=== PATIENT | female | born 1950 | race Caucasian/White ===

== ENCOUNTER → 2019-04-03 | Outpatient (CLI) | payer MEDICARE, OTHER, SELFPAY ==
[2019-03-30 09:36] VITALS: BMI 28.3
[2019-04-03 12:30] LABS: Absolute Lymphocyte Count 1.58 X10^3/uL (0.83-4.51); Absolute Neutrophil Count 3.9 X10^3/uL (2.0-7.7); Basophil# 0.05 X10^3/uL; Basophil% 0.8 % (0-1); Eosinophil# 0.29 X10^3/uL; Eosinophils% 4.6 % (0-5); Hematocrit 38.9 % (37-47); Lymphocyte # 1.58 X10^3/ul (4.0); Mean Corp Hgb Conc 33.4 g/dL (32-36); Mean Corpuscular Hgb 31.4 pg (27.0-32.0); Mean Platelet Vol. 9.6 fl (6.2-12.0); Monocyte# 0.46 X10^3/uL; Monocyte% 7.3 % (0-10); NRBC Flagged by Analyzer 0 % (0-5); Neutrophil # 3.92 X10^3/uL (2.7-7.7); Platelet Count 260 K/mm3 (150-450); RBC Distribution Width CV 12.5 % (11.6-14.6); Red Blood Count 4.14 M/mm3 (4.2-5.4); White Blood Count 6.3 K/mm3 (4.4-11.0)
[2019-04-03 12:51] LABS: ALB/GLOB Ratio 1.1 RATIO (0.9-2.4); AST(SGOT) 23 U/L (15-37); Alanine Aminotransfer ALT/SGPT 37 U/L (13-56); Albumin, Serum 3.7 g/dL (3.2-5.0); Alkaline Phosphatase 89 U/L (45-117); Anion Gap 2 (5-15); BUN 17 mg/dL (7-18); BUN/Creat Ratio 20.4 RATIO (10-20); Calcium,Total 9.2 mg/dL (8.5-10.1); Chloride 107 mmol/L (98-107); Cholesterol 151 mg/dL (200); Creatinine, Serum 0.83 mg/dL (0.55-1.02); EST Glomerular Filtration Rate 72 mL/min (>60); Est Glom Filt Rate - Afr Amer 87 mL/min (>60); Globulin 3.4 g/dL (2.2-4.2); Glucose 95 mg/dL (74-106); High Density Lipoprotein 52 mg/dL; Potassium 4.3 mmol/L (3.5-5.1); Protein, Total 7.1 g/dL (6.4-8.2); Sodium Level 139 mmol/L (136-145); Triglycerides 167 mg/dL; Very Low Density Lipoprotein 33 mg/dL (5-40)
== END | disposition home or self-care (01) ==
LOC: BIMLAB 09:27
PROVIDERS: PCP Internal Medicine; Visit Provider Internal Medicine
DX: E78.5 Hyperlipidemia, unspecified (principal); F32.9 Major depressive disorder, single episode, unspecified
CPT/HCPCS: 36415; 80053; 80061; 85025

== ENCOUNTER → 2019-04-10 | Outpatient (CLI) | payer MEDICARE, OTHER, SELFPAY ==
[2019-03-30 09:36] VITALS: BMI 28.3
--- NOTE | 2019-04-10 14:16 | BI_ITS ---
MAMMOGRAPHY - BILATERAL SCREENING REASON FOR EXAM: Female, 68 years old. Routine annual screening examination. PERTINENT HISTORY: Non-contributory. TECHNIQUE: Digital bilateral breast robson (3D mammographic acquisition) in the CC and MLO projections. 2-D mediolateral oblique (MLO) and craniocaudad (CC) views of both breasts were obtained. CAD: Full Field Digital Mammography with Computer Added Detection was performed. COMPARISON: Comparison is made with prior outside examination dated April 18, 2018. FINDINGS: Breast Composition: There are scattered areas of fibroglandular density. There are no dominant masses or suspicious calcifications. Stable bilateral fat-containing lymph nodes. No other significant abnormalities are identified. There has been no significant change since the prior study. BI/SCREEN MAMM (CAD) W/ROBSON BILAT IMPRESSION: Stable bilateral screening mammogram. Yearly follow-up mammogram recommended. (A) ASSESSMENT CATEGORY: BIRADS Category 2: Benign. A letter regarding these results will be sent to the patient by the facility within 30 days. Approximately 10% of breast cancers are not detected by mammography. A normal mammogram should not delay biopsy of a clinically suspicious abnormality. [id number] Electronically Signed: Ray Turner, at 12:27 EDT , Service support ,
== END | disposition home or self-care (01) ==
LOC: OPBI 14:13
PROVIDERS: Family Provider Internal Medicine; PCP Internal Medicine; Referring Provider Internal Medicine; Visit Provider Internal Medicine
DX: Z12.31 Encounter for screening mammogram for malignant neoplasm of breast (principal)
CPT/HCPCS: 77063; 77067

== ENCOUNTER → 2019-06-12 | Outpatient (CLI) | payer MEDICARE, OTHER, SELFPAY ==
[2019-05-04 10:03] VITALS: BMI 28.3
--- NOTE | 2019-06-12 12:15 | RAD_ITS ---
STUDY: X-RAY - LEFT SHOULDER REASON FOR EXAM: Left shoulder pain for several months after lifting heavy boxes in February/March. TECHNIQUE: 4 view(s) of the shoulder. COMPARISON: None. FINDINGS: Normal glenohumeral articulation. There is joint space loss of the acromioclavicular joint. Normal acromion. There is a small exostosis of the medial cortex of the proximal humeral diaphysis. The soft tissue structures are unremarkable. Normal visualized pulmonary apex. RAD/Shoulder min 2 Views IMPRESSION: Acromioclavicular arthrosis. Small exostosis of the proximal humeral diaphysis. Electronically Signed: Hong Santos MD at 15:26 EDT Tel , Service support ,
== END | disposition home or self-care (01) ==
LOC: RAD 12:14
PROVIDERS: Family Provider Internal Medicine; PCP Internal Medicine; Referring Provider Internal Medicine; Visit Provider Internal Medicine
DX: M25.512 Pain in left shoulder (principal)
CPT/HCPCS: 73030

== ENCOUNTER → 2019-08-27 10:56 | Outpatient (CLI) | payer MEDICARE, OTHER, SELFPAY ==
[2019-08-22 13:40] VITALS: BMI 28.3
--- NOTE | 2019-08-27 10:58 | US_ITS ---
STUDY: ULTRASOUND BREAST - RIGHT REASON FOR EXAM: Female, 69 years old. Palpable lump in the right breast. TECHNIQUE: Axial and longitudinal images of the RIGHT breast were performed with a high resolution ultrasound transducer. # OF IMAGES: 20 COMPARISON: Comparison is made with the prior mammogram dated April 10, 2019. FINDINGS: RIGHT Breast: The palpable abnormality corresponds to 2 adjacent benign appearing lymph nodes in the axillary region of the breast. The larger measures 1.4 cm x 1 cm x 0.8 cm. US/Breast Limited Unilateral IMPRESSION: Findings suggestive of 2 small lymph nodes corresponding to the palpable abnormality ASSESSMENT CATEGORY: BIRADS Category 2: Benign. A letter regarding these results will be sent to the patient by the facility within 30 days. Electronically Signed: Ray Turner, at 11:15 EST , Service support ,
== END ==
PROVIDERS: Family Provider Internal Medicine; PCP Internal Medicine; Visit Provider Internal Medicine
DX: N63.11 Unspecified lump in the right breast, upper outer quadrant (principal)
CPT/HCPCS: 76642

== ENCOUNTER 2020-11-17 13:03 | Outpatient (RCR) | payer MEDICARE, OTHER, SELFPAY ==
[2020-05-12 11:12] VITALS: BMI 28.3
== END 2020-11-17 23:59 ==
LOC: IMMUN 13:03
PROVIDERS: PCP Family Medicine; Visit Provider Family Medicine
DX: Z23 Encounter for immunization (principal)
CPT/HCPCS: 0011A; 0012A

== ENCOUNTER → 2021-03-30 09:39 | Outpatient (CLI) | payer MEDICARE, OTHER, SELFPAY ==
[2020-05-12 11:12] VITALS: BMI 28.3
[2021-03-30 13:34] LABS: AST(SGOT) 49 U/L (15-37); Alanine Aminotransfer ALT/SGPT 72 U/L (13-56); Albumin, Serum 3.6 g/dL (3.2-5.0); Alkaline Phosphatase 90 U/L (45-117); Anion Gap 8 (5-15); BUN 15 mg/dL (7-18); BUN/Creat Ratio 18.3 RATIO (10-20); Calcium,Total 9.3 mg/dL (8.5-10.1); Chloride 108 mmol/L (98-107); Cholesterol 155 mg/dL (200); Creatinine, Serum 0.82 mg/dL (0.55-1.02); EST Glomerular Filtration Rate 73 mL/min (>60); Est Glom Filt Rate - Afr Amer 88 mL/min (>60); Globulin 3.6 g/dL (2.2-4.2); Glucose 118 mg/dL (74-106); High Density Lipoprotein 50 mg/dL; Protein, Total 7.2 g/dL (6.4-8.2); Sodium Level 141 mmol/L (136-145); Triglycerides 199 mg/dL; Very Low Density Lipoprotein 40 mg/dL (5-40)
== END ==
PROVIDERS: PCP Family Medicine; Referring Provider Family Medicine; Visit Provider Family Medicine
DX: E66.9 Obesity, unspecified (principal)
CPT/HCPCS: 36415; 80053; 80061

== ENCOUNTER → 2021-06-08 11:00 | Outpatient (CLI) | payer MEDICARE, OTHER, SELFPAY ==
[2020-05-12 11:12] VITALS: BMI 28.3
--- NOTE | 2021-06-08 11:01 | BI_ITS ---
MAMMOGRAPHY - BILATERAL SCREENING REASON FOR EXAM: Female, 70 years old. Routine annual screening examination. PERTINENT HISTORY: Non-contributory. TECHNIQUE: Digital bilateral breast robson (3D mammographic acquisition) in the CC and MLO projections. 2-D mediolateral oblique (MLO) and craniocaudad (CC) views of both breasts were obtained. CAD: Full Field Digital Mammography with Computer Added Detection was performed. COMPARISON: Comparison is made with prior study dated 04/10/2019. FINDINGS: Breast Composition: There are scattered areas of fibroglandular density. There are no dominant masses or suspicious calcifications. Stable benign-appearing bilateral axillary lymph nodes. No other significant abnormalities are identified. There has been no significant change since the prior study. BI/SCRN MAMM (CAD)W/ROBSON BILAT IMPRESSION: Stable bilateral screening mammogram. Yearly follow-up mammogram recommended. (A) ASSESSMENT CATEGORY: BIRADS Category 2: Benign. A letter regarding these results will be sent to the patient by the facility within 30 days. Approximately 10% of breast cancers are not detected by mammography. A normal mammogram should not delay biopsy of a clinically suspicious abnormality. [id number] Electronically Signed: Ray Turner MD at 12:40 EDT , Service support ,
== END ==
PROVIDERS: PCP Family Medicine; Referring Provider Family Medicine; Visit Provider Family Medicine
DX: Z13.1 Encounter for screening for diabetes mellitus (principal)
CPT/HCPCS: 77063; 77067

== ENCOUNTER → 2021-07-03 13:46 | Outpatient (CLI) | payer MEDICARE, OTHER, SELFPAY ==
[2021-07-03 17:53] LABS: ALB/GLOB Ratio 0.9 RATIO (0.9-2.4); AST(SGOT) 50 U/L (15-37); Alanine Aminotransfer ALT/SGPT 74 U/L (13-56); Albumin, Serum 3.7 g/dL (3.2-5.0); Alkaline Phosphatase 89 U/L (45-117); Anion Gap 7 (5-15); BUN 15 mg/dL (7-18); BUN/Creat Ratio 18.6 RATIO (10-20); Calcium,Total 9.7 mg/dL (8.5-10.1); Chloride 105 mmol/L (98-107); Creatinine, Serum 0.81 mg/dL (0.55-1.02); EST Glomerular Filtration Rate 74 mL/min (>60); Est Glom Filt Rate - Afr Amer 89 mL/min (>60); Free T3 2.2 pg/mL (2.18-3.98); Globulin 3.9 g/dL (2.2-4.2); Glucose 95 mg/dL (74-106); Potassium 4.1 mmol/L (3.5-5.1); Protein, Total 7.6 g/dL (6.4-8.2); Sodium Level 140 mmol/L (136-145); Thyroid Stim Hormone (TSH) 3.87 uIU/mL (0.358-3.74)
== END ==
PROVIDERS: PCP Family Medicine; Referring Provider Family Medicine; Visit Provider Family Medicine
DX: L65.9 Nonscarring hair loss, unspecified (principal)
CPT/HCPCS: 36415; 80053; 84443; 84481

== ENCOUNTER 2021-07-18 09:45 | Emergency (ER) | payer MEDICARE, OTHER, SELFPAY ==
[2021-07-18 09:46] VITALS: BP 121/85; PULSE 86; RESP 20; TEMP 36.6; O2SAT 99; BMI 31.7
--- NOTE | 2021-07-18 10:12 | ED.VIS.LOWEX ---
HPI History of Present Illness Chief Complaint: Lower Extremity Injury Informant: patient Occured/Mechanism Mechanism/Context: Yes injury Onset/Context/Timing Onset: Days Context: Sudden Onset Timing: Continuous Quality of Pain: Sharp Current Severity: Mild Maximum Severity: Moderate Associated Symptoms Associated Symptoms: Negative for Parasthesia, Weakness and Loss of Funtion Narrative Narrative: 70-year-old female history of prior rectal cancer with a colostomy. Tripped over a box about a week ago injuring the posterior aspect of her left knee. Was seen in urgent care last night and x-rays obtained which were reportedly negative. But is having continued pain. Difficulty bearing weight. Prior similar symptoms: No Recent Illness/Hospitalization: No PFSH PFSH Medical History History of malignant neoplasm of rectum, rectosigmoid junction, and anus Home Medications multivitamin 1 cap PO DAILY 03/06/19 [History Last Taken Unknown] oscal PO 03/06/19 [History Last Taken Unknown] oxybutynin chloride 15 mg tablet,extended release 24 hr 15 mg PO DAILY 08/22/19 [History Last Taken Unknown] ibuprofen 600 mg tablet 600 mg PO TID PRN #30 tab 04/30/20 [Rx Last Taken Unknown] prednisone 20 mg tablet 20 mg PO DAILY #5 tab 05/12/20 [Rx Last Taken Unknown] sertraline 50 mg tablet 50 mg PO DAILY #30 tab 03/31/21 [Rx Last Taken Unknown] hydrocodone-acetaminophen 1 tab PO Q6H PRN 5 Days #14 tab 07/18/21 [Rx Last Taken Unknown] Allergy/AdvReac Type Severity Reaction Status Date / Time Penicillins Allergy Unknown rash Verified 07/18/21 09:48 duratuss cough medication Allergy Unknown rash Uncoded 07/18/21 09:48 Family History Father Myocardial infarction Brother Myocardial infarction Surgical History History of creation of ostomy History of hysterectomy History of removal of cyst Social History Smoking Status: Never smoker alcohol intake: never substance use type: does not use what type of physical activity do you participate in: none ROS ROS ED ROS Narrative Denies recent illness. Review of Systems ROS Unobtainable: Denies due to encephalopathy Constitutional Constitutional ED: Denies fever(s) Eyes Eyes: Denies change in vision ENT ENT ED: Denies ear pain Cardiovascular Cardiovascular: Denies chest pain Respiratory/Chest Respiratory/Chest: Denies dyspnea Gastrointestinal Gastrointestinal: Denies abdominal pain Genitourinary Genitourinary ED: Denies dysuria Musculoskeletal Musculoskeletal: Denies myalgias Integumentary Denies rash Neurologic Neurologic: Denies headache(s) Psychiatric Psychiatric: Denies depression Endocrine Endocrinology: Denies polyuria Hematologic/Lymphatic Hematologic/Lymphatic: Denies easy bruising Allergic/Immunologic Allergic/Immunologic ED: Denies urticaria EXAM Physical Exam Narrative Exam Narrative: Female no acute distress. Lying in bed. Vital signs stable afebrile. HEENT, neck, heart, lung and abdominal exam are unremarkable. Back nontender. Both upper extremities right lower extremity unremarkable nontender. Left lower extremity left hip ankle and foot are nontender neurovascularly intact. Normal DP pulse. She is able to dorsi and plantar flex her left ankle and foot. Able to wiggle her toes. Normal touch sensation. The left knee there is no effusion. No gross bony deformity. She has pain with range of motion. All the pain and tenderness is in the popliteal fossa over the soft tissue. ACL PCL MCL LCL appear to be intact. She can lift her leg off the bed and has normal extension 180 degrees. Otherwise exam unremarkable. Const Vital Signs: 07/18/21 09:46 Temperature 97.9 F Temperature Source Temporal Pulse Rate 86 Respiratory Rate 20 H Blood Pressure 121/85 H Blood Pressure Mean 97 Pulse Ox 99 Oxygen Delivery Method Room Air Positive well nourished and well developed; Negative for cachectic, contractures or unkempt General Appearance ED: well developed and NAD; Negative for unkempt, cachectic or contractures Nutritional Appearance: Negative for cachectic HEENT Reports moist mucous membranes normocephalic and atraumatic Eyes PERRL Neck full ROM and supple Thyroid: Negative for tender Chest Wall inspection of chest normal and palpation of chest normal Resp normal respiratory effort, no retractions and clear to auscultation bilaterally Auscultation: Negative for rales, rhonchi or wheezes Cardio regular rate, regular rhythm, S1 normal heart sound, S2 normal heart sound and no murmurs GI non-tender, non-distended and no masses Auscultation: normoactive bowel sounds Palpation: soft; Negative for tender or guarding Back/Spine no CVA tenderness Cervical Spine: Negative for cervical spine tenderness Thoracic Spine / Upper Back: Negative for thoracic spinal tenderness Lumbar Spine / Lower Back: Negative for lumbar spinal tenderness Extremity normal to inspection and full ROM Extremity Narrative: Except left knee posteriorly she is tender palpation. She has full extension. No effusion. Ligaments are intact. She has tenderness on the popliteal fossa and pain with flexion. Neuro oriented x3 and moves all extremities Sensorium / Orientation: alert, oriented to person, oriented to place and oriented to time; Negative for orientation impaired or stuporous Motor Exam: strength 5/5 throughout Psych mental status grossly normal Appearance: Negative for unkempt Skin no wounds Lesions: no lesions Rashes: no rashes Trauma: Negative for abrasion or laceration MDM MDM MDM Narrative Medical decision making narrative: Patient status post fall a week ago with pain in her posterior knee. I will review the x-rays she brought with her. She was given Vicodin for pain. I have reviewed the patient's knee x-ray from the urgent care the other day. It was unremarkable. She had some mild decreased joint space. There was no fracture or dislocation. I went over the films with her and her explained to them that you do not see cartilage and ligaments or tendons on an x-ray. Clinically I think this is a sprain of her posterior knee and popliteal muscle soft tissue injury. She understands if is not improving she will need to follow-up with orthopedics she may need an MRI of her knee to rule out a meniscal tear. Ice. Rest. Use a walker at home. Limited [place] for pain 14 no refill. Follow-up with orthopedics if not improving in 1 to 2 weeks. Discharge Plan Triage Chief Complaint: Lower Extremity Injury ED Provider: Dudley Allen Dx/Rx/DC Orders Clinical Impression: Left knee sprain Instructions: ED Knee Sprain Prescriptions: New hydrocodone-acetaminophen 5-325 mg tablet 1 tab PO Q6H PRN (Reason: pain) 5 Days Qty: 14 RF: 0 No Action oscal PO RF: 0 multivitamin capsule capsule 1 cap PO DAILY RF: 0 oxybutynin chloride 15 mg tablet extended release 24hr 15 mg PO DAILY RF: 0 ibuprofen 600 mg tablet 600 mg PO TID PRN (Reason: pain) Qty: 30 RF: 0 prednisone 20 mg tablet 20 mg PO DAILY Qty: 5 RF: 0 sertraline [Zoloft] 50 mg tablet 50 mg PO DAILY Qty: 30 RF: 0 Primary Care Provider: Adarsh Solano Referrals: Adarsh Solano MD [Primary Care Provider] - Activity Restrictions/Additional Instructions: Ice to back your knee to decrease pain and swelling. Motrin 400 mg twice a day for pain and swelling. [place] for pain. Use a walker at home. Follow-up with your doctor or a local orthopedic physician for further evaluation if this is not improving. Clinically this appears to be a sprained knee if it is not improving needs further evaluation and possibly an MRI to evaluate for possible meniscal tear. Disposition Disposition: Home, Self Care
[2021-07-18] MEDS: HYDROcodone Bitartrate/Apap 5/325 Tablet PO (10:23)
--- NOTE | 2021-07-18 11:34 | ED.RN ---
Pt able to bear weight on right leg to assist with transfer to W/C and to enter car. She required minimal assist getting into car. They have stated they would call family friend to assist into house.
== END 2021-07-18 11:35 | disposition home or self-care (01) ==
PROVIDERS: Emergency Provider Emergency Medicine; PCP Family Medicine
DX: S83.8X2A Sprain of other specified parts of left knee, initial encounter (principal); Z93.3 Colostomy status; Z85.048 Personal history of other malignant neoplasm of rectum, rectosigmoid junction, and anus; W01.0XXA Fall on same level from slipping, tripping and stumbling without subsequent striking against object, initial encounter; Y93.01 Activity, walking, marching and hiking; Y92.008 Other place in unspecified non-institutional (private) residence as the place of occurrence of the external cause; Y99.8 Other external cause status
CPT/HCPCS: 99282

== ENCOUNTER 2021-12-24 23:06 | Emergency (ER) | payer MEDICARE, OTHER, SELFPAY ==
[2021-12-24 23:07] VITALS: BP 218/85; PULSE 130; RESP 18; TEMP 38.2; O2SAT 95; BMI 31.7
--- NOTE | 2021-12-24 23:17 | EKG12_ITS ---
Test Reason : ABD PAIN Blood Pressure : / mmHG Vent. Rate : 090 BPM Atrial Rate : 090 BPM P-R Int : 158 ms QRS Dur : 086 ms QT Int : 378 ms P-R-T Axes : 067 003 068 degrees QTc Int : 462 ms Sinus rhythm with Premature supraventricular complexes Nonspecific ST and T wave abnormality Abnormal ECG Confirmed by ROBINSON LLOYD, KORY ([id number]), editor newspaper KRISTIE BRISCOE ([id number]) on 12/30/2021 11:03:56 AM Referred By: Confirmed By:KORY BOWERS MD
--- NOTE | 2021-12-24 23:21 | EX.ED.DYSGE1 ---
HPI History of Present Illness Chief Complaint: General Illness Informant: patient Narrative Narrative: Patient started with sense of chills at about 9 or 930 this evening. She now has had about 3 or 4 episodes of vomiting over the last hour and a half. No blood or black seen. No diarrhea. She does not have abdominal pain. She has chronic rhinorrhea but no new congestion or drainage. No cough. She also has some chronic urinary frequency. She does not know if this is changed. She is overall a relatively healthy person. She was diagnosed with rectal cancer about 10 years ago. She had chemotherapy radiation and surgery and it is thought to be completely cured. She had an ostomy placed about 3 or so years ago due to chronic diarrhea. No change in ostomy output. Nothing really makes her symptoms better or worse but she did not have any meds at home to help with nausea. [facility] Medical History (Updated 12/25/21 @ 02:[address] Geovany Carrera MD) Depression History of malignant neoplasm of rectum, rectosigmoid junction, and anus Hyperlipidemia Sleep apnea Urinary incontinence Home Medications multivitamin 1 cap PO DAILY 03/06/19 [History Last Taken Unknown] oscal PO 03/06/19 [History Last Taken Unknown] oxybutynin chloride 15 mg tablet,extended release 24 hr 15 mg PO DAILY 08/22/19 [History Last Taken Unknown] ibuprofen 600 mg tablet 600 mg PO TID PRN #30 tab 04/30/20 [Rx Last Taken Unknown] prednisone 20 mg tablet 20 mg PO DAILY #5 tab 05/12/20 [Rx Last Taken Unknown] sertraline 50 mg tablet 50 mg PO DAILY #30 tab 03/31/21 [Rx Last Taken Unknown] hydrocodone-acetaminophen 1 tab PO Q6H PRN 5 Days #14 tab 07/18/21 [Rx Last Taken Unknown] ondansetron 4 mg PO Q8H PRN #10 tab 12/25/21 [Rx Last Taken Unknown] promethazine 25 mg PO TID PRN #10 tab 12/25/21 [Rx Last Taken Unknown] Allergy/AdvReac Type Severity Reaction Status Date / Time Penicillins Allergy Unknown rash Verified 12/24/21 23:09 duratuss cough medication Allergy Unknown rash Uncoded 07/18/21 09:48 Family History Father Myocardial infarction Brother Myocardial infarction Surgical History History of creation of ostomy History of hysterectomy History of removal of cyst Social History Smoking Status: Never smoker alcohol intake: never substance use type: does not use what type of physical activity do you participate in: none ROS ROS ED Constitutional Constitutional ED: Reports chills and fever(s) Eyes Eyes: Denies blurry vision ENT ENT ED: Reports rhinorrhea and other Details: Rhinorrhea is chronic and unchanged ; Denies sore throat Cardiovascular Cardiovascular: Denies chest pain or palpitations Respiratory/Chest Respiratory/Chest: Denies cough, dyspnea, dyspnea on exertion or sputum Gastrointestinal Gastrointestinal: Reports nausea and vomiting; Denies abdominal pain, constipation, diarrhea or melena Genitourinary Genitourinary ED: Reports urinary frequency; Denies dysuria Musculoskeletal Musculoskeletal: Denies myalgias Integumentary Denies rash Neurologic Neurologic: Denies headache(s) Psychiatric Psychiatric: Denies anxiety or depression Endocrine Endocrinology: Denies polydipsia or polyuria Allergic/Immunologic Allergic/Immunologic ED: Denies urticaria EXAM Physical Exam Const Vital Signs: 12/24/21 23:07 12/24/21 23:13 12/25/21 02:07 Temperature 100.8 F H Temperature Source Temporal Pulse Rate 130 H 91 Respiratory Rate 18 18 Respiratory Effort Normal Respiratory Pattern Normal Blood Pressure 218/85 H 160/36 H Blood Pressure Mean 129 77 Pulse Ox 95 92 Oxygen Delivery Method Room Air Room Air Positive well nourished and well developed General Appearance ED: well developed; Negative for cyanotic or NAD HEENT Reports moist mucous membranes Negative for trauma Eyes General Eye ED: Negative for pale conjunctiva or scleral icterus Neck no JVD Chest Wall inspection of chest normal and palpation of chest normal Resp normal respiratory effort and clear to auscultation bilaterally Effort and Inspection: Negative for pain with movement Auscultation: Negative for rales, rhonchi or wheezes Cardio regular rate, regular rhythm and no murmurs Rate: other Other Details: Heart rate was tachycardic when she came in. However, it is now at about 90 while in bed. GI normal to inspection, nondistended, normoactive bowel sounds, non-tender and non-distended GI Narrative: Abdomen is soft nondistended and nontender. Ostomy left lower quadrant has normal drainage and healthy appearance. Palpation: soft Back/Spine no CVA tenderness Extremity normal to inspection Neuro oriented x3 Sensorium / Orientation: alert Psych mental status grossly normal Skin no rashes or lesions noted and no wounds MDM MDM MDM Narrative Medical decision making narrative: Patient's labs do show an elevated white count of 15.2. Electrolytes show minimal drop of her potassium at 3.4. LFTs show minimal bumps of AST ALT. Alk phos and total bili are normal. Lipase is normal. Her urinalysis also did not show marked signs of infection. It was clear pale yellow. There is 25 leukocyte esterase but no white cells. Rare bacteria. Patient's recheck. She is feeling better. Nausea is controlled. However she is starting to get some nonlocalized abdominal discomfort. She feels this is likely from recurrent vomiting. She is still denying any cough or trouble breathing. No rashes. She does state that she is starting to feel a little bit of myalgias. I will add chest x-ray and Covid test along with CT of the abdomen with her changing symptoms along with vomiting white count and fever. She was also already scheduled to have a CT of the abdomen as an outpatient due to some mild elevations of her liver function test. Her liver function tests are little less elevated today than they have been. CT showed findings more consistent with an enteritis. She has not had any travel or antibiotics. Her abdomen is benign. I do not think this requires antibiotics to treat. This is most likely viral. She does not know if she has developed diarrhea because she always has watery stools and diarrhea because of her ostomy and prior surgery. She does not think this is changed. Her nausea is gone. She has been drinking some water. She is comfortable going home. I will write for Phenergan and Zofran. If she develops pain, worsening fevers, any new or concerning symptoms she should return. Her chest x-ray had shown possible left infiltrate or atelectasis. But she has no pulmonary symptoms or hypoxia. CT scan did not show these changes. Lab Data Attestation: I reviewed the patient's lab results. Labs: Laboratory Results - last 24 hr 04/07/22 04/07/22 04/07/22 23:40 23:40 23:58 WBC 15.2 H RBC 4.29 Hgb 13.8 Hct 39.4 MCV 91.8 MCH 32.2 H MCHC 35.0 RDW Std Deviation 41.7 RDW Coeff of Axel 12.4 Plt Count 241 MPV 9.3 Immature Gran % (Auto) 0.400 Neut % (Auto) 82.6 H Lymph % (Auto) 9.4 L [place] % (Auto) 6.4 Eos % (Auto) 0.9 Baso % (Auto) 0.3 Absolute Neuts (auto) 12.5 H Absolute Lymphs (auto) 1.43 Nucleated RBC % 0 Sodium 140 Potassium 3.4 L Chloride 109 H Carbon Dioxide 23.0 Anion Gap 8 BUN 12 Creatinine 0.89 Estim Creat Clear Calc 48.61 Est GFR (MDRD) Af Amer 80 Est GFR (MDRD) Non-Af 66 BUN/Creatinine Ratio 13.5 Glucose 160 H Calcium 8.9 Total Bilirubin 0.40 AST 39 H ALT 70 H Alkaline Phosphatase 90 Total Protein 7.0 Albumin 3.5 Globulin 3.5 Albumin/Globulin Ratio 1.0 Lipase 84 Urine Color Yellow Urine Clarity Clear Urine pH 5.0 Ur Specific [place] 1.020 Urine Protein 15 H Urine Glucose (UA) Normal Urine Ketones Negative Urine Occult Blood Negative Urine Nitrite Negative Urine Bilirubin Negative Urine Urobilinogen Normal Ur Leukocyte Esterase 25 H Urine RBC 0 SEEN Urine WBC 0-5 SEEN Ur Squamous Epith Cells 0 SEEN Urine Bacteria RARE Urine Mucus 0 SEEN Radiography Diagnostic Testing: Clinical Impression(s) from Imaging Studies Chest X-Ray 12/25/21 00:50 IMPRESSION: Hazy left basal opacity, may represent atelectasis or infection. Electronically Signed: Yariel Negro MD at 1:13 EDT , Abdomen/Pelvis CT 12/25/21 00:51 IMPRESSION: 1. Findings suggestive of acute infectious or inflammatory enteritis and possible colitis. 2. Hepatomegaly. 3. 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 Electronically Signed: Birgit Gaytan MD at 2:11 EDT , EKG Initial EKG: Comments: EKG done for nonspecific abdominal pain nausea vomiting in the elderly. EKG read by me shows normal sinus rhythm with occasional PAC. No acute ST elevation or depression. Mild baseline irregularity. SD interval, QRS duration and QTc normal. Discharge Plan Triage Chief Complaint: General Illness ED Provider: Geovany Carrera Dx/Rx/DC Orders Clinical Impression: Enteritis, Nausea & vomiting Instructions: ED Vomiting and Diarrhea ... Prescriptions: New ondansetron 4 mg tablet,disintegrating 4 mg PO Q8H PRN (Reason: nausea and vomiting) Qty: 10 RF: 0 promethazine 25 mg tablet 25 mg PO TID PRN (Reason: nausea and vomiting) Qty: 10 RF: 0 No Action oscal PO RF: 0 multivitamin capsule capsule 1 cap PO DAILY RF: 0 oxybutynin chloride 15 mg tablet extended release 24hr 15 mg PO DAILY RF: 0 ibuprofen 600 mg tablet 600 mg PO TID PRN (Reason: pain) Qty: 30 RF: 0 prednisone 20 mg tablet 20 mg PO DAILY Qty: 5 RF: 0 hydrocodone-acetaminophen 5-325 mg tablet 1 tab PO Q6H PRN (Reason: pain) 5 Days Qty: 14 RF: 0 sertraline [Zoloft] 50 mg tablet 50 mg PO DAILY Qty: 30 RF: 0 Primary Care Provider: Adarsh Solano Referrals: Adarsh Solano MD [Primary Care Provider] - 1-2 Days if not improving Disposition Disposition: Home, Self Care
[2021-12-24] MEDS: Ondansetron 4 MG/2 ML Vial IV (23:24)
[2021-12-24] MEDS: 0.9% Normal Saline 1,000 ML 1000 ML IV (23:24)
[2021-12-24 23:48] LABS: Absolute Lymphocyte Count 1.43 X10^3/uL (0.83-4.51); Absolute Neutrophil Count 12.5 X10^3/uL (2.0-7.7); Basophil# 0.04 X10^3/uL; Basophil% 0.3 % (0-1); Eosinophil# 0.13 X10^3/uL; Eosinophils% 0.9 % (0-5); Hematocrit 39.4 % (37-47); Hemoglobin 13.8 g/dL (12.0-15.0); Lymphocyte # 1.43 X10^3/ul (0.83-4.51); Lymphocyte % 9.4 % (19-41); Mean Corpuscular Hgb 32.2 pg (27.0-32.0); Mean Corpuscular Volume 91.8 fL (81-99); Mean Platelet Vol. 9.3 fl (6.2-12.0); Monocyte# 0.97 X10^3/uL; Monocyte% 6.4 % (0-10); NRBC Flagged by Analyzer 0 % (0-5); Neutrophil # 12.52 X10^3/uL (2.7-7.7); Neutrophil % 82.6 % (47-70); Platelet Count 241 K/mm3 (150-450); RBC Distribution Width CV 12.4 % (11.6-14.6); RBC Distribution Width SD 41.7 fl (35.1-43.9); Red Blood Count 4.29 M/mm3 (4.2-5.4); White Blood Count 15.2 K/mm3 (4.4-11.0)
[2021-12-25] LABS: Mucous, Urine 0 SEEN /hpf (<or=2+); Red Blood Cells-Urine 0 SEEN /hpf (0-5); Squamous Epithelial Cells - UA 0 SEEN /hpf (5-10)
[2021-12-25 00:02] LABS: Color, Urine Yellow (Yellow); Glucose, Dipstick Normal (Normal); Ketone-Dipstick Negative (Negative); Leukocyte Esterase-Dipstick 25 /ul (Negative); Nitrite-Dipstick Negative (Negative); Occult Blood-Urine Negative /ul (Negative); Protein-Dipstick 15 mg/dl (Negative); Urine Bilirubin Dipstick Negative (Negative); Urine Clarity Clear (Clear); Urine Urobilinogen Normal (Normal)
[2021-12-25 00:38] LABS: Bacteria RARE /hpf (None Seen); White Blood Cells 0-5 SEEN /hpf (0-5)
[2021-12-25 00:41] LABS: AST(SGOT) 39 U/L (15-37); Alanine Aminotransfer ALT/SGPT 70 U/L (13-56); Albumin, Serum 3.5 g/dL (3.2-5.0); Alkaline Phosphatase 90 U/L (45-117); Anion Gap 8 (5-15); BUN 12 mg/dL (7-18); BUN/Creat Ratio 13.5 RATIO (10-20); Calcium,Total 8.9 mg/dL (8.5-10.1); Chloride 109 mmol/L (98-107); Creatinine, Serum 0.89 mg/dL (0.55-1.02); EST Glomerular Filtration Rate 66 mL/min (>60); Est Glom Filt Rate - Afr Amer 80 mL/min (>60); Estimated Creatinine Clearance 48.61 ml/min; Globulin 3.5 g/dL (2.2-4.2); Glucose 160 mg/dL (74-106); Lipase 84 U/L (73-393); Potassium 3.4 mmol/L (3.5-5.1); Sodium Level 140 mmol/L (136-145)
--- NOTE | 2021-12-25 00:50 | RAD_ITS ---
INDICATION: cough EXAMINATION/TECHNIQUE: X-RAY - XR Chest 1 View COMPARISON: None. FINDINGS: LINES/DEVICES: None. LUNGS: Hazy retrocardiac and left lower lobe opacity partially obscuring the left hemidiaphragm. MEDIASTINUM AND CARDIOVASCULAR STRUCTURES: Atherosclerotic calcifications. BONES AND SOFT TISSUES: Unremarkable. RAD/Chest 1 View (Portable) IMPRESSION: Hazy left basal opacity, may represent atelectasis or infection. Electronically Signed: Yariel Negro MD at 1:13 EDT ,
--- NOTE | 2021-12-25 00:51 | CT_ITS ---
STUDY: CT ABDOMEN AND PELVIS WITH CONTRAST REASON FOR EXAM: Female, 71 years old patient with abdominal pain and vomiting RADIATION DOSAGE (If Supplied By Facility): CTDIvol = ( 12.74 ) mGy, DLP = ( 981.66 ) mGycm TECHNIQUE: Transaxial images were obtained from the dome of the diaphragm to the symphysis pubis without oral contrast. 100 mL of IV Isovue-300 was administered. Sagittal and coronal images were reconstructed. Individualized dose optimization techniques were used for this CT. COMPARISON: Prior comparison studies are not available for review at this time. FINDINGS: There is interstitial thickening present along bases. There is right basilar subsegmental atelectasis. There is a lingular pulmonary nodule measuring 7.5 mm in greatest dimension. The visualized portions of the heart are within normal limits. There is hepatomegaly with diffuse hepatic enlargement. Normal gallbladder and extrahepatic biliary system. Normal spleen. Normal pancreas. Normal bilateral adrenal glands. There is prominence of the calyces of both kidneys. This may be secondary to previous obstruction or papillary necrosis. There is no definite hydronephrosis, hydroureter or radiopaque ureteral calculus. Normal visualized stomach. There is no obvious dilated bowel, ascites or pneumoperitoneum. There is some thickening of the matos of the proximal small bowel which could be secondary to acute infectious or inflammatory enteritis. There is some liquid stool visible in the ascending colon suggesting diarrhea in addition to acute infectious or inflammatory colitis. Stool is present throughout the colon with scattered diverticula. There is non-visualization of the appendix. Normal abdominal aorta. There is venous distention of the inferior vena cava (IVC). Normal retroperitoneum. Urinary bladder wall is mildly thickened measuring approximately 4.6 mm. There is absence of the uterus consistent with a prior hysterectomy. There is a left lower quadrant parastomal ventral hernia without obvious evidence for bowel obstruction. Normal osseous structures. CT/Abdomen/Pelvis W IV Cont ONLY IMPRESSION: 1. Findings suggestive of acute infectious or inflammatory enteritis and possible colitis. 2. Hepatomegaly. 3. 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 Electronically Signed: Birgit Gaytan MD at 2:11 EDT ,
[2021-12-25 02:07] VITALS: BP 160/36; PULSE 91; RESP 18; O2SAT 92
[2021-12-25] MEDS: Acetaminophen 500 MG Tablet 1000 MG PO (02:09)
== END 2021-12-25 02:49 | disposition home or self-care (01) ==
PROVIDERS: Emergency Provider Emergency Medicine; PCP Family Medicine; Visit Provider Emergency Medicine
DX: K52.9 Noninfective gastroenteritis and colitis, unspecified (principal); Z93.3 Colostomy status; E78.5 Hyperlipidemia, unspecified; R35.0 Frequency of micturition; Z20.822 Contact with and (suspected) exposure to COVID-19; G47.30 Sleep apnea, unspecified; R32 Unspecified urinary incontinence; Z85.048 Personal history of other malignant neoplasm of rectum, rectosigmoid junction, and anus; F32.A Depression, unspecified; Z79.899 Other long term (current) drug therapy
CPT/HCPCS: 71045; 74177; 80053; 81001; 83690; 85025; 87086; 87811; 93005; 96361; 96374; 99283; J7030; Q9967; J2405

== ENCOUNTER 2022-01-01 10:17 | Outpatient (CLI) | payer MEDICARE, OTHER, SELFPAY ==
--- NOTE | 2022-01-01 10:21 | US_ITS ---
STUDY: ABDOMINAL ULTRASOUND - RIGHT UPPER QUADRANT REASON FOR VISIT: Female, 71 years old elevated transaminase, hx rectal CA TECHNIQUE: Ultrasound evaluation of the right upper quadrant was performed with real-time and static cabello-scale imaging. TECHNICAL QUALITY: Adequate. COMPARISON: Comparison is made with prior CT scan of the abdomen and pelvis dated 12/25/2021. FINDINGS: Liver: The liver is enlarged and measures 18.3 cm. There is increased echogenicity consistent with fatty infiltration. The bile ducts are within normal limits. There is hepatic color flow. The direction of portal flow is hepatopetal. There is no demonstrated mass lesion. Gallbladder: Normal distended gallbladder. The gallbladder wall measures 2.2 mm. There is a negative sonographic Rodríguez''s sign. There is no pericholecystic fluid. There are multiple echogenic structures within the gallbladder, consistent with multiple gallstones. Common Bile Duct (C.B.D.): The common bile duct measures 2.8 mm. Pancreas: Normal size of the head, body and tail of the pancreas. There is normal echogenicity of the pancreas. There is no demonstrated pancreatic mass or cyst. Right Kidney: Normal size of the right kidney. The right kidney measures 10.8 cm x 4.8 cm x 4.8 cm. There is thinning of the renal cortex. The right cortex measures 0.9 cm. Small parapelvic cysts. There is no right hydronephrosis. US/Abdomen Limited IMPRESSION: Hepatomegaly and fatty infiltration of the liver. Multiple small gallstones. Small right parapelvic renal cyst Electronically Signed: Ray Turner MD at 13:59 EDT ,
== END 2022-01-01 23:59 | disposition home or self-care (01) ==
LOC: US 10:19
PROVIDERS: PCP Family Medicine; Referring Provider Family Medicine; Visit Provider Family Medicine
DX: R74.01 Elevation of levels of liver transaminase levels (principal); Z85.048 Personal history of other malignant neoplasm of rectum, rectosigmoid junction, and anus
CPT/HCPCS: 76705

== ENCOUNTER → 2022-06-25 | Outpatient (CLI) | payer MEDICARE, OTHER, SELFPAY ==
--- NOTE | 2022-06-25 13:46 | BI_ITS ---
MAMMOGRAPHY - BILATERAL SCREENING REASON FOR EXAM: Female, 71 years old. Routine annual screening examination. PERTINENT HISTORY: Non-contributory. Remote right breast biopsy. TECHNIQUE: Digital bilateral breast robson (3D mammographic acquisition) in the CC and MLO projections. 2-D mediolateral oblique (MLO) and craniocaudad (CC) views of both breasts were obtained. CAD: Full Field Digital Mammography with Computer Added Detection was performed. COMPARISON: Comparison is made with prior study dated 06/08/2021 and 04/10/2019. FINDINGS: Breast Composition: The breasts are heterogeneously dense, which may obscure small masses. There are no dominant masses or suspicious calcifications. Stable benign-appearing bilateral axillary No other significant abnormalities are identified. There has been no significant change since the prior study. BI/SCRN MAMM (CAD)W/ROBSON BILAT IMPRESSION: Stable bilateral screening mammogram. Yearly follow-up mammogram recommended. (A) ASSESSMENT CATEGORY: BIRADS Category 2: Benign. A letter regarding these results will be sent to the patient by the facility within 30 days. Approximately 10% of breast cancers are not detected by mammography. A normal mammogram should not delay biopsy of a clinically suspicious abnormality. [id number] Electronically Signed: Ray Turner MD at 14:37 EDT ,
== END | disposition home or self-care (01) ==
LOC: OPBI 13:46
PROVIDERS: PCP Family Medicine; Visit Provider Family Medicine
DX: Z12.31 Encounter for screening mammogram for malignant neoplasm of breast (principal)
CPT/HCPCS: 77063; 77067

== ENCOUNTER → 2022-07-07 | Outpatient (CLI) | payer MEDICARE, OTHER, SELFPAY ==
--- NOTE | 2022-07-07 15:45 | CT_ITS ---
STUDY: CT CHEST WITH CONTRAST REASON FOR EXAM: Female, 71 years old. Follow-up lung nodule. History of anal cancer with chemotherapy and radiation. RADIATION DOSAGE (If Supplied By Facility): CTDIvol = ( 15.17 ) mGy, DLP = ( 594.16 ) mGycm TECHNIQUE: Transaxial imaging was performed following intravenous administration of IV 100mL Isovue-370. Multiplanar coronal and sagittal images were reformatted. Individualized dose optimization techniques were used for this CT. COMPARISON: Chest, 12/25/2021. CT abdomen and pelvis, 04/26/2022. FINDINGS: CHEST The lungs are well expanded. There is a vague pleural-based density in the right lateral costophrenic angle 1.0 x 0.5 x 0.9 cm. The lingular nodule described on the prior exam has the appearance of linear thickening along the inferior oblique fissure on the current exam. Question scarring. No other mass or infiltrate is seen. No pleural effusions. Normal heart and pericardium. Normal mediastinum. Normal hilar regions. Normal unenhanced pulmonary arteries. Normal aorta arch and descending thoracic aorta. Stable degenerative changes of the thoracic spine. The liver is enlarged and fatty infiltrated. The upper abdomen is otherwise grossly unremarkable. CT/Chest WITH Contrast IMPRESSION: 1. Linear density along the lower lateral oblique fissure. This was described as a nodule on the prior CT abdomen and pelvis. This is the appearance of scarring. Follow-up could be performed to rule out possibility of a small underlying nodule. 2. Soft tissue density along the left diaphragmatic surface. This should be followed up to ensure stability. 3. Otherwise normal CT of the chest. Electronically Signed: Radhames Manzanares DO at 18:15 EDT ,
[2022-07-07 16:11] LABS: CREATININE FINGERSTICK < 0.9 mg/dL (0.55-1.02); EGFR FINGERSTICK > 60.0000 mL/min (>60)
== END | disposition home or self-care (01) ==
PROVIDERS: PCP Family Medicine; Referring Provider Family Medicine; Visit Provider Family Medicine
DX: R91.1 Solitary pulmonary nodule (principal)
CPT/HCPCS: 71260; Q9967

== ENCOUNTER → 2022-09-09 | Outpatient (CLI) | payer MEDICARE, OTHER, SELFPAY ==
[2022-09-09 15:08] LABS: Absolute Lymphocyte Count 2.62 X10^3/uL (0.83-4.51); Absolute Neutrophil Count 5.8 X10^3/uL (2.0-7.7); Basophil# 0.05 X10^3/uL; Basophil% 0.5 % (0-1); Eosinophil# 0.22 X10^3/uL; Eosinophils% 2.3 % (0-5); Hematocrit 41.5 % (37-47); Hemoglobin 14.4 g/dL (12.0-15.0); Lymphocyte # 2.62 X10^3/ul (0.83-4.51); Lymphocyte % 27.8 % (19-41); Mean Corp Hgb Conc 34.7 g/dL (32-36); Mean Corpuscular Hgb 32.3 pg (27.0-32.0); Mean Platelet Vol. 9.5 fl (6.2-12.0); Monocyte# 0.74 X10^3/uL; Monocyte% 7.8 % (0-10); NRBC Flagged by Analyzer 0 % (0-5); Neutrophil # 5.75 X10^3/uL (2.7-7.7); Neutrophil % 61.1 % (47-70); Platelet Count 271 K/mm3 (150-450); RBC Distribution Width CV 12.5 % (11.6-14.6); RBC Distribution Width SD 42.9 fl (35.1-43.9); Red Blood Count 4.46 M/mm3 (4.2-5.4); White Blood Count 9.4 K/mm3 (4.4-11.0)
[2022-09-09 15:46] LABS: Vitamin B12 626 pg/mL (211-911)
[2022-09-09 15:51] LABS: AST(SGOT) 57 U/L (15-37); Alanine Aminotransfer ALT/SGPT 89 U/L (13-56); Albumin, Serum 3.7 g/dL (3.2-5.0); Alkaline Phosphatase 92 U/L (45-117); Anion Gap 6 (5-15); BUN 14 mg/dL (7-18); BUN/Creat Ratio 19.6 RATIO (10-20); Calcium,Total 9.6 mg/dL (8.5-10.1); Chloride 106 mmol/L (98-107); Creatinine, Serum 0.71 mg/dL (0.55-1.02); EST Glomerular Filtration Rate 85 mL/min (>60); Est Glom Filt Rate - Afr Amer 103 mL/min (>60); Ferritin 357 ng/mL (8-252); Globulin 3.6 g/dL (2.2-4.2); Glucose 95 mg/dL (74-106); Potassium 4.1 mmol/L (3.5-5.1); Protein, Total 7.3 g/dL (6.4-8.2); Sodium Level 139 mmol/L (136-145); Thyroid Stim Hormone (TSH) 4.32 uIU/mL (0.358-3.74)
== END | disposition home or self-care (01) ==
LOC: MFPLAB 14:09
PROVIDERS: PCP Family Medicine; Referring Provider Family Medicine; Visit Provider Family Medicine
DX: R53.83 Other fatigue (principal)
CPT/HCPCS: 36415; 80053; 82306; 82607; 82728; 84443; 85025

== ENCOUNTER → 2022-09-21 | Outpatient (CLI) | payer MEDICARE, OTHER, SELFPAY ==
[2022-09-21 18:45] LABS: Free T3 2.4 pg/mL (2.18-3.98); T4 Free Direct 0.84 ng/dL (0.76-1.46); Thyroid Stim Hormone (TSH) 2.86 uIU/mL (0.358-3.74)
[2022-09-24 19:10] LABS: Anti-Thyroglobulin AB < 1.0 IU/mL (0.0-0.9); Thyroglobulin, Serum Qt. 12.8 ng/mL (1.5-38.5)
== END | disposition home or self-care (01) ==
LOC: MFPLAB 14:11
PROVIDERS: PCP Family Medicine; Referring Provider Family Medicine; Visit Provider Family Medicine
DX: R79.89 Other specified abnormal findings of blood chemistry (principal); R53.83 Other fatigue
CPT/HCPCS: 36415; 84432; 84439; 84443; 84481; 86800

== ENCOUNTER → 2023-01-20 | Outpatient (CLI) | payer MEDICARE, OTHER, SELFPAY ==
--- NOTE | 2023-01-20 15:30 | RAD_ITS ---
STUDY: X-RAY CHEST REASON FOR EXAM: Female, 72 years old. Cough not resolving TECHNIQUE: Single AP portable view of the chest. COMPARISON: Comparison is made to study dated December 25, 2021. FINDINGS: Hyperinflation. Calcified granuloma in the left lower lobe. Stable mild increased markings at the left lung base suggestive of a mild left basilar scarring. There is no demonstrated pleural abnormality. Normal size heart. Normal mediastinum and sailaja. Normal visualized pulmonary arteries. Normal visualized aortic arch and descending thoracic aorta. There are diffuse degenerative changes of the visualized thoracic spine. Normal visualized ribs, clavicles, and shoulders. There is no demonstrated abnormality of the visualized soft tissue structures of the upper abdomen. RAD/Chest 1 View IMPRESSION: Hyperinflation. Stable changes at the left lung base suggestive of scarring. Electronically Signed: Ray Turner MD at 15:49 EDT ,
== END | disposition home or self-care (01) ==
LOC: RAD 15:04
PROVIDERS: PCP Family Medicine; Referring Provider Family Medicine; Visit Provider Family Medicine
DX: R05.9 Cough, unspecified (principal)
CPT/HCPCS: 71045

== ENCOUNTER → 2023-06-24 | Outpatient (CLI) | payer MEDICARE, OTHER, SELFPAY ==
[2023-06-24 10:19] LABS: Absolute Lymphocyte Count 2.45 X10^3/uL (0.83-4.51); Basophil# 0.06 X10^3/uL; Basophil% 0.7 % (0-1); Eosinophil# 0.36 X10^3/uL; Eosinophils% 4.2 % (0-5); Hematocrit 39.9 % (37-47); Hemoglobin 13.3 g/dL (12.0-15.0); Lymphocyte # 2.45 X10^3/ul (0.83-4.51); Lymphocyte % 28.6 % (19-41); Mean Corp Hgb Conc 33.3 g/dL (32-36); Mean Corpuscular Hgb 31.7 pg (27.0-32.0); Mean Platelet Vol. 9.9 fl (6.2-12.0); Monocyte% 8.2 % (0-10); NRBC Flagged by Analyzer 0 % (0-5); Neutrophil # 4.95 X10^3/uL (2.7-7.7); Neutrophil % 57.8 % (47-70); Platelet Count 255 K/mm3 (150-450); RBC Distribution Width CV 12.3 % (11.6-14.6); RBC Distribution Width SD 42.5 fl (35.1-43.9); White Blood Count 8.6 K/mm3 (4.4-11.0)
[2023-06-24 10:52] LABS: AST(SGOT) 43 U/L (15-37); Alanine Aminotransfer ALT/SGPT 71 U/L (13-56); Albumin, Serum 3.4 g/dL (3.2-5.0); Alkaline Phosphatase 76 U/L (45-117); Anion Gap 5 (5-15); BUN 16 mg/dL (7-18); BUN/Creat Ratio 20.2 RATIO (10-20); Calcium,Total 9.2 mg/dL (8.5-10.1); Chloride 109 mmol/L (98-107); Cholesterol 150 mg/dL (200); Creatinine, Serum 0.79 mg/dL (0.55-1.02); EST Glomerular Filtration Rate 75 mL/min (>60); Est Glom Filt Rate - Afr Amer 91 mL/min (>60); Globulin 3.5 g/dL (2.2-4.2); Glucose 105 mg/dL (74-106); High Density Lipoprotein 49 mg/dL; Potassium 3.7 mmol/L (3.5-5.1); Protein, Total 6.9 g/dL (6.4-8.2); Sodium Level 139 mmol/L (136-145); Thyroid Stim Hormone (TSH) 5.36 uIU/mL (0.358-3.74); Triglycerides 172 mg/dL; Very Low Density Lipoprotein 34 mg/dL (5-40)
== END | disposition home or self-care (01) ==
LOC: MFPLAB 08:43
PROVIDERS: PCP Family Medicine; Visit Provider Family Medicine
DX: Z00.00 Encounter for general adult medical examination without abnormal findings (principal); E78.5 Hyperlipidemia, unspecified; Z13.1 Encounter for screening for diabetes mellitus; R79.89 Other specified abnormal findings of blood chemistry
CPT/HCPCS: 36415; 80053; 80061; 84443; 85025

== ENCOUNTER → 2024-06-08 | Outpatient (CLI) | payer MEDICARE, OTHER, SELFPAY ==
[2024-06-08 10:32] LABS: Hematocrit 39.2 % (37-47); Hemoglobin 12.8 g/dL (12.0-15.0); Mean Corp Hgb Conc 32.7 g/dL (32-36); Mean Corpuscular Hgb 30.8 pg (27.0-32.0); Mean Corpuscular Volume 94.5 fL (81-99); Mean Platelet Vol. 9.7 fl (6.2-12.0); Platelet Count 246 K/mm3 (150-450); RBC Distribution Width CV 12.6 % (11.6-14.6); RBC Distribution Width SD 43.8 fl (35.1-43.9); Red Blood Count 4.15 M/mm3 (4.2-5.4); White Blood Count 8.2 K/mm3 (4.4-11.0)
[2024-06-08 11:09] LABS: AST(SGOT) 40 U/L (15-37); Alanine Aminotransfer ALT/SGPT 57 U/L (13-56); Albumin, Serum 3.5 g/dL (3.2-5.0); Alkaline Phosphatase 91 U/L (45-117); Anion Gap 8 (5-15); BUN 12 mg/dL (7-18); BUN/Creat Ratio 16.1 RATIO (10-20); Calcium,Total 9.3 mg/dL (8.5-10.1); Chloride 111 mmol/L (98-107); Cholesterol 150 mg/dL (200); Creatinine, Serum 0.75 mg/dL (0.55-1.02); EST Glomerular Filtration Rate 80 mL/min (>60); Est Glom Filt Rate - Afr Amer 97 mL/min (>60); Globulin 3.5 g/dL (2.2-4.2); Glucose 104 mg/dL (74-106); High Density Lipoprotein 53 mg/dL; Potassium 4.2 mmol/L (3.5-5.1); Sodium Level 142 mmol/L (136-145); Triglycerides 202 mg/dL; Very Low Density Lipoprotein 40 mg/dL (5-40)
[2024-06-08 11:27] LABS: Vitamin D,25 Hydroxy 44.4 ng/mL
== END | disposition home or self-care (01) ==
LOC: MFPLAB 08:40
PROVIDERS: PCP Family Medicine; Visit Provider Family Medicine
DX: R79.89 Other specified abnormal findings of blood chemistry (principal); R74.01 Elevation of levels of liver transaminase levels; R53.83 Other fatigue
CPT/HCPCS: 36415; 80053; 80061; 82306; 84443; 85027

== ENCOUNTER → 2024-07-19 | Outpatient (CLI) | payer MEDICARE, OTHER, SELFPAY ==
--- NOTE | 2024-07-19 12:48 | RAD_ITS ---
STUDY: X-RAY - PELVIS AND RIGHT HIP REASON FOR EXAM: Female, 73 years old. PAIN TECHNIQUE: 3 views of the pelvis and right hip. COMPARISON: None. FINDINGS: There is a non-specific bowel gas pattern. There are multiple small calcified phleboliths. Normal bilateral iliac wings, sacroiliac joints and visualized sacrum. Normal bilateral superior and inferior pubic rami. Normal pubic symphysis. Normal bilateral ischial tuberosities. Intact visualized femoral heads bilaterally. There is mild osteoarthritic spur formation of the acetabular rims bilaterally. Intact hip joints. There is no demonstrated acute fracture. RAD/HIP, UNI W/ Pelvis 2-3 Views IMPRESSION: Mild degenerative arthrosis of the hip joints bilaterally. No demonstrated acute fracture. Electronically Signed: Blake Colvin MD at 14:29 EDT ,
== END | disposition home or self-care (01) ==
PROVIDERS: PCP Family Medicine; Referring Provider Family Medicine; Visit Provider Family Medicine
DX: M25.551 Pain in right hip (principal)
CPT/HCPCS: 73502

== ENCOUNTER 2024-08-31 15:24 | Emergency (ER) | payer MEDICARE, OTHER, SELFPAY ==
[2024-08-31 15:24] VITALS: BP 205/63; PULSE 96; RESP 18; TEMP 36.2; O2SAT 99; BMI 32.8
--- NOTE | 2024-08-31 15:38 | EKG12_ITS ---
Test Reason : CP Blood Pressure : */* mmHG Vent. Rate : 95 BPM Atrial Rate : 95 BPM P-R Int : 176 ms QRS Dur : 86 ms QT Int : 372 ms P-R-T Axes : 64 1 80 degrees QTcB Int : 467 ms Normal sinus rhythm Nonspecific ST abnormality Abnormal ECG Confirmed by RUI LLOYD, LAUREANO ([id number]), photo editor ASHLEY AREVALO ([id number]) on 09/05/2024 1:35:57 P M Referred By: EITAN/TRESA Confirmed By: LAUREANO FABIAN MD
--- NOTE | 2024-08-31 15:41 | EDS_ITS ---
HPI <NIDIA Urbano - Last Filed: 08/31/24 18:33> History of Present Illness Chief Complaint: Chest Pain Narrative Narrative: Patient is a 74-year-old female with history of anxiety, depression, hypothyroidism who presents to the emergency department with 2 days of midsternal epigastric pain. Patient states this occurred last evening around 5:30 PM when she was just sitting there, it was waxing and waning and then was gone. Right before she went to bed she had another episode, and then it went away. Today, she felt well, however roughly at 1 hour prior to arrival, the patient had another bout of this pain. Patient once arriving here was asymptom atic. Patient denies any shortness of breath, diaphoresis. Patient does not follow-up with cardiology, has never had a stress test. PFSH <NIDIA Urbano - Last Filed: 08/31/24 18:33> [facility] Medical History (Updated 08/31/24 @ 18:33 by NIDIA Urbano) Depression Sleep apnea Hyperlipidemia Urinary incontinence History of malignant neoplasm of rectum, rectosigmoid junction, and anus Home Medications ?Medication ?Instructions ?Recorded ?Last Taken ?Type multivitamin 1 cap PO DAILY 03/06/19 Unknown History oscal PO 03/06/19 Unknown History oxybutynin chloride 15 mg 15 mg PO DAILY 08/22/19 Unknown History tablet,extended release 24 hr ibuprofen 600 mg tablet 600 mg PO TID PRN pain #30 tabs 04/30/20 Unknown Rx prednisone 20 mg tablet 20 mg PO DAILY #5 tabs 05/12/20 Unknown Rx sertraline 50 mg tablet (Zoloft) 50 mg PO DAILY #30 tabs 03/31/21 Unknown Rx hydrocodone-acetaminophen 5-325mg 1 tab PO Q6H PRN pain 5 days #14 07/18/21 Unknown Rx 5mg-325mg tabs ondansetron 4 mg disintegrating 4 mg PO Q8H PRN nausea and 12/25/21 Unknown Rx tablet vomiting #10 tabs promethazine 25 mg tablet 25 mg PO TID PRN nausea and 12/25/21 Unknown Rx vomiting #10 tabs Allergy/AdvReac Type Severity Reaction Status Date / Time Penicillins Allergy Unknown rash Verified 08/31/24 15:24 Bromhexine and derivatives Allergy Rash Verified 08/31/24 15:24 Family History Father Myocardial infarction Brother Myocardial infarction Surgical History History of creation of ostomy History of removal of cyst History of hysterectomy Social History Smoking Status: Never smoker alcohol intake: never substance use type: does not use what type of physical activity do you participate in: none ROS <NIDIA Urbano - Last Filed: 08/31/24 18:33> ROS ED ROS Narrative Constitutional: Negative for fever, chills, weight loss, weakness Eyes: Negative for vision loss, vision change, double vision ENT: Negative for any sore throat, ear pain, congestion Cardiovascular: Negative for any tightness, palpitations. Positive for chest pain Respiratory: Negative for any cough, sputum production, hemoptysis, dyspnea, dyspnea on exertion, orthopnea Gastrointestinal: Negative for any abdominal pain, nausea, vomiting, diarrhea, constipation, blood in stool, blood in vomit : Negative for any urinary frequency, dysuria, retention, blood in urine Muscle skeletal: Negative for any neck pain, back pain Neurological: Negative for any headache, syncope, dizziness Skin: Negative for any rashes, itching, abrasions, lacerations Psychiatric: Negative for any depression, anxiety, stress, suicidal ideation, homicidal ideation Hematologic: Negative for any excessive bruising, easy bleeding EXAM <NIDIA Urbano - Last Filed: 08/31/24 18:33> Physical Exam Narrative Exam Narrative: Vital signs reviewed. Patient is hypertensive. The remainder the vital signs are normal. HEET: Head normocephalic atraumatic, TMs clear bilaterally. Posterior pharynx is clear, moist mucous membranes. Nares clear bilaterally. Neck: Supple with no lymphadenopathy or tenderness. No signs of meningismus. Cardiac: Regular rate and rhythm no murmurs gallops or rubs, equal peripheral pulses bilaterally. Respiratory: Lungs clear to auscultation bilaterally. No chest tenderness. Abdomen: Soft, nontender, nondistended. No abdominal bruit or pulsatile masses. No hepatosplenomegaly Extremities: No peripheral edema, no signs of gross trauma or deformity. Active full range of motion of all extremities. Neuro: Cranial nerves II through XII intact, no focal neurological deficits. Skin: Clean dry and intact with no rash, purpura, petechiae, vesicles or pustules. Backs/flank: No CVA tenderness, no midline spinal tenderness, no deformity. Psych: Normal mood and affect. No SI, HI or acute psychosis. Const Vital Signs: 08/31/24 15:24 08/31/24 15:49 08/31/24 15:49 Temperature 97.2 F L Temperature Source Temporal Pulse Rate 96 Respiratory Rate 18 Respiratory Effort Normal Blood Pressure 205/63 H Blood Pressure Mean 110 Pulse Ox 99 99 Oxygen Delivery Method Room Air Room Air 08/31/24 16:24 08/31/24 16:59 08/31/24 18:00 Temperature Temperature Source Pulse Rate 78 78 80 Respiratory Rate 17 15 16 Respiratory Effort Blood Pressure 146/58 H 142/55 H 154/54 H Blood Pressure Mean 87 84 87 Pulse Ox 93 93 93 Oxygen Delivery Method Room Air Room Air Room Air 08/31/24 18:43 Temperature 98.1 F Temperature Source Pulse Rate 89 Respiratory Rate 18 Respiratory Effort Blood Pressure 154/59 H Blood Pressure Mean 90 Pulse Ox 97 Oxygen Delivery Method Positive well nourished and well developed General Appearance ED: well developed <Dr. Rosendo Cotton MD - Last Filed: 08/31/24 22:12> Physical Exam Const Vital Signs: 08/31/24 15:24 08/31/24 15:49 08/31/24 15:49 Temperature 97.2 F L Temperature Source Temporal Pulse Rate 96 Respiratory Rate 18 Respiratory Effort Normal Blood Pressure 205/63 H Blood Pressure Mean 110 Pulse Ox 99 99 Oxygen Delivery Method Room Air Room Air 08/31/24 16:24 08/31/24 16:59 08/31/24 18:00 Temperature Temperature Source Pulse Rate 78 78 80 Respiratory Rate 17 15 16 Respiratory Effort Blood Pressure 146/58 H 142/55 H 154/54 H Blood Pressure Mean 87 84 87 Pulse Ox 93 93 93 Oxygen Delivery Method Room Air Room Air Room Air 08/31/24 18:43 Temperature 98.1 F Temperature Source Pulse Rate 89 Respiratory Rate 18 Respiratory Effort Blood Pressure 154/59 H Blood Pressure Mean 90 Pulse Ox 97 Oxygen Delivery Method MDM <NIDIA Urbano - Last Filed: 08/31/24 18:33> MDM Lab Data Labs: Laboratory Results - last 24 hr 08/31/24 08/31/24 15:46 17:43 WBC 9.5 RBC 4.09 L Hgb 12.8 Hct 37.7 MCV 92.2 MCH 31.3 MCHC 34.0 RDW Std Deviation 42.5 RDW Coeff of Axel 12.6 Plt Count 239 MPV 9.3 Immature Gran % (Auto) 0.600 Neut % (Auto) 58.7 Lymph % (Auto) 25.3 Fisher % (Auto) 7.5 Eos % (Auto) 7.1 H Baso % (Auto) 0.8 Absolute Neuts (auto) 5.6 Absolute Lymphs (auto) 2.41 Nucleated RBC % 0 Sodium 140 Potassium 3.6 Chloride 108 H Carbon Dioxide 24.0 Anion Gap 8 BUN 13 Creatinine 0.89 Estim Creat Clear Calc 57.30 Est GFR (MDRD) Af Amer 79 Est GFR (MDRD) Non-Af 65 BUN/Creatinine Ratio 14.5 Glucose 146 H Calcium 9.4 Total Bilirubin 0.30 AST 47 H ALT 59 H Alkaline Phosphatase 98 Troponin I High Sens 7 8 Total Protein 7.0 Albumin 3.4 Globulin 3.6 Albumin/Globulin Ratio 0.9 Radiography Diagnostic Testing: Clinical Impression(s) from Imaging Studies Chest X-Ray 08/31/24 15:50 IMPRESSION: No radiographic evidence of acute cardiopulmonary disease. Electronically Signed: Philip Jimenez MD at 16:04 EST Reading Location ID and State: [address] [place] [address] Tel , Service support , EKG EKG shows a normal sinus rhythm: Attestation: I personally reviewed and interpreted this EKG as follows: Interpretation: Sinus Rhythm Comments: EKG shows a normal sinus rhythm, rate of 95 bpm, MD interval 176 ms, QRS duration 86 ms, no acute ST elevation, no acute infarct noted. Treatment and Re-Evaluation :: Differential diagnosis includes however is not limited to: ACS, [place], GERD, PE, community-acquired pneumonia, anxiety Patient is hypertensive however remainder of the vital signs are stable. At this time, patient is asymptomatic, patient presents to the emergency department with complaints of chest pain. Patient will receive a full cardiac workup including 2 troponins, basic laboratory values. Chest x-ray. Patient is asymptomatic, no medication such as nitro be given. Patient will be given aspirin. All radiologic examinations were read, reviewed by the emergency department attending. From these reads, a plan of care will be put in place. Patient on reevaluation had improvement of her blood pressure of 146/58. Patient's chest x-ray was negative for any acute process. Laboratory values sh owed a normal CBC, patient's chemistries were unremarkable, AST was slightly elevated at 47, 59 ALT, however this seems to be baseline for the patient. Patient's initial troponin was negative. A repeat will be drawn. On reevaluation, the patient was still asymptomatic. On reevaluation, the patient remains pain-free. Patient's second troponin was negative. Patient's blood pressure was 154/54, patient's heart rate is within normal limits. I spoke with the patient, at this time, do not believe the patient is having any acute cardiopulmonary process. At this time, patient be discharged home. Patient will follow-up closely with her PCP as well as cardiology. She was made aware that she does need to follow-up and have a stress test, echocardiogram. She is agreeable. She was given strict return precaution, all questions answered, stable for discharge. <Dr. Rosendo Cotton MD - Last Filed: 08/31/24 22:12> [facility] Narrative Medical decision making narrative: I have personally performed a face to face assessment of the patient and have reviewed the SHONDA Note. I performed a substantive portion of the visit including all aspects of the following. My cam findings include: History is episode of chest discomfort yesterday that lasted maybe an hour, only minutes today prior to arrival. Has not checked blood pressure prior to coming to the ED. Does not take medicine for that. Asymptomatic at the current time. She does not recall a stress test in the past. Exam is lungs clear, heart regular, abdomen soft nontender nondistended no palpable mass, intact 2+/4 dorsalis pedis and radial pulses. No distress. Medical Decison Making cardiac workup and monitor patient is extremely high blood pressure. Other additions or changes: [None] Lab Data Labs: Laboratory Results - last 24 hr 08/31/24 08/31/24 15:46 17:43 WBC 9.5 RBC 4.09 L Hgb 12.8 Hct 37.7 MCV 92.2 MCH 31.3 MCHC 34.0 RDW Std Deviation 42.5 RDW Coeff of Axel 12.6 Plt Count 239 MPV 9.3 Immature Gran % (Auto) 0.600 Neut % (Auto) 58.7 Lymph % (Auto) 25.3 Fisher % (Auto) 7.5 Eos % (Auto) 7.1 H Baso % (Auto) 0.8 Absolute Neuts (auto) 5.6 Absolute Lymphs (auto) 2.41 Nucleated RBC % 0 Sodium 140 Potassium 3.6 Chloride 108 H Carbon Dioxide 24.0 Anion Gap 8 BUN 13 Creatinine 0.89 Estim Creat Clear Calc 57.30 Est GFR (MDRD) Af Amer 79 Est GFR (MDRD) Non-Af 65 BUN/Creatinine Ratio 14.5 Glucose 146 H Calcium 9.4 Total Bilirubin 0.30 AST 47 H ALT 59 H Alkaline Phosphatase 98 Troponin I High Sens 7 8 Total Protein 7.0 Albumin 3.4 Globulin 3.6 Albumin/Globulin Ratio 0.9 Radiography Diagnostic Testing: Clinical Impression(s) from Imaging Studies Chest X-Ray 08/31/24 15:50 IMPRESSION: No radiographic evidence of acute cardiopulmonary disease. Electronically Signed: Philip Jimenez MD at 16:04 EST Reading Location ID and State: [facility] / [place] Tel , Service support , 1 view chest x-ray on my interpretation normal. Narrow mediastinum. Rhythm Strip Rhythm Strip: Sinus Rhythm Rate: 85 Ectopy: None Discharge Plan Triage Chief Complaint: Chest Pain ED Midlevel Provider: Adarsh Herrera ED Provider: Rosendo Cotton Dx/Rx/DC Orders Clinical Impression: Chest pain, Episode of hypertension Instructions: ED Chest Pain, Uncertain Cause, ED Hypertension, To Be Confirmed Prescriptions: No Action oscal PO multivitamin capsule 1 cap PO DAILY oxybutynin chloride 15 mg tablet extended release 24hr 15 mg PO DAILY ibuprofen 600 mg tablet 600 mg PO TID PRN (Reason: pain) Qty: 30 0RF Rx Instructions: take with food prednisone 20 mg tablet 20 mg PO DAILY Qty: 5 0RF hydrocodone-acetaminophen 5-325 mg tablet 1 tab PO Q6H PRN (Reason: pain) 5 Days Qty: 14 0RF ondansetron 4 mg tablet,disintegrating 4 mg PO Q8H PRN (Reason: nausea and vomiting) Qty: 10 0RF promethazine 25 mg tablet 25 mg PO TID PRN (Reason: nausea and vomiting) Qty: 10 0RF sertraline [Zoloft] 50 mg tablet 50 mg PO DAILY Qty: 30 0RF Primary Care Provider: Afia Chacko Referrals: Afia Chacko MD [Primary Care Provider] - Kayla Michaels MD [Med Staff - Active Staff] - Activity Restrictions/Additional Instructions: Please follow-up outpatient. You need to have a stress test, echocardiogram. Print Language: Welsh Disposition Disposition: Home, Self Care Discharge Date/Time: 08/31/24 18:44
[2024-08-31] MEDS: Aspirin 81 MG TAB.CHEW 324 MG PO (15:46)
[2024-08-31 15:49] VITALS: O2SAT 99
--- NOTE | 2024-08-31 15:50 | RAD_ITS ---
INDICATION: chest pain EXAMINATION/TECHNIQUE: X-RAY - portable upright AP chest x-ray COMPARISON: 01/20/2023 FINDINGS: LINES/DEVICES: None. LUNGS: Stable mild scarring left lung base. No consolidation, vascular congestion or pleural effusion. MEDIASTINUM AND CARDIOVASCULAR STRUCTURES: Cardiac silhouette stable within normal limits. BONES AND SOFT TISSUES: No acute changes. RAD/Chest 1 View (Portable) IMPRESSION: No radiographic evidence of acute cardiopulmonary disease. Electronically Signed: Philip Jimenez MD at 16:04 EST ,
[2024-08-31 16:03] LABS: Absolute Lymphocyte Count 2.41 X10^3/uL (0.83-4.51); Absolute Neutrophil Count 5.6 X10^3/uL (2.0-7.7); Basophil# 0.08 X10^3/uL; Basophil% 0.8 % (0-1); Eosinophil# 0.68 X10^3/uL; Eosinophils% 7.1 % (0-5); Hematocrit 37.7 % (37-47); Hemoglobin 12.8 g/dL (12.0-15.0); Lymphocyte # 2.41 X10^3/ul (0.83-4.51); Lymphocyte % 25.3 % (19-41); Mean Corpuscular Hgb 31.3 pg (27.0-32.0); Mean Corpuscular Volume 92.2 fL (81-99); Mean Platelet Vol. 9.3 fl (6.2-12.0); Monocyte# 0.72 X10^3/uL; Monocyte% 7.5 % (0-10); NRBC Flagged by Analyzer 0 % (0-5); Neutrophil # 5.59 X10^3/uL (2.7-7.7); Neutrophil % 58.7 % (47-70); Platelet Count 239 K/mm3 (150-450); RBC Distribution Width CV 12.6 % (11.6-14.6); RBC Distribution Width SD 42.5 fl (35.1-43.9); Red Blood Count 4.09 M/mm3 (4.2-5.4); White Blood Count 9.5 K/mm3 (4.4-11.0)
[2024-08-31 16:24] VITALS: BP 146/58; PULSE 78; RESP 17; O2SAT 93
[2024-08-31 16:24] LABS: ALB/GLOB Ratio 0.9 RATIO (0.9-2.4); AST(SGOT) 47 U/L (15-37); Alanine Aminotransfer ALT/SGPT 59 U/L (13-56); Albumin, Serum 3.4 g/dL (3.2-5.0); Alkaline Phosphatase 98 U/L (45-117); Anion Gap 8 (5-15); BUN 13 mg/dL (7-18); BUN/Creat Ratio 14.5 RATIO (10-20); Calcium,Total 9.4 mg/dL (8.5-10.1); Chloride 108 mmol/L (98-107); Creatinine, Serum 0.89 mg/dL (0.55-1.02); EST Glomerular Filtration Rate 65 mL/min (>60); Est Glom Filt Rate - Afr Amer 79 mL/min (>60); Globulin 3.6 g/dL (2.2-4.2); Glucose 146 mg/dL (74-106); Potassium 3.6 mmol/L (3.5-5.1); Sodium Level 140 mmol/L (136-145); Troponin-I HS (w/2H Reflex) 7 pg/mL (3.0-54.0)
[2024-08-31 16:59] VITALS: BP 142/55; PULSE 78; RESP 15; O2SAT 93
[2024-08-31 17:50] LABS: Reflex Troponin-HS? (from REC) Y
[2024-08-31 18:00] VITALS: BP 154/54; PULSE 80; RESP 16; O2SAT 93
[2024-08-31 18:15] LABS: Troponin-I HS 8 pg/mL (3.0-54.0)
[2024-08-31 18:43] VITALS: BP 154/59; PULSE 89; RESP 18; TEMP 36.7; O2SAT 97
== END 2024-08-31 18:44 | disposition home or self-care (01) ==
PROVIDERS: Nurse Practitioner; Emergency Provider Emergency Medicine; PCP Family Medicine; Visit Provider Emergency Medicine
DX: R07.89 Other chest pain (principal); I10 Essential (primary) hypertension; F41.9 Anxiety disorder, unspecified; F32.A Depression, unspecified; E03.9 Hypothyroidism, unspecified; Z88.0 Allergy status to penicillin; Z85.048 Personal history of other malignant neoplasm of rectum, rectosigmoid junction, and anus; Z79.899 Other long term (current) drug therapy
CPT/HCPCS: 71045; 80053; 84484; 85025; 93005; 99284; A4216

== ENCOUNTER → 2024-09-10 | Outpatient (CLI) | payer MEDICARE, OTHER, SELFPAY | END | disposition home or self-care (01) | PROVIDERS: PCP Family Medicine; Referring Provider Family Medicine; Visit Provider Family Medicine | DX: E03.8 Other specified hypothyroidism (principal); R79.89 Other specified abnormal findings of blood chemistry | CPT/HCPCS: 36415; 84443 ==

== ENCOUNTER 2024-11-20 07:17 | Emergency (ER) | payer MEDICARE, OTHER, SELFPAY ==
[2024-11-20 07:18] VITALS: BP 174/75; PULSE 70; RESP 16; TEMP 36.7; O2SAT 99; BMI 32.5
--- NOTE | 2024-11-20 07:40 | CT_ITS ---
PROCEDURE: ABDOMEN/PELVIS WITH CONTRAST REASON FOR EXAM: Left upper quadrant pain. History of rectal carcinoma and left lower quadrant colostomy. TECHNIQUE: Abdomen and pelvis CT with intravenous contrast. Oral contrast was also used. IV CONTRAST: 100 cc of Isovue-300. COMPARISON: Comparison is made with prior study dated December 25, 2021. FINDINGS: Lung bases: Minimal increased markings at the right lung base suggestive of atelectasis guarding. Liver: Diffuse fatty infiltration. Hepatomegaly. Gallbladder: There is dilatation of the gallbladder lumen. Findings suggestive of multiple small layering gallstones within the gallbladder lumen and sludge. Spleen: Unremarkable. Pancreas: Unremarkable. Adrenals: Unremarkable. Kidneys: Stable small bilateral parapelvic renal cysts. Bladder: Diffuse bladder wall thickening. Reproductive Organs: Prior hysterectomy. Adnexal regions are unremarkable. Bowel: Scattered sigmoid diverticula.. A colostomy is seen in the anterior left lower quadrant. Appendix: Normal. Lymph nodes: No suspicious lymph node enlargement. Vasculature: Major vascular structures are unremarkable. Peritoneum / Retroperitoneum: No ascites. No free air. Bones: Degenerative changes of the spine. CT/Abdomen/Pelvis WITH Contrast IMPRESSION: Distended gallbladder with findings suggestive of sludge and gallstones. A colostomy is seen in the anterior left lower quadrant. Scattered sigmoid diverticula. Atelectasis and/or scarring at the right lung base. One or more dose reduction techniques were used (e.g., Automated exposure contr ol, adjustment of the mA and/or kV according to patient size, use of iterative reconstruction technique). Reading Location: [facility]
[2024-11-20] MEDS: Morphine 4 MG/ML Syringe IV (07:57)
[2024-11-20] MEDS: Ondansetron 4 MG/2 ML Vial IV (07:57)
[2024-11-20] MEDS: 0.9% Normal Saline (1000mL) 1,000 ML 999 ML IV (07:57)
--- NOTE | 2024-11-20 07:58 | EX.ED.DYSGE1 ---
HPI History of Present Illness Chief Complaint: Abd Pain Informant: patient and spouse/S.O. Narrative Narrative: 74-year-old female presenting to the emergency room with abdominal pain. Patient states that 12 years ago she was diagnosed with colorectal cancer underwent chemoradiation and eventual partial colectomy with colostomy. She states that last night around midnight she began to have pain just above the colostomy site. She notes continued normal stool output. She denies any significant gas. No vomiting. No fevers. She describes the pain as constant. She denies a history of pancreatitis or bowel obstructions. She notes chronic urinary issues that she sees Dr. Mcintyre for but no acute changes. She does not feel bloated. [facility] Medical History Sinusitis, acute Anxiety Subclinical hypothyroidism Fatty liver Episode of hypertension Chest pain Depression Sleep apnea Hyperlipidemia Urinary incontinence History of malignant neoplasm of rectum, rectosigmoid junction, and anus Home Medications ?Medication ?Instructions ?Recorded ?Last Taken ?Type multivitamin 1 cap PO DAILY 03/06/19 Unknown History calcium carbonate 600 mg PO QDAY 09/24/24 Unknown History sertraline 100 mg tablet 100 mg PO QDAY 09/24/24 Unknown History ascorbic acid (vitamin C) 500 mg 500 mg PO QDAY 11/02/24 Unknown History tablet levothyroxine 25 mcg tablet 25 mcg PO QDAY 11/02/24 Unknown History lisinopril 20 mg tablet 20 mg PO QDAY #90 tabs 11/02/24 Unknown Rx metoprolol succinate 25 mg 25 mg PO QDAY #90 tabs 11/02/24 Unknown Rx tablet,extended release 24 hr (Toprol XL) mirabegron 50 mg tablet,extended 50 mg PO QHS 11/02/24 Unknown History release 24 hr dicyclomine 20 mg tablet 20 mg PO TID PRN abdominal pain 11/20/24 Unknown Rx #30 tabs hydrocodone-acetaminophen 5-325mg 1 tab PO Q4H PRN PRN Pain 2 days 11/20/24 Unknown Rx 5mg-325mg #10 TABLETS pantoprazole 40 mg tablet,delayed 40 mg PO DAILY #7 tabs 11/20/24 Unknown Rx release (Protonix) Allergy/AdvReac Type Severity Reaction Status Date / Time Penicillins Allergy Unknown rash Verified 11/20/24 07:19 Bromhexine and derivatives Allergy Rash Verified 11/20/24 07:19 Family History Father Heart disease Cancer Brother Heart disease Diabetes Surgical History History of tonsillectomy History of creation of ostomy History of removal of cyst History of hysterectomy Social History household members: spouse and children 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 Smoking Status: Never smoker alcohol intake: never substance use type: does not use caffeine: Yes Type: carbonated beverages Number of servings: 3 what type of physical activity do you participate in: none ROS ROS ED Constitutional Constitutional ED: Denies chills, fever(s) or weight loss Eyes Eyes: Denies change in vision or diplopia ENT ENT ED: Denies ear pain, rhinorrhea or sore throat Cardiovascular Cardiovascular: Denies chest pain, orthopnea, palpitations or racing heartbeat Respiratory/Chest Respiratory/Chest: Denies cough, dyspnea or orthopnea Gastrointestinal Gastrointestinal: Reports abdominal pain, diarrhea and other Details: Chronic diarrhea no change from baseline ; Denies nausea or vomiting Genitourinary Genitourinary ED: Denies dysuria, hematuria or urinary frequency Musculoskeletal Musculoskeletal: Denies arthralgias or myalgias Integumentary Denies abscess or rash Neurologic Neurologic: Denies headache(s) or weakness Psychiatric Psychiatric: Denies anxiety, depression, suicidal ideation or suicidal thoughts Endocrine Endocrinology: Denies polydipsia, polyphagia or polyuria Allergic/Immunologic Allergic/Immunologic ED: Denies mouth swelling, tongue swelling or urticaria EXAM Physical Exam Const Vital Signs: 11/20/24 07:18 11/20/24 09:17 11/20/24 11:06 Temperature 98.1 F 98.3 F Temperature Source Oral Pulse Rate 70 73 72 Respiratory Rate 16 16 16 Blood Pressure 174/75 H 138/60 H 150/60 H Blood Pressure Mean 108 86 90 Pulse Ox 99 96 98 Oxygen Delivery Method Room Air Room Air Positive well nourished and well developed General Appearance ED: well developed HEENT Reports normocephalic, head/scalp atraumatic and moist mucous membranes Eyes PERRL and EOMs intact bilaterally Neck no lymphadenopathy, supple and no JVD Resp normal respiratory effort and clear to auscultation bilaterally Cardio regular rate, regular rhythm and no murmurs GI GI Narrative: Mild tenderness to palpation in the left upper quadrant without guarding or rebound. There is no abdominal distention. Inspection: Negative for abdominal distention Auscultation: normoactive bowel sounds Palpation: soft Back/Spine no CVA tenderness and normal ROM Extremity normal to inspection General Extremety ED: Negative for edema General Extremity: Negative for edema Neuro oriented x3 and CN's II-XII intact bilaterally Sensorium / Orientation: alert Motor Exam: strength 5/5 throughout Psych mental status grossly normal Mood & Affect: Negative for depressed or tearful Skin no rashes or lesions noted and no wounds MDM MDM MDM Narrative Medical decision making narrative: Differential diagnosis includes but not limited to colitis bowel obstruction volvulus hernia mesenteric ischemia gastritis pancreatitis biliary colic Patient's white count nonspecifically elevated 11.5 hemoglobin of 14 platelet count of 259. Lipase is 32. LFTs show an ALT of 60 AST of 61 glucose [address] of the abdomen pelvis with oral and IV contrast was obtained. This demonstrates some gallbladder sludge and gallstones but no obvious pericholecystic fluid. She is nontender over the gallbladder. No obvious obstruction or hernia was noted. This point I believe the patient can be discharged home. We recommend perhaps a trial of Protonix. I can write for pain medication. Return if worsening concerns or persistent symptoms of 24-hour duration. History & Record Review Discussion w/independent historian: Patient and Significant other Lab Data Attestation: I reviewed the patient's lab results. Labs: Laboratory Results - last 24 hr 11/20/24 08:02 WBC 11.5 H RBC 4.37 Hgb 14.0 Hct 41.0 MCV 93.8 MCH 32.0 MCHC 34.1 RDW Std Deviation 42.9 RDW Coeff of Axel 12.5 Plt Count 259 MPV 9.5 Immature Gran % (Auto) 0.300 Neut % (Auto) 68.6 Lymph % (Auto) 20.3 [facility] % (Auto) 6.5 Eos % (Auto) 3.9 Baso % (Auto) 0.4 Absolute Neuts (auto) 7.9 H Absolute Lymphs (auto) 2.34 Nucleated RBC % 0 Sodium 140 Potassium 4.5 Chloride 106 Carbon Dioxide 20.1 L Anion Gap 14 BUN 20 H Creatinine 0.78 Estim Creat Clear Calc 63.47 Est GFR (MDRD) Non-Af 78 BUN/Creatinine Ratio 25.9 H Glucose 137 H Calcium 9.8 Total Bilirubin 0.43 Direct Bilirubin 0.16 AST 61 H ALT 60 H Alkaline Phosphatase 87 Total Protein 7.6 Albumin 4.3 Globulin 3.2 Lipase 32 Radiography Diagnostic Testing: Clinical Impression(s) from Imaging Studies Abdomen/Pelvis CT 11/20/24 07:40 IMPRESSION: Distended gallbladder with findings suggestive of sludge and gallstones. A colostomy is seen in the anterior left lower quadrant. Scattered sigmoid diverticula. Atelectasis and/or scarring at the right lung base. One or more dose reduction techniques were used (e.g., Automated exposure control, adjustment of the mA and/or kV according to patient size, use of iterative reconstruction technique). Reading Location: [facility] Discharge Plan Triage Chief Complaint: Abd Pain ED Provider: Misha Villeda Dx/Rx/DC Orders Clinical Impression: Abdominal pain Instructions: Abdominal Pain Prescriptions: New pantoprazole [Protonix] 40 mg tablet,delayed release (DR/EC) 40 mg PO DAILY Qty: 7 0RF hydrocodone-acetaminophen 5-325 mg tablet 1 tab PO Q4H PRN PRN (Reason: Pain) 2 Days Qty: 10 0RF dicyclomine 20 mg tablet 20 mg PO TID PRN (Reason: abdominal pain) Qty: 30 0RF No Action multivitamin capsule 1 cap PO DAILY sertraline 100 mg tablet 100 mg PO QDAY calcium carbonate 600 mg calcium (1,500 mg) tablet 600 mg PO QDAY levothyroxine 25 mcg tablet 25 mcg PO QDAY ascorbic acid (vitamin C) 500 mg tablet 500 mg PO QDAY mirabegron 50 mg tablet extended release 24 hr 50 mg PO QHS metoprolol succinate [Toprol XL] 25 mg tablet extended release 24 hr 25 mg PO QDAY Qty: 90 3RF lisinopril 20 mg tablet 20 mg PO QDAY Qty: 90 3RF Primary Care Provider: Afia Chacko Referrals: Afia Chacko MD [Primary Care Provider] - 1-2 Days if not improving Activity Restrictions/Additional Instructions: Please monitor your symptoms. Return to emergency room if persistent new or changing symptoms especially in the next 24 hours. Print Language: Kazakh Disposition Disposition: Home, Self Care Discharge Date/Time: 11/20/24 11:07
[2024-11-20 08:10] LABS: Absolute Lymphocyte Count 2.34 X10^3/uL (0.83-4.51); Absolute Neutrophil Count 7.9 X10^3/uL (2.0-7.7); Basophil# 0.05 X10^3/uL; Basophil% 0.4 % (0-1); Eosinophil# 0.45 X10^3/uL; Eosinophils% 3.9 % (0-5); Lymphocyte # 2.34 X10^3/ul (0.83-4.51); Lymphocyte % 20.3 % (19-41); Mean Corp Hgb Conc 34.1 g/dL (32-36); Mean Corpuscular Volume 93.8 fL (81-99); Mean Platelet Vol. 9.5 fl (6.2-12.0); Monocyte# 0.75 X10^3/uL; Monocyte% 6.5 % (0-10); NRBC Flagged by Analyzer 0 % (0-5); Neutrophil % 68.6 % (47-70); Platelet Count 259 K/mm3 (150-450); RBC Distribution Width CV 12.5 % (11.6-14.6); RBC Distribution Width SD 42.9 fl (35.1-43.9); Red Blood Count 4.37 M/mm3 (4.2-5.4); White Blood Count 11.5 K/mm3 (4.4-11.0)
[2024-11-20 08:52] LABS: AST(SGOT) 61 U/L (<=31); Alanine Aminotransfer ALT/SGPT 60 U/L (<=34); Albumin, Serum 4.3 g/dL (3.4-4.8); Alkaline Phosphatase 87 U/L (35-104); Anion Gap 14 (5-15); BUN 20 mg/dL (4-19); BUN/Creat Ratio 25.9 RATIO (10-20); Bilirubin, Direct 0.16 mg/dL (0.00-0.30); Calcium,Total 9.8 mg/dL (7.6-11.0); Carbon Dioxide 20.1 mmol/L (21.0-32.0); Chloride 106 mmol/L (98-108); Creatinine, Serum 0.78 mg/dL (0.70-1.20); EST Glomerular Filtration Rate 78 (>60); Estimated Creatinine Clearance 63.47 ml/min (50-250); Globulin 3.2 g/dL (2.2-4.2); Glucose 137 mg/dL (70-99); Lipase 32 U/L (13-75); Potassium 4.5 mmol/L (3.3-5.1); Protein, Total 7.6 g/dL (5.9-8.4); Sodium Level 140 mmol/L (133-145); Total Bilirubin 0.43 mg/dL (0.00-1.30)
[2024-11-20 09:17] VITALS: BP 138/60; PULSE 73; RESP 16; O2SAT 96
[2024-11-20 11:06] VITALS: BP 150/60; PULSE 72; RESP 16; TEMP 36.8; O2SAT 98
== END 2024-11-20 11:07 | disposition home or self-care (01) ==
PROVIDERS: Emergency Provider Emergency Medicine; PCP Family Medicine; Visit Provider Emergency Medicine
DX: R10.9 Unspecified abdominal pain (principal); Z93.3 Colostomy status; I10 Essential (primary) hypertension; E78.5 Hyperlipidemia, unspecified; Z92.21 Personal history of antineoplastic chemotherapy; Z92.3 Personal history of irradiation; Z85.038 Personal history of other malignant neoplasm of large intestine; Z90.49 Acquired absence of other specified parts of digestive tract; F41.9 Anxiety disorder, unspecified; E03.8 Other specified hypothyroidism; F32.A Depression, unspecified; Z88.0 Allergy status to penicillin; Z79.899 Other long term (current) drug therapy; Z79.890 Hormone replacement therapy
CPT/HCPCS: 74177; 80048; 80076; 83690; 85025; 96361; 96374; 96375; 99283; Q9967; A4216; J2405

== ENCOUNTER 2024-11-20 16:18 | Inpatient (IN) | payer MEDICARE, OTHER, SELFPAY ==
[2024-11-20] VITALS (15 sets, daily range): BP systolic 134–172; BP diastolic 61–130; PULSE 60–105; RESP 12–27; TEMP 36.6; O2SAT 88–98; BMI 32.8
[2024-11-20 17:22] LABS: Absolute Lymphocyte Count 1.23 X10^3/uL (0.83-4.51); Absolute Neutrophil Count 12.4 X10^3/uL (2.0-7.7); Basophil# 0.05 X10^3/uL; Basophil% 0.4 % (0-1); Eosinophil# 0.01 X10^3/uL; Eosinophils% 0.1 % (0-5); Hematocrit 39.8 % (37-47); Hemoglobin 13.8 g/dL (12.0-15.0); Lymphocyte # 1.23 X10^3/ul (0.83-4.51); Lymphocyte % 8.7 % (19-41); Mean Corp Hgb Conc 34.7 g/dL (32-36); Mean Corpuscular Volume 92.3 fL (81-99); Mean Platelet Vol. 9.3 fl (6.2-12.0); Monocyte# 0.48 X10^3/uL; Monocyte% 3.4 % (0-10); NRBC Flagged by Analyzer 0 % (0-5); Neutrophil # 12.36 X10^3/uL (2.7-7.7); Neutrophil % 86.8 % (47-70); Platelet Count 274 K/mm3 (150-450); RBC Distribution Width CV 12.5 % (11.6-14.6); RBC Distribution Width SD 42.6 fl (35.1-43.9); Red Blood Count 4.31 M/mm3 (4.2-5.4); White Blood Count 14.2 K/mm3 (4.4-11.0)
--- NOTE | 2024-11-20 17:42 | EX.ED.DYSGE1 ---
HPI <Dr. Alberto Marinelli MD - Last Filed: 11/24/24 14:56> History of Present Illness Chief Complaint: Abd Pain Detail of Chief Complaint: Left-sided abdominal pain and vomiting after discharge from the emergency r Informant: patient and spouse/S.O. Onset/Context/Timing Onset: Yesterday Context: Sudden Onset Timing: Continuous Quality: Pain that is moderate Location: Left side near the colostomy site Current Severity: Mild Maximum Severity: Moderate Worsened by: Nothing specific Relieved by: Nothing and see HPI narrative Associated Symptoms Associated Symptoms: No fever or chills. No black or maroon-colored stool. No increased stool Narrative Narrative: Patient is a 74-year-old woman. She has history of colorectal cancer diagnosed 12 years ago with colostomy. She was seen earlier today by Dr. Tony Nolen. His note was reviewed. She was prescribed Corsica, dicyclomine and PPI. She apparently took the Corsica just prior to arrival. She states it is not working. asked how long it would take for the [place] to start to take effect. He was told 1 hour at most 2 hours. Patient informed his that she does not give the medicine enough time. She appears frustrated. She denies left upper quadrant pain. She denies history of pancreatic Jaskaran. She denies intolerance to greasy or fried foods. It was noted that she has sludge and gallstones noted on the CT that was performed earlier today. She denies vomiting. She denies dysuria, frequency, urgency or hematuria. Denies fever, chills or night sweats. She denies weight gain or weight loss. Prior similar symptoms: Yes Recent Illness/Hospitalization: Yes [facility] <Dr. Alberto Marinelli MD - Last Filed: 11/24/24 14:56> [facility] Medical History (Updated 11/23/24 @ 12:52 by Eloisa Knutson) Cirrhosis Sinusitis, acute Anxiety Subclinical hypothyroidism Fatty liver Episode of hypertension Chest pain Depression Sleep apnea Hyperlipidemia Urinary incontinence History of malignant neoplasm of rectum, rectosigmoid junction, and anus Home Medications ?Medication ?Instructions ?Recorded ?Last Taken ?Type multivitamin 1 cap PO DAILY 03/06/19 Unknown History calcium carbonate 600 mg PO QDAY 09/24/24 Unknown History sertraline 100 mg tablet 100 mg PO QDAY 09/24/24 Unknown History ascorbic acid (vitamin C) 500 mg 500 mg PO QDAY 11/02/24 Unknown History tablet levothyroxine 25 mcg tablet 25 mcg PO QDAY 11/02/24 Unknown History lisinopril 20 mg tablet 20 mg PO QDAY #90 tabs 11/02/24 Unknown Rx metoprolol succinate 25 mg 25 mg PO QDAY #90 tabs 11/02/24 Unknown Rx tablet,extended release 24 hr (Toprol XL) mirabegron 50 mg tablet,extended 50 mg PO QHS 11/02/24 Unknown History release 24 hr dicyclomine 20 mg tablet 20 mg PO TID PRN abdominal pain 11/20/24 Unknown Rx #30 tabs hydrocodone-acetaminophen 5-325mg 1 tab PO Q4H PRN PRN Pain 2 days 11/20/24 Unknown Rx 5mg-325mg #10 TABLETS pantoprazole 40 mg tablet,delayed 40 mg PO DAILY #7 tabs 11/20/24 Unknown Rx release (Protonix) ciprofloxacin HCl 500 mg tablet 500 mg PO BID 2 days #4 tabs 11/23/24 Unknown Rx metronidazole 500 mg tablet 500 mg PO TID 2 days #6 tabs 11/23/24 Unknown Rx oxycodone 5 mg tablet 5 mg PO Q4H PRN PRN Pain Score 11/23/24 Unknown Rx 4-10 2 days #10 tabs Allergy/AdvReac Type Severity Reaction Status Date / Time Penicillins Allergy Unknown rash Verified 11/20/24 16:18 Bromhexine and derivatives Allergy Rash Verified 11/20/24 16:18 Family History Father Heart disease Cancer Brother Heart disease Diabetes Surgical History History of tonsillectomy History of creation of ostomy History of removal of cyst History of hysterectomy Social History household members: spouse and children 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 Smoking Status: Never smoker alcohol intake: never substance use type: does not use caffeine: Yes Type: carbonated beverages Number of servings: 3 what type of physical activity do you participate in: none ROS <Dr. Alberto Marinelli MD - Last Filed: 11/24/24 14:56> ROS ED Constitutional Constitutional ED: Denies chills, fever(s), subjective, sweats or weight loss Eyes Eyes: Denies blurry vision or change in vision ENT ENT ED: Denies rhinorrhea or sore throat Cardiovascular Cardiovascular: Denies chest pain Respiratory/Chest Respiratory/Chest: Denies cough, dyspnea or dyspnea on exertion Gastrointestinal Gastrointestinal: Reports abdominal pain; Denies constipation, diarrhea or melena Genitourinary Genitourinary ED: Denies dysuria, hematuria or urinary frequency Musculoskeletal Musculoskeletal: Denies back pain Hematologic/Lymphatic Hematologic/Lymphatic: Reports systems reviewed and no addt'l complaints, except as documented EXAM <Dr. Alberto Marinelli MD - Last Filed: 11/24/24 14:56> Physical Exam Const Vital Signs: 11/20/24 16:19 11/20/24 18:18 11/20/24 20:00 Temperature 98 F Temperature Source Oral Pulse Rate 88 60 83 Respiratory Rate 20 H 12 17 Blood Pressure 172/100 H 134/70 H Blood Pressure Mean 124 91 Pulse Ox 95 98 95 Oxygen Delivery Method Room Air Room Air Room Air Oxygen Flow Rate (L/min) 11/20/24 20:42 11/20/24 20:45 11/20/24 20:48 Temperature Temperature Source Pulse Rate 87 83 82 Respiratory Rate 22 H 24 H 19 H Blood Pressure 163/64 H Blood Pressure Mean 97 Pulse Ox 94 94 93 Oxygen Delivery Method Room Air Oxygen Flow Rate (L/min) 11/20/24 21:00 11/20/24 21:00 11/20/24 22:00 Temperature Temperature Source Pulse Rate 89 98 Respiratory Rate 25 H 21 H Blood Pressure 161/70 H 161/70 H Blood Pressure Mean 86 86 Pulse Ox 92 94 Oxygen Delivery Method Room Air Oxygen Flow Rate (L/min) 11/20/24 22:00 11/20/24 22:17 11/20/24 22:30 Temperature Temperature Source Pulse Rate 97 98 Respiratory Rate 27 H 17 Blood Pressure 141/130 H Blood Pressure Mean 136 Pulse Ox 92 94 Oxygen Delivery Method Oxygen Flow Rate (L/min) 11/20/24 22:45 11/20/24 23:00 11/20/24 23:31 Temperature Temperature Source Pulse Rate 96 100 100 Respiratory Rate 19 H 23 H 20 H Blood Pressure 156/61 H Blood Pressure Mean 88 Pulse Ox 90 90 91 Oxygen Delivery Method Oxygen Flow Rate (L/min) 11/20/24 23:45 11/20/24 23:55 11/21/24 00:00 Temperature Temperature Source Pulse Rate 101 H 105 H 100 Respiratory Rate 22 H 26 H 20 H Blood Pressure 156/61 H 158/65 H Blood Pressure Mean 92 91 Pulse Ox 88 96 95 Oxygen Delivery Method Nasal Cannula Oxygen Flow Rate (L/min) 2 11/21/24 00:15 11/21/24 00:30 11/21/24 00:50 Temperature Temperature Source Pulse Rate 99 101 H 104 H Respiratory Rate 20 H 19 H 20 H Blood Pressure Blood Pressure Mean Pulse Ox 94 95 92 Oxygen Delivery Method Oxygen Flow Rate (L/min) 11/21/24 00:58 11/21/24 01:00 11/21/24 01:15 Temperature Temperature Source Pulse Rate 99 98 99 Respiratory Rate 19 H 17 19 H Blood Pressure 158/65 H 150/64 H Blood Pressure Mean 96 84 Pulse Ox 99 95 96 Oxygen Delivery Method Nasal Cannula Oxygen Flow Rate (L/min) 2 11/21/24 01:30 11/21/24 01:45 11/21/24 02:00 Temperature Temperature Source Pulse Rate 101 H 101 H 98 Respiratory Rate 18 18 16 Blood Pressure 153/55 H Blood Pressure Mean 87 Pulse Ox 96 96 95 Oxygen Delivery Method Nasal Cannula Oxygen Flow Rate (L/min) 2 11/21/24 02:00 11/21/24 02:15 11/21/24 02:30 Temperature Temperature Source Pulse Rate 99 98 100 Respiratory Rate 16 17 17 Blood Pressure 153/55 H Blood Pressure Mean 81 Pulse Ox 95 96 96 Oxygen Delivery Method Oxygen Flow Rate (L/min) 11/21/24 02:45 11/21/24 03:00 11/21/24 03:15 Temperature Temperature Source Pulse Rate 99 101 H 100 Respiratory Rate 18 15 18 Blood Pressure 162/63 H Blood Pressure Mean 89 Pulse Ox 96 95 97 Oxygen Delivery Method Oxygen Flow Rate (L/min) 11/21/24 03:30 11/21/24 03:45 11/21/24 04:00 Temperature Temperature Source Pulse Rate 99 Respiratory Rate 18 Blood Pressure 167/57 H Blood Pressure Mean 93 Pulse Ox 95 97 97 Oxygen Delivery Method Nasal Cannula Oxygen Flow Rate (L/min) 2 11/21/24 04:00 11/21/24 04:15 11/21/24 04:30 Temperature Temperature Source Pulse Rate Respiratory Rate Blood Pressure 167/57 H Blood Pressure Mean 87 Pulse Ox 96 96 97 Oxygen Delivery Method Oxygen Flow Rate (L/min) 11/21/24 04:45 11/21/24 05:03 11/21/24 05:15 Temperature Temperature Source Pulse Rate 97 Respiratory Rate 20 H 18 Blood Pressure Blood Pressure Mean Pulse Ox 96 88 Oxygen Delivery Method Oxygen Flow Rate (L/min) 11/21/24 05:30 11/21/24 05:45 11/21/24 05:53 Temperature Temperature Source Pulse Rate 97 103 H 104 H Respiratory Rate 15 17 28 H Blood Pressure Blood Pressure Mean Pulse Ox 94 94 94 Oxygen Delivery Method Nasal Cannula Oxygen Flow Rate (L/min) 2 11/21/24 05:53 11/21/24 06:00 11/21/24 06:15 Temperature Temperature Source Pulse Rate 103 H 104 H 106 H Respiratory Rate 32 H 20 H 29 H Blood Pressure 157/68 H 153/61 H Blood Pressure Mean 88 86 Pulse Ox 92 95 93 Oxygen Delivery Method Oxygen Flow Rate (L/min) 11/21/24 06:30 11/21/24 06:45 11/21/24 07:00 Temperature Temperature Source Pulse Rate 107 H 104 H Respiratory Rate 24 H 17 Blood Pressure 176/75 H Blood Pressure Mean 101 Pulse Ox 95 95 Oxygen Delivery Method Oxygen Flow Rate (L/min) 11/21/24 07:25 11/21/24 07:39 11/21/24 07:45 Temperature Temperature Source Pulse Rate 96 Respiratory Rate 20 H Blood Pressure Blood Pressure Mean Pulse Ox 95 92 96 Oxygen Delivery Method Oxygen Flow Rate (L/min) 11/21/24 08:00 11/21/24 08:15 11/21/24 08:30 Temperature Temperature Source Pulse Rate 92 91 96 Respiratory Rate 17 17 18 Blood Pressure 150/59 H Blood Pressure Mean 82 Pulse Ox 96 96 95 Oxygen Delivery Method Oxygen Flow Rate (L/min) 11/21/24 08:45 11/21/24 09:00 11/21/24 09:15 Temperature Temperature Source Pulse Rate 95 95 Respiratory Rate 20 H 17 18 Blood Pressure 71/48 L Blood Pressure Mean 56 Pulse Ox 96 95 96 Oxygen Delivery Method Oxygen Flow Rate (L/min) 11/21/24 09:23 11/21/24 09:30 11/21/24 11:00 Temperature Temperature Source Pulse Rate 90 Respiratory Rate 25 H 23 H 20 H Blood Pressure 90/67 90/70 Blood Pressure Mean 76 76 Pulse Ox 96 96 95 Oxygen Delivery Method Oxygen Flow Rate (L/min) Positive well nourished and well developed General Appearance ED: well developed and NAD; Negative for cyanotic or diaphoretic HEENT Reports moist mucous membranes HEENT Narrative: Head is atraumatic normocephalic. Ears normal. Eyes PERRL and EOMs intact bilaterally General Eye ED: Yes scleral icterus Neck no lymphadenopathy and no JVD Resp normal respiratory effort and clear to auscultation bilaterally Cardio regular rate, regular rhythm, S1 normal heart sound, S2 normal heart sound and no murmurs GI GI Narrative: Abdomen is soft with tenderness near the colostomy bag. Stool is brown. It is soft. There is no guarding or peritoneal findings. Bowel sounds are diminished. There is no Passman megaly. There is no tenderness in the right upper quadrant. There is no tenderness in the left upper quadrant. There is no evidence of a peristomal hernia. Palpation: soft Extremity normal to inspection Neuro oriented x3 and CN's II-XII intact bilaterally Sensorium / Orientation: alert Psych Psych Narrative: Mood and affect are flat and depressed respectively. Mood & Affect: depressed Skin no wounds <Dr. Geo Hutchison, DO - Last Filed: 11/21/24 11:43> Physical Exam Const Vital Signs: 11/20/24 16:19 11/20/24 18:18 11/20/24 20:00 Temperature 98 F Temperature Source Oral Pulse Rate 88 60 83 Respiratory Rate 20 H 12 17 Blood Pressure 172/100 H 134/70 H Blood Pressure Mean 124 91 Pulse Ox 95 98 95 Oxygen Delivery Method Room Air Room Air Room Air Oxygen Flow Rate (L/min) 11/20/24 20:42 11/20/24 20:45 11/20/24 20:48 Temperature Temperature Source Pulse Rate 87 83 82 Respiratory Rate 22 H 24 H 19 H Blood Pressure 163/64 H Blood Pressure Mean 97 Pulse Ox 94 94 93 Oxygen Delivery Method Room Air Oxygen Flow Rate (L/min) 11/20/24 21:00 11/20/24 21:00 11/20/24 22:00 Temperature Temperature Source Pulse Rate 89 98 Respiratory Rate 25 H 21 H Blood Pressure 161/70 H 161/70 H Blood Pressure Mean 86 86 Pulse Ox 92 94 Oxygen Delivery Method Room Air Oxygen Flow Rate (L/min) 11/20/24 22:00 11/20/24 22:17 11/20/24 22:30 Temperature Temperature Source Pulse Rate 97 98 Respiratory Rate 27 H 17 Blood Pressure 141/130 H Blood Pressure Mean 136 Pulse Ox 92 94 Oxygen Delivery Method Oxygen Flow Rate (L/min) 11/20/24 22:45 11/20/24 23:00 11/20/24 23:31 Temperature Temperature Source Pulse Rate 96 100 100 Respiratory Rate 19 H 23 H 20 H Blood Pressure 156/61 H Blood Pressure Mean 88 Pulse Ox 90 90 91 Oxygen Delivery Method Oxygen Flow Rate (L/min) 11/20/24 23:45 11/20/24 23:55 11/21/24 00:00 Temperature Temperature Source Pulse Rate 101 H 105 H 100 Respiratory Rate 22 H 26 H 20 H Blood Pressure 156/61 H 158/65 H Blood Pressure Mean 92 91 Pulse Ox 88 96 95 Oxygen Delivery Method Nasal Cannula Oxygen Flow Rate (L/min) 2 11/21/24 00:15 11/21/24 00:30 11/21/24 00:50 Temperature Temperature Source Pulse Rate 99 101 H 104 H Respiratory Rate 20 H 19 H 20 H Blood Pressure Blood Pressure Mean Pulse Ox 94 95 92 Oxygen Delivery Method Oxygen Flow Rate (L/min) 11/21/24 00:58 11/21/24 01:00 11/21/24 01:15 Temperature Temperature Source Pulse Rate 99 98 99 Respiratory Rate 19 H 17 19 H Blood Pressure 158/65 H 150/64 H Blood Pressure Mean 96 84 Pulse Ox 99 95 96 Oxygen Delivery Method Nasal Cannula Oxygen Flow Rate (L/min) 2 11/21/24 01:30 11/21/24 01:45 11/21/24 02:00 Temperature Temperature Source Pulse Rate 101 H 101 H 98 Respiratory Rate 18 18 16 Blood Pressure 153/55 H Blood Pressure Mean 87 Pulse Ox 96 96 95 Oxygen Delivery Method Nasal Cannula Oxygen Flow Rate (L/min) 2 11/21/24 02:00 11/21/24 02:15 11/21/24 02:30 Temperature Temperature Source Pulse Rate 99 98 100 Respiratory Rate 16 17 17 Blood Pressure 153/55 H Blood Pressure Mean 81 Pulse Ox 95 96 96 Oxygen Delivery Method Oxygen Flow Rate (L/min) 11/21/24 02:45 11/21/24 03:00 11/21/24 03:15 Temperature Temperature Source Pulse Rate 99 101 H 100 Respiratory Rate 18 15 18 Blood Pressure 162/63 H Blood Pressure Mean 89 Pulse Ox 96 95 97 Oxygen Delivery Method Oxygen Flow Rate (L/min) 11/21/24 03:30 11/21/24 03:45 11/21/24 04:00 Temperature Temperature Source Pulse Rate 99 Respiratory Rate 18 Blood Pressure 167/57 H Blood Pressure Mean 93 Pulse Ox 95 97 97 Oxygen Delivery Method Nasal Cannula Oxygen Flow Rate (L/min) 2 11/21/24 04:00 11/21/24 04:15 11/21/24 04:30 Temperature Temperature Source Pulse Rate Respiratory Rate Blood Pressure 167/57 H Blood Pressure Mean 87 Pulse Ox 96 96 97 Oxygen Delivery Method Oxygen Flow Rate (L/min) 11/21/24 04:45 11/21/24 05:03 11/21/24 05:15 Temperature Temperature Source Pulse Rate 97 Respiratory Rate 20 H 18 Blood Pressure Blood Pressure Mean Pulse Ox 96 88 Oxygen Delivery Method Oxygen Flow Rate (L/min) 11/21/24 05:30 11/21/24 05:45 11/21/24 05:53 Temperature Temperature Source Pulse Rate 97 103 H 104 H Respiratory Rate 15 17 28 H Blood Pressure Blood Pressure Mean Pulse Ox 94 94 94 Oxygen Delivery Method Nasal Cannula Oxygen Flow Rate (L/min) 2 11/21/24 05:53 11/21/24 06:00 11/21/24 06:15 Temperature Temperature Source Pulse Rate 103 H 104 H 106 H Respiratory Rate 32 H 20 H 29 H Blood Pressure 157/68 H 153/61 H Blood Pressure Mean 88 86 Pulse Ox 92 95 93 Oxygen Delivery Method Oxygen Flow Rate (L/min) 11/21/24 06:30 11/21/24 06:45 11/21/24 07:00 Temperature Temperature Source Pulse Rate 107 H 104 H Respiratory Rate 24 H 17 Blood Pressure 176/75 H Blood Pressure Mean 101 Pulse Ox 95 95 Oxygen Delivery Method Oxygen Flow Rate (L/min) 11/21/24 07:25 11/21/24 07:39 11/21/24 07:45 Temperature Temperature Source Pulse Rate 96 Respiratory Rate 20 H Blood Pressure Blood Pressure Mean Pulse Ox 95 92 96 Oxygen Delivery Method Oxygen Flow Rate (L/min) 11/21/24 08:00 11/21/24 08:15 11/21/24 08:30 Temperature Temperature Source Pulse Rate 92 91 96 Respiratory Rate 17 17 18 Blood Pressure 150/59 H Blood Pressure Mean 82 Pulse Ox 96 96 95 Oxygen Delivery Method Oxygen Flow Rate (L/min) 11/21/24 08:45 11/21/24 09:00 11/21/24 09:15 Temperature Temperature Source Pulse Rate 95 95 Respiratory Rate 20 H 17 18 Blood Pressure 71/48 L Blood Pressure Mean 56 Pulse Ox 96 95 96 Oxygen Delivery Method Oxygen Flow Rate (L/min) 11/21/24 09:23 11/21/24 09:30 11/21/24 11:00 Temperature Temperature Source Pulse Rate 90 Respiratory Rate 25 H 23 H 20 H Blood Pressure 90/67 90/70 Blood Pressure Mean 76 76 Pulse Ox 96 96 95 Oxygen Delivery Method Oxygen Flow Rate (L/min) MDM <Dr. Alberto Marinelli MD - Last Filed: 11/24/24 14:56> [facility] MDM Narrative Medical decision making narrative: Patient's dictation by Dr. Nolen was reviewed. Her exam is benign. Will reassess her electrolytes and white count. Lab Data Attestation: I reviewed the patient's lab results. Lab results narrative: White count is slightly higher than it was earlier today. She does have a slight shift. Patient has mild hyper kalemia. This may be due to hemolysis. EKG was obtained to evaluate for changes consistent with hyperkalemia. There is none. VBG was obtained. Patient does have bacteria. She has asymptomatic bacteria and per literature there is no indication for treatment. Labs: Laboratory Results - last 24 hr 11/20/24 11/20/24 11/20/24 17:10 19:56 20:42 WBC 14.2 H RBC 4.31 Hgb 13.8 Hct 39.8 MCV 92.3 MCH 32.0 MCHC 34.7 RDW Std Deviation 42.6 RDW Coeff of Axel 12.5 Plt Count 274 MPV 9.3 Immature Gran % (Auto) 0.600 Neut % (Auto) 86.8 H Lymph % (Auto) 8.7 L [place] % (Auto) 3.4 Eos % (Auto) 0.1 Baso % (Auto) 0.4 Absolute Neuts (auto) 12.4 H Absolute Lymphs (auto) 1.23 Nucleated RBC % 0 Sodium 134 Potassium 5.5 H Chloride 102 Carbon Dioxide 16.8 L Anion Gap 15 BUN 14 Creatinine 0.76 Estim Creat Clear Calc 63.71 Est GFR (MDRD) Non-Af 81 BUN/Creatinine Ratio 18.8 Glucose 140 H Lactic Acid 1.5 Calcium 9.4 Total Bilirubin Direct Bilirubin AST ALT Alkaline Phosphatase Total Protein Albumin Globulin Lipase Urine Color Yellow Urine Clarity Sl. Cloudy Urine pH 6.0 Ur Specific [place] 1.020 Urine Protein 30 H Urine Glucose (UA) Normal Urine Ketones Negative Urine Occult Blood Negative Urine Nitrite Negative Urine Bilirubin Negative Urine Urobilinogen Normal Ur Leukocyte Esterase 25 H Urine RBC 0-5 SEEN Urine WBC 5-10 SEEN Ur Squamous Epith Cells 0 SEEN Urine Bacteria 1+ Urine Mucus RARE 11/21/24 06:51 WBC 14.7 H RBC 4.03 L Hgb 12.9 Hct 37.7 MCV 93.5 MCH 32.0 MCHC 34.2 RDW Std Deviation 43.8 RDW Coeff of Axel 12.8 Plt Count 257 MPV 9.3 Immature Gran % (Auto) 0.500 Neut % (Auto) 79.5 H Lymph % (Auto) 11.2 L [place] % (Auto) 8.2 Eos % (Auto) 0.4 Baso % (Auto) 0.2 Absolute Neuts (auto) 11.7 H Absolute Lymphs (auto) 1.65 Nucleated RBC % 0 Sodium 141 Potassium 4.4 Chloride 108 Carbon Dioxide 21.1 Anion Gap 12 BUN 10 Creatinine 0.68 L Estim Creat Clear Calc 63.71 Est GFR (MDRD) Non-Af 90 BUN/Creatinine Ratio 15.3 Glucose 151 H Lactic Acid 1.1 Calcium 9.0 Total Bilirubin 0.59 Direct Bilirubin 0.30 AST 43 H ALT 64 H Alkaline Phosphatase 78 Total Protein 7.1 Albumin 4.0 Globulin 3.1 Lipase 29 Urine Color Urine Clarity Urine pH Ur Specific [place] Urine Protein Urine Glucose (UA) Urine Ketones Urine Occult Blood Urine Nitrite Urine Bilirubin Urine Urobilinogen Ur Leukocyte Esterase Urine RBC Urine WBC Ur Squamous Epith Cells Urine Bacteria Urine Mucus Since patient presents with worsening pain has an elevated white count has a metabolic acidosis will obtain a CT with out contrast since she had a CT with contrast earlier especially since she had a CT with contrast earlier today. CT that was performed this evening reveals a parastomal hernia. This is the area of her discomfort. Looking back at this morning's CAT scan it was noted at that time in my opinion. There was no comment however in the impression section of the radiology report. ABG Data Attestation: I personally reviewed and interpreted this ABG as follows: Interpretation: Patient pH is normal. pO2 was 69. Bicarb is 20 which is low. Total CO2 is low at 21 patient has a -5 base excess consistent with an acidosis that is probably metabolic with respiratory compensation. ABG results: ABG 11/20/24 20:05 Specimen Type CRISTY Sample Site Not entered VBG pH 7.40 VBG pO2 69 H VBG HCO3 20 L VBG Total CO2 21 L VBG O2 Sat (Calc) 94 H VBG Base Excess -5 L POC Mix VBG pCO2 Pt Tmp 32.1 L O2 Delivery Device Room Air Radiography Diagnostic Testing: Clinical Impression(s) from Imaging Studies Abdomen/Pelvis CT 11/20/24 21:10 IMPRESSION: Distended gallbladder with ill-defined layering density, may represent sludge versus tiny stones. Right upper quadrant ultrasound may be helpful for further characterization. Left lower quadrant colostomy with a parastomal hernia containing a focal loop of transverse colon. No inflammatory changes of the bowel loops are demonstrated. One or more dose reduction techniques were used (e.g., Automated exposure control, adjustment of the mA and/or kV according to patient size, use of iterative reconstruction technique). Reading Location: [facility] Abdomen Ultrasound 11/21/24 06:25 IMPRESSION: Findings are suggestive of cholelithiasis with acute cholecystitis. Consider HIDA scan for further evaluation. Mild right hydronephrosis. ? Hepatic steatosis. Reading Location: [facility] Cholangiogram 11/21/24 12:18 IMPRESSION: Unremarkable intraoperative cholangiogram. Reading Location: [facility] Management Discussion w/another healthcare provider: Laboratory Chief (Documented under the treatment and reevaluation portion of the EMR) Treatment and Re-Evaluation :: Dr. Murry who is on-call for general surgery was contacted. He states patient should see a colorectal surgeon. He will contact someone in the group to see if they are comfortable with this. Patient states she has seen Dr. Oumar Bocanegra in the past. Call was placed to my [facility] where he practices to discuss case and see if this is something he would be willing to except otherwise will need to transfer to a larger [facility] facility. Spoke with Dr. Garcia who is on-call for Dr. King. He states no one at [facility] does parastomal hernia intervention. Recommended transfer to other facility. [place] at 2250 was asked to contact transfer line at [facility]. The transfer nurse recommended contacting [facility] since her colorectal surgeon and general surgeon are both at [facility]. My goal was to transfer to a closer facility because of the new Medicare rules with bypassing hospitals that are closer. Spoke with the transfer nurse at [facility]. She was made aware. History, CT results, and answered her questions regarding specific lab results. The patient's care was transferred to Dr. Bean. She question why the patient was not going to [facility]. She was informed that they have 70 patients under ER with 20 boarded patients and felt it would be in the patient's best interest to go to [facility] since her colorectal surgeon and general surgeon are both at [facility]. <Dr. Geo Hutchison DO - Last Filed: 11/21/24 11:43> [facility] MDM Narrative Medical decision making narrative: Patient's dictation by Dr. Nolen was reviewed. Her exam is benign. Will reassess her electrolytes and white count. Addendum Geo Hutchison DO Patient's case was signed out to me by overnight provider. Patient's ultrasound did reveal evidence of acute cholecystitis therefore she was given Cipro Flagyl. She has an allergy to penicillin according to the chart. I did discuss with colorectal team up at [facility] as well and they were supposed to call back. I reached out and spoke with general surgery Dr. Murry Who states that they will review everything and come down and evaluate the patient. Surgery team came down evaluated the patient at bedside and after reviewing everything they state that they will plan to take the patient to the operating room with admission afterwards. Patient will remain n.p.o. as surgery is scheduled for 3 PM. Lab Data Labs: Laboratory Results - last 24 hr 11/20/24 11/20/24 11/20/24 17:10 19:56 20:42 WBC 14.2 H RBC 4.31 Hgb 13.8 Hct 39.8 MCV 92.3 MCH 32.0 MCHC 34.7 RDW Std Deviation 42.6 RDW Coeff of Axel 12.5 Plt Count 274 MPV 9.3 Immature Gran % (Auto) 0.600 Neut % (Auto) 86.8 H Lymph % (Auto) 8.7 L [place] % (Auto) 3.4 Eos % (Auto) 0.1 Baso % (Auto) 0.4 Absolute Neuts (auto) 12.4 H Absolute Lymphs (auto) 1.23 Nucleated RBC % 0 Sodium 134 Potassium 5.5 H Chloride 102 Carbon Dioxide 16.8 L Anion Gap 15 BUN 14 Creatinine 0.76 Estim Creat Clear Calc 63.71 Est GFR (MDRD) Non-Af 81 BUN/Creatinine Ratio 18.8 Glucose 140 H Lactic Acid 1.5 Calcium 9.4 Total Bilirubin Direct Bilirubin AST ALT Alkaline Phosphatase Total Protein Albumin Globulin Lipase Urine Color Yellow Urine Clarity Sl. Cloudy Urine pH 6.0 Ur Specific [place] 1.020 Urine Protein 30 H Urine Glucose (UA) Normal Urine Ketones Negative Urine Occult Blood Negative Urine Nitrite Negative Urine Bilirubin Negative Urine Urobilinogen Normal Ur Leukocyte Esterase 25 H Urine RBC 0-5 SEEN Urine WBC 5-10 SEEN Ur Squamous Epith Cells 0 SEEN Urine Bacteria 1+ Urine Mucus RARE 11/21/24 06:51 WBC 14.7 H RBC 4.03 L Hgb 12.9 Hct 37.7 MCV 93.5 MCH 32.0 MCHC 34.2 RDW Std Deviation 43.8 RDW Coeff of Axel 12.8 Plt Count 257 MPV 9.3 Immature Gran % (Auto) 0.500 Neut % (Auto) 79.5 H Lymph % (Auto) 11.2 L [place] % (Auto) 8.2 Eos % (Auto) 0.4 Baso % (Auto) 0.2 Absolute Neuts (auto) 11.7 H Absolute Lymphs (auto) 1.65 Nucleated RBC % 0 Sodium 141 Potassium 4.4 Chloride 108 Carbon Dioxide 21.1 Anion Gap 12 BUN 10 Creatinine 0.68 L Estim Creat Clear Calc 63.71 Est GFR (MDRD) Non-Af 90 BUN/Creatinine Ratio 15.3 Glucose 151 H Lactic Acid 1.1 Calcium 9.0 Total Bilirubin 0.59 Direct Bilirubin 0.30 AST 43 H ALT 64 H Alkaline Phosphatase 78 Total Protein 7.1 Albumin 4.0 Globulin 3.1 Lipase 29 Urine Color Urine Clarity Urine pH Ur Specific [place] Urine Protein Urine Glucose (UA) Urine Ketones Urine Occult Blood Urine Nitrite Urine Bilirubin Urine Urobilinogen Ur Leukocyte Esterase Urine RBC Urine WBC Ur Squamous Epith Cells Urine Bacteria Urine Mucus ABG Data ABG results: ABG 11/20/24 20:05 Specimen Type CRISTY Sample Site Not entered VBG pH 7.40 VBG pO2 69 H VBG HCO3 20 L VBG Total CO2 21 L VBG O2 Sat (Calc) 94 H VBG Base Excess -5 L POC Mix VBG pCO2 Pt Tmp 32.1 L O2 Delivery Device Room Air Radiography Diagnostic Testing: Clinical Impression(s) from Imaging Studies Abdomen/Pelvis CT 11/20/24 21:10 IMPRESSION: Distended gallbladder with ill-defined layering density, may represent sludge versus tiny stones. Right upper quadrant ultrasound may be helpful for further characterization. Left lower quadrant colostomy with a parastomal hernia containing a focal loop of transverse colon. No inflammatory changes of the bowel loops are demonstrated. One or more dose reduction techniques were used (e.g., Automated exposure control, adjustment of the mA and/or kV according to patient size, use of iterative reconstruction technique). Reading Location: [facility] Abdomen Ultrasound 11/21/24 06:25 IMPRESSION: Findings are suggestive of cholelithiasis with acute cholecystitis. Consider HIDA scan for further evaluation. Mild right hydronephrosis. ? Hepatic steatosis. Reading Location: [facility] Cholangiogram 11/21/24 12:18 IMPRESSION: Unremarkable intraoperative cholangiogram. Reading Location: [facility] Discharge Plan Dx/Rx/DC Orders Clinical Impression: Parastomal hernia, Episode of hypertension, Fatty liver, Abdominal pain, Hyperlipidemia, Sleep apnea, Leukocytosis, High anion gap metabolic acidosis, Diverticulosis of colon Disposition Disposition: Acute Care [facility] Discharge Date/Time: 11/21/24 13:16
--- NOTE | 2024-11-20 18:44 | ED.RN ---
lab called for outstanding labs. on hold for 6 minutes. no answer
--- NOTE | 2024-11-20 18:54 | ED.RN ---
LAB CALLED FOR OUTSTANDING CHEMISTRY. RESPONSE IT IS IN PROCESS, MAYBE 10 MORE MINUTES
[2024-11-20 19:09] LABS: Anion Gap 15 (5-15); BUN 14 mg/dL (4-19); BUN/Creat Ratio 18.8 RATIO (10-20); Calcium,Total 9.4 mg/dL (7.6-11.0); Carbon Dioxide 16.8 mmol/L (21.0-32.0); Chloride 102 mmol/L (98-108); Creatinine, Serum 0.76 mg/dL (0.70-1.20); EST Glomerular Filtration Rate 81 (>60); Estimated Creatinine Clearance 63.71 ml/min (50-250); Glucose 140 mg/dL (70-99); Potassium 5.5 mmol/L (3.3-5.1); Sodium Level 134 mmol/L (133-145)
[2024-11-20] MEDS: 0.9% Normal Saline (1000mL) 1,000 ML 1000 ML IV (20:00)
[2024-11-20 20:10] LABS: Blood Gas Specimen Type VEN; O2 Delivery Device Room Air; SITE Not entered; VBG BASE EXCESS -5 mmol/L (-1.0-3.5); VBG Bicarbonate 20 mmol/L (22-26); VBG PO2 69 mmHg (25-40); VBG SO2 94 % (50-70); VBG TCO2 21 mmol/L (23-33); VBG pCO2 32.1 mmHg (41-51)
[2024-11-20 21:00] LABS: Squamous Epithelial Cells - UA 0 SEEN /hpf (5-10)
[2024-11-20 21:04] LABS: Color, Urine Yellow (Yellow); Glucose, Dipstick Normal (Normal); Ketone-Dipstick Negative (Negative); Leukocyte Esterase-Dipstick 25 /ul (Negative); Nitrite-Dipstick Negative (Negative); Occult Blood-Urine Negative /ul (Negative); Protein-Dipstick 30 mg/dl (Negative); Urine Bilirubin Dipstick Negative (Negative); Urine Clarity Sl. Cloudy (Clear); Urine Urobilinogen Normal (Normal)
[2024-11-20 21:08] LABS: Lactic Acid 1.5 mmol/L (0.0-2.0)
--- NOTE | 2024-11-20 21:10 | CT_ITS ---
PROCEDURE: ABDOMEN/PELVIS WITHOUT CONT REASON FOR EXAM: Left lower quadrant pain. Leukocytosis. TECHNIQUE: Abdomen and pelvis CT with intravenous contrast. No oral contrast. IV CONTRAST: None COMPARISON: CT of the abdomen and pelvis obtained earlier today. FINDINGS: Lung bases: Clear Liver: Unremarkable. Gallbladder: Distended gallbladder with ill-defined layering density, may represent sludge versus tiny stones. Spleen: Unremarkable. Pancreas: Unremarkable. Adrenals: Unremarkable. Kidneys: Small bilateral parapelvic cysts. No evidence of hydronephrosis or nephrolithiasis. Bladder: Unremarkable. Reproductive Organs: Prior hysterectomy. Adnexal regions are unremarkable. Bowel: Residual oral contrast material is demonstrated within the large bowel. Status post left lower quadrant colostomy. There is evidence of a small parastomal hernia containing a focal loop of transverse colon. The stomach is decompressed limiting evaluation. No inflammatory changes of the bowel loops are demonstrated. Appendix: Normal. Lymph nodes: No suspicious lymph node enlargement. Vasculature: Major vascular structures are unremarkable. Peritoneum / Retroperitoneum: No ascites. No free air. Bones: Degenerative changes of the lumbar spine. CT/Abdomen/Pelvis without Cont IMPRESSION: Distended gallbladder with ill-defined layering density, may represent sludge v ersus tiny stones. Right upper quadrant ultrasound may be helpful for further characterization. Left lower quadrant colostomy with a parastomal hernia containing a focal loop of transverse colon. No inflammatory changes of the bowel loops are demonstrated. One or more dose reduction techniques were used (e.g., Automated exposure contr ol, adjustment of the mA and/or kV according to patient size, use of iterative reconstruction technique). Reading Location: [facility]
[2024-11-20 21:42] LABS: Bacteria 1+ /hpf (None Seen); Mucous, Urine RARE /hpf (<or=2+); Red Blood Cells-Urine 0-5 SEEN /hpf (0-5); White Blood Cells 5-10 SEEN /hpf (0-5)
[2024-11-20] MEDS: Morphine 4 MG/ML Syringe IV (23:53)
[2024-11-21] VITALS (61 sets, daily range): BP systolic 71–181; BP diastolic 48–75; PULSE 84–107; RESP 15–32; TEMP 36.3–37.3; O2SAT 88–99; BMI 32.8
--- NOTE | 2024-11-21 01:46 | ED.RN ---
[facility] transfer line calls stating their colo-rectal surgeon Dr Linares has declined patient stating that patient is appropriate for out patient follow up. Dr Bean aware and states we will wait until 0700 to try and get ahold of her [facility] surgeon Dr Singletary.
[2024-11-21] MEDS: Ondansetron 4 MG/2 ML Vial IV ×3 (05:22→12:40)
[2024-11-21] MEDS: Morphine 4 MG/ML Syringe IV ×2 (05:22→12:40)
--- NOTE | 2024-11-21 06:25 | US_ITS ---
PROCEDURE: GALLBLADDER REASON FOR EXAM: Cholelithiasis COMPARISON: CT abdomen/pelvis performed on 11/20/2024. FINDINGS: Liver: Grossly normal size and mildly heterogeneous. Gallbladder: Moderately distended and contains sludge/stone. Sonographic Rodríguez sign is negative. There is trace pericholecystic fluid Common bile duct: Normal measuring 7 mm. Pancreas: Visualized portions are sonographically unremarkable. Visualized portions of the right kidney demonstrates mild hydronephrosis. ascites. US/Abdomen Limited IMPRESSION: Findings are suggestive of cholelithiasis with acute cholecystitis. Consider H MICHAEL scan for further evaluation. Mild right hydronephrosis. ? Hepatic steatosis. Reading Location: [id number]
[2024-11-21 07:04] LABS: Absolute Lymphocyte Count 1.65 X10^3/uL (0.83-4.51); Absolute Neutrophil Count 11.7 X10^3/uL (2.0-7.7); Basophil# 0.03 X10^3/uL; Basophil% 0.2 % (0-1); Eosinophil# 0.06 X10^3/uL; Eosinophils% 0.4 % (0-5); Hematocrit 37.7 % (37-47); Hemoglobin 12.9 g/dL (12.0-15.0); Lymphocyte # 1.65 X10^3/ul (0.83-4.51); Lymphocyte % 11.2 % (19-41); Mean Corp Hgb Conc 34.2 g/dL (32-36); Mean Corpuscular Volume 93.5 fL (81-99); Mean Platelet Vol. 9.3 fl (6.2-12.0); Monocyte% 8.2 % (0-10); NRBC Flagged by Analyzer 0 % (0-5); Neutrophil % 79.5 % (47-70); Platelet Count 257 K/mm3 (150-450); RBC Distribution Width CV 12.8 % (11.6-14.6); RBC Distribution Width SD 43.8 fl (35.1-43.9); Red Blood Count 4.03 M/mm3 (4.2-5.4); White Blood Count 14.7 K/mm3 (4.4-11.0)
--- NOTE | 2024-11-21 07:37 | ED.RN ---
CALLED [facility]GE[facility] AT [phone], THEY GAVE ME DR RIVERA DIRECT OFFICE NUMBER TO CALL AT [phone]. WHEN THEY GET IN.
[2024-11-21 07:48] LABS: Lipase 29 U/L (13-75)
[2024-11-21 07:49] LABS: Lactic Acid 1.1 mmol/L (0.0-2.0)
[2024-11-21 08:09] LABS: AST(SGOT) 43 U/L (<=31); Alanine Aminotransfer ALT/SGPT 64 U/L (<=34); Alkaline Phosphatase 78 U/L (35-104); Anion Gap 12 (5-15); BUN 10 mg/dL (4-19); BUN/Creat Ratio 15.3 RATIO (10-20); Carbon Dioxide 21.1 mmol/L (21.0-32.0); Chloride 108 mmol/L (98-108); Creatinine, Serum 0.68 mg/dL (0.70-1.20); EST Glomerular Filtration Rate 90 (>60); Estimated Creatinine Clearance 63.71 ml/min (50-250); Globulin 3.1 g/dL (2.2-4.2); Glucose 151 mg/dL (70-99); Potassium 4.4 mmol/L (3.3-5.1); Protein, Total 7.1 g/dL (5.9-8.4); Sodium Level 141 mmol/L (133-145); Total Bilirubin 0.59 mg/dL (0.00-1.30)
[2024-11-21] MEDS: metroNIDAZOLE 500 MG/100 ML BAG 100 MG IV ×2 (09:46→22:38)
--- NOTE | 2024-11-21 11:25 | HP.PCM_ITS ---
[facility] - General General Date of Admission: 11/21/24 Date of Service: 11/21/24 Chief Complaint: Abdominal pain HPI Narrative KAYLENE SHAFER, is a 74 F who presents with a 2 day history of abdominal pain. Patient states the pain was located in the left upper quadrant. She stated the pain woke her up at midnight Tuesday into Tuesday night. She notes the pain intensified and her brought her to the ED. A CT scan of the abd/pel was obtained with contrast demonstrating distended gallbladder with findings suggested of sludge and gallstones, colostomy in the left anterior lower quadrant, diverticula. Patient was discharged to home on trial of Protonix. Patient was discharged to home where she had several pieces of toast with butter. Patient states she then started to have nausea and vomiting. She presented back to the ED with nausea and vomiting along with pain in the right upper quadrant. CT scan of ab/pel was repeated w.o contrast demonstrating distended gallbladder, left lower quadrant colostomy with parastomal hernia containing focal loop of transverse bowel. No inflammatory changes of the bowel loops were noted. Abdominal u/s was obtained demonstrating moderately distended gallbladder with trace pericholecystic fluid, common bile duct measuring 7 mm. Mild right hydronephrosis. Patient notes her appetite has been the same since her symptoms started. She notes normal stool output through her colostomy. She denies the knowledge of having a parastomal hernia previously. Patient states she was diagnosed with rectal cancer in 2011. She was evaluated and had all treatment in [place]. Patient did not have surgical intervention for the rectal cancer. She had radiation. Patient had post-radiation changes with associated burning, diarrhea and rectal pain. Patient was referred to Dr. Shashank Singletary at [facility] for a colostomy creation, which occurred in 2020. Patient notes she also is evaluated by Dr. Mcintyre for urinary urgency and frequency. She notes taking a medication for urinary incontinence. She denies any history of recurrent urinary tract infections. Patient notes in August 2024, she was in the ED for chest pain. Patient states she was evaluated by cardiology who recommended the patient have a stress test and ECHO, which is scheduled for end november. Patient states she no longer has the chest pain and no exertional chest pain. She believes the chest pain may have been from anxiety. Patient notes a history of sleep apnea and does where a CPAP machine. She notes her abdominal surgical history includes a laparoscopic left lower quadrant colostomy creation, abdominal cyst removal and partial hysterectomy. Patient's labs from today demonstrate WBC 14.7, Hgb 12.9, Hct 37.7, Plt 257. Liver panel notable for T. Bili 0.59, AST 43, ALT 64, Alk Phos 78 PFSH Medical History Sinusitis, acute Anxiety Subclinical hypothyroidism Fatty liver Episode of hypertension Chest pain Depression Sleep apnea Hyperlipidemia Urinary incontinence History of malignant neoplasm of rectum, rectosigmoid junction, and anus Home Medications ?Medication ?Instructions ?Recorded ?Last Taken ?Type multivitamin 1 cap PO DAILY 03/06/19 Unkn own History calcium carbonate 600 mg PO QDAY 09/24/24 Unkn own History sertraline 100 mg tablet 100 mg PO QDAY 09/24/24 Unkn own History ascorbic acid (vitamin C) 500 mg 500 mg PO QDAY Unknown History tablet levothyroxine 25 mcg tablet 25 mcg PO QDAY 11/02/24 Un known History lisinopril 20 mg tablet 20 mg PO QDAY #90 tabs 11/02 Unknown Rx metoprolol succinate 25 mg 25 mg PO QDAY #90 tabs 10/20 01/11 Unknown Rx tablet,extended release 24 hr (Toprol XL) mirabegron 50 mg tablet,extended 50 mg PO QHS 11/02/24 Unknown History release 24 hr dicyclomine 20 mg tablet 20 mg PO TID PRN abdominal p ain 11/20/24 Unknown Rx #30 tabs hydrocodone-acetaminophen 5-325mg 1 tab PO Q4H PRN PRN Pain 2 days 11/20/24 Unknown Rx 5mg-325mg #10 TABLETS pantoprazole 40 mg tablet,delayed 40 mg PO DAILY #7 ta bs 11/20/24 Unknown Rx release (Protonix) Allergy/AdvReac Type Severity Reaction Status Date / Time Penicillins Allergy Unknown rash Verified 11/20/24 16:18 Bromhexine and derivatives Allergy Rash Verified 11/20/24 16:18 Family History Father Heart disease Cancer Brother Heart disease Diabetes Surgical History History of tonsillectomy History of creation of ostomy History of removal of cyst History of hysterectomy Social History household members: spouse and children 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 Smoking Status: Never smoker alcohol intake: never substance use type: does not use caffeine: Yes Type: carbonated beverages Number of servings: 3 what type of physical activity do you participate in: none ROS Constitutional Constitutional: Reports systems reviewed and no addt'l complaints, except as documented, fatigue and weight gain Eyes Eyes: Reports systems reviewed and no addt'l complaints, except as documented ENT HEENT: Reports systems reviewed and no addt'l complaints, except as documented Cardiovascular Cardiovascular: Reports systems reviewed and no addt'l complaints, except as documented Respiratory/Chest Respiratory/Chest: Reports systems reviewed and no addt'l complaints, except as documented Gastrointestinal Gastrointestinal: Reports systems reviewed and no addt'l complaints, except as documented Genitourinary Genitourinary: Reports systems reviewed and no addt'l complaints, except as documented Musculoskeletal Musculoskeletal: Reports systems reviewed and no addt'l complaints, except as documented Integumentary Integumentary: Reports systems reviewed and no addt'l complaints, except as documented Neurologic Neurologic: Reports systems reviewed and no addt'l complaints, except as documented Psychiatric Psychiatric: Reports systems reviewed and no addt'l complaints, except as documented Endocrine Endocrinology: Reports systems reviewed and no addt'l complaints, except as documented Hematologic/Lymphatic Hematologic/Lymphatic: Reports systems reviewed and no addt'l complaints, except as documented Allergic/Immunologic Allergic/Immunologic: Reports systems reviewed and no addt'l complaints, except as documented Vital Signs Vital Signs Vital Signs: 11/20/24 16:19 11/20/24 18:18 11/20/24 20:00 Temperature 98 F Temperature Source Oral Pulse Rate 88 60 83 Respiratory Rate 20 H 12 17 Blood Pressure 172/100 H 134/70 H Blood Pressure Mean 124 91 Pulse Ox 95 98 95 Oxygen Delivery Method Room Air Room Air Room Air Oxygen Flow Rate (L/min) 11/20/24 20:42 11/20/24 20:45 11/20/24 20:48 Temperature Temperature Source Pulse Rate 87 83 82 Respiratory Rate 22 H 24 H 19 H Blood Pressure 163/64 H Blood Pressure Mean 97 Pulse Ox 94 94 93 Oxygen Delivery Method Room Air Oxygen Flow Rate (L/min) 11/20/24 21:00 11/20/24 21:00 11/20/24 22:00 Temperature Temperature Source Pulse Rate 89 98 Respiratory Rate 25 H 21 H Blood Pressure 161/70 H 161/70 H Blood Pressure Mean 86 86 Pulse Ox 92 94 Oxygen Delivery Method Room Air Oxygen Flow Rate (L/min) 11/20/24 22:00 11/20/24 22:17 11/20/24 22:30 Temperature Temperature Source Pulse Rate 97 98 Respiratory Rate 27 H 17 Blood Pressure 141/130 H Blood Pressure Mean 136 Pulse Ox 92 94 Oxygen Delivery Method Oxygen Flow Rate (L/min) 11/20/24 22:45 11/20/24 23:00 11/20/24 23:31 Temperature Temperature Source Pulse Rate 96 100 100 Respiratory Rate 19 H 23 H 20 H Blood Pressure 156/61 H Blood Pressure Mean 88 Pulse Ox 90 90 91 Oxygen Delivery Method Oxygen Flow Rate (L/min) 11/20/24 23:45 11/20/24 23:55 11/21/24 00:00 Temperature Temperature Source Pulse Rate 101 H 105 H 100 Respiratory Rate 22 H 26 H 20 H Blood Pressure 156/61 H 158/65 H Blood Pressure Mean 92 91 Pulse Ox 88 96 95 Oxygen Delivery Method Nasal Cannula Oxygen Flow Rate (L/min) 2 11/21/24 00:15 11/21/24 00:30 11/21/24 00:50 Temperature Temperature Source Pulse Rate 99 101 H 104 H Respiratory Rate 20 H 19 H 20 H Blood Pressure Blood Pressure Mean Pulse Ox 94 95 92 Oxygen Delivery Method Oxygen Flow Rate (L/min) 11/21/24 00:58 11/21/24 01:00 11/21/24 01:15 Temperature Temperature Source Pulse Rate 99 98 99 Respiratory Rate 19 H 17 19 H Blood Pressure 158/65 H 150/64 H Blood Pressure Mean 96 84 Pulse Ox 99 95 96 Oxygen Delivery Method Nasal Cannula Oxygen Flow Rate (L/min) 2 11/21/24 01:30 11/21/24 01:45 11/21/24 02:00 Temperature Temperature Source Pulse Rate 101 H 101 H 98 Respiratory Rate 18 18 16 Blood Pressure 153/55 H Blood Pressure Mean 87 Pulse Ox 96 96 95 Oxygen Delivery Method Nasal Cannula Oxygen Flow Rate (L/min) 2 11/21/24 02:00 11/21/24 02:15 11/21/24 02:30 Temperature Temperature Source Pulse Rate 99 98 100 Respiratory Rate 16 17 17 Blood Pressure 153/55 H Blood Pressure Mean 81 Pulse Ox 95 96 96 Oxygen Delivery Method Oxygen Flow Rate (L/min) 11/21/24 02:45 11/21/24 03:00 11/21/24 03:15 Temperature Temperature Source Pulse Rate 99 101 H 100 Respiratory Rate 18 15 18 Blood Pressure 162/63 H Blood Pressure Mean 89 Pulse Ox 96 95 97 Oxygen Delivery Method Oxygen Flow Rate (L/min) 11/21/24 03:30 11/21/24 03:45 11/21/24 04:00 Temperature Temperature Source Pulse Rate 99 Respiratory Rate 18 Blood Pressure 167/57 H Blood Pressure Mean 93 Pulse Ox 95 97 97 Oxygen Delivery Method Nasal Cannula Oxygen Flow Rate (L/min) 2 11/21/24 04:00 11/21/24 04:15 11/21/24 04:30 Temperature Temperature Source Pulse Rate Respiratory Rate Blood Pressure 167/57 H Blood Pressure Mean 87 Pulse Ox 96 96 97 Oxygen Delivery Method Oxygen Flow Rate (L/min) 11/21/24 04:45 11/21/24 05:03 11/21/24 05:15 Temperature Temperature Source Pulse Rate 97 Respiratory Rate 20 H 18 Blood Pressure Blood Pressure Mean Pulse Ox 96 88 Oxygen Delivery Method Oxygen Flow Rate (L/min) 11/21/24 05:30 11/21/24 05:45 11/21/24 05:53 Temperature Temperature Source Pulse Rate 97 103 H 104 H Respiratory Rate 15 17 28 H Blood Pressure Blood Pressure Mean Pulse Ox 94 94 94 Oxygen Delivery Method Nasal Cannula Oxygen Flow Rate (L/min) 2 11/21/24 05:53 11/21/24 06:00 11/21/24 06:15 Temperature Temperature Source Pulse Rate 103 H 104 H 106 H Respiratory Rate 32 H 20 H 29 H Blood Pressure 157/68 H 153/61 H Blood Pressure Mean 88 86 Pulse Ox 92 95 93 Oxygen Delivery Method Oxygen Flow Rate (L/min) 11/21/24 06:30 11/21/24 06:45 11/21/24 07:00 Temperature Temperature Source Pulse Rate 107 H 104 H Respiratory Rate 24 H 17 Blood Pressure 176/75 H Blood Pressure Mean 101 Pulse Ox 95 95 Oxygen Delivery Method Oxygen Flow Rate (L/min) 11/21/24 07:25 11/21/24 07:39 11/21/24 07:45 Temperature Temperature Source Pulse Rate 96 Respiratory Rate 20 H Blood Pressure Blood Pressure Mean Pulse Ox 95 92 96 Oxygen Delivery Method Oxygen Flow Rate (L/min) 11/21/24 08:00 11/21/24 08:15 11/21/24 08:30 Temperature Temperature Source Pulse Rate 92 91 96 Respiratory Rate 17 17 18 Blood Pressure 150/59 H Blood Pressure Mean 82 Pulse Ox 96 96 95 Oxygen Delivery Method Oxygen Flow Rate (L/min) 11/21/24 08:45 11/21/24 09:00 11/21/24 09:15 Temperature Temperature Source Pulse Rate 95 95 Respiratory Rate 20 H 17 18 Blood Pressure 71/48 L Blood Pressure Mean 56 Pulse Ox 96 95 96 Oxygen Delivery Method Oxygen Flow Rate (L/min) 11/21/24 09:23 11/21/24 09:30 Temperature Temperature Source Pulse Rate Respiratory Rate 25 H 23 H Blood Pressure 90/67 Blood Pressure Mean 76 Pulse Ox 96 96 Oxygen Delivery Method Oxygen Flow Rate (L/min) Weight Weight: 190 lb 14.725 oz Body Mass Index (BMI) 32.8 Physical Exam Const alert, oriented x3 and no apparent distress HEENT normocephalic and head/scalp atraumatic Eyes PERRL Neck full ROM Chest inspection of chest normal Resp normal respiratory effort and normal air movement Cardio regular rate and regular rhythm GI GI Narrative: Abdomen- soft, tenderness in the epigastric and right upper quadrant regions. Positive Rodríguez's sign. Left lower quadrant ostomy noted with stool within the stoma bag. no CVA tenderness Back/Spine no CVA tenderness Extremity normal to inspection Skin no rashes or lesions noted Neuro no focal motor deficits and no sensory deficits noted Psych mental status grossly normal and thought process normal Results Lab / Micro Data 11/21/24 06:51 11/21/24 06:51 Labs: Laboratory Results - last 24 hr 11/20/24 17:10: WBC 14.2 H, RBC 4.31, Hgb 13.8, Hct 39.8, MCV 92.3, MCH 32.0, MCHC 34.7, RDW Std Deviation 42.6, RDW Coeff of Axel 12.5, Plt Count 274, MPV 9.3, Immature Gran % (Auto) 0.600, Neut % (Auto) 86.8 H, Lymph % (Auto) 8.7 L, [place] % (Auto) 3.4, Eos % (Auto) 0.1, Baso % (Auto) 0.4, Absolute Neuts (auto) 12.4 H, Absolute Lymphs (auto) 1.23, Nucleated RBC % 0, Sodium 134, Potassium 5.5 H, Chloride 102, Carbon Dioxide 16.8 L, Anion Gap 15, BUN 14, Creatinine 0.76, Estim Creat Clear Calc 63.71, Est GFR (MDRD) Non-Af 81, BUN/Creatinine Ratio 18.8, Glucose 140 H, Calcium 9.4 11/20/24 19:56: Lactic Acid 1.5 11/20/24 20:42: Urine Color Yellow, Urine Clarity Sl. Cloudy, Urine pH 6.0, Ur Specific [place] 1.020, Urine Protein 30 H, Urine Glucose (UA) Normal, Urine Ketones Negative, Urine Occult Blood Negative, Urine Nitrite Negative, Urine Bilirubin Negative, Urine Urobilinogen Normal, Ur Leukocyte Esterase 25 H, Urine RBC 0-5 SEEN, Urine WBC 5-10 SEEN, Ur Squamous Epith Cells 0 SEEN, Urine Bacteria 1+, Urine Mucus RARE 11/21/24 06:51: WBC 14.7 H, RBC 4.03 L, Hgb 12.9, Hct 37.7, MCV 93.5, MCH 32.0, MCHC 34.2, RDW Std Deviation 43.8, RDW Coeff of Axel 12.8, Plt Count 257, MPV 9.3, Immature Gran % (Auto) 0.500, Neut % (Auto) 79.5 H, Lymph % (Auto) 11.2 L, [place] % (Auto) 8.2, Eos % (Auto) 0.4, Baso % (Auto) 0.2, Absolute Neuts (auto) 11.7 H, Absolute Lymphs (auto) 1.65, Nucleated RBC % 0, Sodium 141, Potassium 4.4, Chloride 108, Carbon Dioxide 21.1, Anion Gap 12, BUN 10, Creatinine 0.68 L, Estim Creat Clear Calc 63.71, Est GFR (MDRD) Non-Af 90, BUN/Creatinine Ratio 15.3, Glucose 151 H, Lactic Acid 1.1, Calcium 9.0, Total Bilirubin 0.59, Direct Bilirubin 0.30, AST 43 H, ALT 64 H, Alkaline Phosphatase 78, Total Protein 7.1, Albumin 4.0, Globulin 3.1, Lipase 29 ABG Data ABG results: ABG 11/20/24 20:05 Specimen Type CRISTY Sample Site Not entered VBG pH 7.40 VBG pO2 69 H VBG HCO3 20 L VBG Total CO2 21 L VBG O2 Sat (Calc) 94 H VBG Base Excess -5 L POC Mix VBG pCO2 Pt Tmp 32.1 L O2 Delivery Device Room Air Imaging Radiology Impression Abdomen/Pelvis CT 11/20/24 21:10 IMPRESSION: Distended gallbladder with ill-defined layering density, may represent sludge versus tiny stones. Right upper quadrant ultrasound may be helpful for further characterization. Left lower quadrant colostomy with a parastomal hernia containing a focal loop of transverse colon. No inflammatory changes of the bowel loops are demonstrated. One or more dose reduction techniques were used (e.g., Automated exposure control, adjustment of the mA and/or kV according to patient size, use of iterative reconstruction technique). Reading [facility] 11/21/24 06:25 IMPRESSION: Findings are suggestive of cholelithiasis with acute cholecystitis. Consider HIDA scan for further evaluation. Mild right hydronephrosis. ? Hepatic steatosis. Reading Location: [id number] Assessment & Plan Assessment/Plan (1) Acute calculous cholecystitis: (2) Parastomal hernia: QUALIFIERS: Obstruction and gangrene presence: without obstruction or gangrene Qualified Code(s): K43.5 - Parastomal hernia without obstruction or gangrene PLAN: Plan I am seeing this patient in conjunction with Dr. Murry. He has independently evaluated this patient. Patient has a 2 day history of worsening upper abdominal pain which is now located in the right upper quadrant. RUQ u/s demonstrated acute cholecystitis with calculus. Dr. Murry will plan to preform a laparoscopic cholecystectomy with intraoperative cholangiogram. Procedure details, risks and benefits have been explained. Plan to admit patient for observation. Patient and her have had the opportunity to ask and have questions answered. Patient verbally understands agrees with the proposed plan. Patient also has a parastomal hernia as well, which will need to be addressed as an outpatient with her colorectal surgeon, Dr. Singletary. Thank you for allowing us toparticipate in this patient's care. Charges/Coding Visit Charges OBSV E&M: 48628 Observ/hosp same date L2
--- NOTE | 2024-11-21 12:18 | RAD_ITS ---
PROCEDURE: CHOLANGIOGRAM/ O R,INITIAL REASON FOR EXAM: Laparoscopic cholecystectomy. TECHNIQUE: The surgeon injected contrast. Fluoroscopic services were provided. COMPARISON: None FINDINGS: The visualized intra and extrahepatic biliary ducts are unremarkable. No intraluminal filling defect is seen. Free flow of contrast into the duodenum. RAD/Cholangiogram/ O R,Initial IMPRESSION: Unremarkable intraoperative cholangiogram. Reading Location: [facility]
[2024-11-21] MEDS: Ciprofloxacin 400 MG/200 ML BAG 200 MG IV ×2 (12:47→21:07)
--- NOTE | 2024-11-21 13:32 | PCM.PRE.AN2 ---
ASA Classification* ASA Classification ASA Classification: 2 Assessment & Plan Anesthesia* Anesthesia Assessment Anesthesia Assessment: Discussed sedation and/or anesthesia options, risks, benefits, and alternatives with patient/parents/legal guardian/POA. Questions invited. The patient/parents/legal guardian/POA seems to understand and agrees to proceed with anesthesia plan. Reviewed the physical assessment, medical history, allergy history and patient home medications list prior to surgery/procedure/anesthetic and documented any changes. Performed airway and anesthesia risk assessments. Anesthesia Type Anesthesia Type: General Anesthesia Focused Assessment* Temperature: 98.2 F Pulse Rate: 89 Blood Pressure: 164/61 Respiratory Rate: 17 Pulse Ox: 96 Oxygen Flow Rate (L/min): 2 Airway Assessment Mouth opens: >3 cm Mallampati Score: II Focused Labs Anesthesia Preop lab: CBC WBC 14.7 K/mm3 (4.4-11.0) H 11/21/24 06:51 11/21/24 RBC 4.03 M/mm3 (4.2-5.4) L 11/21/24 06:51 11/21/24 Hgb 12.9 g/dL (12.0-15.0) 11/21/24 06:51 11/21/24 Hct 37.7 % (37-47) 11/21/24 06:51 11/21/24 Plt Count 257 K/mm3 (150-450) 11/21/24 06:51 11/21/24 CHEMISTRY Potassium 4.4 mmol/L (3.3-5.1) 11/21/24 06:51 11/21/24 Sodium 141 mmol/L (133-145) 11/21/24 06:51 11/21/24 BUN 10 mg/dL (4-19) 11/21/24 06:51 11/21/24 Creatinine 0.68 mg/dL (0.70-1.20) L 11/21/24 06:51 11/21/24 Glucose 151 mg/dL (70-99) H 11/21/24 06:51 11/21/24 TSH 3.030 uIU/mL (0.358-3.740) 09/10/24 13:53 09/10/24 COAG Pre-Assessment Diagnosis/Proposed Procedure Planned Operative Procedure(s): Laproscopic Patricia Anesthesia History Anesthesia History - commercial internship: Anesthesia History - commercial internship Hx Hospitalization Any Problems With Anesthesia No 11/21/24 12:51 Cholinesterase deficiency No 11/21/24 12:51 You/Your Family Experience No 11/21/24 12:51 fever (hyperthermia) with Relationship Recent Exposure to Contagious No 11/21/24 12:51 Disease Does patient have nerve No 11/21/24 12:51 stimulator Patient instructed to have No 11/21/24 12:51 device shut off --Does patient have Pacemaker No 11/21/24 12:51 or ICD? When Was Last Pacemaker Check QUESTION #4 FULL TEXT: You/Your Family Experience fever (hyperthermia) with Anesthesia Last Oral Intake Last Oral intake: Last Oral Intake NPO since 14:00 11/21/24 12:51 Meds taken in AM with sips of water? Meds patient instructed to take am of surgery PONV PONV - commercial internship: PONV - commercial internship Female HX of Motion Sickness HX of N/V After Surgery Non-Smoker Duration of Surgery greater than 60 minutes Number of Risk Factors PONV Score Height & Weight Height & Weight: Anesthesia: Height & Weight Height 5 ft 4 in 11/21/24 12:51 Weight: 86.6 kg 11/21/24 12:51 Body Mass Index (BMI) 32.8 11/21/24 12:51 Respiratory Assessment Respiratory Assessment - commercial internship: Respiratory Tract Infection Hx - commercial internship Hx Respiratory Tract Infection No 11/21/24 12:51 STOP Sleep Apnea STOP Sleep Apnea - commercial internship: STOP Sleep Apnea - commercial internship Hx Hypertension No 08/14/24 12:25 Hx Sleep Apnea Yes 11/21/24 12:51 CPAP Yes 11/21/24 12:51 BIPAP No 11/21/24 12:51 Do you snore loudly (louder than talking or can be heard Do you often feel tired/ fatigued/ sleepy during daytime? Has anyone observed you stop breathing during sleep? STOP Results Positive 11/21/24 12:51 QUESTION #5 FULL TEXT : Do you snore loudly (louder than talking or can be heard through closed doors)? Tobacco Use History Tobacco Use History - commercial internship: Tobacco Use History - commercial internship Tobacco Use Smoking Status Never smoker 11/20/24 17:10 Hx Tobacco Use Years Smoking Packs Smoked per Day Smoking Cessation Date was within the last 15 years Hx Smoking Cessation Date Hx Smoking Cessation Counseling Hematologic Medial History Hematologic Hx - commercial internship: Hematologic Medical Hx - screen stretcher Hx of Blood Transfusion Hx of Transfusion in last 3 Months Date of Last Transfusion (if within last 3 months) Ever experience any problems with transfusion(s)? Specify any problems Hx of Preganancy in last 3 Months Nurse Filling Out Transfusion & Questions: Date: Time: Patient unable to answer at this time (ie. confused, unrespo /Reproduction History /Reproductive History - commercial internship: /Reproductive Hx- commercial internship Hx Now No 11/21/24 12:51 Gestational Age (in weeks): EDC: Hx Hx Para Hx Section SAB No 11/21/24 12:51 [facility] Medical History Sinusitis, acute Anxiety Subclinical hypothyroidism Fatty liver Episode of hypertension Chest pain Depression Sleep apnea Hyperlipidemia Urinary incontinence History of malignant neoplasm of rectum, rectosigmoid junction, and anus Home Medications ?Medication ?Instructions ?Recorded ?Last Taken ?Type multivitamin 1 cap PO DAILY 03/06/19 Unknown History calcium carbonate 600 mg PO QDAY 09/24/24 Unknown History sertraline 100 mg tablet 100 mg PO QDAY 09/24/24 Unknown History ascorbic acid (vitamin C) 500 mg 500 mg PO QDAY 11/02/24 Unknown History tablet levothyroxine 25 mcg tablet 25 mcg PO QDAY 11/02/24 Unknown History lisinopril 20 mg tablet 20 mg PO QDAY #90 tabs 11/02/24 Unknown Rx metoprolol succinate 25 mg 25 mg PO QDAY #90 tabs 11/02/24 Unknown Rx tablet,extended release 24 hr (Toprol XL) mirabegron 50 mg tablet,extended 50 mg PO QHS 11/02/24 Unknown History release 24 hr dicyclomine 20 mg tablet 20 mg PO TID PRN abdominal pain 11/20/24 Unknown Rx #30 tabs hydrocodone-acetaminophen 5-325mg 1 tab PO Q4H PRN PRN Pain 2 days 11/20/24 Unknown Rx 5mg-325mg #10 TABLETS pantoprazole 40 mg tablet,delayed 40 mg PO DAILY #7 tabs 11/20/24 Unknown Rx release (Protonix) Allergy/AdvReac Type Severity Reaction Status Date / Time Penicillins Allergy Unknown rash Verified 11/20/24 16:18 Bromhexine and derivatives Allergy Rash Verified 11/20/24 16:18 Family History Father Heart disease Cancer Brother Heart disease Diabetes Surgical History History of tonsillectomy History of creation of ostomy History of removal of cyst History of hysterectomy Social History household members: spouse and children 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 Smoking Status: Never smoker alcohol intake: never substance use type: does not use caffeine: Yes Type: carbonated beverages Number of servings: 3 what type of physical activity do you participate in: none Addt'l Information Additional Findings: 11/02/2024 EKG shows sinus rhythm low voltage precordial leads poor R wave progression consider old anterior infarct. Cardiology visit 11/02/2024 due to chest pain at that time recommended stress test but did not feel that it was due to cardiac issues Review of Systems (Anesthesia) ROS Narrative System reviewed and no additional complaints, except as documented.
[2024-11-21] MEDS: 0.9% Normal Saline (1000mL) 1,000 ML 15 ML IV (13:40)
--- NOTE | 2024-11-21 14:50 | GALL_PTH ---
PATIENT: IRASEMA SHAFER LOC: MS3 U#:[id number] AGE/SX: 74/F ROOM: FL323 RE11/22/[address]: Dr. Nolan Murry MD : 1950 BED: 1 DIS: 11/23/2024 SPEC #: [id number] RECD: 11/22/24 10:38 STATUS: HUBERT BILL #: [id number] MADDIE: 11/21/24 14:[address]: Nolan Murry DEPT: SURGICAL PATHOLOGY RECD BY: Flaco Pereyra ENTERED: 11/22/24 10:38 SP TYPE: ESCOBAR AJSON DR: Afia Chacko MD Tissues: Gallbladder, NOS Procedures: Surgery Specimen Level III HEADER OPERATION: Laparoscopic cholecystectomy with IOC PRE-OP DIAGNOSIS: Acute calculous cholecystitis TISSUE SUBMITTED: Gallbladder MICROSCOPIC DIAGNOSIS Gallbladder, cholecystectomy: * Acute cholecystitis. * Cholelithiasis. MICROSCOPIC DESCRIPTION Slides are reviewed. GROSS DESCRIPTION Received in formalin labeled Irasema Shafer and designated gallbladder is a green-cabello ragged previously disrupted gallbladder that measures 7.5 cm long by 3.5 cm in diameter. The mucosa is uniform, red-brown, hemorrhagic, and markedly granular. Sectioning shows a 0.2 cm wall thickness. The lumen contains multiple yellow to dark green irregular shaped calculi and calculi fragments that aggregate to 3.5 x 3.0 x 2.5 cm. Chief Petroleum Engineer sections of the gallbladder are submitted.PRIYANK. 11/22/2024 CPT:89864
[2024-11-21] MEDS: Bupiv/Epi 0.25% 30 ML Vial (16:40)
--- NOTE | 2024-11-21 16:44 | OP.PCM_ITS ---
Procedures Digestive 40xxx-49xxx: 16942 Laparo cholecystectomy/graph Operative Report (Standard) Operative Information Date of Procedure: 11/21/24 Pre-Operative Diagnosis: Cholecystitis Post-Operative Diagnosis: Severe cholecystitis with hydrops Surgery/Procedure Performed: Laparoscopic cholecystectomy with intraoperative cholangiography manager intranet: Yes Race Relations Professor: Dudley Rayo Tasks completed by virtual assistant: Opening & closing, Retracting and Other (laparoscopic camera operation) Type of Anesthesia: General/Supplemental RN Documented Start/Stop Times: Operation Date: 11/21/24 14:50 Case Time Into Pre-Op 11/21/24 13:49 Out of Pre-Op 11/21/24 14:03 Anesthesia Start 11/21/24 14:06 Into Room 11/21/24 14:06 Procedure Start 11/21/24 14:32 Procedure End 11/21/24 16:52 Anesthesia End 11/21/24 17:13 Out of Room 11/21/24 17:13 Into Recovery 11/21/24 17:21 Out of Recovery 11/21/24 20:01 Procedure Start Time: 14:32 Procedure Stop Time: 16:45 Select all DRAINS/GRAFTS/IMPLANTS that apply: Drains Drain details: 15 Somali round Vladimir drain Estimated Blood Loss: 20 Specimen collected: Yes Description of specimen(s) removed: Gallbladder Description of surgery: After proper identification in the preoperative holding area the patient was brought to the operating room where she was positioned supine on the operating room table. Preoperatively SCDs were placed and antibiotics were administered. General anesthesia was then induced. An orogastric tube was placed by anesthesia. Patient's abdomen was prepped and draped in usual sterile fashion after placing drapes across her abdomen to exclude her colostomy. A formal timeout was conducted to confirm both patient and the procedure. Procedure was begun with a supraumbilical incision which was extended deeply down to the level of the fascia. The fascia was elevated and incised, as well as the peritoneum. A finger sweep was performed to ensure there were no underlying adhesions and a 12 mm balloon trocar was inserted. Pneumoperitoneum was established at 12 mmHg. Three additional trocars (all 5 mm) were placed in the epigastrium (this was later upsized for a 12 mm port under laparoscopic visualization) and in the right upper quadrant. Inspection of the peritoneum revealed no inadvertent inj ury to the viscera below. The gallbladder was not immediately visualized as there was adherent omentum but once this was swept down we could visualize a very large, taut gallbladder with a hemorrhagic appearance. Given the severe distention the gallbladder was unable to be grasped so a aspirating needle was connected to the suction rfp writer device and used to decompress the gallbladder. The gallbladder fundus was then grasped and elevated cephalad. Then, using careful dissection the peritoneum was opened and the structures of the hepatocystic triangle were delineated. This proved exceptionally difficult given the redundancy of the gallbladder infundibulum and the tortuosity of a shortened cystic duct related to some adhesive bands contorting the duct. Ultimately it proved evident that we would need to sacrifice the cystic artery to try to gain as much length as possible on the cystic duct. This was accomplished after application of 3 titanium clips. Even still the length of the cystic duct was not significant so I first attempted cholangiogram with application of a Sahni clamp across the gallbladder infundibulum. Two attempts were made but met with the same result. This result seemed to show that the gallbladder was occluded but there is no filling of the cystic duct because of resistance (potentially due to the tortuosity of the duct). Therefore I abandoned this approach and elected to clip the cystic duct distally and performed a ductotomy. Using an Alvarez [place] clamp, a cholangiocatheter was fed into the proximal segment of the cystic duct and clamped into place. Under fluoroscopy a cholangiogram was then obtained showing a standard length cystic duct flowing into a common bile duct with antegrade flow of contrast into the duodenum. There was also retrograde flow through the common hepatic duct into the right and left hepatic ducts. Satisfied with this result, the cholangiocatheter was withdrawn and the proximal cystic duct was sealed with 2 additional Hemolock clips and the cystic duct was completely transected. The gallbladder was then removed from the gallbladder fossa with the use of electrocautery. Selective electrocautery was used to obtain hemostasis in the gallbladder fossa. The gallbladder was placed in an Endo Catch bag and removed from the peritoneum. Morison's pouch was irrigated and the effluent was suctioned free of the peritoneum. Any visible stones that had been lost during the procedure were also promptly removed. Hemostasis was again confirmed. The 12 mm port sites were closed in a eoswen-oa-pvuiv fashion using #1 PDS and a Abdirahman-Seda suture passer under laparoscopic visualization. Finally a 15 Somali round Vladimir drain was fed into the patient's rightmost upper quadrant port site and was positioned under the liver. The distal end of the drain was secured at the skin with a 2-0 nylon suture. Pneumoperitoneum was evacuated. A total of 30 mL of anesthetic was injected at the port sites for postoperative pain control. The skin of each port site was then closed in subcuticular fashion using 4-0 Monocryl. Steri-Strips and bandages were applied as dressings. Patient tolerated the procedure well without any apparent complications. On emergence from their anesthetic the patient was taken to PACU for ongoing recovery. Surgical Findings: ? Numerous adhesions around patient's left lower quadrant colostomy ? Nodular liver given the gross appearance of cirrhosis ? Hemorrhagic cholecystitis with hydrops ? Short cystic duct contorted due to presence of adhesive bands ? Cholangiogram showing normal biliary anatomy with normal antegrade filling of the common bile duct and retrograde filling of the common hepatic duct system Complications Complications: No Admit VTE Documentation VTE Mechan Device Prophylaxis: SCD's
--- NOTE | 2024-11-21 17:26 | PCM.POST.ANE ---
Anesthesia: Postop Eval I Current Vital Signs Temperature: 98 F Pulse Rate: 104 Blood Pressure: 174/57 Respiratory Rate: 16 Pulse Ox: 97 Oxygen Delivery Method: Simple Mask Oxygen Flow Rate (L/min): 6 Assessment Airway patent: Yes Spontaneous unlabored respirations: Yes Mental status: Awake and Calm nausea: No Vomiting: No Anesthesia Complication: No Fluid Hydration Crystalloid volume administer (ml): 1,400 Total IV fluid infused: 1,400 Progress Note Post-operative progress note: nasal trumpet and oral airway in place, breathing spontaneously Anesthesia document: Postop Eval 1 completed: Yes
--- NOTE | 2024-11-21 17:39 | DCINST_ITS ---
Discharge Instructions Diet Discharge Diet: No restrictions DC O2, CPAP, BIPAP needs Home O2 Discharge instructions: No Dressing / Incision Discharge Activity: May Not Drive (No driving while using narcotic pain medication) and May Shower (Postoperative day 1) May shower in (days): 1 Ice area for (Minutes): 20 Lifting Restrictions: No lifting greater than 15 pounds for 2 weeks after surgery Dressing / Incision Call your doctor if your incision/area has: Continuous Slow Oozing, Increased Pain/ Swelling, Increased Redness, Foul Smelling Discharge and Swelling at the incision site Call your doctor if you observe: Fever of 101 or Higher Remove Dressing in: 2 days (Please leave Steri-Strips intact until they fall off spontaneously or are taken off at your follow-up visit) Cleanse incision/area with: Soap & Water Additional Dressing/Incision Instructions:: Please discontinue drain site dressing in 48 hours Follow Up Care Please Follow Up With: Nolan Murry MD When: 7-10days postop Test Results: Test results from this visit will be discussed in further detail at your follow- up appointment, if applicable. Discharge Plan Admission Admit Date/Time: 11/22/24 12:56 Primary Reason for Your Visit: Cholecystitis Attending Provider: Nolan Murry Primary Care Provider: Afia Chacko Discharge Orders/Prescriptions Prescriptions: New metronidazole 500 mg Tablet 500 mg PO TID 2 Days Qty: 6 0RF ciprofloxacin HCl 500 mg Tablet 500 mg PO BID 2 Days Qty: 4 0RF oxycodone 5 mg Tablet 5 mg PO Q4H PRN PRN (Reason: Pain Score 4-10) 2 Days Qty: 10 0RF Continued multivitamin capsule 1 cap PO DAILY sertraline 100 mg tablet 100 mg PO QDAY calcium carbonate 600 mg calcium (1,500 mg) tablet 600 mg PO QDAY levothyroxine 25 mcg tablet 25 mcg PO QDAY ascorbic acid (vitamin C) 500 mg tablet 500 mg PO QDAY mirabegron 50 mg tablet extended release 24 hr 50 mg PO QHS metoprolol succinate [Toprol XL] 25 mg tablet extended release 24 hr 25 mg PO QDAY Qty: 90 3RF lisinopril 20 mg tablet 20 mg PO QDAY Qty: 90 3RF pantoprazole [Protonix] 40 mg tablet,delayed release (DR/EC) 40 mg PO DAILY Qty: 7 0RF hydrocodone-acetaminophen 5-325 mg tablet 1 tab PO Q4H PRN PRN (Reason: Pain) 2 Days Qty: 10 0RF dicyclomine 20 mg tablet 20 mg PO TID PRN (Reason: abdominal pain) Qty: 30 0RF Referrals / Follow Up: Afia Chacko MD [Primary Care Provider] - Disposition Disposition (needs filled in before D/C Order can be placed): Home, Self Care
--- NOTE | 2024-11-21 17:42 | SUR.PHASEI ---
PATIENT STILL HAS A ORAL AIRWAY AND A NASAL AIRWAY. SHE OPENS HER EYES TO HER NAME AND ANSWERED A QUESTION ABOUT ARE YOU HAVING TROUBLE WAKING UP? SHE SAID YES. O2 98% ON SIMPLE MASK AT 10 LITERS AND HER CO2 LEVEL IS 45. RESPIRATIONS ARE 20.
--- NOTE | 2024-11-21 17:54 | POSTOPAN2_ITS ---
Anesthesia Postop Eval I Sum Postop Eval Completion status Anesthesia document: Postop Eval 1 completed: Yes Anesthesia Postop Eval I Summary Anesthesia Postop Eval I Summary: Anesthesia Postop Eval I: Assessment Summary Airway patent Yes 11/21/24 17:27 REVIEWER [email or web address] Spontaneous unlabored Yes 11/21/24 17:27 REVIEWER [email or web address] respirations Mental status Awake,Calm 11/21/24 17:27 REVIEWER [email or web address] nausea No 11/21/24 17:27 REVIEWER [email or web address] Vomiting No 11/21/24 17:27 REVIEWER [email or web address] Anesthesia Postop Eval I: Fluid Summary Crystalloid volume administer 1,400 11/21/24 17:27 REVIEWER [email or web address] (ml) Colloids volume administered ( ml) Blood Product volume administered (ml) Total IV fluid infused 1,400 11/21/24 17:27 REVIEWER [email or web address] Anesthesia Postop Eval I: Summary Notes Anesthesia Complication No 11/21/24 17:27 REVIEWER [email or web address] Anesthesia Complication Comment: Post-operative progress note nasal trumpet and 11/21/24 17:27 REVIEWER [email or web address] oral airway in place, breathing spontaneously Anesthesia: Postop Eval II Evaluation Mental status: Awake Pain Level: 2 nausea: No Vomiting: No
--- NOTE | 2024-11-21 17:54 | PCM.POSTANE2 ---
Anesthesia Postop Eval I Sum Postop Eval Completion status Anesthesia document: Postop Eval 1 completed: Yes Anesthesia Postop Eval I Summary Anesthesia Postop Eval I Summary: Anesthesia Postop Eval I: Assessment Summary Airway patent Yes 11/21/24 17:27 [email or web address] Spontaneous unlabored Yes 11/21/24 17:27 CAD [email or web address] respirations Mental status Awake,Calm 11/21/24 17:27 [email or web address] nausea No 11/21/24 17:27 [email or web address] Vomiting No 11/21/24 17:27 [email or web address] Anesthesia Postop Eval I: Fluid Summary Crystalloid volume administer 1,400 11/21/24 17:27 CAD [email or web address] (ml) Colloids volume administered ( ml) Blood Product volume administered (ml) Total IV fluid infused 1,400 11/21/24 17:27 CAD [email or web address] Anesthesia Postop Eval I: Summary Notes Anesthesia Complication No 11/21/24 17:27 [email or web address] Anesthesia Complication Comment: Post-operative progress note nasal trumpet and 11/21/24 17:27 CAD [email or web address] oral airway in place, breathing spontaneously Anesthesia: Postop Eval II Evaluation Mental status: Awake Pain Level: 2 nausea: No Vomiting: No
[2024-11-21] MEDS: 0.9% Normal Saline (1000mL) 1,000 ML 100 ML IV (20:32)
[2024-11-22 04:22] VITALS: BP 139/68; PULSE 97; RESP 18; TEMP 37; O2SAT 98
[2024-11-22] MEDS: oxyCODONE 5 MG Tablet PO ×2 (05:37→14:48)
[2024-11-22] MEDS: metroNIDAZOLE 500 MG/100 ML BAG 100 MG IV (05:37)
[2024-11-22] MEDS: Acetaminophen 325 MG Tablet 650 MG PO ×3 (05:37→22:40)
[2024-11-22 07:06] LABS: Absolute Lymphocyte Count 1.42 X10^3/uL (0.83-4.51); Absolute Neutrophil Count 13.6 X10^3/uL (2.0-7.7); Basophil# 0.02 X10^3/uL; Basophil% 0.1 % (0-1); Eosinophil# 0.02 X10^3/uL; Eosinophils% 0.1 % (0-5); Hematocrit 35.8 % (37-47); Hemoglobin 12.1 g/dL (12.0-15.0); Lymphocyte # 1.42 X10^3/ul (0.83-4.51); Lymphocyte % 8.6 % (19-41); Mean Corp Hgb Conc 33.8 g/dL (32-36); Mean Corpuscular Volume 94.7 fL (81-99); Mean Platelet Vol. 9.1 fl (6.2-12.0); Monocyte# 1.41 X10^3/uL; Monocyte% 8.5 % (0-10); NRBC Flagged by Analyzer 0 % (0-5); Neutrophil % 82.2 % (47-70); Platelet Count 225 K/mm3 (150-450); RBC Distribution Width CV 12.9 % (11.6-14.6); RBC Distribution Width SD 44.8 fl (35.1-43.9); Red Blood Count 3.78 M/mm3 (4.2-5.4); White Blood Count 16.6 K/mm3 (4.4-11.0)
--- NOTE | 2024-11-22 08:19 | PN.SURG_ITS ---
Subjective Subjective Patient evaluated resting comfortably in bed. She notes right upper quadrant discomfort. She denies any nausea, vomiting, fever. She denies any flatus or BM. FERMIN drain intact with cloudy serous fluid. Objective Data Objective Data Vital Signs: Vital Signs Temp Pulse Resp BP Pulse Ox O2 Del Method O2 Flow Rate 98.6 F 97 18 139/68 H 98 Nasal Cannula 3 11/22/24 04:22 11/22/24 04:22 11/22/24 04:22 11/22/24 04:22 11/22/24 04:22 11/22/24 04:22 11/22/24 04:22 Oxygen Flow Rate (L/min) 3 Oxygen Delivery Method Nasal Cannula Weight: 190 lb 14.725 oz Body Mass Index (BMI) 32.8 Intake & Output: Intake and Output for Last 24 Hours 11/20/24 11/21/24 11/22/24 23:59 23:59 23:59 Intake Total 1000 / 1000 914.67 / 914.67 700 / 700 Output Total 100 / 100 160 / 160 Balance 1000 / 1000 814.67 / 814.67 540 / 540 Lab / Micro Data 11/22/24 06:47 11/22/24 06:47 Labs: Laboratory Results - last 24 hr 11/22/24 06:47: WBC 16.6 H, RBC 3.78 L, Hgb 12.1, Hct 35.8 L, MCV 94.7, MCH 32.0, MCHC 33.8, RDW Std Deviation 44.8 H, RDW Coeff of Axel 12.9, Plt Count 225, MPV 9.1, Immature Gran % (Auto) 0.500, Neut % (Auto) 82.2 H, Lymph % (Auto) 8.6 L, [place] % (Auto) 8.5, Eos % (Auto) 0.1, Baso % (Auto) 0.1, Absolute Neuts (auto) 13.6 H, Absolute Lymphs (auto) 1.42, Nucleated RBC % 0 Radiography Diagnostic Testing: Radiology Impression Cholangiogram 11/21/24 12:18 IMPRESSION: Unremarkable intraoperative cholangiogram. Reading Location: [facility] Physical Exam GI GI Narrative: Abdomen- incisions c/d/i. No erythema or infection noted. FERMIN drain intact with cloudy serosanguineous fluid noted. Assessment & Plan Assessment/Plan (1) Acute calculous cholecystitis: PLAN: I am following this patient in conjunction with Dr. Murry. He has independently evaluated this patient. Labs reviewed. WBC increased Plan to transition to oral antibiotics today Leave FERMIN drain and continue to strip the drain every 8 H Increase to regular diet Encourage ambulation and I.S. Attempt to wean patient off oxygen to RA Probable discharge tomorrow Will reorder home meds We will continue to monitor this patient Charges/Coding Visit Charges Inpatient E&M: 21149 [facility] Hosp L1 (no charge; post-op)
[2024-11-22 08:23] LABS: ALB/GLOB Ratio 1.3 RATIO (0.9-2.4); AST(SGOT) 48 U/L (<=31); Alanine Aminotransfer ALT/SGPT 65 U/L (<=34); Albumin, Serum 3.4 g/dL (3.4-4.8); Alkaline Phosphatase 64 U/L (35-104); Anion Gap 10 (5-15); BUN 10 mg/dL (4-19); BUN/Creat Ratio 14.5 RATIO (10-20); Calcium,Total 8.4 mg/dL (7.6-11.0); Carbon Dioxide 22.5 mmol/L (21.0-32.0); Chloride 108 mmol/L (98-108); Creatinine, Serum 0.72 mg/dL (0.70-1.20); EST Glomerular Filtration Rate 87 (>60); Estimated Creatinine Clearance 63.71 ml/min (50-250); Globulin 2.7 g/dL (2.2-4.2); Glucose 139 mg/dL (70-99); Potassium 4.1 mmol/L (3.3-5.1); Protein, Total 6.1 g/dL (5.9-8.4); Sodium Level 141 mmol/L (133-145); Total Bilirubin 0.53 mg/dL (0.00-1.30)
[2024-11-22 09:05] VITALS: O2SAT 93
[2024-11-22] MEDS: Ciprofloxacin 400 MG/200 ML BAG 200 MG IV (10:28)
[2024-11-22] MEDS: 0.9% Normal Saline (1000mL) 1,000 ML 25 ML IV (10:28)
[2024-11-22 10:31] VITALS: BP 152/51; PULSE 96; RESP 16; TEMP 37.1; O2SAT 95
[2024-11-22] MEDS: Pantoprazole Sodium 40 MG Tablet PO (12:13)
[2024-11-22] MEDS: Ketorolac 15 MG/ML Vial IV ×3 (12:13→22:49)
[2024-11-22] MEDS: 0.9% Saline Lock 10 ML Syringe IV ×3 (12:13→22:40)
--- NOTE | 2024-11-22 14:29 | CASEMGMT ---
Met with patient to complete DUMONT form. DUMONT form explained to patient who voiced understanding and signed form. Original form placed in pt?s chart and copy provided to patient. Brooklyn Beavers, Discharge Planning Asst
[2024-11-22 14:46] VITALS: BP 142/58; PULSE 101; RESP 16; TEMP 36.7; O2SAT 96
[2024-11-22] MEDS: metroNIDAZOLE 500 MG Tablet PO ×2 (14:48→22:39)
--- NOTE | 2024-11-22 16:58 | CASEMGMT ---
RN CM LIAISON OFFICER CM?to room to meet with patient for initial transition planning/care coordination assessment. RN CM?introduced self and role at [facility]. Pt voices understanding and consents to assessment?at this time. Pt resting in bed in no distress at this time, @ bedside. Pt is A/O at this time and answers all questions appropriately. Care providers, pharmacy, and demographics verified/updated at this time. Strata:?1 PCP: Dr Chacko Specialists: none Preferred Pharmacy: [facility] Insurance: [facility], [facility] Prescription Benefit: yes LNOK: , Linda. One adult child/son, lives in [place]. Living Arrangements: Lives w/ in one-story home w/basement and 4 steps to enter w/railing on one side. Pt goes to basement to do laundry. States does okay with the stairs. Indep w/ADL's, manages her own medications. Pt and get groceries together. Pt does most home mgnt tasks. Transportation:?Pt states drives self and states no transportation concerns at this time. also drives. DME: States has the following DME: CPAP from [employer]. No home O2. Pt states no need for further DME at this time. HHC/SNF: No hx of either. Denies need for HHC or OP therapy. Pt wishes to return home and states has no concerns with going home at time of discharge. CM?to follow for any discharge planning/needs. Pt voices no further concerns/needs at this time. Advised pt to ask for CM?if any further questions/concerns/needs arise. Voices understanding. PLAN: Home Darrell GONSALES RN, CM
[2024-11-22] MEDS: Ciprofloxacin 500 MG Tablet PO (22:39)
[2024-11-22] MEDS: Vibegron 75 MG TABLET PO (22:40)
[2024-11-22 22:42] VITALS: BP 148/55; PULSE 87; RESP 18; TEMP 37.4; O2SAT 96
[2024-11-23] MEDS: metroNIDAZOLE 500 MG Tablet PO ×2 (06:13→14:12)
[2024-11-23] MEDS: Levothyroxine 25 MCG TABLET PO (06:13)
[2024-11-23] MEDS: Ketorolac 15 MG/ML Vial IV ×2 (06:13→11:53)
[2024-11-23] MEDS: Acetaminophen 325 MG Tablet 650 MG PO (06:14)
[2024-11-23] MEDS: 0.9% Saline Lock 10 ML Syringe IV ×2 (06:14→11:53)
[2024-11-23 06:25] VITALS: BP 132/48; PULSE 73; RESP 16; TEMP 36.7; O2SAT 95
[2024-11-23 06:53] LABS: Absolute Lymphocyte Count 2.47 X10^3/uL (0.83-4.51); Absolute Neutrophil Count 9.1 X10^3/uL (2.0-7.7); Basophil# 0.07 X10^3/uL; Basophil% 0.5 % (0-1); Eosinophil# 0.29 X10^3/uL; Eosinophils% 2.2 % (0-5); Hematocrit 36.1 % (37-47); Hemoglobin 11.7 g/dL (12.0-15.0); Lymphocyte # 2.47 X10^3/ul (0.83-4.51); Mean Corp Hgb Conc 32.4 g/dL (32-36); Mean Corpuscular Hgb 31.7 pg (27.0-32.0); Mean Corpuscular Volume 97.8 fL (81-99); Mean Platelet Vol. 9.4 fl (6.2-12.0); Monocyte# 0.96 X10^3/uL; Monocyte% 7.4 % (0-10); NRBC Flagged by Analyzer 0 % (0-5); Neutrophil # 9.12 X10^3/uL (2.7-7.7); Neutrophil % 70.4 % (47-70); Platelet Count 230 K/mm3 (150-450); RBC Distribution Width CV 13.3 % (11.6-14.6); RBC Distribution Width SD 47.7 fl (35.1-43.9); Red Blood Count 3.69 M/mm3 (4.2-5.4)
[2024-11-23 07:32] LABS: ALB/GLOB Ratio 1.2 RATIO (0.9-2.4); AST(SGOT) 35 U/L (<=31); Alanine Aminotransfer ALT/SGPT 54 U/L (<=34); Albumin, Serum 3.5 g/dL (3.4-4.8); Alkaline Phosphatase 63 U/L (35-104); Anion Gap 12 (5-15); BUN 18 mg/dL (4-19); BUN/Creat Ratio 19.1 RATIO (10-20); Calcium,Total 8.7 mg/dL (7.6-11.0); Carbon Dioxide 24.3 mmol/L (21.0-32.0); Chloride 107 mmol/L (98-108); Creatinine, Serum 0.95 mg/dL (0.70-1.20); EST Glomerular Filtration Rate 62 (>60); Estimated Creatinine Clearance 53.65 ml/min (50-250); Globulin 2.8 g/dL (2.2-4.2); Glucose 134 mg/dL (70-99); Potassium 3.3 mmol/L (3.3-5.1); Protein, Total 6.4 g/dL (5.9-8.4); Sodium Level 143 mmol/L (133-145); Total Bilirubin 0.55 mg/dL (0.00-1.30)
[2024-11-23 08:05] VITALS: O2SAT 93
[2024-11-23 08:28] VITALS: BP 129/51; PULSE 79; RESP 18; TEMP 36.6; O2SAT 88
[2024-11-23] MEDS: Pantoprazole Sodium 40 MG Tablet PO (08:44)
[2024-11-23 08:45] VITALS: PULSE 79
[2024-11-23] MEDS: Metoprolol(XL)Succ 25 MG Tablet PO (08:45)
[2024-11-23] MEDS: Ciprofloxacin 500 MG Tablet PO (08:45)
[2024-11-23] MEDS: Lisinopril 20 MG Tablet PO (08:45)
--- NOTE | 2024-11-23 08:53 | NURSING ---
Pt spo2 88% on RA at rest in bed. This RN applied o2 at 1L Nc and spo2 came up to 91%. Pt encouraged to use I.S and pep valve. I have been using it but I can't get it up that far. Education given. This RN made pt get oob to chair. While walking to chair this RN took off o2 and tested patients spo2 and it was 85-88% on RA. Pt denies SOB. This RN reapplied 02 at 1L NC and made pt use both I.S and pep 10 reps while sitting in the chair. This RN also reinforced how to splint abd with a blanket or pillow.
[2024-11-23] MEDS: Sertraline 100 MG Tablet PO (11:04)
--- NOTE | 2024-11-23 11:08 | DS.PCM_ITS ---
Providers Date of Admission: 11/22/24 Primary Care Physician: Afia Chacko MD Reason For Visit: ACUTE CHOLECYSTITIS Diagnosis Discharge Diagnosis (1) Acute calculous cholecystitis: Status: Acute Code(s): K80.00 - Calculus of gallbladder with acute cholecystitis without obstruction Plan I am seeing this patient in conjunction with Dr. Murry. He has independently evaluated this patient. Patient has a 2 day history of worsening upper abdominal pain which is now located in the right upper quadrant. RUQ u/s demonstrated acute cholecystitis with calculus. Dr. Murry will plan to preform a laparoscopic cholecystectomy with intraoperative cholangiogram. Procedure details, risks and benefits have been explained. Plan to admit patient for observation. Patient and her have had the opportunity to ask and have questions answered. Patient verbally understands agrees with the proposed plan. Patient also has a parastomal hernia as well, which will need to be addressed as an outpatient with her colorectal surgeon, Dr. Singletary. Thank you for allowing us toparticipate in this patient's care. Medications at Discharge Home Medications multivitamin 1 cap PO DAILY 03/06/19 calcium carbonate 600 mg PO QDAY 09/24/24 sertraline 100 mg tablet 100 mg PO QDAY 09/24/24 ascorbic acid (vitamin C) 500 mg tablet 500 mg PO QDAY 11/02/24 levothyroxine 25 mcg tablet 25 mcg PO QDAY 11/02/24 lisinopril 20 mg tablet 20 mg PO QDAY #90 tabs 11/02/24 metoprolol succinate 25 mg tablet,extended release 24 hr (Toprol XL) 25 mg PO QDAY #90 tabs 11/02/24 mirabegron 50 mg tablet,extended release 24 hr 50 mg PO QHS 11/02/24 dicyclomine 20 mg tablet 20 mg PO TID PRN abdominal pain #30 tabs 11/20/24 hydrocodone-acetaminophen 5-325mg 5mg-325mg 1 tab PO Q4H PRN PRN Pain 2 days #10 TABLETS 11/20/24 pantoprazole 40 mg tablet,delayed release (Protonix) 40 mg PO DAILY #7 tabs 11/20/24 ciprofloxacin HCl 500 mg tablet 500 mg PO BID 2 days #4 tabs 11/23/24 metronidazole 500 mg tablet 500 mg PO TID 2 days #6 tabs 11/23/24 oxycodone 5 mg tablet 5 mg PO Q4H PRN PRN Pain Score 4-10 2 days #10 tabs 11/23/24 Hospital Course Operations cholecystecomy (With intraoperative cholangiogram 11/21/2024) Summary of Care Provided Hospital Course: Patient is a 74-year-old female who was evaluated through [facility] emergency department first on 11/20/2024 due to presentation for acute onset abdominal pain. She was given a presumptive diagnosis of gastritis and prescribed Protonix. However, upon returning home she had progression of her abdominal pain and any dietary intake was accompanied with nausea and vomiting. Thus she returned the same day for further evaluation. This repeat workup included CT imaging of the abdomen pelvis with enteric contrast. On that study a small parastomal hernia without signs of colon ischemia or inflammatory changes was identified and emergency medicine initially contacted me to determine the feasibility of performing a parastomal hernia repair here at [place]. I shared that this is more the purview of colorectal surgery and recommended transfer if the emergency medicine felt parastomal hernia was the cause of patient's presentation. A transfer, specifically, was sought with [facility]. Upon review of the patient's presentation they determined no emergent transfer was indicated but as this transfer was sought patient developed more specific right upper quadrant discomfort and a right upper quadrant ultrasound was performed. This study was concerning for a diagnosis of acute cholecystitis and surgery was once again contacted (this time for official consultation). Upon examining patient I was convinced for a diagnosis of cholecystitis and recommended emergent laparoscopic cholecystectomy with intraoperative cholangiogram. Intraoperatively, patient was diagnosed with severe cholecystitis and, while the procedure was challenging, it proceeded without significant complication. There was some inadvertent infected bile spillage show patient was monitored postoperatively on the inpatient [place] and continued on IV antibiotics. She has advance uneventfully with her diet and a postoperative drain was monitored. Postoperatively, patient had some blunted respiratory drive?likely owing to being slightly over narcotized. Gradually, she metabolized this medication affect and by postoperative day 1 was lucid and back to her baseline mentally. Still, she reported some uncontrolled pain and her respiratory effort was lacking. Additionally, her leukocytosis had worsened. Therefore, decision was made to keep her an additional day to optimize her respiratory status and for additional antibiotic therapy. By the morning of postoperative day 2 patient was feeling clinically improved. She continued to have periodic desaturations but she worked with a incentive spirometer and was objectively assessed with a walk test with no significant desaturations. From abdominal perspective her clinical picture also had improved and her operative drain was discontinued. Outpatient follow-up with general surgery was discussed. Further, I discussed outpatient follow-up as well with gastroenterology for new diagnosis of cirrhosis (based on intraoperative findings) and for her parastomal hernia with [facility] colorectal surgery. Physical Exam Const alert, oriented x3 and no apparent distress Resp normal respiratory effort GI GI Narrative: Nondistended, operative sites appropriate with Steri-Strips intact. Right upper quadrant drain site with serosanguineous (but primarily sanguinous) output. Patient is appropriate tenderness just around her port sites. Left lower quadrant colostomy with pasty light brown fecal output Weight / BMI Weight Weight: 190 lb 14.725 oz Body Mass Index (BMI) 32.8 ABG / Lab / Microbiology Data 11/23/24 06:38 11/23/24 06:38 Laboratory: Laboratory Results - last 24 hr 11/23/24 06:38: WBC 13.0 H, RBC 3.69 L, Hgb 11.7 L, Hct 36.1 L, MCV 97.8, MCH 31.7, MCHC 32.4, RDW Std Deviation 47.7 H, RDW Coeff of Axel 13.3, Plt Count 230, MPV 9.4, Immature Gran % (Auto) 0.500, Neut % (Auto) 70.4 H, Lymph % (Auto) 19.0, [place] % (Auto) 7.4, Eos % (Auto) 2.2, Baso % (Auto) 0.5, Absolute Neuts (auto) 9.1 H, Absolute Lymphs (auto) 2.47, Nucleated RBC % 0, Sodium 143, Potassium 3.3, Chloride 107, Carbon Dioxide 24.3, Anion Gap 12, BUN 18, Creatinine 0.95, Estim Creat Clear Calc 53.65, Est GFR (MDRD) Non-Af 62, BUN/Creatinine Ratio 19.1, Glucose 134 H, Calcium 8.7, Total Bilirubin 0.55, AST 35 H, ALT 54 H, Alkaline Phosphatase 63, Total Protein 6.4, Albumin 3.5, Globulin 2.8, Albumin/Globulin Ratio 1.2 D/C Instructions Discharge Diet: No restrictions May shower in (days): 1 Ice area for (Minutes): 20 Call your doctor if your incision/area has: Continuous Slow Oozing, Increased Pain/ Swelling, Increased Redness, Foul Smelling Discharge and Swelling at the incision site Call your doctor if you observe: Fever of 101 or Higher Cleanse incision/area with: Soap & Water DC O2, CPAP, BIPAP Needs Home O2 Discharge instructions: No Please Follow Up With: Nolan Murry MD When: 7-10days postop Meaningful Use Info Meaningful Use Meaningful Use Diagnoses (Choose all that apply): None applicable Ischemic Stroke Statin Dosing Therapy Reference: STATIN DOSE THERAPY REFERENCE: * Patients > 75 years receive moderate or high dose statin therapy. * Patients 75 years or YOUNGER should receive HIGH intensity statin dose unless contraindicated. You will be required to document reason for non-treatment if statin daily dose does not meet guidelines. HIGH DOSE STATIN THERAPY DAILY Atorvastatin > than or = to 40 mg Rosuvastatin > than or = to 20 mg Amlodipine + Atorvastatin > than or = to 2.5/40 mg Ezetimibe + Simvastatin 10/80 mg Simvastatin 80mg Discharge Plan Admission Admit Date/Time: 11/22/24 12:56 Primary Reason for Your Visit: Cholecystitis Attending Provider: Nolan Murry Primary Care Provider: Afia Chacko Discharge Orders/Prescriptions Prescriptions: New metronidazole 500 mg Tablet 500 mg PO TID 2 Days Qty: 6 0RF ciprofloxacin HCl 500 mg Tablet 500 mg PO BID 2 Days Qty: 4 0RF oxycodone 5 mg Tablet 5 mg PO Q4H PRN PRN (Reason: Pain Score 4-10) 2 Days Qty: 10 0RF Continued multivitamin capsule 1 cap PO DAILY sertraline 100 mg tablet 100 mg PO QDAY calcium carbonate 600 mg calcium (1,500 mg) tablet 600 mg PO QDAY levothyroxine 25 mcg tablet 25 mcg PO QDAY ascorbic acid (vitamin C) 500 mg tablet 500 mg PO QDAY mirabegron 50 mg tablet extended release 24 hr 50 mg PO QHS metoprolol succinate [Toprol XL] 25 mg tablet extended release 24 hr 25 mg PO QDAY Qty: 90 3RF lisinopril 20 mg tablet 20 mg PO QDAY Qty: 90 3RF pantoprazole [Protonix] 40 mg tablet,delayed release (DR/EC) 40 mg PO DAILY Qty: 7 0RF hydrocodone-acetaminophen 5-325 mg tablet 1 tab PO Q4H PRN PRN (Reason: Pain) 2 Days Qty: 10 0RF dicyclomine 20 mg tablet 20 mg PO TID PRN (Reason: abdominal pain) Qty: 30 0RF Referrals / Follow Up: Afia Chacko MD [Primary Care Provider] - Disposition Disposition (needs filled in before D/C Order can be placed): Home, Self Care Charges/Coding Visit Charges Inpatient E&M: 09979 Disch Hosp
--- NOTE | 2024-11-23 12:00 | NURSING ---
Dr. Murry in to see pt and took FERMIN drain out at this time. Covered with a 4x4 drsg and pt was told by Dr. Murry to keep drsg on for 48hrs. Dr. Murry also aware that pt spo2 was 88% this morning and had o2 back on. This RN will walk pt in clark on RA to see how she does and if she needs supplemental o2.
[2024-11-23 12:24] VITALS: O2SAT 89; O2SAT 93
--- NOTE | 2024-11-23 13:17 | CASEMGMT ---
OBDULIA CASTANEDA NOTE: Discharge order is in. OBDULIA CASTANEDA to room. She denies having any discharge needs/concerns. Home O2 amb testing has been completed, pt does not qualify for home O2. Her will be taking her home. Darrell GONSALES RN, CM
[2024-11-23 14:06] VITALS: BP 125/46; PULSE 80; RESP 17; TEMP 36.7; O2SAT 91
== END 2024-11-23 14:41 | disposition home or self-care (01) | DRG 418 ==
LOC: ED 11-21 11:25 → SDC 11-21 11:47 → ACINP 11-21 11:48 → MS3 11-21 18:57 → SDC 11-22 07:56 → MS3 11-22 07:56
PROVIDERS: Emergency Medicine; Physician Assistant; Admitting Provider Surgery; Emergency Provider Emergency Medicine; PCP Family Medicine; Visit Provider Surgery
PROC: (CPT 47610; principal; 2024-11-21 14:30)
DX: K80.01 Calculus of gallbladder with acute cholecystitis with obstruction (principal); K91.81 Other intraoperative complications of digestive system; K83.8 Other specified diseases of biliary tract; K74.60 Unspecified cirrhosis of liver; E03.8 Other specified hypothyroidism; F32.A Depression, unspecified; I10 Essential (primary) hypertension; Z93.3 Colostomy status; F41.9 Anxiety disorder, unspecified; E78.5 Hyperlipidemia, unspecified; K76.0 Fatty (change of) liver, not elsewhere classified; K43.5 Parastomal hernia without obstruction or gangrene; G47.30 Sleep apnea, unspecified; K57.30 Diverticulosis of large intestine without perforation or abscess without bleeding; K82.8 Other specified diseases of gallbladder; R32 Unspecified urinary incontinence; R06.89 Other abnormalities of breathing; T40.605A Adverse effect of unspecified narcotics, initial encounter; Z85.038 Personal history of other malignant neoplasm of large intestine; Z88.0 Allergy status to penicillin; Z79.890 Hormone replacement therapy; Z79.899 Other long term (current) drug therapy; Z92.3 Personal history of irradiation
CPT/HCPCS: 36415; 74176; 74300; 76000; 76705; 80048; 80053; 80076; 81001; 82803; 83605; 83690; 85025; 88304; 93005; 94668; 99284; A4216; J0744; J2405

== ENCOUNTER → 2024-12-10 | Outpatient (CLI) | payer MEDICARE, OTHER, SELFPAY ==
--- NOTE | 2024-12-10 07:10 | ECHOCS_ITS ---
Reason For Study Reason For Study: CHEST PAIN Procedure This was a 2D Doppler, Color Flow transthoracic echocardiogram. The study was technically difficult. Due to recent gallbladder surgery. Contrast injection was performed. Exam performed in department. Left Ventricle Normal LV size. Left ventricular systolic function is normal. The left ventricular ejection fraction is 60 %. No regional wall motion abnormalities noted. Right Ventricle Normal RV size. The right ventricle is normal in size, function, and thickness. Atria The left atrium is mildly enlarged. Normal right atrium. Mitral Valve Normal mitral valve. Tricuspid Valve Normal tricuspid valve. Aortic Valve Trisinus/trileaflet aortic valve. Great Vessels Normal aortic root. The pulmonary artery is normal size. Normal inferior vena cava. Pericardium/Pleural No pericardial effusion. Medication 22 gauge I.V. with prn adaptor inserted into right arm. Diluted definity 3.0ml given slow IV push to enhance endocardial definition. MMode/2D Measurements & Calculations LVIDd: 4.8 cm IVSd: 1.0 cm Ao root diam: 2.4 cm LVIDs: 2.6 cm LVPWd: 1.0 cm RVDd: 2.4 cm FS: 46.1 % LAV(MOD-bp): 73.3 ml LVAd ap4: 30.6 cm2 SV(MOD-sp4): 52.7 ml LAV(MOD-bp) Indexed: 38.4 ml/m2 LVLd ap4: 8.6 cm SI(MOD-sp4): 27.6 ml/m2 LAV(MOD-sp2): 59.4 ml EDV(MOD-sp4): 92.0 ml LAV(MOD-sp4): 81.8 ml EDV(sp4-el): 92.0 ml LVAs ap4: 18.8 cm2 LVLs ap4: 7.6 cm ESV(MOD-sp4): 39.3 ml ESV(sp4-el): 39.7 ml EF(MOD-sp4): 57.3 % EF(sp4-el): 56.9 % SV(sp4-el): 52.3 ml LA A4 area: 23.7 cm2 LA dimension(2D): 3.8 cm TAPSE: 2.2 cm Time Measurements MV dec time: 0.25 sec Doppler Measurements & Calculations MV E max miguel: 89.5 cm/sec Lat Peak E' Miguel: 10.9 cm/sec Med Peak E' Miguel: 9.1 cm/sec MV A max miguel: 63.6 cm/sec E/E' lat: 8.2 E/E' med: 9.8 MV E/A: 1.4 MV V2 max: 120.4 cm/sec MV P1/2t max miguel: 126.2 cm/sec Ao V2 max: 151.7 cm/sec MV max P.8 mmHg MV P1/2t: 71.2 msec Ao max P.2 mmHg MV V2 mean: 68.5 cm/sec MV dec slope: 519.3 cm/sec2 Ao V2 mean: 105.3 cm/sec MV mean P.1 mmHg Ao mean P.9 mmHg MV V2 VTI: 32.1 cm MVA(P1/2t): 3.1 cm2 Ao V2 VTI: 31.9 cm AV (velocity ratio): 0.64 LV V1 max: 89.0 cm/sec PA V2 max: 120.5 cm/sec TR max miguel: 295.7 cm/sec LV V1 max P.2 mmHg PA V2 mean: 81.3 cm/sec TR max P.0 mmHg LV V1 mean P.9 mmHg LV V1 mean: 67.0 cm/sec LV V1 VTI: 20.4 cm ECHO/Echo Complete W/ Contrast Interpretation Summary Normal LV size. Left ventricular systolic function is normal. The left ventricular ejection fraction is 60 %. Contrast injection was performed. Ordering Physician: Booker Brennan Referring Physician: Afia Chacko Performed By: Tania Lucero, [place], RVT
--- NOTE | 2024-12-10 17:14 | STRESSREP ---
Stress Test Report Pharmacologic myocardial perfusion stress test. 74-year-old lady with a history of chest pain Resting EKG demonstrates sinus rhythm with a rate of 70 bpm. Resting blood pressure is 142/70 mmHg. 0.4 mg of regadenoson was infused per usual protocol followed by rapid intravenous saline flush injection. Continuous EKG monitoring was performed. The maximum heart rate was 109 bpm which was 75% of max impacted heart rate the maximum workload was 1 metabolic equivalent. At rest there were no ST or T wave changes noted to suggest ischemia and at peak infusion nonspecific ST changes were noted which did not meet the criteria for ischemia. No clinical angina is noted. The final blood pressure was 160/68 mmHg. Myocardial perfusion protocol. 13.5 mCi of technetium 99m sestamibi was injected at rest. 0.4 mg of regadenoson was infused per usual protocol. At peak infusion 41.2 mCi of technetium 99m sestamibi was injected stress images were obtained stress and rest images were reconstructed and compared in the short axis vertical long and horizontal long axis. Gated images were also obtained. Perfusion SPECT analysis: Review of the stress images demonstrate normal uptake of tracer noted in all areas of the myocardium. The resting images similar demonstrated normal uptake of tracer noted in all areas of the myocardium. No areas of reversibility are noted to suggest ischemia and no previous infarct is noted. Gated SPECT analysis: The gated ejection fraction is 81%. Conclusion: Normal pharmacologic myocardial perfusion stress test. Preserved ejection fraction.
== END | disposition home or self-care (01) ==
PROVIDERS: PCP Family Medicine; Referring Provider Internal Medicine Cardiovascular Disease; Visit Provider Internal Medicine Cardiovascular Disease
DX: R07.9 Chest pain, unspecified (principal)
CPT/HCPCS: 78452; 93017; 93306; A9500; Q9957; A4216; C8929; J2785

== ENCOUNTER → 2025-02-19 | Outpatient (CLI) | payer MEDICARE, OTHER, SELFPAY ==
--- NOTE | 2025-02-19 15:04 | RAD_ITS ---
PROCEDURE: LUMBAR SPINE 2 OR 3 VIEWS; SACRUM-COCCYX MIN 2 VIEWS 02/19/2025 REASON FOR EXAM: LOW BACK PAIN TECHNIQUE: 2 view(s) of the lumbar spine; 3 views of the sacrum and coccyx COMPARISON: CT abdomen and pelvis 11/20/2024 and 12/25/2021 FINDINGS: There are 5 [id number] lumbar-type vertebral bodies. There is slight leftward curvature of the lumbar spine. Rfel-jp-smqoqeaq multilevel disc space narrowing, endplate osteophyte formation, and facet arthrosis. No displaced fracture of the sacrum or coccyx, with morphology unchanged since CT in 2021. Degenerative changes of the sacroiliac joints. Surgical clips in the right upper quadrant of the abdomen, phleboliths in the pelvis. RAD/Sacrum-Coccyx min 2 Views IMPRESSION: 1. Wqvd-hk-ypzayeib multilevel degenerative changes of the lumbar spine. 2. No displaced fracture of the of the sacrum or coccyx. Reading Location: [facility]
--- NOTE | 2025-02-19 15:04 | RAD_ITS ---
PROCEDURE: LUMBAR SPINE 2 OR 3 VIEWS; SACRUM-COCCYX MIN 2 VIEWS 02/19/2025 REASON FOR EXAM: LOW BACK PAIN TECHNIQUE: 2 view(s) of the lumbar spine; 3 views of the sacrum and coccyx COMPARISON: CT abdomen and pelvis 11/20/2024 and 12/25/2021 FINDINGS: There are 5 cfs-qim-ctjrcto lumbar-type vertebral bodies. There is slight leftward curvature of the lumbar spine. Iaei-cf-gmbuvnka multilevel disc space narrowing, endplate osteophyte formation, and facet arthrosis. No displaced fracture of the sacrum or coccyx, with morphology unchanged since CT in 2021. Degenerative changes of the sacroiliac joints. Surgical clips in the right upper quadrant of the abdomen, phleboliths in the pelvis. RAD/Lumbar Spine 2 or 3 Views IMPRESSION: 1. Uhed-hr-filzwwcn multilevel degenerative changes of the lumbar spine. 2. No displaced fracture of the of the sacrum or coccyx. Reading Location: [facility]
== END | disposition home or self-care (01) ==
LOC: MTRAD 15:04
PROVIDERS: PCP Family Medicine; Referring Provider Nurse Practitioner Family; Visit Provider Nurse Practitioner Family
DX: M54.50 Low back pain, unspecified (principal)
CPT/HCPCS: 72100; 72220

== ENCOUNTER → 2025-04-12 | Outpatient (CLI) | payer MEDICARE, OTHER, SELFPAY ==
[2025-04-12 13:46] LABS: Hematocrit 38.6 % (37-47); Hemoglobin 13.2 g/dL (12.0-15.0); Immature Granulocytes Count 0.040 X10^3/uL (0.0-0.0); Mean Corp Hgb Conc 34.2 g/dL (32-36); Mean Corpuscular Volume 94.6 fL (81-99); Mean Platelet Vol. 9.2 fl (6.2-12.0); NRBC Flagged by Analyzer 0 % (0-5); Platelet Count 261 K/mm3 (150-450); RBC Distribution Width CV 12.8 % (11.6-14.6); RBC Distribution Width SD 44.0 fl (35.1-43.9); Red Blood Count 4.08 M/mm3 (4.2-5.4); White Blood Count 8.0 K/mm3 (4.4-11.0)
[2025-04-12 14:13] LABS: Anion Gap 13 (5-15); BUN 19 mg/dL (4-19); BUN/Creat Ratio 24.2 RATIO (10-20); Calcium,Total 9.8 mg/dL (7.6-11.0); Carbon Dioxide 20.0 mmol/L (21.0-32.0); Chloride 106 mmol/L (98-108); Glucose 125 mg/dL (70-99); Potassium 4.1 mmol/L (3.3-5.1)
== END | disposition home or self-care (01) ==
LOC: LAB 13:30
PROVIDERS: PCP Family Medicine; Referring Provider Student in an Organized Health Care Education/Training Program; Visit Provider Student in an Organized Health Care Education/Training Program
DX: I10 Essential (primary) hypertension (principal)
CPT/HCPCS: 36415; 80048; 85025

== ENCOUNTER → 2025-09-11 | Outpatient (CLI) | payer MEDICARE, OTHER, SELFPAY ==
--- OUTSIDE RECORDS SUMMARY | 2025-09-11 09:27 | XMS RPT_ITS | CCD ---
Author Organization [facility] Care Team Providers Care Professor Of French Name Role Phone BRANDON DURAND Attending UnavailMARI Barajas J Primary Care Unavailable CYNDY ROSE Attending Unavailable ROSE, CYNDY MARAH Primary Care Unavailable ROSETRESAO MARAH Primary Care Unavailable DOMINGO RODRIGUEZ Attending Unavailable ROSE, CYNDY MARAH Primary Care Unavailable SHANTE MCKEON Attending Unavailable Nolan Chadwick Attending Unavailable Nolan Chadwick Attending Unavailable Gadiel Rich MD Primary Care Provider Gadiel Rich MD Primary Care Provider Afia Chacko MD Primary Care Provider Dr. Rosendo Cotton MD Attending Provider Dr. Rosendo Cotton MD Emergency Provider Afia Chacko MD Attending Provider Afia Chacko MD Referring Provider Dr. Booker Brennan MD Attending Provider [phone] Misha Villeda DO Emergency Provider Dr. Alberto Mrainelli MD Emergency Provider Dr. Nolan Murry MD Other Provider Kaci Allen PA-C Attending Provider Dr. Nolan Murry MD Admit Provider Dr. Nolan Murry MD Attending Provider Afia Chacko MD Primary Care Provider Dr. Rosendo Cotton MD Attending Provider Dr. Rosendo Cotton MD Emergency Provider Afia Chacko MD Attending Provider Afia Chacko MD Referring Provider Anu LLOYD, Dr. Celeste Attending Provider Dr. Misha Villeda DO Attending Provider Dr. Misha Villeda DO Emergency Provider Yves LLOYD, Dr. Dominguez Emergency Provider Lovely LLOYD, Dr. Francisco Attending Provider Lovely LLOYD, Dr. Francisco Other Provider Lovely LLOYD, Dr. Francisco Admit Provider Kaci Allen PA-C Attending Provider Tremaine STEINER, Misha Attending Provider Unavailabl e Anu LLOYD, Dr. Celeste Referring Provider Partha Segura Attending Provider FRANCIS DIALLO Attending Unavailable SHASHANK EDMONDSON Referring Unavailable GADIEL RICH Primary Care Unavailable Ginna LLOYD, Afia Primary Care Provider Afia Chacko MD Referring Provider Kaci Allen PA-C Attending Provider Stevie ANTHROPOLOGIST-C, Eloisa Attending Provider Stevie ANTHROPOLOGIST-C, Eloisa Referring Provider Toma Gonzalez Attending Provider Afia Chacko MD Primary Care Provider Afia Chacko MD Referring Provider Kaci Allen PA-C Attending Provider Dr. Booker Brennan MD Attending Provider Afia Chacko MD Primary Care Provider Afia Chacko MD Referring Provider Dr. Booker Brennan MD Attending Provider Partha Segura Attending Provider [phone] Sara AMBRIZ Partha Referring Provider [phone] Ginna, Chalon Primary Care Unavailable Rosendo Cotton Attending Unavailable Misha Villeda Attending Unavailable Ginna, Chalon Primary Care Unavailable Ginna, Chalon Attending Unavailable Ginna, Chalon Primary Care Unavailable Ginna, Chalon Referring Unavailable Borshelia, Nolan Admitting Unavailable Borshelia, Nolan Attending Unavailable Lovely, Nolan Consulting Unavailable Ginna, Chalon Primary Care Unavailable Ginna, Chalon Primary Care Unavailable Toma Sewell Attending Unavailable Ginna, Chalon Referring Unavailable Ginna, Chalon Primary Care Unavailable Anu, Booker Attending Unavailable Anu, Booker Referring Unavailable Ginna, Chalon Attending Unavailable Ginna, Chalon Primary Care Unavailable Ginna, Chalon Referring Unavailable Bortz, Nolan Attending Unavailable Lovely, Nolan Admitting Unavailable Ginna, Chalon Primary Care Unavailable Ginna, Chalon Primary Care Unavailable Anu, Booker Attending Unavailable Ginna, Chalon Primary Care Unavailable Demiter, Partha Attending Unavailable Ginna, Chalon Referring Unavailable Ginna, Chalon Primary Care Unavailable Demiter, Partha Referring Unavailable Demiter, Partha Attending Unavailable Ginna, Chalon Primary Care Unavailable Eloisa Hubbard Referring Unavailable Eloisa Hubbard Attending Unavailable Ginna, Chalon Attending Unavailable Ginna, Chalon Primary Care Unavailable Ginna, Chalon Referring Unavailable Ginna, Chalon Primary Care Unavailable Anu, [place] Attending Unavailable Ginna, Chalon Primary Care Unavailable Ginna, Chalon Referring Unavailable Anu, [place] Attending Unavailable Ginna, Chalon Primary Care Unavailable Ginna, Chalon Referring Unavailable Kaci Zamora Attending Unavailable Ginna, Chalon Primary Care Unavailable Ginna, Chalon Referring Unavailable Demiter, Partha Attending Unavailable Ginna, Chalon Primary Care Unavailable Anu, Booker Attending Unavailable Ginna, Chalon Primary Care Unavailable Misha Penaloza Attending Unavailable Lovely, Nolan Attending Unavailable Borshelia, Nolan Consulting Unavailable Ginna, Chalon Primary Care Unavailable Nolan Murry Admitting Unavailable Lovely, Nolan Consulting Unavailable Ginna, Chalon Primary Care Unavailable Kaci Zamora Attending Unavailable Allergies Allergy Classification Reported Allergen(s) Allergy Type Date of Onset Reaction(s) Facility (1 source) guaiFENesin Drug Allergy 12-17-19 19 [facility] Repository (6 sources) Penicillins; Translations: [PENICILLINS] Drug allergy (disorder) 12-17-19 19 rash [facility] Repository (1 source) Pseudoephedrine Drug Allergy 12-17-19 19 [facility] Rep[facility] (1 source) guaiFENesin / Pseudoephedrine; Translations: [DURATUSS] Drug Allergy 02-22-20 19 [facility] ([place] Repository (5 sources) duratuss cough medication Allergy to substance 07-18-20 21 [facility] (4 sources) Penicillins Drug Allergy 12-17-19 Other: See Comments, Unknown [facility] (11 sources) Penicillins Allergy to substance 12-25-19 22 [facility] (9 sources) Bromhexine and derivatives; Translations: [Bromhexine and derivatives] Allergy to substance 11-21-19 25 [facility] Comment on above: Karli tuss cough medi cations (1 source) Penicillins Drug Allergy 12-17-19 Other: See Comments, Unknown [facility] Work Phone: Medications Current Medications Medication Drug Class(es) Dates Sig (Normalized) Sig (Original) acetaminophen 325 mg oral tablet (7 sources) Start: 02-27-2020 take 2 tablets by mouth every four hours as needed acetaminophen (TYLENOL) 325 mg tablet Take 2 tablets by mouth every 4 hours as needed for Pain. 02/27/2020 Active Comment on above: Take 2 tablets by [facility] every 4 hours as needed for Pain. cholecalciferol, vitamin D3, (VITAMIN D3 ORAL) (7 sources) cholecalciferol, vitamin D3, (VITAMIN D3 ORAL) Take by mouth once daily. Active cholecalciferol, vitamin D3, (VITAMIN D3 ORAL) Take by mouth once daily. 0 Active Comment on above: Take by mouth once d aily. levothyroxine sodium 0.025 mg oral tablet (17 sources) l-Thyroxine Start: take 1 tablet by mouth once daily Levothyroxine 25 mcg tablet Active 25 ug PO daily November 02, 2024 1:00am Start: 09-24-2024 End: 11-02-2024 take 1 capsule by mouth once daily Levothyroxine 25 mcg capsule Discontinued 25 ug PO daily September 24, 2024 1:00am November 02, 2024 2:10pm lisinopril 40 mg oral tablet (12 sources) Angiotensin Converting Enzyme Inhibitor Start: 03-29-2025 take 1 tablet by mouth once daily Lisinopril 40 mg tablet Active 40 mg PO daily 30 7 March 29, 2025 12:11pm Start: 11-02-2024 End: 03-29-2025 take 1 tablet by mouth once daily Lisinopril 20 mg tablet Discontinued 20 mg PO daily 90 November 02, 2024 1:00am March 29, 2025 12:11pm 24 hr metoprolol succinate 25 mg extended release oral tablet (9 sources) beta-Adrenergic Desean Start: 11-02-2024 take 1 tablet by mouth once daily Metoprolol Succinate (Toprol Xl) 25 mg tablet extended release 24 hr Active 25 mg PO daily 90 3 November 02, 2024 1:00am multivitamin capsule (5 sources) Start: 03-06-2019 take 1 capsule by mouth once daily multivitamin capsule Active 1 CAP PO DAILY March 06, 2019 8:28am Start: 03-06-2019 take 1 capsule by mo uth once daily multivitamin capsule Active 1 CAP PO DAILY March 05, 2019 11:00pm Start: 03-06-2019 take 1 capsule by mo ut once daily multivitamin capsule Active 1 CAP PO DAILY March 06, 2019 12:00am Multivitamin capsule (8 sources) Start: 03-06-2019 Multivitamin c apsule Active 1 NMA PO DAILY March 06, 2019 12:00am Start: 03-06-2019 Multivitamin c apsule Active 1 NMA PO DAILY March 05, 2019 11:00pm MULTIVITAMIN ORAL (7 sources) MULTIVITAMIN ORA L Take by mouth once daily. Active MULTIVITAMIN ORA L Take by mouth once daily. 0 Active Comment on above: Take by mouth once d aily. nystatin 1 billion unit powd (5 sources) Start: 07-16-2024 nystatin 1 billion unit powd Use as directed. 1 Each 2 07/16/2024 Active sertraline 100 mg oral tablet (20 sources) Serotonin Reuptake Inhibitor Start: 09-24-2024 take 1 tablet by mouth once daily Sertraline 100 mg tablet Active 100 mg PO daily September 24, 2024 1:00am Start: 03-06-2019 End: 09-24-2024 take 1 tablet by mouth once daily Sertraline (Zoloft) 50 mg tablet Discontinued 50 mg PO DAILY 30 0 March 31, 2021 4:10pm September 24, 2024 5:02pm Comment on above: Take 50 mg by mouth once daily. Completed/Discontinued Medications Medication Drug Class(es) Dates Sig (Normalized) Sig (Original) acetaminophen 325 mg / HYDROcodone bitartrate 5 mg oral tablet (20 sources) Opioid Agonist Start: 11-20-2024 End: 11-29-2024 Hydrocodone-Acetami nophen 5-325 mg tablet Discontinued 1 {tbl} PO EVERY 4 HOURS NEEDED as needed for Pain 10 2 0 November 20, 2024 November 29, 2024 1:41pm Abdominal pain Unspecified abdominal pain Start: 07-18-2021 End: 11-02-2024 Hydrocodone-Acetaminophen 5- 325 mg tablet Discontinued 1 {tbl} PO EVERY 6 HOURS as needed for pain 14 5 0 July 18, 2021 November 02, 2024 2:13pm Sprain of left knee Sprain of unspecified site of left knee, initial encounter Start: 07-18-2021 take 1 tablet by loretta th every six hours Hydrocodone-Acetaminophen Active 1 TABLE T PO EVERY 6 HOURS 14 5 July 18, 2021 ascorbic acid 500 mg oral tablet (8 sources) Vitamin C Start: 11-02-2024 End: 12-12-2024 take 1 tablet by mouth once daily Ascorbic Acid (Vitamin C) 500 mg tablet Discontinued 500 mg PO daily November 02, 2024 1:00am December 12, 2024 2:05pm calcium carbonate 1500 mg oral tablet (20 sources) Start: 09-24-2024 End: 03-01-2025 take 1 tablet by mouth once daily Calcium Carbonate 600 mg calcium (1,500 mg) tablet Discontinued 600 mg PO daily September 24, 2024 1:00am March 01, 2025 2:37pm Start: 03-06-2019 oscal Active P O March 06, 2019 8:28am Start: 03-06-2019 End: 11-02-2024 oscal Discontinued PO 0 March 06, 2019 12:00am November 02, 2024 2:11pm Start: 03-06-2019 End: 11-02-2024 oscal Discontinued PO February 172018 12:00am November 02, 2024 2:11pm Start: 03-06-2019 End: 11-02-2024 oscal Discontinued PO February 172018 11:00pm November 02, 2024 1:11pm Start: 03-06-2019 oscal Active P O March 05, 2019 11:00pm Start: 03-06-2019 oscal Active P O March 06, 2019 12:00am ciprofloxacin 500 mg oral tablet (8 sources) Quinolone Antimicrobial Start: 11-23-2024 End: 11-29-2024 take 1 tablet by mouth twice daily Ciprofloxacin Hcl 500 mg Tablet Discontinued 500 mg PO TWICE A DAY 4 2 0 November 23, 2024 1:00am November 29, 2024 1:41pm Acute calculous cholecystitis Calculus of gallbladder with acute cholecystitis without obstruction dicyclomine hydrochloride 20 mg oral tablet (8 sources) Anticholinergic Start: 11-20-2024 End: 03-01-2025 take 1 tablet by mouth three times daily as needed for pain Dicyclomine 20 mg tablet Discontinued 20 mg PO THREE TIMES A DAY as needed for abdominal pain 30 0 November 20, 2024 1:00am March 01, 2025 2:37pm ibuprofen 600 mg oral tablet (20 sources) Nonsteroidal Anti-inflammatory Drug Start: 04-30-2020 End: 11-02-2024 take 1 tablet by mouth three times daily at mealtime for pain Ibuprofen 600 mg tablet Discontinued 600 mg PO THREE TIMES A DAY as needed for pain 30 0 April 30, 2020 12:00am November 02, 2024 2:12pm take with food Start: 02-27-2020 take 400-800 mg by m outh every eight hours as needed ibuprofen (MOTRIN) 200 mg tablet Take 2-4 tablets by mouth every 8 hours as needed for Pain. 02/27/2020 Active Comment on above: Take 2-4 tablets by mouth every 8 hours as needed for Pain. loperamide hydrochloride 2 mg oral capsule (13 sources) Opioid Agonist Start: 019 End: 020 Loperamide (Imodium A-D) 2 mg capsule Discontinued 2 mg PO every 1 to 4 hours as needed August 22, 2019 1:00am April 04, 2020 1:02pm meloxicam 15 mg oral tablet (13 sources) Nonsteroidal Anti-inflammatory Drug Start: End: take 1 tablet by mouth once daily Meloxicam 15 mg tablet Discontinued 15 mg PO DAILY 60 1 May 04, 2019 12:00am August 22, 2019 2:02pm metroNIDAZOLE 500 mg oral tablet (8 sources) Nitroimidazole Antimicrobial Start: End: take 1 tablet by mouth three times daily Metronidazole 500 mg Tablet Discontinued 500 mg PO THREE TIMES A DAY 6 2 0 November 23, 2024 1:00am December 12, 2024 2:06pm Acute calculous cholecystitis Calculus of gallbladder with acute cholecystitis without obstruction 24 hr mirabegron 50 mg extended release oral tablet (8 sources) beta3-Adrenergic Agonist Start: End: take 1 tablet by mouth every twenty-four hours at bedtime Mirabegron 50 mg tablet extended release 24 hr Discontinued 50 mg PO AT BEDTIME November 02, 2024 1:00am December 12, 2024 2:06pm ondansetron 4 mg disintegrating oral tablet (13 sources) Serotonin-3 Receptor Antagonist Start: End: take 1 tablet by mouth every eight hours as needed for nausea and vomiting Ondansetron 4 mg tablet,disintegratin g Discontinued 4 mg PO Q8H as needed for nausea and vomiting 10 0 December 25, 2021 12:00am November 02, 2024 2:12pm 24 hr oxybutynin chloride 15 mg extended release oral tablet (20 sources) Cholinergic Muscarinic Antagonist Start: End: take 1 tablet by mouth once daily Oxybutynin Chloride 15 mg tablet extended release 24hr Discontinued 15 mg PO DAILY August 22, 2019 1:00am November 02, 2024 2:12pm oxybutynin chlor armando (DITROPAN ORAL) Take by mouth once daily. Active oxybutynin chlor armando (DITROPAN ORAL) Take by mouth once daily. 0 Active Comment on above: Take by mouth once d aily. oxyCODONE hydrochloride 5 mg oral tablet (8 sources) Opioid Agonist Start: 11-24-19 End: 11-30-19 take 1 tablet by mouth every four hours as needed for pain Oxycodone 5 mg Tablet Discontinued 5 mg PO EVERY 4 HOURS NEEDED as needed for Pain Score 4-10 10 2 November 23, 2024 November 29, 2024 1:41pm Acute calculous cholecystitis Calculus of gallbladder with acute cholecystitis without obstruction pantoprazole 40 mg delayed release oral tablet (8 sources) Proton Pump Inhibitor Start: 11-21-19 End: 12-13-19 take 1 tablet by mouth once daily Pantoprazole (Protonix) 40 mg tablet,delayed release (DR/EC) Discontinued 40 mg PO DAILY 7 November 20, 2024 1:00am December 12, 2024 2:06pm predniSONE 20 mg oral tablet (13 sources) Start: 05-12-20 End: 11-02-19 take 1 tablet by mouth once daily Prednisone 20 mg tablet Discontinued 20 mg PO DAILY 5 May 12, 2020 12:00am November 02, 2024 2:12pm promethazine hydrochloride 25 mg oral tablet (13 sources) Phenothiazine Start: 12-26-19 End: 11-02-19 take 1 tablet by mouth three times daily as needed for nausea and vomiting Promethazine 25 mg tablet Discontinued 25 mg PO THREE TIMES A DAY as needed for nausea and vomiting 10 December 25, 2021 12:00am November 02, 2024 2:12pm valACYclovir 1000 mg oral tablet (13 sources) Herpesvirus Nucleoside Analog DNA Polymerase Inhibitor, Herpes Simplex Virus Nucleoside Analog DNA Polymerase Inhibitor, Herpes Zoster Virus Nucleoside Analog DNA Polymerase Inhibitor Start: 05-02-20 End: 05-12-20 Valacyclovir 1 gram tablet Discontinued 1000 mg PO Q8H May 02, 2020 12:00am May 12, 2020 11:11am Start: 05-02-2020 End: 05-12-2020 take 1000 mg by mouth every eight hours Valacyclovir Discontinued 1000 MG PO Q8H May 01, 2020 11:00pm May 12, 2020 10:11am Problems Active Problems Problem Classification Problem Date Documented Da te Episodic/Chronic Anal and rectal conditions (2 sources) Radiation proctitis; Translations: [Other specified diseases of anus and rectum] Onset: 03-20-2018 Episodic Anxiety disorders (10 sources) Anxiety disorder, unspecified; Translations: [Anxiety] Onset: 02-28-2018 10-12-2024 Chronic Cancer of rectum and anus (9 sources) Malignant neoplasm of rectum; Translations: [Malignant tumor of anus] Onset: 02-28-2018 02-27-2020 Chronic Cancer of rectum and anus (9 sources) Personal history of other malignant neoplasm of rectum, rectosigmoid junction, and anus; Translations: [History of malignant neoplasm of digestive organ] Onset: 12-17-2018 10-12-2024 Episodic Comment on above: 2012 Diseases of white blood cells (13 sources) Leukocytosis; Translations: [Elevated white blood cell count, unspecified] 11-20-2024 Chronic Disorders of lipid metabolism (19 sources) Hyperlipidemia; Translations: [Hyperlipidemia, unspecified] Onset: 11-02-2024 12-24-2021 Chronic Diverticulosis and diverticulitis (13 sources) Diverticulosis of colon; Translations: [Diverticulosis of large intestine without perforation or abscess without bleeding] 11-20-2024 Chronic Essential hypertension (20 sources) Elevated blood pressure; Translations: [Essential (primary) hypertension] Onset: 04-16-2025 10-12-2024 Chronic Fluid and electrolyte disorders (13 sources) Metabolic acidosis, increased anion gap (IAG); Translations: [High anion gap metabolic acidosis] 11-20-2024 Episodic Gastrointestinal hemorrhage (1 source) Hemorrhage of anus and rectum; Translations: [Hemorrhage of anus and rectum] Onset: 12-30-2018 Episodic Genitourinary symptoms and ill-defined conditions (20 sources) Urinary incontinence; Translations: [Unspecified urinary incontinence] Onset: 02-26-2020 02-27-2020 Chronic Immunizations and screening for infectious disease (1 source) Suspected disease caused by 2019-nCoV; Translations: [Suspected COVID-19 virus infection] Episodic Mood disorders (20 sources) Depressive disorder; Translations: [Depression] Onset: 02-26-2020 02-27-2020 Chronic Nausea and vomiting (13 sources) Nausea and vomiting; Translations: [Nausea with vomiting, unspecified] 01-02-2022 Episodic Noninfectious gastroenteritis (13 sources) Enteritis of small intestine; Translations: [Noninfective gastroenteritis and colitis, unspecified] 01-02-2022 Episodic Other gastrointestinal disorders (7 sources) Colostomy present; Translations: [Colostomy status] Onset: 02-25-2020 02-27-2020 Chronic Other gastrointestinal disorders (4 sources) Diarrhea, unspecified; Translations: [Diarrhea, unspecified] Onset: 02-28-2018 Episodic Other liver diseases (13 sources) Steatosis of liver; Translations: [Fatty (change of) liver, not elsewhere classified] 09-24-2024 Chronic Other liver diseases (8 sources) Cirrhosis of liver; Translations: [Unspecified cirrhosis of liver] 11-23-2024 Chronic Other lower respiratory disease (14 sources) Dyspnea; Translations: [Dyspnea, unspecified] 12-12-2024 Episodic Other non-traumatic joint disorders (5 sources) Shoulder pain; Translations: [Pain in left shoulder] 06-15-2019 Episodic Other non-traumatic joint disorders (8 sources) Pain in left shoulder; Translations: [Left shoulder pain] 06-15-2019 Episodic Other nutritional; endocrine; and metabolic disorders (2 sources) Obese class I; Translations: [Obesity, Class I, BMI 30-34.9] Onset: 02-04-2025 02-04-2025 Chronic Residual codes; unclassified (18 sources) Sleep apnea; Translations: [Sleep apnea, unspecified] 12-24-2021 Chronic Residual codes; unclassified (7 sources) Obstructive sleep apnea syndrome; Translations: [Obstructive sleep apnea (adult) (pediatric)] Onset: 02-26-2020 02-27-2020 Chronic Residual codes; unclassified (1 source) Other specified postprocedural states; Translations: [OTHER SPECIFIED POSTPROCEDURAL STATES] Onset: 03-20-2018 Spondylosis; intervertebral disc disorders; other back problems (6 sources) Degeneration of lumbar intervertebral disc; Translations: [Degenerative disc disease (DDD) of lumbar region with discogenic back pain and leg pa] 03-01-2025 Chronic Spondylosis; intervertebral disc disorders; other back problems (6 sources) Spinal stenosis of lumbar region; Translations: [Spinal stenosis, lumbar region with neurogenic claudication] 03-01-2025 Episodic Sprains and strains (13 sources) Sprain of knee; Translations: [Sprain of unspecified site of left knee, initial encounter] 07-26-2021 Episodic Thyroid disorders (9 sources) Subclinical hypothyroidism; Translations: [Other specified hypothyroidism] Onset: 10-11-2024 09-24-2024 Chronic Unclassified (1 source) Obesity, Class I, BMI 30-34.9; Translations: [Obesity, Class I, BMI 30-34.9] Onset: 02-04-2025 Unclassified (1 source) Low back pain, unspecified; Translations: [Low back pain, unspecified] Onset: 03-01-2025 Past or Other Problems Problem Classification Problem Date Documented Da te Episodic/Chronic Abdominal hernia (19 sources) Parastomal hernia; Translations: [Parastomal hernia without obstruction or gangrene] Onset: 12-13-2024 12-13-2024 Episodic Abdominal pain (15 sources) Abdominal pain; Translations: [Unspecified abdominal pain] Onset: 11-20-2024 11-20-2024 Episodic Allergic reactions (3 sources) Allergy status to other drugs, medicaments and biological substances status; Translations: [Allergy status to penicillin] Onset: 02-28-2018 Episodic Biliary tract disease (14 sources) Acute cholecystitis due to biliary calculus; Translations: [Calculus of gallbladder with acute cholecystitis without obstruction] Onset: 12-13-2024 11-21-2024 Episodic Nonspecific chest pain (20 sources) Chest pain; Translations: [Chest pain, unspecified] Onset: 10-04-2024 10-12-2024 Episodic Other aftercare (3 sources) Other long term care phlebotomist (current) drug therapy; Translations: [OTHER PURIFICATION OPERATOR (CURRENT) DRUG THERAPY] Onset: 02-28-2018 Episodic Other gastrointestinal disorders (7 sources) Incontinence of feces; Translations: [Full incontinence of feces] Onset: 02-25-2020 02-27-2020 Episodic Other nervous system disorders (7 sources) Postoperative pain ; Translations: [Other acute postprocedural pain] Onset: 02-25-2020 02-27-2020 Episodic Other non-traumatic joint disorders (1 source) Pain in right hip; Translations: [Pain in right hip] Onset: 08-07-2024 Episodic Other nutritional; endocrine; and metabolic disorders (7 sources) Overweight; Translations: [Overweight] Onset: 02-25-2020 02-27-2020 Episodic Other screening for suspected conditions (not mental disorders or infectious disease) (1 source) Other specified abnormal findings of blood chemistry; Translations: [Other specified abnormal findings of blood chemistry] Onset: 10-17-2024 Episodic Residual codes; unclassified (1 source) Acquired absence of both cervix and uterus; Translations: [ACQUIRED ABSENCE OF BOTH CERVIX AND UTERUS] Onset: 03-20-2018 Episodic Results Test Name Value Interpretation Reference Range Facility Absolute lymphocyte countOrd ered By: Partha Ruiz on 04-12-2025 Lymphocytes Auto (Unsp spec) [#/Vol] 2.01 10*3/uL 0.83-4.51 [facility] Absolute neutrophil countOrd ered By: Partha Ruiz on 04-12-2025 Neutrophils (Bld) [#/Vol] 4.9 10*3/uL 2.0-7.7 [facility] Anion gap in Serum or Plasma Ordered By: Parthasun Ruiz on 04-12-2025 Anion gap [Moles/Vol] 13 mmol/L 5-15 [facility] Automated lymphocyte count a s percentage of total leukocytesOrdered By: Partha Ruiz on 04-12-2025 Lymphocytes/100 WBC Auto (Unsp spec) 25.0 % 19-41 [facility] BUN/creatinine ratioOrdered By: Partha Ruiz on 04-12-2025 Urea nitrogen/Creatinine [Mass ratio] 24.2 mg/mg High 10- [facility] Basic Metabolic Profile (BMP )on 04-12-2025 BUN/CRE 24.2 RATIO High 10- [facility] Comment on above: Performed By: #### L 500.2500, L100.0100 ####[facility] [id number] [place], [address] Calcium [Mass/Vol] 9.8 mg/dL Normal 7.6-11.0 [facility] Comment on above: Performed By: #### L 500.2500, L100.0100 ####[facility] [id number] [place], [address] Chloride [Moles/Vol] 106 mmol/L Normal 98-[address] [facility] Comment on above: Performed By: #### L 500.2500, L100.0100 ####[facility] [address] [place], [address] CO2 [Moles/Vol] 20.0 mmol/L Low 21.0-32.0 [facility] Comment on above: Performed By: #### L 500.2500, L100.0100 ####[facility] [address] [place], [address] Creatinine [Mass/Vol] 0.79 mg/dL Normal 0.70-1.20 [facility] Comment on above: Performed By: #### L 500.2500, L100.0100 ####[facility] [address] [place], [address] GAP 13 Normal 5-15 [facility] Comment on above: Performed By: #### L 500.2500, L100.0100 ####[facility] [address] [place], [address] GFR/1.73 sq M.predicted among non-blacks MDRD (S/P/Bld) [Vol rate/Area] 78 mL/min/{1.73_m2} Normal >60 [facility] Comment on above: Result Comment: mL/m in/1.73m2 CKD-EPI Creatinine Equation (2020) Performed By: #### L 500.2500, L100.0100 ####[facility] [address] [place], [address] Glucose [Mass/Vol] 125 mg/dL High 70-99 [facility] Comment on above: Performed By: #### L 500.2500, L100.0100 ####[facility] [address] [place], [address] Potassium [Moles/Vol] 4.1 mmol/L Normal 3.3-5.1 [facility] Comment on above: Performed By: #### L 500.2500, L100.0100 ####[facility] [address] [place], [address] Sodium [Moles/Vol] 139 mmol/L Normal 133-145 [facility] Comment on above: Performed By: #### L 500.2500, L100.0100 ####[facility] [address] [place], [address] Urea nitrogen [Mass/Vol] 19 mg/dL Normal 4-19 [facility] Comment on above: Performed By: #### L 500.2500, L100.0100 ####[facility] [address] [place], [address] Basophil percentageOrdered B y: Partha Demiter on 04-12-2024 Basophils/100 WBC (Bld) 0.7 % 0-1 [facility] CBC W/Diff, Automatedon 03-20 Absolute Lymph 2.01 X10 3/uL Normal 0.83-4.51 [facility] Comment on above: Performed By: #### L 500.2500, L100.0100 ####[facility] [address] [place], [address] Absolute Neut 4.9 X10 3/uL Normal 2.0-7.7 [facility] Comment on above: Performed By: #### L 500.2500, L100.0100 ####[facility] [address] [place], [address] Basophils/100 WBC (Bld) 0.7 % Normal 0-1 [facility] Comment on above: Performed By: #### L 500.2500, L100.0100 ####[facility] [address] [place], [address] Eosinophils/100 WBC (Bld) 4.1 % Normal 0-5 [facility] Comment on above: Performed By: #### L 500.2500, L100.0100 ####[facility] [address] [place], [address] Erythrocyte distribution width (RBC) [Ratio] 12.8 % Normal 11.6-14.6 [facility] Comment on above: Performed By: #### L 500.2500, L100.0100 ####[facility] [address] [place], [address] Hematocrit (Bld) [Volume fraction] 38.6 % Normal 37-47 [facility] Comment on above: Performed By: #### L 500.2500, L100.0100 ####[facility] [address] [place], [address] Hemoglobin (Bld) [Mass/Vol] 13.2 g/dL Normal 12.0-15.0 [facility] Comment on above: Performed By: #### L 500.2500, L100.0100 ####[facility] [address] [place], [address] IG% 0.500 Normal 0.0-0.9 [facility] Comment on above: Result Comment: IG% - Immature Granulocytes (promyelocytes, myelocytes and metamyelocytes) > 1% indicates that a LEFT SHIFT is Present. Performed By: #### L 500.2500, L100.0100 ####[facility] [address] [place], [address] Lymphocytes/100 WBC (Bld) 25.0 % Normal 19-41 [facility] Comment on above: Performed By: #### L 500.2500, L100.0100 ####[facility] [address] [place], [address] MCH (RBC) [Entitic mass] 32.4 pg High 27.0-32.0 [facility] Comment on above: Performed By: #### L 500.2500, L100.0100 ####[facility] [address] [place], [address] MCHC (RBC) [Mass/Vol] 34.2 g/dL Normal 32-36 [facility] Comment on above: Performed By: #### L 500.2500, L100.0100 ####[facility] [address] [place], [address] MCV (RBC) [Entitic vol] 94.6 fL Normal 81-99 [facility] Comment on above: Performed By: #### L 500.2500, L100.0100 ####[facility] [address] [place], [address] Monocytes/100 WBC (Bld) 8.3 % Normal 0-10 [facility] Comment on above: Performed By: #### L 500.2500, L100.0100 ####[facility] [address] [place], [address] Neutrophils/100 WBC (Bld) 61.4 % Normal 47-70 [facility] Comment on above: Performed By: #### L 500.2500, L100.0100 ####[facility] [address] [place], [address] Nucleated RBC (Bld) [#/Vol] 0 10*3/uL Normal 0-5 [facility] Comment on above: Performed By: #### L 500.2500, L100.0100 ####[facility] [address] [place], [address] Platelet mean volume (Bld) [Entitic vol] 9.2 fL Normal 6.2-12.0 [facility] Comment on above: Performed By: #### L 500.2500, L100.0100 ####[facility] [address] [place], [address] Platelets (Bld) [#/Vol] 261 10*3/uL Normal 150-450 [facility] Comment on above: Performed By: #### L 500.2500, L100.0100 ####[facility] [address] [place], [address] RBC (Bld) [#/Vol] 4.08 10*6/uL Low 4.2-5.4 [facility] Comment on above: Performed By: #### L 500.2500, L100.0100 ####[facility] [address] [place], [address] RDW SD 44.0 fl High 35.1-43.9 [facility] Comment on above: Performed By: #### L 500.2500, L100.0100 ####[facility] [address] [place], [address] WBC (Bld) [#/Vol] 8.0 10*3/uL Normal 4.4-11.0 [facility] Comment on above: Performed By: #### L 500.2500, L100.0100 ####[facility] [address] [place], [address] Carbon dioxide, total [Moles /volume] in Central venous bloodOrdered By: Partha Ruiz on 04-12-2025 CO2 [Moles/Vol] 20.0 mmol/L Low 21.0-32.0 [facility] Chloride assayOrdered By: Yamileth Ruiz on 04-12-2025 Chloride [Moles/Vol] 106 mmol/L 98-[address] [facility] Eosinophil percentageOrdered By: Partha Ruiz on 04-12-2025 Eosinophils/100 WBC (Bld) 4.1 % 0-5 [facility] Erythrocyte distribution wid th ratioOrdered By: Partha Ruiz on 04-12-2025 Erythrocyte distribution width (RBC) [Ratio] 12.8 % 11.6-14.6 [facility] Erythrocyte distribution wid th standard deviationOrdered By: Partha Ruiz on 04-12-2025 Erythrocyte distribution width (RBC) [Ratio] 44.0 fl High 35.1-43.9 [facility] Glomerular filtration rate ( GFR) estimation/1.73 sq m using serum, plasma, or whole bOrdered By: Partha Ruiz on 04-12-2025 GFR/1.73 sq M.predicted among non-blacks MDRD (S/P/Bld) [Vol rate/Area] 78 mL/min/{1.73_m2} >60 [facility] Comment on above: mL/min/1.73m2 CKD-EP I Creatinine Equation (2020) Hematocrit Auto (Bld) [Volum e fraction]Ordered By: Partha Ruiz on 04-12-2025 Hematocrit (Bld) [Volume fraction] 38.6 % 37-47 [facility] Hemoglobin measurementOrdere d By: Partha Ruiz on 04-12-2025 Hemoglobin (Bld) [Mass/Vol] 13.2 g/dL 12.0-15.0 [facility] Immature granulocytes/100 WB C Auto (Bld)Ordered By: Partha Ruiz on 04-12-2025 Immature granulocytes/100 WBC (Bld) 0.500 % 0.0-0.9 [facility] Comment on above: IG% - Immature Granu locytes (promyelocytes, myelocytes and metamyelocytes) > 1% indicates that a LEFT SHIFT is Present. MCV (mean corpuscular volume ) determinationOrdered By: Partha Ruiz on 04-12-2025 MCV (RBC) [Entitic vol] 94.6 fL 81-99 [facility] Mean corpuscular hemoglobin (MCH) determinationOrdered By: Partha Ruiz on 04-12-2025 MCH (RBC) [Entitic mass] 32.4 pg High 27.0-32.0 [facility] Mean corpuscular hemoglobin concentration (MCHC) determinationOrdered By: Partha Ruiz on 04-12-2025 MCHC (RBC) [Mass/Vol] 34.2 g/dL 32-36 [facility] Mean platelet volume determi nationOrdered By: Partha Ruiz on 04-12-2025 Platelet mean volume (Bld) [Entitic vol] 9.2 fL 6.2-12.0 [facility] Monocyte percentageOrdered B y: Partha Ruiz on 04-12-2025 Monocytes/100 WBC (Bld) 8.3 % 0-10 [facility] Neutrophil percentageOrdered By: Partha Ruiz on 04-12-2025 Neutrophils/100 WBC (Bld) 61.4 % 47-70 [facility] Nucleated red blood cell per centageOrdered By: Partha Ruiz on 04-12-2025 Nucleated RBC/100 WBC (Bld) [Ratio] 0 % 0-5 [facility] Office Visit Reporton 2024 Office Visit Report [facility] [address] [place] [address] OFFICE VISIT Date of Service: 04/12/25 MR#: [id number] Acct: [id number] Patient: KAYLENE SHAFER Rep #: [id number] : 1950 Provider: Dr. Booker Brennan MD Age/Sex: 74/F Location: [facility] Status: Signed Intake Vital Signs 03/29/25 11:45 Height 5 ft 4 in Weight: 186 lb BMI 31.9 BP 147/80 H Blood Pressure Location Lt brachial Position Sitting Respiration 18 Pulse 73 Pulse Source Monitor Pulse Oximetry (%) 94 Oxygen Delivery Method room air Intake Visit Reasons: BP CHECK Allergies Penicillins Allergy (Unknown, Verified 03/29/25 11:46) rash Bromhexine and derivatives Allergy (Verified 03/29/25 11:46) Rash Have you fallen in the past year?: No Nursing Note Patient in office for BP check and to have home monitor assessed. Was seen by Partha Ruiz on 03/29/25 and noted to have hypertension. Lisinopril was increased to 40mg daily. Patient has not noticed any side effects since increasing medication. Home readings are as follows: 04/02/25 123/62, 83 04/05/25 146/93, 82 04/08/25 145/62, 71 04/10/25 150/62, 79 04/11/25 134/64, 73 In office vitals: 130/64, 76 Home BP machine: 130/62, 78 Patient will go to lab to have BMP and CBC drawn. She is aware that office will call with further recommendations once lab results have been received. Clinical Quality Measures Falls Risk Screening/Assistive Devices Have you fallen in the past year?: No 04/13/25 1131 Date Booker Anu MD Cosigner Signature: Date (if applicable) CC: Normal [facility] Platelet countOrdered By: Yamileth Ruiz on 04-12-2025 Platelets (Bld) [#/Vol] 261 10*3/uL 150-450 [facility] Potassium measurement (mass/ volume)Ordered By: Partha Ruiz on 04-12-2025 Potassium (Unsp spec) [Mass/Vol] 4.1 mmol/L 3.3-5.1 [facility] RBC Auto (Bld) [#/Vol]Ordere d By: Partha Ruiz on 04-12-2025 RBC (Bld) [#/Vol] 4.08 10*6/uL Low 4.2-5.4 [facility] Serum creatinine measurement (mass/volume)Ordered By: Partha Ruiz on 04-12-2025 Creatinine [Mass/Vol] 0.79 mg/dL 0.70-1.20 [facility] Serum glucose measurement (m ass/volume)Ordered By: Partha Ruiz on 04-12-2025 Glucose [Mass/Vol] 125 mg/dL High 70-99 [facility] Serum or plasma calcium jason urement (mass/volume)Ordered By: Partha Ruiz on 04-12-2025 Calcium [Mass/Vol] 9.8 mg/dL 7.6-11.0 [facility] Serum or plasma urea nitroge n measurement (mass/volume)Ordered By: Partha Ruiz on 04-12-2025 Urea nitrogen [Mass/Vol] 19 mg/dL 4-19 [facility] Sodium levelOrdered By: Norma Ruiz on 04-12-2025 Sodium [Moles/Vol] 139 mmol/L 133-145 [facility] White blood cell (WBC) count Ordered By: Partha Ruiz on 04-12-2025 WBC (Bld) [#/Vol] 8.0 10*3/uL 4.4-11.0 [facility] Cardiology Visit Reporton 07 -11-2025 Cardiology Visit Report [facility] [address] [place], [place] [address] OFFICE VISIT Date of Service: 03/29/25 MR#: [id number] Acct: [id number] Name: KAYLENE SHAFER Rep #: [id number] : 1950 Provider: KATINA Caro Age/Sex: 74/F [place] [facility] Status: Signed HPI HPI History of Present Illness Details: Kaylene Shafer is a 74-year-old female who presents today for follow-up for monitoring her cardiovascular health. Patient was seen in the emergency department in August 2024 for chest pain and hypertension. During this ED evaluation, patient's BP was noted to be 205/63. At the time of evaluation, cardiac enzymes were normal, electrolytes were normal and she was discharged with outpatient follow-up. She has sleep apnea and is compliant with her CPAP. She was seen in October and her antihypertensive agents were adjusted. Upon presentation today, patient reports fatigue described as not having any energy. She has been experiencing for over a year now. She continues to experience shortness of breath with activity. She notices SOB with 1 flight of stairs or when walking on a flat surface at a faster rate. Further ROS below. Her recent home blood pressure reading are as documented blow 154/90 156/70 149/79 147/82 161/73 Intake Vital Signs 12/12/24 08:44 03/01/25 14:33 03/29/25 11:45 03/29/25 12:38 Height 5 ft 4 in 5 ft 4 in 5 ft 4 in Weight: 186 lb BMI 31.9 BP 147/80 H 140/78 H Blood Pressure Location Lt brachial Lt brachial Position Sitting Sitting Respiration 18 Pulse 73 Pulse Source Monitor Pulse Oximetry (%) 94 Oxygen Delivery Method room air Intake Visit Reasons: 4 M FU [employer] Required: No Accompanied by: Is patient in pain?: No Allergies Penicillins Allergy (Unknown, Verified 03/29/25 11:46) rash Bromhexine and derivatives Allergy (Verified 03/29/25 11:46) Rash Medications ???Medication ???Instructions ???Recorded ???Confirmed ???Type multivitamin 1 cap PO DAILY 03/06/19 03/29/25 H istory sertraline 100 mg tablet 100 mg PO QDAY 09/24/24 03/29/25 H istory levothyroxine 25 mcg tablet 25 mcg PO QDAY 11/02/24 03/29/25 H istory metoprolol succinate 25 mg 25 mg PO QDAY #90 tabs 11/02/24 Rx tablet,extended release 24 hr (Toprol XL) lisinopril 40 mg tablet 40 mg PO QDAY #30 tabs 03/29/25 Rx Have you fallen in the past year?: No PFS Medical History (Updated 03/29/25 @ 12:41 by KATINA Caro) Cirrhosis Sinusitis, acute Anxiety Subclinical hypothyroidism Fatty liver Chest pain Depression Sleep apnea Hyperlipidemia Urinary incontinence History of malignant neoplasm of rectum, rectosigmoid junction, and anus Surgical History S/P cholecystectomy History of tonsillectomy History of creation of ostomy History of removal of cyst History of hysterectomy Family History Father Heart disease Cancer Brother Heart disease Diabetes Social History household members: spouse and children 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 Smoking Status: Never smoker alcohol intake: never substance use type: does not use caffeine: Yes Type: carbonated beverages Number of servings: 3 what type of physical activity do you participate in: none ROS Const Const: Positive for fatigue; Negative for weakness Eyes Eyes: Negative for blurry vision or change in vision ENT ENT: Negative for dizziness or balance problems Cardio Chest Pain: No Palpitations: No Edema: None Muscle aches with walking: None Resp Respiratory: Positive for SOB with activity; Negative for SOB at rest or SOB orthopnea SOB lying down GI GI: Negative nausea, vomiting or heartburn : Negative for hematuria Musc Musc: Negative for muscle weakness or balance problems Neuro Neuro: Negative for dizziness, lightheadedness, near syncope, syncope, weakness or blurry vision Endo Endo: Positive for fatigue Cardiology Exam Const Appearance: cooperative, comfortable, no acute distress and well developed; Negative diaphoretic or ill appearing Nutritional Appearance: obese Orientation: alert and oriented x3 Ambulating without assistive device Head Head: normal to inspection, normocephalic and atraumatic Ears: hearing grossly normal bilaterally Nose: external nose normal and Negative epistaxis Face and Sinus: face symmetric Eyes General: appearance normal, both eyes and all related structures Eyelids: eyelids normal Conjunctivae: conjunctivae normal; Negative scleral icterus EOM: EOM intact bilaterally Neck Neck: no JVD Carotids: normal carotid upstrok (more content not included)... Normal [facility] L/S Spine Bending Flex/[place] 03-01-2025 L/S Spine Bending Flex/Ext [facility] [address] [place] [address] L/S Spine Bending Flex/Ext MR#: [id number] Acct: [id number] Name: KAYLENE SHAFER Rep #: [id number] : 1950 F 74 From: Verena camarena MD PCP: Dr. Afia Chacko MD Status: DEP AMB Study: L/S Spine Bending Flex/Ext Date of Exam: 03/01 Exam# [id number] Ordering Dr: Toma Sewell PROCEDURE: L/S SPINE BENDING FLEX/EXT 03/01/2025 REASON FOR EXAM: CHRONIC PAIN TECHNIQUE: L/S SPINE BENDING FLEX/EXT COMPARISON: 02/19/2025. FINDINGS: Grade 1 retrolisthesis of L5 on S1 measuring 3.2 mm. No associated instability on flexion/extension images. There are diffuse spondylotic changes. Findings are demonstrated to by diffuse disc space narrowing, osteophyte formation and degenerative endplate sclerosis. There is diffuse facet joint arthropathy with secondary bilateral neural foramina narrowing. No fracture or dislocation is seen. No aggressive lytic or blastic bony lesion is noted. RAD/L/S Spine Bending Flex/Ext IMPRESSION: Spondylosis. No evidence of associated instability. Reading [facility] CC: KATINA Goldsmith; Dr. Afia Chacko MD Database Specialist: Signed Normal [facility] Orthopedic Visit Reporton Orthopedic Visit Report [facility] [address] [place] [address] OFFICE VISIT Date of Service: 03/01/25 MR#: [id number] Acct: [id number] Name: KAYLENE SHAFER Rep #: [id number] : 1950 Provider: KATINA Goldsmith Age/Sex: 74/F [place] [facility] Status: Signed Intake Vital Signs 12/12/24 08:44 02/20/25 09:01 03/01/25 14:33 Height 5 ft 4 in 5 ft 4 in 5 ft 4 in Weight: 185 lb 187 lb BMI 31.7 32.1 BP 132/77 H Blood Pressure Location Lt brachial Position Sitting Respiration 20 H Pulse 74 Pulse Source Monitor Pulse Oximetry (%) 96 Intake Visit Reasons: LUMBAR SPINE Chief Complaint: Lumbar spine pain Accompanied by: Is patient in pain?: Yes Pain scale (1-10): 1 Allergies Penicillins Allergy (Unknown, Verified 03/01/25 14:37) rash Bromhexine and derivatives Allergy (Verified 03/01/25 14:37) Rash Medications ???Medication ???Instructions ???Recorded ???Confirmed ???Type multivitamin 1 cap PO DAILY 03/06/19 03/01/25 H istory sertraline 100 mg tablet 100 mg PO QDAY 09/24/24 03/01/25 H istory levothyroxine 25 mcg tablet 25 mcg PO QDAY 11/02/24 03/01/25 H istory lisinopril 20 mg tablet 20 mg PO QDAY #90 tabs 11/02/24 Rx metoprolol succinate 25 mg 25 mg PO QDAY #90 tabs 11/02/24 Rx tablet,extended release 24 hr (Toprol XL) Have you fallen in the past year?: No PFSH Medical History Cirrhosis Sinusitis, acute Anxiety Subclinical hypothyroidism Fatty liver Episode of hypertension Chest pain Depression Sleep apnea Hyperlipidemia Urinary incontinence History of malignant neoplasm of rectum, rectosigmoid junction, and anus Surgical History S/P cholecystectomy History of tonsillectomy History of creation of ostomy History of removal of cyst History of hysterectomy Family History Father Heart disease Cancer Brother Heart disease Diabetes Social History household members: spouse and children 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 Smoking Status: Never smoker alcohol intake: never substance use type: does not use caffeine: Yes Type: carbonated beverages Number of servings: 3 what type of physical activity do you participate in: none HPI LUMBAR SPINE Details: This documentation accurately reflects the service provided and the decisions made by me, KATINA Goldsmith 03/01/25 0113. Part of today???s visit was documented by Kari Alcaraz MA, acting as scribe. KAYLENE SHAFER is a 74 year old F here today for lumbar spine pain. Patient is having pain in the lower back. The pain is a mild pain. The pain can be sharp in the lower back. Patient denies any pain going down the legs. Says that her pain comes in flares. She denies any numbness or tingling in the feet or toes. She does get a lateral and posterior right side hip pain. This has been going on for a couple years, and has been gradually been getting worse. Patient states that she doesn't really remember how the lower back pain started. Patient denies any surgeries on her back. Walking makes the pain worse. Patient denies any injections or physical therapy on her back. Patient did chemotherapy and radiation about 12-13 years ago. Patient denies any smoking, or drug use. Patient states that her balance has been a little off. She states that she has been wobbly. Patient denies using a walker or a cane. She once had to call the ambulance 3 years ago due to the back pain. Walking increases pain in her right hip she can walk about half a block before her pain increases and she needs to stop and rest. After a quick rest she is then able to walk about another half a block before needing to rest again. She says that this walking distance has decreased over the last several years. No diabetes, sees cardiology for an elevated blood pressure, no blood thinners. Ortho Exam General General: Yes no acute distress Neurologic: Yes alert and Yes oriented x3 Spine SPINE TESTING CERVICAL THORACIC LUMBAR Musculoskeletal Strength 0=absent - 5=normal Details: Neurological exam of the lower extremities shows 5x5 power. Normal sensations across all dermatomes. No hyperreflexia. There is a mild midline and left-sided paraspinal tenderness. Coding Level of Care Code Off vis,new,level 3 Diagnoses Lumbar stenosis with neurogenic claudication M48.062 Degenerative disc disease (DDD) of lumbar region with discogenic back pain and leg pain M51.362 Assessment and Plan Assessment and Plan (1) Lumbar stenosis with neurogenic claudicat (more content not included)... Normal [facility] Lumbar Spine 2 or 3 Viewson 02-19-2025 Lumbar Spine 2 or 3 Views [facility] Imaging Services [address], [place] [address] Lumbar Spine 2 or 3 Views MR#: [id number] Acct: [id number] Name: KAYLENE SHAFER Rep #: [id number] : 1950 F 74 From: Jermaine Mclaughlin MD PCP: Dr. Afia Chacko MD Status: REG CLI Study: Lumbar Spine 2 or 3 Views Date of Exam: Exam# [id number] Ordering Dr: Eloisa Hubbard ANTHROPOLOGIST ANTHROPOLOGIST-C PROCEDURE: LUMBAR SPINE 2 OR 3 VIEWS; SACRUM-COCCYX MIN 2 VIEWS 02/19/2025 REASON FOR EXAM: LOW BACK PAIN TECHNIQUE: 2 view(s) of the lumbar spine; 3 views of the sacrum and coccyx COMPARISON: CT abdomen and pelvis 11/20/2024 and 12/25/2021 FINDINGS: There are 5 sde-zoz-jxbjypd lumbar-type vertebral bodies. There is slight leftward curvature of the lumbar spine. Mmpk-xy-azcelpnc multilevel disc space narrowing, endplate osteophyte formation, and facet arthrosis. No displaced fracture of the sacrum or coccyx, with morphology unchanged since CT in 2021. Degenerative changes of the sacroiliac joints. Surgical clips in the right upper quadrant of the abdomen, phleboliths in the pelvis. RAD/Lumbar Spine 2 or 3 Views IMPRESSION: 1. Orpn-ue-comseutg multilevel degenerative changes of the lumbar spine. 2. No displaced fracture of the of the sacrum or coccyx. Reading Location: [facility] CC: NIDIA Hubbard; Dr. Afia Chacko MD Database Specialist: Signed Normal [facility] Sacrum-Coccyx min 2 Viewson 02-19-2025 Sacrum-Coccyx min 2 Views [facility] Imaging Services [address] [place], [place] [address] Sacrum-Coccyx min 2 Views MR#: [id number] Acct: [id number] Name: KAYLENE SHAFER Rep #: [id number] : 1950 F 74 From: Jermaine Mclaughlin MD PCP: Dr. Afia Chacko MD Status: REG CLI Study: Sacrum-Coccyx min 2 Views Date of Exam: Exam# [id number] Ordering Dr: Eloisa Hubbard NP PROCEDURE: LUMBAR SPINE 2 OR 3 VIEWS; SACRUM-COCCYX MIN 2 VIEWS 02/19/2025 REASON FOR EXAM: LOW BACK PAIN TECHNIQUE: 2 view(s) of the lumbar spine; 3 views of the sacrum and coccyx COMPARISON: CT abdomen and pelvis 11/20/2024 and 12/25/2021 FINDINGS: There are 5 mgn-lfn-hujbkyd lumbar-type vertebral bodies. There is slight leftward curvature of the lumbar spine. Qunp-ph-txnxvtcy multilevel disc space narrowing, endplate osteophyte formation, and facet arthrosis. No displaced fracture of the sacrum or coccyx, with morphology unchanged since CT in 2021. Degenerative changes of the sacroiliac joints. Surgical clips in the right upper quadrant of the abdomen, phleboliths in the pelvis. RAD/Sacrum-Coccyx min 2 Views IMPRESSION: 1. Ezoi-bx-bxvwkhvm multilevel degenerative changes of the lumbar spine. 2. No displaced fracture of the of the sacrum or coccyx. Reading Location: [facility] CC: NIDIA Hubbard; Dr. Afia Chacko MD Database Specialist: Signed Normal [facility] CNOVon 02-04-2025 CNOV Office Visit ([facility] ) KAYLENE SHAFER ([id number]) 1950 F Date Time Provider Department 02/04/25 1:00 PM FRANCIS DIALLOSravani During your visit today, we recorded the following information about you: Temperature Pulse Blood pressure Weight 97.9 degrees 93/minute 150/68 82.1 kg Height 1.626 m Gregg Ramos MA 02/04/2025 2:51 PM Signed What is the reason for your visit today? Consult Who is your referring physician? Dr. Diallo Are you having poor oral intake? NO Have you had unintentional weight loss of 15 lbs/7 Kg in the last 3-6 months? NO Bowels: diarrhea Wound: clean AND dry Temperature: No Drains: No Tyrell Powell MD 02/04/2025 2:51 PM Signed New Patient Consult REASON FOR VISIT Kaylene Shafer is a 74 year old female who is scheduled for a consult for Consult This consult was requested by Shashank Edmondson MD for evaluation of pancreatic cyst(s) My final recommendations will be communicated to the requesting health care provider by way of the shared medical record or postal services. History of Present Illness: Ms. Shafer is a 74 y/o F w PMHx HTN, hypothyroidism, and anal cancer s/p chemoradiation in 2021, w PSHx of end colostomy for fecal incontinence after chemoradiation, cholecystectomy in 12/11. She presents today for evaluation of parastomal hernia seen on imaging when she was admitted for her cholecystectomy. She is bothered by the appearance of the hernia but states she has no associated pain, nausea/vomiting, or obstructive symptoms. PAST MEDICAL HISTORY Diagnosis Date Anal cancer (HCC) Cervical cancer (HCC) Depression Sleep apnea PAST SURGICAL HISTORY Procedure Laterality Date ABDOMINAL SURGERY HX HYSTERECTOMY PAST SURGICAL HISTORY OF sacral stimulator for urinary incontinence FAMILY HISTORY Problem Relation Age of Onset other (Lung Cancer) Father Social History Tobacco Use Smoking status: Never Smokeless tobacco: Never Vaping Use Vaping status: Never Used Substance Use Topics Alcohol use: Not Currently Drug use: Not Currently The patient has the following: Problem List Noted Noted By Resolved Resolved By LAILA on CPAP 02/26/2020 Razai Fairas PA-C No Depression 02/26/2020 Razia Farias PA-C No Urinary incontinence 02/26/2020 Razia Farias PA-C No Colostomy in place (HCC) 02/25/2020 Cindy Chin MD No Overweight 02/25/2020 Razia Farias PA-C No Post-op pain 02/25/2020 Razia Farias PA-C No Fecal incontinence 02/25/2020 Razia Farias PA-C No Anal cancer (HCC) 02/25/2020 Razia Farias PA-C No MEDICATIONS Current Outpatient Medications Medication Sig Dispense Refill metoprolol succinate ER (TOPROL XL) 25 mg 24 hr tablet Take 1 tablet by mouth once daily. lisinopril (ZESTRIL) 20 mg tablet Take 1 tablet by mouth once daily. levothyroxine (SYNTHROID) 25 mcg tablet Take 1 tablet by mouth once daily. nystatin 1 billion unit powd Use as directed. 1 Each 2 acetaminophen (TYLENOL) 325 mg tablet Take 2 tablets by mouth every 4 hours as needed for Pain. (Patient not taking: Reported on 03/24/2020 ) ibuprofen (MOTRIN) 200 mg tablet Take 2-4 tablets by mouth every 8 hours as needed for Pain. (Patient not taking: Reported on 03/24/2020 ) MULTIVITAMIN ORAL Take by mouth once daily. cholecalciferol, vitamin D3, (VITAMIN D3 ORAL) Take by mouth once daily. sertraline (ZOLOFT) 50 mg tablet Take 50 mg by mouth once daily. oxybutynin chloride (DITROPAN ORAL) Take by mouth once daily. (Patient not taking: Reported on 04/10/2022 ) No current facility-administered medications for this visit. CURRENT ALLERGIES ALLERGIES Allergen Reactions Penicillins Other: See Comments, Unknown Not sure REVIEW OF SYSTEMS PAIN ASSESSMENT: General: No weight loss, malaise or fevers. Neuro: No Hx of stroke or seizures Respiratory: No history of current cough or dyspnea, or pneumonia in the past 6 weeks. No history of respiratory/pulmonary symptoms or problems Cardiovascular: See HPI GI: See HPI : No history of UTI in past 6 weeks. No history of renal failure. Not currently on or requiring dialysis. No history of symptoms or problems. 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 Has not taken steroids within the past 30 days. No history of endocrinological symptoms or problems. Hematology: No history of bleeding or clotting disorder. Pt is not taking anti-coagulation or platelet medications. No history of hematological symptoms or problems. Oncology: No history of CA metastasis, chemo within 30 days, or radiotherapy within 90 days. Has not lost 10% of body wt in 6 months. No history of oncological symptoms or problems. Psych: No history of psychiatric symptoms or problems. Musculoskeletal: Negative for joint pain or swelling, (more content not included)... Normal [facility] CNPNon 12-12-2024 CNPN Telephone (DEEJAY) KAYLENE SHAFER ([id number]) 1950 F Date Time Provider Department 12/12/24 SHASHANK EDMONDSON During your visit today, we recorded the following information about you: Elisa Rodrigues 12/12/2024 4:28 PM Signed The patient is calling to discuss getting a [facility] referral/order for the parastomal hernia. [phone] Allergies As of Date: 12/12/2024 Noted Allergy Reaction PENICILLINS 12/16/2018 14 - Other: See Comments 16 - Unknown Comments: Not sure Date Reviewed: 04/10/2022 Reviewed by: Karlee Edmondson MA - Fully Assessed Reason for Visit: Patient Update [1234] Prescriptions as of 12/13/2024 - nystatin 1 billion unit powd Use as directed. - acetaminophen (TYLENOL) 325 mg tablet Take 2 tablets by mouth every 4 hours as needed for Pain. - ibuprofen (MOTRIN) 200 mg tablet Take 2-4 tablets by mouth every 8 hours as needed for Pain. - MULTIVITAMIN ORAL Take by mouth once daily. - cholecalciferol, vitamin D3, (VITAMIN D3 ORAL) Take by mouth once daily. - sertraline (ZOLOFT) 50 mg tablet Take 50 mg by mouth once daily. - oxybutynin chloride (DITROPAN ORAL) Take by mouth once daily. Problem List As Of Date 12/12/2024 Noted Resolved Colostomy in place (HCC) [Z93.3] 02/25/2020 Overweight [E66.3] 02/25/2020 Post-op pain [G89.18] 02/25/2020 Fecal incontinence [R15.9] 02/25/2020 Anal cancer (HCC) [C21.0] 02/25/2020 LAILA on CPAP [G47.33] 02/26/2020 Depression [F32.A] 02/26/2020 Urinary incontinence [R32] 02/26/2020 Encounter Status:Closed by ELISA RODRIGUES on 12/13/24 Normal [facility] Cardiology Visit Reporton Cardiology Visit Report [facility] [address] [place] [address] OFFICE VISIT Date of Service: 12/12/24 MR#: [id number] Acct: [id number] Name: KAYLENE SHAFER Rep #: [id number] : 1950 Provider: KATINA Caro Age/Sex: 74/F Location: [facility] Status: Signed HPI HPI History of Present Illness Details: Kaylene Shafer is a 74-year-old female who presents today for 6-week follow-up for monitoring of cardiovascular disease. Patient established with our office approximately 6 weeks ago after being seen in the emergency department in August 2020 for for chest pain and hypertension. During this ED evaluation, patient's BP was noted to be 205/63. At the time of evaluation, cardiac enzymes were normal, electrolytes were normal and she was discharged with outpatient follow-up. Upon assessment in our office 11/02/2024, patient was ordered stress test, echocardiogram, and was initiated on metoprolol 25 mg a day and lisinopril 20 mg a day. Since last seen, approximately 6 weeks ago, patient reports doing well overall. Patient was evaluated in the ED 11/20/2024 for abdominal pain and returned to ED 11/22/24 for similar concerns in which patient was admitted and underwent laparoscopic cholecystectomy. Patient reports improvement in abdominal pain since surgery. Patient denies any recurrence of her chest pain. Patient reports improved energy since surgery as well. Patient has not been monitoring her BP at home. Per review in EMR, patient's systolic BP in the hospital was elevated above 130; however, did achieve improved readings prior to discharge. Patient was discharged on same antihypertensive medications that was initiated at her last visit here. Patient is currently acutely ill with an upper respiratory infection/cough in which patient reports she is on antibiotics from PCP as of yesterday. Patient reports cough and congestion started about 3 days ago. Patient denies noticing cough when lisinopril was initiated. Patient acknowledges shortness of breath at rest and with activity that is unchanged from last visit. Patient reports that shortness of breath started a few months ago and is described as becoming short of breath when carrying her laundry basket up a flight of stairs and up walking all the way across a large grocery store. Patient does not routinely exercise and is unable to provide history on shortness of breath with other forms of exercise. Patient's BP reading here was initially 132/77 And with repeat check, 130/58. Overall, aside from acute congestion and cough, patient reports feeling better.Further ROS below. Intake Vital Signs 11/02/24 13:03 12/12/24 08:44 12/12/24 15:15 Height 5 ft 4 in 5 ft 4 in Weight: 185 lb BMI 31.7 BP 132/77 H 130/58 H Blood Pressure Location Lt brachial Lt brachial Position Sitting Sitting Respiration 20 H Pulse 74 Pulse Source Monitor Pulse Oximetry (%) 96 Intake Visit Reasons: 6 W FU [employer] Required: No Is patient in pain?: No Allergies Penicillins Allergy (Unknown, Verified 12/12/24 14:04) rash Bromhexine and derivatives Allergy (Verified 12/12/24 14:04) Rash Medications ???Medication ???Instructions ???Recorded ???Confirmed ???Type multivitamin 1 cap PO DAILY 03/06/19 12/12/24 H istory calcium carbonate 600 mg PO QDAY 09/24/24 12/12/24 H istory sertraline 100 mg tablet 100 mg PO QDAY 09/24/24 12/12/24 H istory levothyroxine 25 mcg tablet 25 mcg PO QDAY 11/02/24 12/12/24 H istory lisinopril 20 mg tablet 20 mg PO QDAY #90 tabs 11/02/24 Rx metoprolol succinate 25 mg 25 mg PO QDAY #90 tabs 11/02/24 Rx tablet,extended release 24 hr (Toprol XL) dicyclomine 20 mg tablet 20 mg PO TID PRN abdominal pain 12/12/24 Rx #30 tabs Have you fallen in the past year?: No PFSH Medical History Cirrhosis Sinusitis, acute Anxiety Subclinical hypothyroidism Fatty liver Episode of hypertension Chest pain Depression Sleep apnea Hyperlipidemia Urinary incontinence History of malignant neoplasm of rectum, rectosigmoid junction, and anus Surgical History S/P cholecystectomy History of tonsillectomy History of creation of ostomy History of removal of cyst History of hysterectomy Family History Father Heart disease Cancer Brother Heart disease Diabetes Social History household members: spouse and children 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 Normal [facility] Cardiovascular stress test r eportOrdered By: Booker Brennan on 12-10-2024 Study report [facility] Cardiovascular Services [address] [place] [address] MR#: [id number] Acct: [id number] Name: SONIKAYLENE MALLORY Rep #: [id number] : 1950 74 From: Booker Brennan MD Primary Care: Dr. Afia Chacko MD Status: REG CLI Referring Dr: Booker Brennan MD Sex: F C Stress Test Report Pharmacologic myocardial perfusion stress test. 74-year-old lady with a history of chest pain Resting EKG demonstrates sinus rhythm with a rate of 70 bpm. Resting blood pressure is 142/70 mmHg. 0.4 mg of regadenoson was infused per usual protocol followed by rapid intravenous saline flush injection. Continuous EKG monitoringwas performed. The maximum heart rate was 109 bpm which was 75% of max impactedheart rate the maximum workload was 1 metabolic equivalent. At rest there were no ST or T wave changes noted to suggest ischemia and at peak infusion nonspecific ST changes were noted which did not meet the criteria for ischemia. No clinical angina is noted. The final blood pressure was 160/68 mmHg. Myocardial perfusion protocol. 13.5 mCi of technetium 99m sestamibi was injected at rest. 0.4 mg of regadenoson was infused per usual protocol. At peak infusion 41.2 mCi of technetium 99m sestamibi was injected stress images were obtained stress and rest images were reconstructed and compared in the short axis vertical long and horizontal long axis. Gated images were also obtained. Perfusion SPECT analysis: Review of the stress images demonstrate normal uptake of tracer noted in all areas of the myocardium. The resting images similar demonstrated normal uptake of tracer noted in all areas of the myocardium. No areas of reversibility are noted to suggest ischemia and no previous infarct is noted. Gated SPECT analysis: The gated ejection fraction is 81%. Conclusion: Normal pharmacologic myocardial perfusion stress test. Preserved ejection fraction. 12/10/241714 Date _ Booker Brennan MD CC: Dr. Afia Chacko MD; Dr. Booker Brennan MD ~ Date Dictated: 12/10/241713 Date Transcribed: 12/10/241713 Database Specialist: [place] Signed [facility] Work Phone: Echo Complete W/ Contraston 12-10-2024 Echo Complete W/ Contrast [facility] Cardiovascular Services [address] [place] [address] Echo Complete W/ Contrast 12/10/24 1103 MR#: [id number] Acct: [id number] Name: KAYLENE SHAFER Rep #: [id number] : 1950 74 From: Booker Brennan MD Attending Dr: Dr. Booker Brennan MD Status: [facility] Ordering Dr: Booker Brennan MD Date: 12/10/24 Location: [facility] Sex: F C Admitted: Reason For Study Reason For Study: CHEST PAIN Procedure This was a 2D Doppler, Color Flow transthoracic echocardiogram. The study was technically difficult. Due to recent gallbladder surgery. Contrast injection was performed. Exam performed in department. Left Ventricle Normal LV size. Left ventricular systolic function is normal. The left ventricular ejection fraction is 60 %. No regional wall motion abnormalities noted. Right Ventricle Normal RV size. The right ventricle is normal in size, function, and thickness. Atria The left atrium is mildly enlarged. Normal right atrium. Mitral Valve Normal mitral valve. Tricuspid Valve Normal tricuspid valve. Aortic Valve Trisinus/trileaflet aortic valve. Great Vessels Normal aortic root. The pulmonary artery is normal size. Normal inferior vena cava. Pericardium/Pleural No pericardial effusion. Medication 22 gauge I.V. with prn adaptor inserted into right arm. Diluted definity 3.0ml given slow IV push to enhance endocardial definition. MMode/2D Measurements Calculations LVIDd: 4.8 cm IVSd: 1.0 cm Ao root diam: 2.4 cm LVIDs: 2.6 cm LVPWd: 1.0 cm RVDd: 2.4 cm FS: 46.1 % LAV(MOD-bp): 73.3 ml LVAd ap4: 30.6 cm2 SV(MOD-sp4): 52.7 ml LAV(MOD-bp) Indexed: 38.4 ml/m2 LVLd ap4: 8.6 cm SI(MOD-sp4): 27.6 ml/m2 LAV(MOD-sp2): 59.4 ml EDV(MOD-sp4): 92.0 ml LAV(MOD-sp4): 81.8 ml EDV(sp4-el): 92.0 ml LVAs ap4: 18.8 cm2 LVLs ap4: 7.6 cm ESV(MOD-sp4): 39.3 ml ESV(sp4-el): 39.7 ml EF(MOD-sp4): 57.3 % EF(sp4-el): 56.9 % SV(sp4-el): 52.3 ml LA A4 area: 23.7 cm2 LA dimension(2D): 3.8 cm TAPSE: 2.2 cm Time Measurements MV dec time: 0.25 sec Doppler Measurements Calculations MV E max del: 89.5 cm/sec Lat Peak E' Del: 10.9 cm/sec Med Peak E' Del: 9.1 cm/sec MV A max del: 63.6 cm/sec E/E' lat: 8.2 E/E' med: 9.8 MV E/A: 1.4 MV V2 max: 120.4 cm/sec MV P1/2t max del: 126.2 cm/sec Ao V2 max: 151.7 cm/sec MV max P.8 mmHg MV P1/2t: 71.2 msec Ao max P.2 mmHg MV V2 mean: 68.5 cm/sec MV dec slope: 519.3 cm/sec2 Ao V2 mean: 105.3 cm/sec MV mean P.1 mmHg Ao mean P.9 mmHg MV V2 VTI: 32.1 cm MVA(P1/2t): 3.1 cm2 Ao V2 VTI: 31.9 cm AV (velocity ratio): 0.64 LV V1 max: 89.0 cm/sec PA V2 max: 120.5 cm/sec TR max del: 295.7 cm/sec LV V1 max P.2 mmHg PA V2 mean: 81.3 cm/sec TR max P.0 mmHg LV V1 mean P.9 mmHg LV V1 mean: 67.0 cm/sec LV V1 VTI: 20.4 cm ECHO/Echo Complete W/ Contrast Interpretation Summary Normal LV size. Left ventricular systolic function is normal. The left ventricular ejection fraction is 60 %. Contrast injection was performed. Ordering Physician: Booker Brennan Referring Physician: Afia Chacko Performed By: Tania Lucero, CHHAYACS, RVT 12/10/24 1447 Date Booker Brennan MD CC: Dr. Afia Chacko MD; Dr. Booker Brennan MD Date Dictated: 12/10/24 1103 Date Transcribed: 12/10/24 144 Database Specialist: Signed Normal [facility] Echocardiogram study reportO rdered By: Booker Brennan on 12-10-2024 Study report [facility] Cardiovascular Services [address] [place] [address] Echo Complete W/ Contrast 12/10/24 110 MR#: [id number] Acct: [id number] Name: KAYLENE SHAFER Rep #:[id number] : 1950 74 From: Booker Avendano Attending Dr: Dr. Booker Brennan MD S tatus: REG CLI Ordering Dr: Booker Brennan MD Date: Location: [facility] Sex: F C Admitted: Reason For Study Reason For Study: CHEST PAIN Procedure This was a 2D Doppler, Color Flow transthoracic echocardiogram. The study was technically difficult. Due to recent gallbladder surgery. Contrast injection was performed. Exam performed in department. Left Ventricle Normal LV size. Left ventricular systolic function is normal. The left ventricular ejection fraction is 60 %. No regional wall motion abnormalities noted. Right Ventricle Normal RV size. The right ventricle is normal in size, function, and thickness. Atria The left atrium is mildly enlarged. Normal right atrium. Mitral Valve Normal mitral valve. Tricuspid Valve Normal tricuspid valve. Aortic Valve Trisinus/trileaflet aortic valve. Great Vessels Normal aortic root. The pulmonary artery is normal size. Normal inferior vena cava. Pericardium/Pleural No pericardial effusion. Medication 22 gauge I.V. with prn adaptor inserted into right arm. Diluted definity 3.0ml given slow IV push to enhance endocardial definition. MMode/2D Measurements & Calculations LVIDd: 4.8 cm IVSd: 1.0 cm Ao root diam: 2.4 cm LVIDs: 2.6 cm LVPWd: 1.0 cm RVDd: 2.4 cm FS: 46.1 % LAV(MOD-bp): 73.3 ml LVAd ap4: 30.6 cm2 SV(MOD-sp4): 52.7 ml LAV(MOD-bp) Indexed: 38.4 ml/m2 LVLd ap4: 8.6 cm SI(MOD-sp4): 27.6 ml/m2 LAV(MOD-sp2): 59.4 ml EDV(MOD-sp4): 92.0 ml LAV(MOD-sp4): 81.8 ml EDV(sp4-el): 92.0 ml LVAs ap4: 18.8 cm2 LVLs ap4: 7.6 cm ESV(MOD-sp4): 39.3 ml ESV(sp4-el): 39.7 ml EF(MOD-sp4): 57.3 % EF(sp4-el): 56.9 % SV(sp4-el): 52.3 ml LA A4 area: 23.7 cm2 LA dimension(2D): 3.8 cm TAPSE: 2.2 cm Time Measurements MV dec time: 0.25 sec Doppler Measurements & Calculations MV E max del: 89.5 cm/sec Lat Peak E' Del: 10.9 cm/sec Med Peak E' Del: 9.1 cm/sec MV A max del: 63.6 cm/sec E/E' lat: 8.2 E/E' med: 9.8 MV E/A: 1.4 MV V2 max: 120.4 cm/sec MV P1/2t max del: 126.2 cm/sec Ao V2 max: 151.7 cm/sec MV max P.8 mmHg MV P1/2t: 71.2 msec Ao max P.2 mmHg MV V2 mean: 68.5 cm/sec MV dec slope: 519.3 cm/sec2 Ao V2 mean: 105.3 cm/sec MV mean P.1 mmHg Ao mean P.9 mmHg MV V2 VTI: 32.1 cm MVA(P1/2t): 3.1 cm2 Ao V2 VTI: 31.9 cm AV (velocity ratio): 0.64 LV V1 max: 89.0 cm/sec PA V2 max: 120.5 cm/sec TR max del: 295.7 cm/sec LV V1 max P.2 mmHg PA V2 mean: 81.3 cm/sec TR max P.0 mmHg LV V1 mean P.9 mmHg LV V1 mean: 67.0 cm/sec LV V1 VTI: 20.4 cm ECHO/Echo Complete W/ Contrast Interpretation Summary Normal LV size. Left ventricular systolic function is normal. The left ventricular ejection fraction is 60 %. Contrast injection was performed. Ordering Physician: Booker Brennan Referring Physician: Afia Chacko Performed By: Tania Lucero, BIBIANA, RVT 12/10/24 1447 Date _ Booker Brennan MD CC: Dr. Afia Chacko MD; Dr. Booker Brennan MD ~ Date Dictated: 12/10/24 1103 Date Transcribed: 12/10/24 1447 Database Specialist: Signed [facility] Work Phone: Stress Reporton 12-10-2024 Stress Report [facility] Cardiovascular Services [address] [place] [address] MR#: [id number] Acct: [id number] Name: KAYLENE SHAFER Rep #: [id number] : 1950 74 From: Booker Brennan MD Primary Care: Dr. Afia Chacko MD Status: REG CLI Referring Dr: Booker Brennan MD Sex: F C Stress Test Report Pharmacologic myocardial perfusion stress test. 74-year-old lady with a history of chest pain Resting EKG demonstrates sinus rhythm with a rate of 70 bpm. Resting blood pressure is 142/70 mmHg. 0.4 mg of regadenoson was infused per usual protocol followed by rapid intravenous saline flush injection. Continuous EKG monitoring was performed. The maximum heart rate was 109 bpm which was 75% of max impacted heart rate the maximum workload was 1 metabolic equivalent. At rest there were no ST or T wave changes noted to suggest ischemia and at peak infusion nonspecific ST changes were noted which did not meet the criteria for ischemia. No clinical angina is noted. The final blood pressure was 160/68 mmHg. Myocardial perfusion protocol. 13.5 mCi of technetium 99m sestamibi was injected at rest. 0.4 mg of regadenoson was infused per usual protocol. At peak infusion 41.2 mCi of technetium 99m sestamibi was injected stress images were obtained stress and rest images were reconstructed and compared in the short axis vertical long and horizontal long axis. Gated images were also obtained. Perfusion SPECT analysis: Review of the stress images demonstrate normal uptake of tracer noted in all areas of the myocardium. The resting images similar demonstrated normal uptake of tracer noted in all areas of the myocardium. No areas of reversibility are noted to suggest ischemia and no previous infarct is noted. Gated SPECT analysis: The gated ejection fraction is 81%. Conclusion: Normal pharmacologic myocardial perfusion stress test. Preserved ejection fraction. 12/10/241714 Date Booker Brennan MD CC: Dr. Afia Chacko MD; Dr. Booker Brennan MD Date Dictated: 12/10/241713 Date Transcribed: 12/10/241713 Database Specialist: [place] Signed Normal [facility] Surgery Visit Reporton 11-29 Surgery Visit Report [facility] [address] [place] [address]. [address] [place] [address] OFFICE VISIT Date of Service: 11/29/24 MR#: [id number] Acct: [id number] Name: KAYLENE SHAFER #: [id number] : 1950 Provider: LAURA carrillo Age/Sex: 74/F Location: [facility] Status: Signed Intake Vital Signs 11/21/24 19:57 Height 5 ft 4 in Intake Visit Reasons: GALLBLADDER 3-5 Chief Complaint: gallbladder 3/5 Is patient in pain?: No Allergies Penicillins Allergy (Unknown, Verified 11/29/24 13:41) rash Bromhexine and derivatives Allergy (Verified 11/29/24 13:41) Rash Medications ???Medication ???Instructions ???Recorded ???Confirmed ???Type multivitamin 1 cap PO DAILY 03/06/19 11/29/24 H istory calcium carbonate 600 mg PO QDAY 09/24/24 11/29/24 H istory sertraline 100 mg tablet 100 mg PO QDAY 09/24/24 11/29/24 H istory ascorbic acid (vitamin C) 500 mg 500 mg PO QDAY 11/02/24 11/29/24 H istory tablet levothyroxine 25 mcg tablet 25 mcg PO QDAY 11/02/24 11/29/24 H istory lisinopril 20 mg tablet 20 mg PO QDAY #90 tabs 11/02/24 Rx metoprolol succinate 25 mg 25 mg PO QDAY #90 tabs 11/02/24 Rx tablet,extended release 24 hr (Toprol XL) mirabegron 50 mg tablet,extended 50 mg PO QHS 11/02/24 11/29/24 His tory release 24 hr dicyclomine 20 mg tablet 20 mg PO TID PRN abdominal pain 11/29/24 Rx #30 tabs pantoprazole 40 mg tablet,delayed 40 mg PO DAILY #7 tabs 11/20/24 0 11/29/24 Rx release (Protonix) metronidazole 500 mg tablet 500 mg PO TID 2 days #6 tabs 11/2311/29/24 Rx Have you fallen in the past year?: No Subjective Details: Patient is a 74 y/o F I am following s/p laparoscopic cholecystectomy with IOC by Dr. Murry on 11/21/24. Patient tolerated the procedure well. Patient notes her back pain has resolved. She notes overall feeling much improved. She denies any nausea, vomiting, fever since the procedure. She denies any incisional discomfort or pain. She notes loose stools within her stoma which is normal however she notes the loose stools are more frequent. Pathology demonstrated acute cholecystitis and cholelithiasis. Objective Details: Abdomen- soft, non-tender. Incisions c/d/i. No erythema or infection noted. Coding Level of Care Code Global Post Op Diagnoses S/P cholecystectomy Z90.49 [facility] Medical History (Updated 11/28/24 @ 00:02 by Makenna Newell) Cirrhosis Sinusitis, acute Anxiety Subclinical hypothyroidism Fatty liver Episode of hypertension Chest pain Depression Sleep apnea Hyperlipidemia Urinary incontinence History of malignant neoplasm of rectum, rectosigmoid junction, and anus Surgical History (Updated 11/29/24 @ 13:42 by Sonam Haas) S/P cholecystectomy History of tonsillectomy History of creation of ostomy History of removal of cyst History of hysterectomy Family History Father Heart disease Cancer Brother Heart disease Diabetes Social History household members: spouse and children 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 Edmondson for a consultation for her parastomal hernia Discussed signs of infection Follow-up as needed 11/29/24 1609 Date Kaci Garcia Signature: Date (if applicable) CC: Dr. Afia Chacko MD [facility] lymphocyte countOrd ered By: Nolan Murry on 11-23-2024 Lymphocytes Auto (Unsp spec) [#/Vol] 2.47 10*3/uL 0.83-4.51 [facility] Absolute neutrophil countOrd ered By: Nolan Murry on 11-23-2024 Neutrophils (Bld) [#/Vol] 9.1 10*3/uL High 2.0-7.7 [facility] Anion gap in Serum or Plasma Ordered By: Nolan Murry on 11-23-2024 Anion gap [Moles/Vol] 12 mmol/L 5-15 [facility] Automated lymphocyte count a s percentage of total leukocytesOrdered By: Nolan Murry on 11-23-2024 Lymphocytes/100 WBC Auto (Unsp spec) 19.0 % - [facility] BUN/creatinine ratioOrdered By: Nolan Murry on 11-23-2024 Urea nitrogen/Creatinine [Mass ratio] 19.1 mg/mg 10- [facility] Basophil percentageOrdered B y: Nolan Murry on 11-23-2024 Basophils/100 WBC (Bld) 0.5 % 0-1 [facility] Bilirubin, totalOrdered By: Nolan Murry on 11-23-2024 Bilirubin [Mass/Vol] 0.55 mg/dL 0.00-1.[address] [facility] CBC W/Diff, Automatedon Absolute Lymph 2.47 X10 3/uL Normal 0.83-4.51 [facility] Comment on above: Performed By: #### L 500.4050, L100.0100 #### [facility] Laboratory [address] [place], [address] Absolute Neut 9.1 X10 3/uL High 2.0-7.7 [facility] Comment on above: Performed By: #### L 500.4050, L100.0100 #### [facility] [address] [place], [address] Basophils/100 WBC (Bld) 0.5 % Normal 0-1 [facility] Comment on above: Performed By: #### L 500.4050, L100.0100 #### [facility] [address] [place], [address] Eosinophils/100 WBC (Bld) 2.2 % Normal 0-5 [facility] Comment on above: Performed By: #### L 500.4050, L100.0100 #### [facility] [address] [place], [address] Erythrocyte distribution width (RBC) [Ratio] 13.3 % Normal 11.6-14.6 [facility] Comment on above: Performed By: #### L 500.4050, L100.0100 #### [facility] [address] [place], [address] Hematocrit (Bld) [Volume fraction] 36.1 % Low 37-47 [facility] Comment on above: Performed By: #### L 500.4050, L100.0100 #### [facility] [address] [place], [address] Hemoglobin (Bld) [Mass/Vol] 11.7 g/dL Low 12.0-15.0 [facility] Comment on above: Performed By: #### L 500.4050, L100.0100 #### [facility] [address] [place], [address] IG% 0.500 Normal 0.0-0.9 [facility] Comment on above: Result Comment: IG% - Immature Granulocytes (promyelocytes, myelocytes and metamyelocytes) > 1% indicates that a LEFT SHIFT is Present. Performed By: #### L 500.4050, L100.0100 #### [facility] [address] [place], [address] Lymphocytes/100 WBC (Bld) 19.0 % Normal 19-41 [facility] Comment on above: Performed By: #### L 500.4050, L100.0100 #### [facility] [address] [place], [address] MCH (RBC) [Entitic mass] 31.7 pg Normal 27.0-32.0 [facility] Comment on above: Performed By: #### L 500.4050, L100.0100 #### [facility] [address] [place], [address] MCHC (RBC) [Mass/Vol] 32.4 g/dL Normal 32-36 [facility] Comment on above: Performed By: #### L 500.4050, L100.0100 #### [facility] [address] [place], [address] MCV (RBC) [Entitic vol] 97.8 fL Normal 81-99 [facility] Comment on above: Performed By: #### L 500.4050, L100.0100 #### [facility] [address] [place], [address] Monocytes/100 WBC (Bld) 7.4 % Normal 0-10 [facility] Comment on above: Performed By: #### L 500.4050, L100.0100 #### [facility] [address] [place], [address] Neutrophils/100 WBC (Bld) 70.4 % High 47-70 [facility] Comment on above: Performed By: #### L 500.4050, L100.0100 #### [facility] [address] [place], [address] Nucleated RBC (Bld) [#/Vol] 0 10*3/uL Normal 0-5 [facility] Comment on above: Performed By: #### L 500.4050, L100.0100 #### [facility] [address] [place], [address] Platelet mean volume (Bld) [Entitic vol] 9.4 fL Normal 6.2-12.0 [facility] Comment on above: Performed By: #### L 500.4050, L100.0100 #### [facility] [address] [place], [address] Platelets (Bld) [#/Vol] 230 10*3/uL Normal 150-450 [facility] Comment on above: Performed By: #### L 500.4050, L100.0100 #### [facility] [address] [place], [address] RBC (Bld) [#/Vol] 3.69 10*6/uL Low 4.2-5.4 [facility] Comment on above: Performed By: #### L 500.4050, L100.0100 #### [facility] [address] [place], [address] RDW SD 47.7 fl High 35.1-43.9 [facility] Comment on above: Performed By: #### L 500.4050, L100.0100 #### [facility] [address] [place], [address] WBC (Bld) [#/Vol] 13.0 10*3/uL High 4.4-11.0 [facility] Comment on above: Performed By: #### L 500.4050, L100.0100 #### [facility] [address] [place], [address] Carbon dioxide, total [Moles /volume] in Central venous bloodOrdered By: Nolan Murry on 11-23-2024 CO2 [Moles/Vol] 24.3 mmol/L 21.0-32.0 [facility] Chloride assayOrdered By: Cristel Murry on 11-23-2024 Chloride [Moles/Vol] 107 mmol/L 98-[address] [facility] Comprehensive Metabolic Prof ilon 11-23-2024 Albumin [Mass/Vol] 3.5 g/dL Normal 3.4-4.8 [facility] Comment on above: Performed By: #### L 500.4050, L100.0100 #### [facility] [address] [place], [address] Albumin/Globulin [Mass ratio] 1.2 {ratio} Normal 0.9-2.4 [facility] Comment on above: Performed By: #### L 500.4050, L100.0100 #### [facility] [address] [place], [address] ALK PHOS 63 U/L Normal 35-104 [facility] Comment on above: Performed By: #### L 500.4050, L100.0100 #### [facility] [address] [place], [address] ALT [Catalytic activity/Vol] 54 U/L High <=34 [facility] Comment on above: Performed By: #### L 500.4050, L100.0100 #### [facility] [address] [place], [address] AST [Catalytic activity/Vol] 35 U/L High <=31 [facility] Comment on above: Performed By: #### L 500.4050, L100.0100 #### [facility] [address] [place], [address] Bilirubin [Mass/Vol] 0.55 mg/dL Normal 0.00-1.[address] [facility] Comment on above: Performed By: #### L 500.4050, L100.0100 #### [facility] [address] [place], [address] BUN/CRE 19.1 RATIO Normal 10-20 [facility] Comment on above: Performed By: #### L 500.4050, L100.0100 #### [facility] [address] [place], [address] Calcium [Mass/Vol] 8.7 mg/dL Normal 7.6-11.0 [facility] Comment on above: Performed By: #### L 500.4050, L100.0100 #### [facility] [address] [place], [address] Chloride [Moles/Vol] 107 mmol/L Normal 98-[address] [facility] Comment on above: Performed By: #### L 500.4050, L100.0100 #### [facility] [address] [place], [address] CO2 [Moles/Vol] 24.3 mmol/L Normal 21.0-32.0 [facility] Comment on above: Performed By: #### L 500.4050, L100.0100 #### [facility] [address] [place], [address] Creatinine [Mass/Vol] 0.95 mg/dL Normal 0.70-1.20 [facility] Comment on above: Performed By: #### L 500.4050, L100.0100 #### [facility] [address] [place], [address] ECRCL 53.65 ml/min Normal 50-250 [facility] Comment on above: Performed By: #### L 500.4050, L100.0100 #### [facility] [address] [place], [address] GAP 12 Normal 5-15 [facility] Comment on above: Performed By: #### L 500.4050, L100.0100 #### [facility] [address] [place], [address] GFR/1.73 sq M.predicted among non-blacks MDRD (S/P/Bld) [Vol rate/Area] 62 mL/min/{1.73_m2} Normal >60 [facility] Comment on above: Result Comment: mL/m in/1.73m2 CKD-EPI Creatinine Equation (2020) Performed By: #### L 500.4050, L100.0100 #### [facility] [address] [place], [address] Globulin (S) [Mass/Vol] 2.8 g/dL Normal 2.2-4.2 [facility] Comment on above: Performed By: #### L 500.4050, L100.0100 #### [facility] [address] [place], [address] Glucose [Mass/Vol] 134 mg/dL High 70-99 [facility] Comment on above: Performed By: #### L 500.4050, L100.0100 #### [facility] [address] [place], [address] Potassium [Moles/Vol] 3.3 mmol/L Normal 3.3-5.1 [facility] Comment on above: Performed By: #### L 500.4050, L100.0100 #### [facility] [address] [place], [address] Sodium [Moles/Vol] 143 mmol/L Normal 133-145 [facility] Comment on above: Performed By: #### L 500.4050, L100.0100 #### [facility] [address] [place], [address] T PROT 6.4 g/dL Normal 5.9-8.4 [facility] Comment on above: Performed By: #### L 500.4050, L100.0100 #### [facility] [address] [place], [address] Urea nitrogen [Mass/Vol] 18 mg/dL Normal 4-19 [facility] Comment on above: Performed By: #### L 500.4050, L100.0100 #### [facility] [address] [place], [address] Eosinophil percentageOrdered By: Nolan Murry on 11-23-2024 Eosinophils/100 WBC (Bld) 2.2 % 0-5 [facility] Erythrocyte distribution wid th ratioOrdered By: Nolan Murry on 11-23-2024 Erythrocyte distribution width (RBC) [Ratio] 13.3 % 11.6-14.6 [facility] Erythrocyte distribution wid th standard deviationOrdered By: Nolan Murry on 11-23-2024 Erythrocyte distribution width (RBC) [Entitic vol] 47.7 fL High 35.1-43.9 [facility] Erythrocyte distribution width (RBC) [Ratio] 47.7 fl High 35.1-43.9 [facility] Estimation of creatinine dwight aranceOrdered By: Nolan Murry on 11-23-2024 Estimated Creatinine Clearance Calc 53.65 ml/min 50-250 [facility] GFR/1.73 sq M.predicted libertad g non-blacks MDRD (S/P/Bld) [Vol rate/Area]Ordered By: Nolan Murry on 11-23-2024 Estimated GFR (MDRD) Non-Af Amer 62 >60 [facility] Comment on above: mL/min/1.73m2 CKD-EP I Creatinine Equation (2020) Glomerular filtration rate ( GFR) estimation/1.73 sq m using serum, plasma, or whole bOrdered By: Nolan Murry on 11-23-2024 GFR/1.73 sq M.predicted among non-blacks MDRD (S/P/Bld) [Vol rate/Area] 62 mL/min/{1.73_m2} >60 [facility] Comment on above: mL/min/1.73m2 CKD-EP I Creatinine Equation (2020) Hematocrit Auto (Bld) [Volum e fraction]Ordered By: Nolan Murry on 11-23-2024 Hematocrit (Bld) [Volume fraction] 36.1 % Low 37-47 [facility] Hemoglobin measurementOrdere d By: Nolan Murry on 11-23-2024 Hemoglobin (Bld) [Mass/Vol] 11.7 g/dL Low 12.0-15.0 [facility] Immature granulocytes/100 WB C Auto (Bld)Ordered By: Nolan Murry on 11-23-2024 Immature granulocytes/100 WBC (Bld) 0.500 % 0.0-0.9 [facility] Comment on above: IG% - Immature Granu locytes (promyelocytes, myelocytes and metamyelocytes) > 1% indicates that a LEFT SHIFT is Present. Laboratory - Chemistry and C hemistry - challengeOrdered By: Nolan Murry on 11-23-2024 AST [Catalytic activity/Vol] 35 U/L High <32 [facility] Lymphocytes Auto (Unsp spec) [#/Vol]Ordered By: Nolan Murry on 11-23-2024 Lymphocytes (Bld) [#/Vol] 2.47 10*3/uL 0.83-4.51 [facility] Lymphocytes/100 WBC Auto (Un sp spec)Ordered By: Nolan Murry on 11-23-2024 Lymphocytes/100 WBC (Bld) 19.0 % 19-41 [facility] MCV (mean corpuscular volume ) determinationOrdered By: Nolan Murry on 11-23-2024 MCV (RBC) [Entitic vol] 97.8 fL 81-99 [facility] Mean corpuscular hemoglobin (MCH) determinationOrdered By: Nolan Murry on 11-23-2024 MCH (RBC) [Entitic mass] 31.7 pg 27.0-32.0 [facility] Mean corpuscular hemoglobin concentration (MCHC) determinationOrdered By: Nolan Murry on 11-23-2024 MCHC (RBC) [Mass/Vol] 32.4 g/dL 32-36 [facility] Mean platelet volume determi nationOrdered By: Nolan Murry on 11-23-2024 Platelet mean volume (Bld) [Entitic vol] 9.4 fL 6.2-12.0 [facility] Monocyte percentageOrdered B y: Nolan Murry on 11-23-2024 Monocytes/100 WBC (Bld) 7.4 % 0-10 [facility] Neutrophil percentageOrdered By: Nolan Murry on 11-23-2024 Neutrophils/100 WBC (Bld) 70.4 % High 47-70 [facility] Nucleated red blood cell per centageOrdered By: Nolan Murry on 11-23-2024 Nucleated RBC/100 WBC (Bld) [Ratio] 0 % 0-5 [facility] Platelet countOrdered By: Cristel Murry on 11-23-2024 Platelets (Bld) [#/Vol] 230 10*3/uL 150-450 [facility] Potassium (Unsp spec) [Mass/ Vol]Ordered By: Nolan Murry on 11-23-2024 Potassium [Moles/Vol] 3.3 mmol/L 3.3-5.1 [facility] Potassium measurement (mass/ volume)Ordered By: Nolan Murry on 11-23-2024 Potassium (Unsp spec) [Mass/Vol] 3.3 mmol/L 3.3-5.1 [facility] RBC Auto (Bld) [#/Vol]Ordere d By: Nolan Murry on 11-23-2024 RBC (Bld) [#/Vol] 3.69 10*6/uL Low 4.2-5.4 [facility] Serum creatinine measurement (mass/volume)Ordered By: Nolan Murry on 11-23-2024 Creatinine [Mass/Vol] 0.95 mg/dL 0.70-1.20 [facility] Serum globulin measurementOr dered By: Nolan Murry on 11-23-2024 Globulin (S) [Mass/Vol] 2.8 g/dL 2.2-4.2 [facility] Serum glucose measurement (m ass/volume)Ordered By: Nolan Murry on 11-23-2024 Glucose [Mass/Vol] 134 mg/dL High 70-99 [facility] Serum or plasma alanine haro otransferase (ALT) measurementOrdered By: Nolan Murry on 11-23-2024 ALT [Catalytic activity/Vol] 54 U/L High <35 [facility] Serum or plasma albumin jason urement (mass/volume)Ordered By: Nolan Murry on 11-23-2024 Albumin [Mass/Vol] 3.5 g/dL 3.4-4.8 [facility] Serum or plasma albumin/glob ulin mass ratioOrdered By: Nolan Murry on 11-23-2024 Albumin/Globulin [Mass ratio] 1.2 {ratio} 0.9-2.4 [facility] Serum or plasma alkaline caitie sphatase measurementOrdered By: Nolan Murry on 11-23-2024 ALP [Catalytic activity/Vol] 63 U/L 35-104 [facility] Serum or plasma calcium jason urement (mass/volume)Ordered By: Nolan Murry on 11-23-2024 Calcium [Mass/Vol] 8.7 mg/dL 7.6-11.0 [facility] Serum or plasma urea nitroge n measurement (mass/volume)Ordered By: Nolan Murry on 11-23-2024 Urea nitrogen [Mass/Vol] 18 mg/dL 4-19 [facility] Sodium levelOrdered By: Lio mathews Lovely on 11-23-2024 Sodium [Moles/Vol] 143 mmol/L 133-145 [facility] Total proteinOrdered By: Solange trimble Lovely on 11-23-2024 Protein [Mass/Vol] 6.4 g/dL 5.9-8.4 [facility] White blood cell (WBC) count Ordered By: Nolan Murry on 11-23-2024 WBC (Bld) [#/Vol] 13.0 10*3/uL High 4.4-11.0 [facility] CBC W/Diff, Automatedon Absolute Lymph 1.42 X10 3/uL Normal 0.83-4.51 [facility] Comment on above: Performed By: #### L 100.0100, L500.4050 #### [facility] Laboratory [address] [facility] [place], [address] Absolute Neut 13.6 X10 3/uL High 2.0-7.7 [facility] Comment on above: Performed By: #### L 100.0100, L500.4050 #### [facility] Laboratory [address] [place], [address] Basophils/100 WBC (Bld) 0.1 % Normal 0-1 [facility] Comment on above: Performed By: #### L 100.0100, L500.4050 #### [facility] Laboratory [address] [place], [address] Eosinophils/100 WBC (Bld) 0.1 % Normal 0-5 [facility] Comment on above: Performed By: #### L 100.0100, L500.4050 #### [facility] Laboratory [address] [place], [address] Erythrocyte distribution width (RBC) [Ratio] 12.9 % Normal 11.6-14.6 [facility] Comment on above: Performed By: #### L 100.0100, L500.4050 #### [facility] Laboratory [address] [place], [address] Hematocrit (Bld) [Volume fraction] 35.8 % Low 37-47 [facility] Comment on above: Performed By: #### L 100.0100, L500.4050 #### [facility] Laboratory [address] [place], [address] Hemoglobin (Bld) [Mass/Vol] 12.1 g/dL Normal 12.0-15.0 [facility] Comment on above: Performed By: #### L 100.0100, L500.4050 #### [facility] Laboratory [address] [place], [address] IG% 0.500 Normal 0.0-0.9 [facility] Comment on above: Result Comment: IG% - Immature Granulocytes (promyelocytes, myelocytes and metamyelocytes) > 1% indicates that a LEFT SHIFT is Present. Performed By: #### L 100.0100, L500.4050 #### [facility] Laboratory [address] [place], [address] Lymphocytes/100 WBC (Bld) 8.6 % Low 19-41 [facility] Comment on above: Performed By: #### L 100.0100, L500.4050 #### [facility] Laboratory [address] [place], [address] MCH (RBC) [Entitic mass] 32.0 pg Normal 27.0-32.0 [facility] Comment on above: Performed By: #### L 100.0100, L500.4050 #### [facility] Laboratory [address] [place], [address] MCHC (RBC) [Mass/Vol] 33.8 g/dL Normal 32-36 [facility] Comment on above: Performed By: #### L 100.0100, L500.4050 #### [facility] Laboratory [address] [place], [address] MCV (RBC) [Entitic vol] 94.7 fL Normal 81-99 [facility] Comment on above: Performed By: #### L 100.0100, L500.4050 #### [facility] Laboratory [address] [place], [address] Monocytes/100 WBC (Bld) 8.5 % Normal 0-10 [facility] Comment on above: Performed By: #### L 100.0100, L500.4050 #### [facility] Laboratory [address] [place], [address] Neutrophils/100 WBC (Bld) 82.2 % High 47-70 [facility] Comment on above: Performed By: #### L 100.0100, L500.4050 #### [facility] Laboratory [address] [place], [address] Nucleated RBC (Bld) [#/Vol] 0 10*3/uL Normal 0-5 [facility] Comment on above: Performed By: #### L 100.0100, L500.4050 #### [facility] Laboratory [address] [place], [address] Platelet mean volume (Bld) [Entitic vol] 9.1 fL Normal 6.2-12.0 [facility] Comment on above: Performed By: #### L 100.0100, L500.4050 #### [facility] Laboratory [address] [place], [address] Platelets (Bld) [#/Vol] 225 10*3/uL Normal 150-450 [facility] Comment on above: Performed By: #### L 100.0100, L500.4050 #### [facility] Laboratory [address] [place], [address] RBC (Bld) [#/Vol] 3.78 10*6/uL Low 4.2-5.4 [facility] Comment on above: Performed By: #### L 100.0100, L500.4050 #### [facility] Laboratory [address] [place], [address] RDW SD 44.8 fl High 35.1-43.9 [facility] Comment on above: Performed By: #### L 100.0100, L500.4050 #### [facility] Laboratory [address] [place], [address] WBC (Bld) [#/Vol] 16.6 10*3/uL High 4.4-11.0 [facility] Comment on above: Performed By: #### L 100.0100, L500.4050 #### [facility] Laboratory [address] [place], [address] Comprehensive Metabolic Prof akon 11-22-2024 Albumin [Mass/Vol] 3.4 g/dL Normal 3.4-4.8 [facility] Comment on above: Performed By: #### L 100.0100, L500.4050 ####[facility] [address] [place], [address] Albumin/Globulin [Mass ratio] 1.3 {ratio} Normal 0.9-2.4 [facility] Comment on above: Performed By: #### L 100.0100, L500.4050 ####[facility] [address] [place], [address] ALK PHOS 64 U/L Normal 35-104 [facility] Comment on above: Performed By: #### L 100.0100, L500.4050 ####[facility] [address] [place], [address] ALT [Catalytic activity/Vol] 65 U/L High <=34 [facility] Comment on above: Performed By: #### L 100.0100, L500.4050 ####[facility] [address] [place], [address] AST [Catalytic activity/Vol] 48 U/L High <=31 [facility] Comment on above: Performed By: #### L 100.0100, L500.4050 ####[facility] [address] [place], [address] Bilirubin [Mass/Vol] 0.53 mg/dL Normal 0.00-1.[address] [facility] Comment on above: Performed By: #### L 100.0100, L500.4050 ####[facility] [address] [place], [address] BUN/CRE 14.5 RATIO Normal 10-20 [facility] Comment on above: Performed By: #### L 100.0100, L500.4050 ####[facility] [address] [place], [address] Calcium [Mass/Vol] 8.4 mg/dL Normal 7.6-11.0 [facility] Comment on above: Performed By: #### L 100.0100, L500.4050 ####[facility] [address] [place], [address] Chloride [Moles/Vol] 108 mmol/L Normal 98-[address] [facility] Comment on above: Performed By: #### L 100.0100, L500.4050 ####[facility] [address] [place], [address] CO2 [Moles/Vol] 22.5 mmol/L Normal 21.0-32.0 [facility] Comment on above: Performed By: #### L 100.0100, L500.4050 ####[facility] [address] [place], [address] Creatinine [Mass/Vol] 0.72 mg/dL Normal 0.70-1.20 [facility] Comment on above: Performed By: #### L 100.0100, L500.4050 ####[facility] [address] [place], [address] ECRCL 63.71 ml/min Normal 50-250 [facility] Comment on above: Performed By: #### L 100.0100, L500.4050 ####[facility] [address] [place], [address] GAP 10 Normal 5-15 [facility] Comment on above: Performed By: #### L 100.0100, L500.4050 ####[facility] [address] [place], [address] GFR/1.73 sq M.predicted among non-blacks MDRD (S/P/Bld) [Vol rate/Area] 87 mL/min/{1.73_m2} Normal >60 [facility] Comment on above: Result Comment: mL/m in/1.73m2 CKD-EPI Creatinine Equation (2020) Performed By: #### L 100.0100, L500.4050 ####[facility] [address] [place], [address] Globulin (S) [Mass/Vol] 2.7 g/dL Normal 2.2-4.2 [facility] Comment on above: Performed By: #### L 100.0100, L500.4050 ####[facility] [address] [place], [address] Glucose [Mass/Vol] 139 mg/dL High 70-99 [facility] Comment on above: Performed By: #### L 100.0100, L500.4050 ####[facility] [address] [place], [address] Potassium [Moles/Vol] 4.1 mmol/L Normal 3.3-5.1 [facility] Comment on above: Performed By: #### L 100.0100, L500.4050 ####[facility] [address] [place], [address] Sodium [Moles/Vol] 141 mmol/L Normal 133-145 [facility] Comment on above: Performed By: #### L 100.0100, L500.4050 ####[facility] [address] [place], [address] T PROT 6.1 g/dL Normal 5.9-8.4 [facility] Comment on above: Performed By: #### L 100.0100, L500.4050 ####[facility] [address] [place], [address] Urea nitrogen [Mass/Vol] 10 mg/dL Normal 4-19 [facility] Comment on above: Performed By: #### L 100.0100, L500.4050 ####[facility] [address] [place], [address] Abdomen Limitedon 11-21-2024 Abdomen Limited [facility] Imaging Services [address] [place] [address] Abdomen Limited MR#: [id number] Acct: [id number] Name: KAYLENE SHAFER Rep #: [id number] : 1950 F 74 From: Nolan Hernandez i, MD PCP: Dr. Afia Chacko MD Status: REG ER Study: Abdomen Limited Date of Exam: 11/21/24 Exam# [id number] Ordering Dr: Mateusz Bean DO PROCEDURE: GALLBLADDER REASON FOR EXAM: Cholelithiasis COMPARISON: CT abdomen/pelvis performed on 11/20/2024. FINDINGS: Liver: Grossly normal size and mildly heterogeneous. Gallbladder: Moderately distended and contains sludge/stone. Sonographic Rodríguez sign is negative. There is trace pericholecystic fluid Common bile duct: Normal measuring 7 mm. Pancreas: Visualized portions are sonographically unremarkable. Visualized portions of the right kidney demonstrates mild hydronephrosis. ascites. US/Abdomen Limited IMPRESSION: Findings are suggestive of cholelithiasis with acute cholecystitis. Consider HIDA scan for further evaluation. Mild right hydronephrosis. ? Hepatic steatosis. Reading Location: [id number] CC: Dr. Afia Chacko MD; Mateusz Bean DO Database Specialist: Signed Normal [facility] Basic Metabolic Profile (BMP )on 11-21-2024 BUN/CRE 15.3 RATIO Normal 10-20 [facility] Comment on above: Performed By: #### L 500.2500, L100.0100, L500.3400, L501.2450 ####[facility] [address] [place], [address] Calcium [Mass/Vol] 9.0 mg/dL Normal 7.6-11.0 [facility] Comment on above: Performed By: #### L 500.2500, L100.0100, L500.3400, L501.2450 ####[facility] [address] [place], [address] Chloride [Moles/Vol] 108 mmol/L Normal 98-[address] [facility] Comment on above: Performed By: #### L 500.2500, L100.0100, L500.3400, L501.2450 ####[facility] [address] [place], [address] CO2 [Moles/Vol] 21.1 mmol/L Normal 21.0-32.0 [facility] Comment on above: Performed By: #### L 500.2500, L100.0100, L500.3400, L501.2450 ####[facility] [address] [place], [address] Creatinine [Mass/Vol] 0.68 mg/dL Low 0.70-1.20 [facility] Comment on above: Performed By: #### L 500.2500, L100.0100, L500.3400, L501.2450 ####[facility] [address] [place], [address] ECRCL 63.71 ml/min Normal 50-250 [facility] Comment on above: Performed By: #### L 500.2500, L100.0100, L500.3400, L501.2450 ####[facility] [address] [place], [address] GAP 12 Normal 5-15 [facility] Comment on above: Performed By: #### L 500.2500, L100.0100, L500.3400, L501.2450 ####[facility] [address] [place], [address] GFR/1.73 sq M.predicted among non-blacks MDRD (S/P/Bld) [Vol rate/Area] 90 mL/min/{1.73_m2} Normal >60 [facility] Comment on above: Result Comment: mL/m in/1.73m2 CKD-EPI Creatinine Equation (2020) Performed By: #### L 500.2500, L100.0100, L500.3400, L501.2450 ####[facility] [address] [place], [address] Glucose [Mass/Vol] 151 mg/dL High 70-99 [facility] Comment on above: Performed By: #### L 500.2500, L100.0100, L500.3400, L501.2450 ####[facility] [address] [place], [address] Potassium [Moles/Vol] 4.4 mmol/L Normal 3.3-5.1 [facility] Comment on above: Performed By: #### L 500.2500, L100.0100, L500.3400, L501.2450 ####[facility] [address] [place], [address] Sodium [Moles/Vol] 141 mmol/L Normal 133-145 [facility] Comment on above: Performed By: #### L 500.2500, L100.0100, L500.3400, L501.2450 ####[facility] [address] [place], [address] Urea nitrogen [Mass/Vol] 10 mg/dL Normal 4-19 [facility] Comment on above: Performed By: #### L 500.2500, L100.0100, L500.3400, L501.2450 ####[facility] [address] [place], [address] Bilirubin directOrdered By: Mateusz Bean on 11-21-2024 Bilirubin.direct [Mass/Vol] 0.30 mg/dL 0.00-0.30 [facility] CBC W/Diff, Automatedon Absolute Lymph 1.65 X10 3/uL Normal 0.83-4.51 [facility] Comment on above: Performed By: #### L 500.2500, L100.0100, L500.3400, L501.2450 ####[facility] [address] [place], [address] Absolute Neut 11.7 X10 3/uL High 2.0-7.7 [facility] Comment on above: Performed By: #### L 500.2500, L100.0100, L500.3400, L501.2450 ####[facility] [address] [place], [address] Basophils/100 WBC (Bld) 0.2 % Normal 0-1 [facility] Comment on above: Performed By: #### L 500.2500, L100.0100, L500.3400, L501.2450 ####[facility] [address] [place], [address] Eosinophils/100 WBC (Bld) 0.4 % Normal 0-5 [facility] Comment on above: Performed By: #### L 500.2500, L100.0100, L500.3400, L501.2450 ####[facility] [address] [place], [address] Erythrocyte distribution width (RBC) [Ratio] 12.8 % Normal 11.6-14.6 [facility] Comment on above: Performed By: #### L 500.2500, L100.0100, L500.3400, L501.2450 ####[facility] [address] [place], [address] Hematocrit (Bld) [Volume fraction] 37.7 % Normal 37-47 [facility] Comment on above: Performed By: #### L 500.2500, L100.0100, L500.3400, L501.2450 ####[facility] [address] [place], [address] Hemoglobin (Bld) [Mass/Vol] 12.9 g/dL Normal 12.0-15.0 [facility] Comment on above: Performed By: #### L 500.2500, L100.0100, L500.3400, L501.2450 ####[facility] [address] [place], [address] IG% 0.500 Normal 0.0-0.9 [facility] Comment on above: Result Comment: IG% - Immature Granulocytes (promyelocytes, myelocytes and metamyelocytes) > 1% indicates that a LEFT SHIFT is Present. Performed By: #### L 500.2500, L100.0100, L500.3400, L501.2450 ####[facility] [address] [place], [address] Lymphocytes/100 WBC (Bld) 11.2 % Low 19-41 [facility] Comment on above: Performed By: #### L 500.2500, L100.0100, L500.3400, L501.2450 ####[facility] [address] [place], [address] MCH (RBC) [Entitic mass] 32.0 pg Normal 27.0-32.0 [facility] Comment on above: Performed By: #### L 500.2500, L100.0100, L500.3400, L501.2450 ####[facility] [address] [place], [address] MCHC (RBC) [Mass/Vol] 34.2 g/dL Normal 32-36 [facility] Comment on above: Performed By: #### L 500.2500, L100.0100, L500.3400, L501.2450 ####[facility] [address] [place], [address] MCV (RBC) [Entitic vol] 93.5 fL Normal 81-99 [facility] Comment on above: Performed By: #### L 500.2500, L100.0100, L500.3400, L501.2450 ####[facility] [address] [place], [address] Monocytes/100 WBC (Bld) 8.2 % Normal 0-10 [facility] Comment on above: Performed By: #### L 500.2500, L100.0100, L500.3400, L501.2450 ####[facility] [address] [place], [address] Neutrophils/100 WBC (Bld) 79.5 % High 47-70 [facility] Comment on above: Performed By: #### L 500.2500, L100.0100, L500.3400, L501.2450 ####[facility] [address] [place], [address] Nucleated RBC (Bld) [#/Vol] 0 10*3/uL Normal 0-5 [facility] Comment on above: Performed By: #### L 500.2500, L100.0100, L500.3400, L501.2450 ####[facility] [address] [place], [address] Platelet mean volume (Bld) [Entitic vol] 9.3 fL Normal 6.2-12.0 [facility] Comment on above: Performed By: #### L 500.2500, L100.0100, L500.3400, L501.2450 ####[facility] [address] [place], [address] Platelets (Bld) [#/Vol] 257 10*3/uL Normal 150-450 [facility] Comment on above: Performed By: #### L 500.2500, L100.0100, L500.3400, L501.2450 ####[facility] [address] [place], [address] RBC (Bld) [#/Vol] 4.03 10*6/uL Low 4.2-5.4 [facility] Comment on above: Performed By: #### L 500.2500, L100.0100, L500.3400, L501.2450 ####[facility] [address] [place], [address] RDW SD 43.8 fl Normal 35.1-43.9 [facility] Comment on above: Performed By: #### L 500.2500, L100.0100, L500.3400, L501.2450 ####[facility] [address] [place], [address] WBC (Bld) [#/Vol] 14.7 10*3/uL High 4.4-11.0 [facility] Comment on above: Performed By: #### L 500.2500, L100.0100, L500.3400, L501.2450 ####[facility] [address] [place], [address] Cholangiogram/ O R,Initialon 11-21-2024 Cholangiogram/ O R,Initial [facility] Imaging Services [address] [place] [address] Cholangiogram/ O R,Initial MR#: [id number] Acct: [id number] Name: KAYLENE SHAFER Rep #: [id number] : 1950 F 74 From: Ray morgan MD PCP: Dr. Afia Chacko MD Status: [facility] Study: Cholangiogram/ O R,Initial Date of Exam: 11/21 Exam# [id number] Ordering Dr: Nolan Murry MD PROCEDURE: CHOLANGIOGRAM/ O R,INITIAL REASON FOR EXAM: Laparoscopic cholecystectomy. TECHNIQUE: The surgeon injected contrast. Fluoroscopic services were provided. COMPARISON: None FINDINGS: The visualized intra and extrahepatic biliary ducts are unremarkable. No intraluminal filling defect is seen. Free flow of contrast into the duodenum. RAD/Cholangiogram/ O R,Initial IMPRESSION: Unremarkable intraoperative cholangiogram. Reading Location: [id number] CC: Dr. Afia Chacko MD; Dr. Nolan Murry MD Database Specialist: Signed Normal [facility] Discharge Instructionon Discharge Instruction [facility] Medical Records Department [address] [place] [address] Instructions for Home/Discharge Instructions 11/21/24 1739 MR#: [id number] Acct: [id number] Name: KAYLENE SHAFER Rep #: [id number] : 1950 74 From: Nolan Murry MD PCP: Dr. Afia Chacko MD Status:ADM IN Discharge Instructions Diet Discharge Diet: No restrictions DC O2, CPAP, BIPAP needs Home O2 Discharge instructions: No Dressing / Incision Discharge Activity: May Not Drive (No driving while using narcotic pain medication) and May Shower (Postoperative day 1) May shower in (days): 1 Ice area for (Minutes): 20 Lifting Restrictions: No lifting greater than 15 pounds for 2 weeks after surgery Dressing / Incision Call your doctor if your incision/area has: Continuous Slow Oozing, Increased Pain/ Swelling, Increased Redness, Foul Smelling Discharge and Swelling at the incision site Call your doctor if you observe: Fever of 101 or Higher Remove Dressing in: 2 days (Please leave Steri-Strips intact until they fall off spontaneously or are taken off at your follow-up visit) Cleanse incision/area with: Soap Water Additional Dressing/Incision Instructions:: Please discontinue drain site dressing in 48 hours Follow Up Care Please Follow Up With: Nolan Murry MD When: 7-10days postop Test Results: Test results from this visit will be discussed in further detail at your follow-up appointment, if applicable. Discharge Plan Admission Admit Date/Time: 11/22/24 12:56 Primary Reason for Your Visit: Cholecystitis Attending Provider: Nolan Murry Primary Care Provider: Afia Chacko Discharge Orders/Prescriptions Prescriptions: New metronidazole 500 mg Tablet 500 mg PO TID 2 Days Qty: 6 0RF ciprofloxacin HCl 500 mg Tablet 500 mg PO BID 2 Days Qty: 4 0RF oxycodone 5 mg Tablet 5 mg PO Q4H PRN PRN (Reason: Pain Score 4-10) 2 Days Qty: 10 0RF Continued multivitamin capsule 1 cap PO DAILY sertraline 100 mg tablet 100 mg PO QDAY calcium carbonate 600 mg calcium (1,500 mg) tablet 600 mg PO QDAY levothyroxine 25 mcg tablet 25 mcg PO QDAY ascorbic acid (vitamin C) 500 mg tablet 500 mg PO QDAY mirabegron 50 mg tablet extended release 24 hr 50 mg PO QHS metoprolol succinate [Toprol XL] 25 mg tablet extended release 24 hr 25 mg PO QDAY Qty: 90 3RF lisinopril 20 mg tablet 20 mg PO QDAY Qty: 90 3RF pantoprazole [Protonix] 40 mg tablet,delayed release (DR/EC) 40 mg PO DAILY Qty: 7 0RF hydrocodone-acetaminophen 5-325 mg tablet 1 tab PO Q4H PRN PRN (Reason: Pain) 2 Days Qty: 10 0RF dicyclomine 20 mg tablet 20 mg PO TID PRN (Reason: abdominal pain) Qty: 30 0RF Referrals / Follow Up: Afia Chacko MD [Primary Care Provider] - Disposition Disposition (needs filled in before D/C Order can be placed): Home, Self Care 11/23/24 1246 Nolan Murry MD CC: Dr. Afia Chacko MD Signed Normal [facility] Lactic Acidon 11-21-2024 Lactate [Moles/Vol] 1.1 mmol/L Normal 0.0-2.0 [facility] Comment on above: Order Comment: Y Performed By: #### L 503.6005 ####[facility] [address] [facility]. [place], [place], [id number] Lactic acid measurementOrder ed By: Mateuszangus Bean on 11-21-2024 Lactate [Moles/Vol] 1.1 mmol/L 0.0-2.0 [facility] Lipaseon 11-21-2024 Lipase [Catalytic activity/Vol] 29 U/L Normal 13-75 [facility] Comment on above: Result Comment: Plea note: LIPASE revised reference range effective 22. New Lipase methodology. Expected to produce lower values than the previous assay method. NEW Reference Range: 13 - 75 U/L Performed By: #### L 500.2500, L100.0100, L500.3400, L501.2450 ####[facility] [address] [place], [place], [address] Lipase measurementOrdered By : Mateusz Bean on 11-21-2024 Lipase [Catalytic activity/Vol] 29 U/L 13-75 [facility] Comment on above: Please note:LIPASE r evised reference range effective 22. New Lipase methodology. Expected to produce lower values than the previous assay method. NEW Reference Range: 13 - 75 U/L Liver Profileon 11-21-2024 Albumin [Mass/Vol] 4.0 g/dL Normal 3.4-4.8 [facility] Comment on above: Performed By: #### L 500.2500, L100.0100, L500.3400, L501.2450 ####[facility] [address] [place], [address] ALK PHOS 78 U/L Normal 35-104 [facility] Comment on above: Performed By: #### L 500.2500, L100.0100, L500.3400, L501.2450 ####[facility] [address] [place], [address] ALT [Catalytic activity/Vol] 64 U/L High <=34 [facility] Comment on above: Performed By: #### L 500.2500, L100.0100, L500.3400, L501.2450 ####[facility] [address] [place], [address] AST [Catalytic activity/Vol] 43 U/L High <=31 [facility] Comment on above: Performed By: #### L 500.2500, L100.0100, L500.3400, L501.2450 ####[facility] [address] [place], [address] Bilirubin [Mass/Vol] 0.59 mg/dL Normal 0.00-1.[address] [facility] Comment on above: Performed By: #### L 500.2500, L100.0100, L500.3400, L501.2450 ####[facility] [address] [place], [address] Bilirubin.direct [Mass/Vol] 0.30 mg/dL Normal 0.00-0.30 [facility] Comment on above: Performed By: #### L 500.2500, L100.0100, L500.3400, L501.2450 ####[facility] [address] [place], [address] Globulin (S) [Mass/Vol] 3.1 g/dL Normal 2.2-4.2 [facility] Comment on above: Performed By: #### L 500.2500, L100.0100, L500.3400, L501.2450 ####[facility] [address] [place], [address] T PROT 7.1 g/dL Normal 5.9-8.4 [facility] Comment on above: Performed By: #### L 500.2500, L100.0100, L500.3400, L501.2450 ####[facility] [address] [place] [place], [address] MR/POSTOP.ANE 11-21-2024 MR/POSTOP.[facility] Medical Records Department [address] [place] [address] Anesthesia Postop Eval I 11/21/241725 MR#: [id number] Acct: [id number] Name: KAYLENE SHAFER Rep #: [id number] : 1950 74 From: Vandana Reid CRNA PCP: Dr. Afia Chacko MD Status:REG [facility] Y Race: C Location: [place] [address] Anesthesia: Postop Eval I Current Vital Signs Temperature: 98 F Pulse Rate: 104 Blood Pressure: 174/57 Respiratory Rate: 16 Pulse Ox: 97 Oxygen Delivery Method: Simple Mask Oxygen Flow Rate (L/min): 6 Assessment Airway patent: Yes Spontaneous unlabored respirations: Yes Mental status: Awake and Calm nausea: No Vomiting: No Anesthesia Complication: No Fluid Hydration Crystalloid volume administer (ml): 1,400 Total IV fluid infused: 1,400 Progress Note Post-operative progress note: nasal trumpet and oral airway in place, breathing spontaneously Anesthesia document: Postop Eval 1 completed: Yes 11/21/241726 Date Vandana Reid MANAGER OCCUPATIONAL Cosigner Signature: Date CC: Signed Normal [facility] MR/[id number] 11-21-2024 MR/POSTOPAN2 [facility] Medical Records Department [address] [place] [address] Anesthesia Postop Eval II 11/21/241753 MR#: [id number] Acct: [id number] Name: KAYLENE SHAFER Rep #: [id number] : 1950 74 From: Bhavin Gomez MD PCP: Dr. Afia Chacko MD Status:REG SDC Y Race: C Location: [facility] AC-TBA-2 Anesthesia Postop Eval I Sum Postop Eval Completion status Anesthesia document: Postop Eval 1 completed: Yes Anesthesia Postop Eval I Summary Anesthesia Postop Eval I Summary: Anesthesia Postop Eval I: Assessment Summary Airway patent Yes 11/21/24 17:27 MANAGER OCCUPATIONAL.SKOBY Spontaneous unlabored Yes 11/21/24 17:27 MANAGER OCCUPATIONAL.SKOBY respirations Mental status Awake,Calm 11/21/24 17:27 MANAGER OCCUPATIONAL.SKOBY nausea No 11/21/24 17:27 MANAGER OCCUPATIONAL.SKOBY Vomiting No 11/21/24 17:27 MANAGER OCCUPATIONAL.SKOBY Anesthesia Postop Eval I: Fluid Summary Crystalloid volume administer 1,400 11/21/24 17:27 MANAGER OCCUPATIONAL.SKOBY (ml) Colloids volume administered ( ml) Blood Product volume administered (ml) Total IV fluid infused 1,400 11/21/24 17:27 MANAGER OCCUPATIONAL.SKOBY Anesthesia Postop Eval I: Summary Notes Anesthesia Complication No 11/21/24 17:27 MANAGER OCCUPATIONAL.SKOBY Anesthesia Complication Comment: Post-operative progress note nasal trumpet and 11/21/24 17:27 MANAGER OCCUPATIONAL.SKOBY oral airway in place, breathing spontaneously Anesthesia: Postop Eval II Evaluation Mental status: Awake Pain Level: 2 nausea: No Vomiting: No 11/21/241754 Date Bhavin Gomez MD Cosigner Signature: Date CC: Signed Normal [facility] Operative Reporton Operative Report [facility] Medical Records Department [address] [place] [address] Operative Report 11/21/24 1644 MR#: [id number] Acct: [id number] Name: KAYLENE SHAFER Rep #: [id number] : 1950 74 From: Nolan Murry MD PCP: Dr. Afia Chacko MD Status:ADM IN Location: [facility] DY154-4 Procedures Digestive 40xxx-49xxx: [id number] Laparo cholecystectomy/graph Operative Report (Standard) Operative Information Date of Procedure: 11/21/24 Pre-Operative Diagnosis: Cholecystitis Post-Operative Diagnosis: Severe cholecystitis with hydrops Surgery/Procedure Performed: Laparoscopic cholecystectomy with intraoperative cholangiography atomic physics teacher: Yes Agriculturist: Dudley Rayo Tasks completed by family practice physician assistant: Opening closing, Retracting and Other (laparoscopic camera operation) Type of Anesthesia: General/Supplemental RN Documented Start/Stop Times: Operation Date: 11/21/24 14:50 Case Time Into Pre-Op 11/21/24 13:49 Out of Pre-Op 11/21/24 14:03 Anesthesia Start 11/21/24 14:06 Into Room 11/21/24 14:06 Procedure Start 11/21/24 14:32 Procedure End 11/21/24 16:52 Anesthesia End 11/21/24 17:13 Out of Room 11/21/24 17:13 Into Recovery 11/21/24 17:21 Out of Recovery 11/21/24 20:01 Procedure Start Time: 14:32 Procedure Stop Time: 16:45 Select all DRAINS/GRAFTS/IMPLANTS that apply: Drains Drain details: 15 Citizen [place] round Vladimir drain Estimated Blood Loss: 20 Specimen collected: Yes Description of specimen(s) removed: Gallbladder Description of surgery: After proper identification in the preoperative holding area the patient was brought to the operating room where she was positioned supine on the operating room table. Preoperatively SCDs were placed and antibiotics were administered. General anesthesia was then induced. An orogastric tube was placed by anesthesia. Patient's abdomen was prepped and draped in usual sterile fashion after placing drapes across her abdomen to exclude her colostomy. A formal timeout was conducted to confirm both patient and the procedure. Procedure was begun with a supraumbilical incision which was extended deeply down to the level of the fascia. The fascia was elevated and incised, as well as the peritoneum. A finger sweep was performed to ensure there were no underlying adhesions and a 12 mm balloon trocar was inserted. Pneumoperitoneum was established at 12 mmHg. Three additional trocars (all 5 mm) were placed in the epigastrium (this was later upsized for a 12 mm port under laparoscopic visualization) and in the right upper quadrant. Inspection of the peritoneum revealed no inadvertent injury to the viscera below. The gallbladder was not immediately visualized as there was adherent omentum but once this was swept down we could visualize a very large, taut gallbladder with a hemorrhagic appearance. Given the severe distention the gallbladder was unable to be grasped so a aspirating needle was connected to the suction bunk house worker device and used to decompress the gallbladder. The gallbladder fundus was then grasped and elevated cephalad. Then, using careful dissection the peritoneum was opened and the structures of the hepatocystic triangle were delineated. This proved exceptionally difficult given the redundancy of the gallbladder infundibulum and the tortuosity of a shortened cystic duct related to some adhesive bands contorting the duct. Ultimately it proved evident that we would need to sacrifice the cystic artery to try to gain as much length as possible on the cystic duct. This was accomplished after application of 3 titanium clips. Even still the length of the cystic duct was not significant so I first attempted cholangiogram with application of a Sahni clamp across the gallbladder infundibulum. Two attempts were made but met with the same result. This result seemed to show that the gallbladder was occluded but there is no filling of the cystic duct because of resistance (potentially due to the tortuosity of the duct). Therefore I abandoned this approach and elected to clip the cystic duct distally and performed a ductotomy. Using an Alvarez Ni clamp, a cholangiocatheter was fed into the proximal segment of the cystic duct and clamped into place. Under fluoroscopy a cholangiogram was then obtained showing a standard length cystic duct flowing into a common bile duct with antegrade flow of contrast into the duodenum. There was also r etrograde flow through the common hepatic duct into the right and left hepatic ducts. Satisfied with this result, the cholangiocatheter was withdrawn and the proximal cystic duct was sealed with 2 additional Hemolock clips and the cystic duct was completely transected. The gallbladder was then removed from the gallbladder fossa with the use of electrocautery. Selective electrocautery was used to obtain hemostasis in the gallbl (more content not included)... Normal [facility] Surgery Specimen Level IIIon 11-21-2024 Surgery Specimen Level III -------- Patient Age/Sex Location Account Attending Physician -------- KAYLENE SHAFER 74/F MS3 [id number] Dr. Nolan Murry MD -------- Specimen: [id number] Received: 11/22/24 Status: HUBERT Hays Num: [id number] Spec Type: GALLBLADDMane Cruz Dr: Dr. Nolan Murry MD HEADER OPERATION: Laparoscopic cholecystectomy with IOC PRE-OP DIAGNOSIS: Acute calculous cholecystitis TISSUE SUBMITTED: Gallbladder -------- MICROSCOPIC DIAGNOSIS Gallbladder, cholecystectomy: * Acute cholecystitis. * Cholelithiasis. MICROSCOPIC DESCRIPTION Slides are reviewed. GROSS DESCRIPTION Received in formalin labeled Kaylene Shafer and designated gallbladder is a green-cabello ragged previously disrupted gallbladder that measures 7.5 cm long by 3.5 cm in diameter. The mucosa is uniform, red-brown, hemorrhagic, and markedly granular. Sectioning shows a 0.2 cm wall thickness. The lumen contains multiple yellow to dark green irregular shaped calculi and calculi fragments that aggregate to 3.5 x 3.0 x 2.5 cm. Daily Sales Audit Clerk sections of the gallbladder are submitted.JK. 11/22/2024 CPT:95820 -------- Patient Age/Sex Location Account Attending Physician -------- KAYLENE SHAFER 74/F MS3 [id number] Dr. Nolan Murry MD -------- Signed (signature on file) Dr. Layla Cunningham MD 11/26/24 1548 -------- Normal [facility] Comment on above: Performed By: #### P SUIII ####[facility] [address] [facility]. [place], [place], [address] Abdomen/Pelvis WITH Contrast on 11-20-2024 Abdomen/Pelvis WITH Contrast [facility] Imaging Services [address] [place], [place] [address] Abdomen/Pelvis WITH Contrast MR#: [id number] Acct: [id number] Name: KAYLENE SHAFER Rep #: [id number] : 1950 F 74 From: Ray morgan MD PCP: Dr. Afia Chacko MD Status: REG ER Study: Abdomen/Pelvis WITH Contrast Date of Exam: 01/11 Exam# [id number] Ordering Dr: Misha Villeda DO PROCEDURE: ABDOMEN/PELVIS WITH CONTRAST REASON FOR EXAM: Left upper quadrant pain. History of rectal carcinoma and left lower quadrant colostomy. TECHNIQUE: Abdomen and pelvis CT with intravenous contrast. Oral contrast was also used. IV CONTRAST: 100 cc of Isovue-300. COMPARISON: Comparison is made with prior study dated December 25, 2021. FINDINGS: Lung bases: Minimal increased markings at the right lung base suggestive of atelectasis guarding. Liver: Diffuse fatty infiltration. Hepatomegaly. Gallbladder: There is dilatation of the gallbladder lumen. Findings suggestive of multiple small layering gallstones within the gallbladder lumen and sludge. Spleen: Unremarkable. Pancreas: Unremarkable. Adrenals: Unremarkable. Kidneys: Stable small bilateral parapelvic renal cysts. Bladder: Diffuse bladder wall thickening. Reproductive Organs: Prior hysterectomy. Adnexal regions are unremarkable. Bowel: Scattered sigmoid diverticula.. A colostomy is seen in the anterior left lower quadrant. Appendix: Normal. Lymph nodes: No suspicious lymph node enlargement. Vasculature: Major vascular structures are unremarkable. Peritoneum / Retroperitoneum: No ascites. No free air. Bones: Degenerative changes of the spine. CT/Abdomen/Pelvis WITH Contrast IMPRESSION: Distended gallbladder with findings suggestive of sludge and gallstones. A colostomy is seen in the anterior left lower quadrant. Scattered sigmoid diverticula. Atelectasis and/or scarring at the right lung base. One or more dose reduction techniques were used (e.g., Automated exposure control, adjustment of the mA and/or kV according to patient size, use of iterative reconstruction technique). Reading Location: [id number] CC: Dr. Afia Chcako MD; Dr. Misha Villeda DO Database Specialist: Signed Normal [facility] Abdomen/Pelvis without Conto n 11-20-2024 Abdomen/Pelvis without Cont [facility] Imaging Services [address] [place] [id number] Abdomen/Pelvis without Cont MR#: [id number] Acct: [id number] Name: KAYLENE SHAFER Rep #: [id number] : 1950 F 74 From: Mauricio Mehta DO PCP: Dr. Afia Chacko MD Status: REG ER Study: Abdomen/Pelvis without Cont Date of Exam: 01/11 Exam# [id number] Ordering Dr: Alberto Marinelli MD PROCEDURE: ABDOMEN/PELVIS WITHOUT CONT REASON FOR EXAM: Left lower quadrant pain. Leukocytosis. TECHNIQUE: Abdomen and pelvis CT with intravenous contrast. No oral contrast. IV CONTRAST: None COMPARISON: CT of the abdomen and pelvis obtained earlier today. FINDINGS: Lung bases: Clear Liver: Unremarkable. Gallbladder: Distended gallbladder with ill-defined layering density, may represent sludge versus tiny stones. Spleen: Unremarkable. Pancreas: Unremarkable. Adrenals: Unremarkable. Kidneys: Small bilateral parapelvic cysts. No evidence of hydronephrosis or nephrolithiasis. Bladder: Unremarkable. Reproductive Organs: Prior hysterectomy. Adnexal regions are unremarkable. Bowel: Residual oral contrast material is demonstrated within the large bowel. Status post left lower quadrant colostomy. There is evidence of a small parastomal hernia containing a focal loop of transverse colon. The stomach is decompressed limiting evaluation. No inflammatory changes of the bowel loops are demonstrated. Appendix: Normal. Lymph nodes: No suspicious lymph node enlargement. Vasculature: Major vascular structures are unremarkable. Peritoneum / Retroperitoneum: No ascites. No free air. Bones: Degenerative changes of the lumbar spine. CT/Abdomen/Pelvis without Cont IMPRESSION: Distended gallbladder with ill-defined layering density, may represent sludge versus tiny stones. Right upper quadrant ultrasound may be helpful for further characterization. Left lower quadrant colostomy with a parastomal hernia containing a focal loop of transverse colon. No inflammatory changes of the bowel loops are demonstrated. One or more dose reduction techniques were used (e.g., Automated exposure control, adjustment of the mA and/or kV according to patient size, use of iterative reconstruction technique). Reading Location: [employer] CC: Dr. Afia Chacko MD; Dr. Alberto Marinelli MD Database Specialist: Signed Normal [facility] Absolute lymphocyte countOrd ered By: Misha Villeda on 11-20-2024 Lymphocytes Auto (Unsp spec) [#/Vol] 2.34 10*3/uL 0.83-4.51 [facility] Absolute neutrophil countOrd ered By: Misha Villeda on 11-20-2024 Neutrophils (Bld) [#/Vol] 7.9 10*3/uL High 2.0-7.7 [facility] Anion gap in Serum or Plasma Ordered By: Misha Villeda on 11-20-2024 Anion gap [Moles/Vol] 14 mmol/L 5-15 [facility] Automated lymphocyte count a s percentage of total leukocytesOrdered By: Misha Villeda on 11-20-2024 Lymphocytes/100 WBC Auto (Unsp spec) 20.3 % 19-41 [facility] BUN/creatinine ratioOrdered By: Misha Villeda on 11-20-2024 Urea nitrogen/Creatinine [Mass ratio] 25.9 mg/mg High 10-20 [facility] Base excess Calc (BldV) [Mol es/Vol]Ordered By: Alberto Marinelli on 11-20-2024 Venous Blood Base Excess -5 mmol/L Low -1.0-3.5 [facility] Basic Metabolic Profile (BMP )on 11-20-2024 BUN/CRE 18.8 RATIO Normal 10-20 [facility] Comment on above: Performed By: #### L 100.0100, L501.5425, L500.4050 #### [facility] Laboratory [address] [place], [address] Calcium [Mass/Vol] 9.4 mg/dL Normal 7.6-11.0 [facility] Comment on above: Performed By: #### L 100.0100, L501.5425, L500.4050 #### [facility] Laboratory [address] [place], [address] Chloride [Moles/Vol] 102 mmol/L Normal 98-[address] [facility] Comment on above: Performed By: #### L 100.0100, L501.5425, L500.4050 #### [facility] Laboratory [address] [place], [address] CO2 [Moles/Vol] 16.8 mmol/L Low 21.0-32.0 [facility] Comment on above: Performed By: #### L 100.0100, L501.5425, L500.4050 #### [facility] Laboratory [address] [place], [address] Creatinine [Mass/Vol] 0.76 mg/dL Normal 0.70-1.20 [facility] Comment on above: Performed By: #### L 100.0100, L501.5425, L500.4050 #### [facility] Laboratory [address] [place], [address] ECRCL 63.71 ml/min Normal 50-250 [facility] Comment on above: Performed By: #### L 100.0100, L501.5425, L500.4050 #### [facility] Laboratory [address] [place], [address] GAP 15 Normal 5-15 [facility] Comment on above: Performed By: #### L 100.0100, L501.5425, L500.4050 #### [facility] Laboratory [address] [place], [address] GFR/1.73 sq M.predicted among non-blacks MDRD (S/P/Bld) [Vol rate/Area] 81 mL/min/{1.73_m2} Normal >60 [facility] Comment on above: Result Comment: mL/m in/1.73m2 CKD-EPI Creatinine Equation (2020) Performed By: #### L 100.0100, L501.5425, L500.4050 #### [facility] Laboratory [address] [place], [address] Glucose [Mass/Vol] 140 mg/dL High 70-99 [facility] Comment on above: Performed By: #### L 100.0100, L501.5425, L500.4050 #### [facility] Laboratory [address] [place], [address] Potassium [Moles/Vol] 5.5 mmol/L High 3.3-5.1 [facility] Comment on above: Result Comment: Hemo lysis present, Results??could be affected. ?? Hemolysis present, Results??could be affected. ?? Performed By: #### L 100.0100, L501.5425, L500.4050 #### [facility] Laboratory [address] [place], [address] Sodium [Moles/Vol] 134 mmol/L Normal 133-145 [facility] Comment on above: Performed By: #### L 100.0100, L501.5425, L500.4050 #### [facility] Laboratory [address] [place], [address] Urea nitrogen [Mass/Vol] 14 mg/dL Normal 4-19 [facility] Comment on above: Performed By: #### L 100.0100, L501.5425, L500.4050 #### [facility] Laboratory [address] [place], [address] BUN/CRE 25.9 RATIO High 10-20 [facility] Comment on above: Performed By: #### L 500.2500, L501.2450, L500.3400, L100.0100 ####[facility] [address] [place], [address] Calcium [Mass/Vol] 9.8 mg/dL Normal 7.6-11.0 [facility] Comment on above: Performed By: #### L 500.2500, L501.2450, L500.3400, L100.0100 ####[facility] [address] [place], [address] Chloride [Moles/Vol] 106 mmol/L Normal 98-[address] [facility] Comment on above: Performed By: #### L 500.2500, L501.2450, L500.3400, L100.0100 ####[facility] [address] [place], [address] CO2 [Moles/Vol] 20.1 mmol/L Low 21.0-32.0 [facility] Comment on above: Performed By: #### L 500.2500, L501.2450, L500.3400, L100.0100 ####[facility] [address] [place], [address] Creatinine [Mass/Vol] 0.78 mg/dL Normal 0.70-1.20 [facility] Comment on above: Performed By: #### L 500.2500, L501.2450, L500.3400, L100.0100 ####[facility] [address] [place], [address] ECRCL 63.47 ml/min Normal 50-250 [facility] Comment on above: Performed By: #### L 500.2500, L501.2450, L500.3400, L100.0100 ####[facility] [address] [place], [address] GAP 14 Normal 5-15 [facility] Comment on above: Performed By: #### L 500.2500, L501.2450, L500.3400, L100.0100 ####[facility] [address] [place], [address] GFR/1.73 sq M.predicted among non-blacks MDRD (S/P/Bld) [Vol rate/Area] 78 mL/min/{1.73_m2} Normal >60 [facility] Comment on above: Result Comment: mL/m in/1.73m2 CKD-EPI Creatinine Equation (2020) Performed By: #### L 500.2500, L501.2450, L500.3400, L100.0100 ####[facility] [address] [place], [address] Glucose [Mass/Vol] 137 mg/dL High 70-99 [facility] Comment on above: Performed By: #### L 500.2500, L501.2450, L500.3400, L100.0100 ####[facility] [address] [place], [address] Potassium [Moles/Vol] 4.5 mmol/L Normal 3.3-5.1 [facility] Comment on above: Result Comment: Hemo lysis present, Results??could be affected. ?? Performed By: #### L 500.2500, L501.2450, L500.3400, L100.0100 ####[facility] [address] [place], [address] Sodium [Moles/Vol] 140 mmol/L Normal 133-145 [facility] Comment on above: Performed By: #### L 500.2500, L501.2450, L500.3400, L100.0100 ####[facility] [address] [place], [address] Urea nitrogen [Mass/Vol] 20 mg/dL High 4-19 [facility] Comment on above: Performed By: #### L 500.2500, L501.2450, L500.3400, L100.0100 ####[facility] [address] [place], [address] Basophil percentageOrdered B y: Misha Villeda on 11-20-2024 Basophils/100 WBC (Bld) 0.4 % 0-1 [facility] Bilirubin Test strip Ql (U)O rdered By: Alberto Marinelli on 11-20-2024 Bilirubin Ql (U) Negative Negative [facility] Bilirubin directOrdered By: Misha Villeda on 11-20-2024 Bilirubin.direct [Mass/Vol] 0.16 mg/dL 0.00-0.30 [facility] Comment on above: Hemolysis present, R esults could be affected. Bilirubin, totalOrdered By: Misha Villeda on 11-20-2024 Bilirubin [Mass/Vol] 0.43 mg/dL 0.00-1.[address] [facility] CBC W/Diff, Automatedon -0 Absolute Lymph 1.23 X10 3/uL Normal 0.83-4.51 [facility] Comment on above: Performed By: #### L 100.0100, L501.5425, L500.4050 #### [facility] Laboratory [address] [place], [address] Absolute Neut 12.4 X10 3/uL High 2.0-7.7 [facility] Comment on above: Performed By: #### L 100.0100, L501.5425, L500.4050 #### [facility] [address] [place], [address] Basophils/100 WBC (Bld) 0.4 % Normal 0-1 [facility] Comment on above: Performed By: #### L 100.0100, L501.5425, L500.4050 #### [facility] [address] [place], [address] Eosinophils/100 WBC (Bld) 0.1 % Normal 0-5 [facility] Comment on above: Performed By: #### L 100.0100, L501.5425, L500.4050 #### [facility] [address] [place], [address] Erythrocyte distribution width (RBC) [Ratio] 12.5 % Normal 11.6-14.6 [facility] Comment on above: Performed By: #### L 100.0100, L501.5425, L500.4050 #### [facility] [address] [place], [address] Hematocrit (Bld) [Volume fraction] 39.8 % Normal 37-47 [facility] Comment on above: Performed By: #### L 100.0100, L501.5425, L500.4050 #### [facility] [address] [place], [address] Hemoglobin (Bld) [Mass/Vol] 13.8 g/dL Normal 12.0-15.0 [facility] Comment on above: Performed By: #### L 100.0100, L501.5425, L500.4050 #### [facility] [address] [place], [address] IG% 0.600 Normal 0.0-0.9 [facility] Comment on above: Result Comment: IG% - Immature Granulocytes (promyelocytes, myelocytes and metamyelocytes) > 1% indicates that a LEFT SHIFT is Present. Performed By: #### L 100.0100, L501.5425, L500.4050 #### [facility] [address] [place], [address] Lymphocytes/100 WBC (Bld) 8.7 % Low 19-41 [facility] Comment on above: Performed By: #### L 100.0100, L501.5425, L500.4050 #### [facility] [address] [place], [address] MCH (RBC) [Entitic mass] 32.0 pg Normal 27.0-32.0 [facility] Comment on above: Performed By: #### L 100.0100, L501.5425, L500.4050 #### [facility] [address] [place], [address] MCHC (RBC) [Mass/Vol] 34.7 g/dL Normal 32-36 [facility] Comment on above: Performed By: #### L 100.0100, L501.5425, L500.4050 #### [facility] [address] [place], [address] MCV (RBC) [Entitic vol] 92.3 fL Normal 81-99 [facility] Comment on above: Performed By: #### L 100.0100, L501.5425, L500.4050 #### [facility] [address] [place], [address] Monocytes/100 WBC (Bld) 3.4 % Normal 0-10 [facility] Comment on above: Performed By: #### L 100.0100, L501.5425, L500.4050 #### [facility] [address] [place], [address] Neutrophils/100 WBC (Bld) 86.8 % High 47-70 [facility] Comment on above: Performed By: #### L 100.0100, L501.5425, L500.4050 #### [facility] [address] [place], [address] Nucleated RBC (Bld) [#/Vol] 0 10*3/uL Normal 0-5 [facility] Comment on above: Performed By: #### L 100.0100, L501.5425, L500.4050 #### [facility] [address] [place], [address] Platelet mean volume (Bld) [Entitic vol] 9.3 fL Normal 6.2-12.0 [facility] Comment on above: Performed By: #### L 100.0100, L501.5425, L500.4050 #### [facility] [address] [place], [address] Platelets (Bld) [#/Vol] 274 10*3/uL Normal 150-450 [facility] Comment on above: Performed By: #### L 100.0100, L501.5425, L500.4050 #### [facility] [address] [place], [address] RBC (Bld) [#/Vol] 4.31 10*6/uL Normal 4.2-5.4 [facility] Comment on above: Performed By: #### L 100.0100, L501.5425, L500.4050 #### [facility] [address] [place], [address] RDW SD 42.6 fl Normal 35.1-43.9 [facility] Comment on above: Performed By: #### L 100.0100, L501.5425, L500.4050 #### [facility] [address] [place], [address] WBC (Bld) [#/Vol] 14.2 10*3/uL High 4.4-11.0 [facility] Comment on above: Performed By: #### L 100.0100, L501.5425, L500.4050 #### [facility] [address] [place], [address] Absolute Lymph 2.34 X10 3/uL Normal 0.83-4.51 [facility] Comment on above: Performed By: #### L 500.2500, L501.2450, L500.3400, L100.0100 ####[facility] [address] [place], [address] Absolute Neut 7.9 X10 3/uL High 2.0-7.7 [facility] Comment on above: Performed By: #### L 500.2500, L501.2450, L500.3400, L100.0100 ####[facility] [address] [place], [address] Basophils/100 WBC (Bld) 0.4 % Normal 0-1 [facility] Comment on above: Performed By: #### L 500.2500, L501.2450, L500.3400, L100.0100 ####[facility] [address] [place], [address] Eosinophils/100 WBC (Bld) 3.9 % Normal 0-5 [facility] Comment on above: Performed By: #### L 500.2500, L501.2450, L500.3400, L100.0100 ####[facility] [address] [place], [address] Erythrocyte distribution width (RBC) [Ratio] 12.5 % Normal 11.6-14.6 [facility] Comment on above: Performed By: #### L 500.2500, L501.2450, L500.3400, L100.0100 ####[facility] [address] [place], [address] Hematocrit (Bld) [Volume fraction] 41.0 % Normal 37-47 [facility] Comment on above: Performed By: #### L 500.2500, L501.2450, L500.3400, L100.0100 ####[facility] [address] [place], [address] Hemoglobin (Bld) [Mass/Vol] 14.0 g/dL Normal 12.0-15.0 [facility] Comment on above: Performed By: #### L 500.2500, L501.2450, L500.3400, L100.0100 ####[facility] [address] [place], [address] IG% 0.300 Normal 0.0-0.9 [facility] Comment on above: Result Comment: IG% - Immature Granulocytes (promyelocytes, myelocytes and metamyelocytes) > 1% indicates that a LEFT SHIFT is Present. Performed By: #### L 500.2500, L501.2450, L500.3400, L100.0100 ####[facility] [address] [place], [address] Lymphocytes/100 WBC (Bld) 20.3 % Normal 19-41 [facility] Comment on above: Performed By: #### L 500.2500, L501.2450, L500.3400, L100.0100 ####[facility] [address] [place], [address] MCH (RBC) [Entitic mass] 32.0 pg Normal 27.0-32.0 [facility] Comment on above: Performed By: #### L 500.2500, L501.2450, L500.3400, L100.0100 ####[facility] [address] [place], [address] MCHC (RBC) [Mass/Vol] 34.1 g/dL Normal 32-36 [facility] Comment on above: Performed By: #### L 500.2500, L501.2450, L500.3400, L100.0100 ####[facility] [address] [place], [address] MCV (RBC) [Entitic vol] 93.8 fL Normal 81-99 [facility] Comment on above: Performed By: #### L 500.2500, L501.2450, L500.3400, L100.0100 ####[facility] [address] [place], [address] Monocytes/100 WBC (Bld) 6.5 % Normal 0-10 [facility] Comment on above: Performed By: #### L 500.2500, L501.2450, L500.3400, L100.0100 ####[facility] [address] [place], [address] Neutrophils/100 WBC (Bld) 68.6 % Normal 47-70 [facility] Comment on above: Performed By: #### L 500.2500, L501.2450, L500.3400, L100.0100 ####[facility] [address] [place], [address] Nucleated RBC (Bld) [#/Vol] 0 10*3/uL Normal 0-5 [facility] Comment on above: Performed By: #### L 500.2500, L501.2450, L500.3400, L100.0100 ####[facility] [address] [place], [address] Platelet mean volume (Bld) [Entitic vol] 9.5 fL Normal 6.2-12.0 [facility] Comment on above: Performed By: #### L 500.2500, L501.2450, L500.3400, L100.0100 ####[facility] [address] [place], [address] Platelets (Bld) [#/Vol] 259 10*3/uL Normal 150-450 [facility] Comment on above: Performed By: #### L 500.2500, L501.2450, L500.3400, L100.0100 ####[facility] [address] [place], [address] RBC (Bld) [#/Vol] 4.37 10*6/uL Normal 4.2-5.4 [facility] Comment on above: Performed By: #### L 500.2500, L501.2450, L500.3400, L100.0100 ####[facility] [address] [place], [address] RDW SD 42.9 fl Normal 35.1-43.9 [facility] Comment on above: Performed By: #### L 500.2500, L501.2450, L500.3400, L100.0100 ####[facility] [address] [place], [address] WBC (Bld) [#/Vol] 11.5 10*3/uL High 4.4-11.0 [facility] Comment on above: Performed By: #### L 500.2500, L501.2450, L500.3400, L100.0100 ####[facility] [address] [place], [address] CO2 (BldV) [Moles/Vol]Ordere d By: Alberto Marinelli on 11-20-2024 CO2 [Moles/Vol] 21 mmol/L Low 23-33 [facility] CO2 (BldV) [Partial pressure ]Ordered By: Alberto Marinelli on 11-20-2024 Bed Mix Venous Bld PCO2 at Pat Temp 32.1 mmHg Low 41-51 [facility] Carbon dioxide, total [Moles /volume] in Central venous bloodOrdered By: Misha Villeda on 11-20-2024 CO2 [Moles/Vol] 20.1 mmol/L Low 21.0-32.0 [facility] Chloride assayOrdered By: Julio Villeda on 11-20-2024 Chloride [Moles/Vol] 106 mmol/L 98-[address] [facility] Emergency Department Summary on 11-20-2024 Emergency Department Summary [facility] Medical Records Department [address] [place] [address] Emergency Department Summary 11/20/24 MR#: [id number] Acct: [id number] Name: KAYLENE SHAFER Rep #: [id number] : 1950 74 From: Alberto Marinelli MD PCP: Dr. Afia Chacko MD Status:DIS IN Location: NH3 VL201-4 HPI History of Present Illness Chief Complaint: Abd Pain Detail of Chief Complaint: Left-sided abdominal pain and vomiting after discharge from the emergency r Informant: patient and spouse/S.O. Onset/Context/Timing Onset: Yesterday Context: Sudden Onset Timing: Continuous Quality: Pain that is moderate Location: Left side near the colostomy site Current Severity: Mild Maximum Severity: Moderate Worsened by: Nothing specific Relieved by: Nothing and see HPI narrative Associated Symptoms Associated Symptoms: No fever or chills. No black or maroon-colored stool. No increased stool Narrative Narrative: Patient is a 74-year-old woman. She has history of colorectal cancer diagnosed 12 years ago with colostomy. She was seen earlier today by Dr. Tony Nolen. His note was reviewed. She was prescribed Acton, dicyclomine and PPI. She apparently took the Acton just prior to arrival. She states it is not working. asked how long it would take for the Acton to start to take effect. He was told 1 hour at most 2 hours. Patient informed his that she does not give the medicine enough time. She appears frustrated. She denies left upper quadrant pain. She denies history of pancreatic Kidder. She denies intolerance to greasy or fried foods. It was noted that she has sludge and gallstones noted on the CT that was performed earlier today. She denies vomiting. She denies dysuria, frequency, urgency or hematuria. Denies fever, chills or night sweats. She denies weight gain or weight loss. Prior similar symptoms: Yes Recent Illness/[facility]ospital[facility]: [facility] Medical History (Updated 11/23/24 @ 12:52 by Eloisa Knutson) Cirrhosis Sinusitis, acute Anxiety Subclinical hypothyroidism Fatty liver Episode of hypertension Chest pain Depression Sleep apnea Hyperlipidemia Urinary incontinence History of malignant neoplasm of rectum, rectosigmoid junction, and anus Home Medications ???Medication ???Instructions ???Recorded ???Last Taken ???Type multivitamin 1 cap PO DAILY 03/06/19 Unknown Hi story calcium carbonate 600 mg PO QDAY 09/24/24 Unknown Hi story sertraline 100 mg tablet 100 mg PO QDAY 09/24/24 Unknown Hi story ascorbic acid (vitamin C) 500 mg 500 mg PO QDAY 11/02/24 Unknown Hi story tablet levothyroxine 25 mcg tablet 25 mcg PO QDAY 11/02/24 Unknown Hi story lisinopril 20 mg tablet 20 mg PO QDAY #90 tabs 11/02/24 Un known Rx metoprolol succinate 25 mg 25 mg PO QDAY #90 tabs 11/02/24 Un known Rx tablet,extended release 24 hr (Toprol XL) mirabegron 50 mg tablet,extended 50 mg PO QHS 11/02/24 Unknown Hist ory release 24 hr dicyclomine 20 mg tablet 20 mg PO TID PRN abdominal pain Unknown Rx #30 tabs hydrocodone-acetaminophen 5-325mg 1 tab PO Q4H PRN PRN Pain 2 days 11/20/24 Unknown Rx 5mg-325mg #10 TABLETS pantoprazole 40 mg tablet,delayed 40 mg PO DAILY #7 tabs 11/20/24 U nknown Rx release (Protonix) ciprofloxacin HCl 500 mg tablet 500 mg PO BID 2 days #4 tabs 11/23 Unknown Rx metronidazole 500 mg tablet 500 mg PO TID 2 days #6 tabs 11/23 Unknown Rx oxycodone 5 mg tablet 5 mg PO Q4H PRN PRN Pain Score 04/12 Unknown Rx 4-10 2 days #10 tabs Allergy/AdvReac Type Severity Reaction Status Date / Time Penicillins Allergy Unknown rash Verified 11/20/24 16:18 Bromhexine and derivatives Allergy Rash Verified 11/20/24 16:18 Family History Father Heart disease Cancer Brother Heart disease Diabetes Surgical History History of tonsillectomy History of creation of ostomy History of removal of cyst History of hysterectomy Social History household members: spouse and children 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 Smoking Status: Never smoker alcohol intake: never substance use type: does not use caffeine: Yes Type: carbonated beverages Number of servings: 3 what type of physical activity do you participate in: none ROS ROS ED Constitutional Constitutional ED: Denies chills, fever(s), subjective, sweats or weight loss Eyes Eyes: Denies blurry vision or change in vision ENT ENT ED: Denies rhinorrhea or sore throat Cardiovascular Cardiovascular: Denies chest pain Respiratory/Chest Respiratory/Chest: Denies cough, dyspnea or dyspnea on exertion Gastrointestinal Gastrointestinal: Reports abdominal pain; (more content not included)... Normal [facility] Emergency Department Summary [facility] Medical Records Department [address] [place] [address] Emergency Department Summary 11/20/24 MR#: [id number] Acct: [id number] Name: KAYLENE SHAFER Rep #: [id number] : 1950 74 From: Misha Villeda DO PCP: Dr. Afia Chacko MD Status:DEP ER Location: ED HPI History of Present Illness Chief Complaint: Abd Pain Informant: patient and spouse/S.O. Narrative Narrative: 74-year-old female presenting to the emergency room with abdominal pain. Patient states that 12 years ago she was diagnosed with colorectal cancer underwent chemoradiation and eventual partial colectomy with colostomy. She states that last night around midnight she began to have pain just above the colostomy site. She notes continued normal stool output. She denies any significant gas. No vomiting. No fevers. She describes the pain as constant. She denies a history of pancreatitis or bowel obstructions. She notes chronic urinary issues that she sees Dr. Mcintyre for but no acute changes. She does not feel bloated. [facility] Medical History Sinusitis, acute Anxiety Subclinical hypothyroidism Fatty liver Episode of hypertension Chest pain Depression Sleep apnea Hyperlipidemia Urinary incontinence History of malignant neoplasm of rectum, rectosigmoid junction, and anus Home Medications ???Medication ???Instructions ???Recorded ???Last Taken ???Type multivitamin 1 cap PO DAILY 03/06/19 Unknown Hi story calcium carbonate 600 mg PO QDAY 09/24/24 Unknown Hi story sertraline 100 mg tablet 100 mg PO QDAY 09/24/24 Unknown Hi story ascorbic acid (vitamin C) 500 mg 500 mg PO QDAY 11/02/24 Unknown Hi story tablet levothyroxine 25 mcg tablet 25 mcg PO QDAY 11/02/24 Unknown Hi story lisinopril 20 mg tablet 20 mg PO QDAY #90 tabs 11/02/24 Un known Rx metoprolol succinate 25 mg 25 mg PO QDAY #90 tabs 11/02/24 Un known Rx tablet,extended release 24 hr (Toprol XL) mirabegron 50 mg tablet,extended 50 mg PO QHS 11/02/24 Unknown Hist ory release 24 hr dicyclomine 20 mg tablet 20 mg PO TID PRN abdominal pain Unknown Rx #30 tabs hydrocodone-acetaminophen 5-325mg 1 tab PO Q4H PRN PRN Pain 2 days 11/20/24 Unknown Rx 5mg-325mg #10 TABLETS pantoprazole 40 mg tablet,delayed 40 mg PO DAILY #7 tabs 11/20/24 U nknown Rx release (Protonix) Allergy/AdvReac Type Severity Reaction Status Date / Time Penicillins Allergy Unknown rash Verified 11/20/24 07:19 Bromhexine and derivatives Allergy Rash Verified 11/20/24 07:19 Family History Father Heart disease Cancer Brother Heart disease Diabetes Surgical History History of tonsillectomy History of creation of ostomy History of removal of cyst History of hysterectomy Social History household members: spouse and children 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 Smoking Status: Never smoker alcohol intake: never substance use type: does not use caffeine: Yes Type: carbonated beverages Number of servings: 3 what type of physical activity do you participate in: none ROS ROS ED Constitutional Constitutional ED: Denies chills, fever(s) or weight loss Eyes Eyes: Denies change in vision or diplopia ENT ENT ED: Denies ear pain, rhinorrhea or sore throat Cardiovascular Cardiovascular: Denies chest pain, orthopnea, palpitations or racing heartbeat Respiratory/Chest Respiratory/Chest: Denies cough, dyspnea or orthopnea Gastrointestinal Gastrointestinal: Reports abdominal pain, diarrhea and other Details: Chronic diarrhea no change from baseline ; Denies nausea or vomiting Genitourinary Genitourinary ED: Denies dysuria, hematuria or urinary frequency Musculoskeletal Musculoskeletal: Denies arthralgias or myalgias Integumentary Denies abscess or rash Neurologic Neurologic: Denies headache(s) or weakness Psychiatric Psychiatric: Denies anxiety, depression, suicidal ideation or suicidal thoughts Endocrine Endocrinology: Denies polydipsia, polyphagia or polyuria Allergic/Immunologic Allergic/Immunologic ED: Denies mouth swelling, tongue swelling or urticaria EXAM Physical Exam Const Vital Signs: 11/20/24 07:18 11/20/24 09:17 11/20/24 11:06 Temperature 98.1 F 98.3 F Temperature Source Oral Pulse Rate 70 73 72 Respiratory Rate 16 16 16 Blood Pressure 174/75 H 138/60 H 150/60 H Blood Pressure Mean 108 86 90 Pulse Ox 99 96 98 Oxygen Delivery Method Room Air Room Air Positive well nourished and well developed General Appearance ED: well developed HEENT Reports normocephalic, head/scalp atraumatic (more content not included)... Normal [facility] Eosinophil percentageOrdered By: Misha Villeda on 11-20-2024 Eosinophils/100 WBC (Bld) 3.9 % 0-5 [facility] Epithelial cells.squamous LM Ql (Urine sed)Ordered By: Alberto Marinelli on 11-20-2024 Epithelial cells.squamous LM.HPF (Urine sed) [#/Area] 0 /[HPF] 5-10 [facility] Erythrocyte distribution wid th ratioOrdered By: Misha Villeda on 11-20-2024 Erythrocyte distribution width (RBC) [Ratio] 12.5 % 11.6-14.6 [facility] Erythrocyte distribution wid th standard deviationOrdered By: Misha Villeda on 11-20-2024 Erythrocyte distribution width (RBC) [Entitic vol] 42.9 fL 35.1-43.9 [facility] Erythrocyte distribution width (RBC) [Ratio] 42.9 fl 35.1-43.9 [facility] Estimation of creatinine dwight aranceOrdered By: Misha Villeda on 11-20-2024 Estimated Creatinine Clearance Calc 63.47 ml/min 50-250 [facility] GFR/1.73 sq M.predicted libertad g non-blacks MDRD (S/P/Bld) [Vol rate/Area]Ordered By: Misha Villeda on 11-20-2024 Estimated GFR (MDRD) Non-Af Amer 78 >60 [facility] Comment on above: mL/min/1.73m2 CKD-EP I Creatinine Equation (2020) Glomerular filtration rate ( GFR) estimation/1.73 sq m using serum, plasma, or whole bOrdered By: Misha Villeda on 11-20-2024 GFR/1.73 sq M.predicted among non-blacks MDRD (S/P/Bld) [Vol rate/Area] 78 mL/min/{1.73_m2} >60 [facility] Comment on above: mL/min/1.73m2 CKD-EP I Creatinine Equation (2020) Glucose Ql (U)Ordered By: Kimberley Marinelli on 11-20-2024 Urine Glucose (UA) Normal mg/dl Normal [facility] Hematocrit Auto (Bld) [Volum e fraction]Ordered By: Misha Villeda on 11-20-2024 Hematocrit (Bld) [Volume fraction] 41.0 % 37-47 [facility] Hemoglobin measurementOrdere d By: Misha Villeda on 11-20-2024 Hemoglobin (Bld) [Mass/Vol] 14.0 g/dL 12.0-15.0 [facility] Immature granulocytes/100 WB C Auto (Bld)Ordered By: Misha Villeda on 11-20-2024 Immature granulocytes/100 WBC (Bld) 0.300 % 0.0-0.9 [facility] Comment on above: IG% - Immature Granu locytes (promyelocytes, myelocytes and metamyelocytes) > 1% indicates that a LEFT SHIFT is Present. Ketones Test strip Ql (U)Ord ered By: Alberto Marinelli on 11-20-2024 Ketones Ql (U) Negative Negative [facility] Laboratory - Chemistry and C hemistry - challengeOrdered By: Misha Villeda on 11-20-2024 AST [Catalytic activity/Vol] 61 U/L High <32 [facility] Comment on above: Hemolysis present, R esults could be affected. Lactic Acidon 11-20-2024 Lactate [Moles/Vol] 1.5 mmol/L Normal 0.0-2.0 [facility] Comment on above: Order Comment: 1 Y Performed By: #### L 100.0100, L501.5425, L500.4050 #### [facility] Laboratory [address] [place], [address] Lipaseon 11-20-2024 Lipase [Catalytic activity/Vol] 32 U/L Normal 13-75 [facility] Comment on above: Result Comment: Summer farias note: LIPASE revised reference range effective 22. New Lipase methodology. Expected to produce lower values than the previous assay method. NEW Reference Range: 13 - 75 U/L Performed By: #### L 500.2500, L501.2450, L500.3400, L100.0100 ####[facility] [address] [place], [address] Lipase measurementOrdered By : Misha Villeda on 11-20-2024 Lipase [Catalytic activity/Vol] 32 U/L 13-75 [facility] Comment on above: Please note:LIPASE r evised reference range effective 22. New Lipase methodology. Expected to produce lower values than the previous assay method. NEW Reference Range: 13 - 75 U/L Liver Profileon 11-20-2024 Albumin [Mass/Vol] 4.3 g/dL Normal 3.4-4.8 [facility] Comment on above: Performed By: #### L 500.2500, L501.2450, L500.3400, L100.0100 ####[facility] [address] [place], [address] ALK PHOS 87 U/L Normal 35-104 [facility] Comment on above: Performed By: #### L 500.2500, L501.2450, L500.3400, L100.0100 ####[facility] [address] [place], [address] ALT [Catalytic activity/Vol] 60 U/L High <=34 [facility] Comment on above: Performed By: #### L 500.2500, L501.2450, L500.3400, L100.0100 ####[facility] [address] [place], [address] AST [Catalytic activity/Vol] 61 U/L High <=31 [facility] Comment on above: Result Comment: Hemo lysis present, Results??could be affected. ?? Performed By: #### L 500.2500, L501.2450, L500.3400, L100.0100 ####[facility] [address] [place], [address] Bilirubin [Mass/Vol] 0.43 mg/dL Normal 0.00-1.[address] [facility] Comment on above: Performed By: #### L 500.2500, L501.2450, L500.3400, L100.0100 ####[facility] [address] [place], [address] Bilirubin.direct [Mass/Vol] 0.16 mg/dL Normal 0.00-0.30 [facility] Comment on above: Result Comment: Hemo lysis present, Results??could be affected. ?? Performed By: #### L 500.2500, L501.2450, L500.3400, L100.0100 ####[facility] [address] [place], [address] Globulin (S) [Mass/Vol] 3.2 g/dL Normal 2.2-4.2 [facility] Comment on above: Performed By: #### L 500.2500, L501.2450, L500.3400, L100.0100 ####[facility] [address] [place], [address] T PROT 7.6 g/dL Normal 5.9-8.4 [facility] Comment on above: Performed By: #### L 500.2500, L501.2450, L500.3400, L100.0100 ####[facility] [address] [place], [address] Lymphocytes Auto (Unsp spec) [#/Vol]Ordered By: Misha Villeda on 11-20-2024 Lymphocytes (Bld) [#/Vol] 2.34 10*3/uL 0.83-4.51 [facility] Lymphocytes/100 WBC Auto (Un sp spec)Ordered By: Misha Villeda on 11-20-2024 Lymphocytes/100 WBC (Bld) 20.3 % 19-41 [facility] MCV (mean corpuscular volume ) determinationOrdered By: Misha Villeda on 11-20-2024 MCV (RBC) [Entitic vol] 93.8 fL 81-99 [facility] Mean corpuscular hemoglobin (MCH) determinationOrdered By: Misha Villeda on 11-20-2024 MCH (RBC) [Entitic mass] 32.0 pg 27.0-32.0 [facility] Mean corpuscular hemoglobin concentration (MCHC) determinationOrdered By: Misha Villeda on 11-20-2024 MCHC (RBC) [Mass/Vol] 34.1 g/dL 32-36 [facility] Mean platelet volume determi nationOrdered By: Misha Villeda on 11-20-2024 Platelet mean volume (Bld) [Entitic vol] 9.5 fL 6.2-12.0 [facility] Microscopic analysis of urin e for red blood cells (RBC)Ordered By: Alberto Marinelli on 11-20-2024 Microscopic analysis of urine for red blood cells (RBC) 0-5 SEEN /hpf 0-5 [facility] Urine RBC 0-5 SEEN /hpf 0-5 [facility] Monocyte percentageOrdered B y: Misha Villeda on 11-20-2024 Monocytes/100 WBC (Bld) 6.5 % 0-10 [facility] Mucus LM Ql (Urine sed)Order ed By: Alberto Marinelli on 11-20-2024 Mucus Ql (Urine sed) RARE /hpf [facility] Neutrophil percentageOrdered By: Misha Villeda on 11-20-2024 Neutrophils/100 WBC (Bld) 68.6 % 47-70 [facility] Nitrite Test strip Ql (U)Ord ered By: Alberto Marinelli on 11-20-2024 Nitrite Ql (U) Negative Negative [facility] No Panel InformationOrdered By: Alberto Marinelli on 11-20-2024 Blood Gas Sample Site Not entered [facility] Blood Gas Specimen Type CRISTY [facility] Oxygen Delivery Device Room Air [facility] Nucleated red blood cell per centageOrdered By: Misha Villeda on 11-20-2024 Nucleated RBC/100 WBC (Bld) [Ratio] 0 % 0-5 [facility] Oxygen (BldV) [Partial press ure]Ordered By: Alberto Marinelli on 11-20-2024 Venous Blood Partial Pressure O2 69 mmHg High 25-40 [facility] Platelet countOrdered By: Julio Villeda on 11-20-2024 Platelets (Bld) [#/Vol] 259 10*3/uL 150-450 [facility] Potassium (Unsp spec) [Mass/ Vol]Ordered By: Misha Villeda on 11-20-2024 Potassium [Moles/Vol] 4.5 mmol/L 3.3-5.1 [facility] Comment on above: Hemolysis present, R esults could be affected. Potassium measurement (mass/ volume)Ordered By: Misha Villeda on 11-20-2024 Potassium (Unsp spec) [Mass/Vol] 4.5 mmol/L 3.3-5.1 [facility] Comment on above: Hemolysis present, R esults could be affected. Protein Test strip Ql (U)Ord ered By: Alberto Marinelli on 11-20-2024 Protein Ql (U) 30 mg/dl High Negative [facility] RBC Auto (Bld) [#/Vol]Ordere d By: Misha Villeda on 11-20-2024 RBC (Bld) [#/Vol] 4.37 10*6/uL 4.2-5.4 [facility] Serum creatinine measurement (mass/volume)Ordered By: Misha Villeda on 11-20-2024 Creatinine [Mass/Vol] 0.78 mg/dL 0.70-1.20 [facility] Serum globulin measurementOr dered By: Misha Villeda on 11-20-2024 Globulin (S) [Mass/Vol] 3.2 g/dL 2.2-4.2 [facility] Serum glucose measurement (m ass/volume)Ordered By: Misha Villeda on 11-20-2024 Glucose [Mass/Vol] 137 mg/dL High 70-99 [facility] Serum or plasma alanine haro otransferase (ALT) measurementOrdered By: Misha Villeda on 11-20-2024 ALT [Catalytic activity/Vol] 60 U/L High <35 [facility] Serum or plasma albumin jason urement (mass/volume)Ordered By: Misha Villeda on 11-20-2024 Albumin [Mass/Vol] 4.3 g/dL 3.4-4.8 [facility] Serum or plasma alkaline caitie sphatase measurementOrdered By: Misha Villeda on 11-20-2024 ALP [Catalytic activity/Vol] 87 U/L 35-104 [facility] Serum or plasma calcium jason urement (mass/volume)Ordered By: Misha Villeda on 11-20-2024 Calcium [Mass/Vol] 9.8 mg/dL 7.6-11.0 [facility] Serum or plasma urea nitroge n measurement (mass/volume)Ordered By: Misha Villeda on 11-20-2024 Urea nitrogen [Mass/Vol] 20 mg/dL High 4-19 [facility] Sodium levelOrdered By: Dave Villeda on 11-20-2024 Sodium [Moles/Vol] 140 mmol/L 133-145 [facility] Squamous epithelial cells de tection in urine sediment by light microscopyOrdered By: Alberto Marinelli on 11-20-2024 Epithelial cells.squamous LM Ql (Urine sed) 0 SEEN /hpf 5-10 [facility] Total proteinOrdered By: Tony Villeda on 11-20-2024 Protein [Mass/Vol] 7.6 g/dL 5.9-8.4 [facility] Urinalysis, Completeon 11-20 BACTERIA 1+ /hpf Normal None Seen [facility] Comment on above: Order Comment: 1 Y Performed By: #### L 100.0100, L501.5425, L500.4050 #### [facility] Laboratory [address] [place], [address] Mucus Ql (Urine sed) RARE Normal [facility] Comment on above: Order Comment: 1 Y Performed By: #### L 100.0100, L501.5425, L500.4050 #### [facility] Laboratory [address] [place], [address] RBC 0-5 SEEN Normal 0-5 [facility] Comment on above: Order Comment: 1 Y Performed By: #### L 100.0100, L501.5425, L500.4050 #### [facility] Laboratory [address] [place], [address] WBC 5-10 SEEN Normal 0-5 [facility] Comment on above: Order Comment: 1 Y Performed By: #### L 100.0100, L501.5425, L500.4050 #### [facility] Laboratory [address] [place], [address] EPI,SQUAMOUS 0 SEEN Normal 5-10 [facility] Comment on above: Order Comment: 1 Y Performed By: #### L 100.0100, L501.5425, L500.4050 #### [facility] [address] [place], [address] Urine blood detectionOrdered By: Alberto Marinelli on 11-20-2024 Urine Occult Blood Negative Negative [facility] Urine clarityOrdered By: Alberto Yves on 11-20-2024 Clarity (U) Sl. Cloudy Clear [facility] Urine color determinationOrd ered By: Alberto Marinelli on 11-20-2024 Color (U) Yellow Yellow [facility] Urine glucose detectionOrder ed By: Alberto Marinelli on 11-20-2024 Glucose Ql (U) Normal mg/dl Normal [facility] Urine leukocyte esterase det ection by dipstickOrdered By: Alberto Marinelli on 11-20-2024 Leukocyte esterase Test strip Ql (U) 25 /ul High Negative [facility] Urine pHOrdered By: Alberto diaz on 11-20-2024 pH (U) 6.0 [pH] 5.0 - 8.0 [facility] Urine sediment bacteria coun t by microscopy (number/high power field)Ordered By: Alberto Marinelli on 11-20-2024 Bacteria LM.HPF (Urine sed) [#/Area] 1 /[HPF] None Seen [facility] Urine specific gravity measu rementOrdered By: Albertoguanako Marinelli on 11-20-2024 Specific gravity (U) [Rel density] 1.020 1.002-1.03 0 [facility] Urine urobilinogen measureme ntOrdered By: Albertoguanako Marinelli on 11-20-2024 Urobilinogen Ql (U) Normal mg/dl Normal [facility] Urobilinogen Ql (U)Ordered B y: Alberto Marinelli on 11-20-2024 Urine Urobilinogen Normal mg/dl Normal [facility] Venous Blood Gason Blood Gas Type CRISTY Normal [facility] Comment on above: Performed By: #### L 100.0100, L501.5425, L500.4050 #### [facility] Laboratory [address] [place], [address] CO2 [Moles/Vol] 21 mmol/L Low 23-33 [facility] Comment on above: Performed By: #### L 100.0100, L501.5425, L500.4050 #### [facility] Laboratory [address] [place], [address] HCO3 (Bld) [Moles/Vol] 20 mmol/L Low 22-26 [facility] Comment on above: Performed By: #### L 100.0100, L501.5425, L500.4050 #### [facility] Laboratory [address] [place], [address] O2 Delivery Dev Room Air Normal [facility] Comment on above: Performed By: #### L 100.0100, L501.5425, L500.4050 #### [facility] Laboratory [address] [place], [address] SITE Not entered Normal [facility] Comment on above: Performed By: #### L 100.0100, L501.5425, L500.4050 #### [facility] Laboratory [address] [place], [address] VBG BE -5 mmol/L Low -1.0-3.5 [facility] Comment on above: Performed By: #### L 100.0100, L501.5425, L500.4050 #### [facility] Laboratory [address] [place], [address] VBG pCO2 32.1 mmHg Low 41-51 [facility] Comment on above: Performed By: #### L 100.0100, L501.5425, L500.4050 #### [facility] Laboratory [address] [place], [address] VBG pH 7.40 Normal 7.32-7.42 [facility] Comment on above: Performed By: #### L 100.0100, L501.5425, L500.4050 #### [facility] Laboratory [address] [place], [address] VBG PO2 69 mmHg High 25-40 [facility] Comment on above: Performed By: #### L 100.0100, L501.5425, L500.4050 #### [facility] [address] [place], [address] VBG SO2 94 High 50-70 [facility] Comment on above: Performed By: #### L 100.0100, L501.5425, L500.4050 #### [facility] Laboratory [address] [place], [address] Venous blood base excess delano surementOrdered By: Alberto Marinelli on 11-20-2024 Base excess Calc (BldV) [Moles/Vol] -5 mmol/L Low -1.0-3.5 [facility] Venous blood bicarbonate delano surementOrdered By: Alberto Marinelli on 11-20-2024 HCO3 (Bld) [Moles/Vol] 20 mmol/L Low 22-26 [facility] Venous blood oxygen saturati on measurementOrdered By: Alberto Yves on 11-20-2024 Oxygen saturation in Blood 94 % High 50-70 [facility] Venous blood pH measurementO rdered By: Alberto Marinelli on 11-20-2024 pH (BldV) 7.40 [pH] 7.32-7.42 [facility] Venous blood partial pressur e of carbon dioxide measurementOrdered By: Albertoguanako Marinelli on 11-20-2024 CO2 (BldV) [Partial pressure] 32.1 mm[Hg] Low 41-51 [facility] Venous blood partial pressur e of oxygen measurementOrdered By: Alberto Yves on 11-20-2024 Oxygen (BldV) [Partial pressure] 69 mm[Hg] High 25-40 [facility] White blood cell (WBC) count Ordered By: Misha Villeda on 11-20-2024 WBC (Bld) [#/Vol] 11.5 10*3/uL High 4.4-11.0 [facility] White blood cell countOrdere d By: Alberto Marinelli on 11-20-2024 Urine WBC 5-10 SEEN /hpf 0-5 [facility] White blood cell count 5-10 SEEN /hpf 0-5 [facility] pH (BldV)Ordered By: Alberto burch on 11-20-2024 Venous Blood pH 7.40 7.32-7.42 [facility] 12 Lead EKG performed by [facility] on 11-02-2024 12 Lead EKG performed by [facility] [address] [place] [address] 12 Lead EKG performed by [facility] 11/02/24 1302 MR#: [id number] Acct: [id number] Name: KAYLENE SHAFER Rep #: [id number] : 1950 74 From: Booker Brennan MD Attending Dr: Dr. Booker Brennan MD Status: DEP A MB Ordering Dr: Booker Brennan MD Date: 11/02/24 [place] [facility] Sex: F C Admitted: BMS/12 Lead EKG performed by [facility] ECG Report Interpretation Si nus Rhythm Low voltage in precordial leads. -Poor R-wave progression -may be secondary to pulmonary disease consider old anterior infarct. ABNORMAL Electronically signed on 11/05/2024 at 08:09 by Booker Brennanwood Software Version [id number] 11/05/24 0812 Date Booker Brennan MD CC: Dr. Afia Chacko MD Date Dictated: 11/02/24 130 Date Transcribed: 11/02/241301 Database Specialist: [place] Signed Normal [facility] Cardiology Visit Reporton Cardiology Visit Report [facility] [address] [place] [address]. [address] [place], [place] [address] OFFICE VISIT Date of Service: 11/02/24 MR#: [id number] Acct: [id number] Name: KAYLENE SHAFER Rep #: [id number] : 1950 Provider: Dr. Booker Brennan MD Age/Sex: 74/F Location: [facility] Status: Signed HPI HPI History of Present Illness Details: Pleasant 74-year-old lady with no previous cardiac history other than possible hypertension who presented to the emergency room in August 2020 for with midsternal epigastric chest discomfort which occurred in the evening of presentation. She described it as waxing and waning. In the emergency room when she was seen her blood pressure was noted to be markedly elevated at 205/63 mmHg with a pulse rate of 96 bpm. She did not have any nausea vomiting or diaphoresis she was evaluated her cardiac enzymes were normal electrolytes were normal and she was discharged for outpatient follow-up. An EKG that was done also did not demonstrate any significant abnormality. At the time the patient was being discharged her systolic blood pressure was 150. She says that she has been somewhat better since going home. Her physical exam today demonstrates clear lung sheridan regular rate and rhythm no pedal edema electrocardiogram demonstrates sinus rhythm with a rate of 82 bpm and no acute changes. Her recent lipid profile demonstrated total cholesterol 150 HDL of 53 LDL of 57. Intake Vital Signs 08/31/24 15:24 11/02/24 13:03 Height 5 ft 4 in 5 ft 4 in Weight: 189 lb BMI 32.4 BP 164/83 H Blood Pressure Location Lt brachial Position Sitting Respiration 16 Pulse 91 Pulse Source NIBP Intake Visit Reasons: CP/S/P [facility] 08/31 ([facility] ER) [employer] Required: No Accompanied by: Is patient in pain?: No Allergies Penicillins Allergy (Unknown, Verified 11/02/24 13:10) rash Bromhexine and derivatives Allergy (Verified 11/02/24 13:10) Rash Medications ???Medication ???Instructions ???Recorded ???Confirmed ???Type multivitamin 1 cap PO DAILY 03/06/19 11/02/24 H istory calcium carbonate 600 mg PO QDAY 09/24/24 09/24/24 H istory sertraline 100 mg tablet 100 mg PO QDAY 09/24/24 11/02/24 H istory ascorbic acid (vitamin C) 500 mg 500 mg PO QDAY 11/02/24 11/02/24 H istory tablet levothyroxine 25 mcg tablet 25 mcg PO QDAY 11/02/24 11/02/24 H istory lisinopril 20 mg tablet 20 mg PO QDAY #90 tabs 11/02/24 Rx metoprolol succinate 25 mg 25 mg PO QDAY #90 tabs 11/02/24 Rx tablet,extended release 24 hr (Toprol XL) mirabegron 50 mg tablet,extended 50 mg PO QHS 11/02/24 11/02/24 His tory release 24 hr Have you fallen in the past year?: No PFSH Medical History Sinusitis, acute Anxiety Subclinical hypothyroidism Fatty liver Episode of hypertension Chest pain Depression Sleep apnea Hyperlipidemia Urinary incontinence History of malignant neoplasm of rectum, rectosigmoid junction, and anus Surgical History History of tonsillectomy History of creation of ostomy History of removal of cyst History of hysterectomy Family History Father Heart disease Cancer Brother Heart disease Diabetes Social History household members: spouse and children 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 Smoking Status: Never smoker alcohol intake: never substance use type: does not use caffeine: Yes Type: carbonated beverages Number of servings: 3 what type of physical activity do you participate in: none ROS Const Const: Positive for fatigue (Decreased energy) and weakness; Negative for other Eyes Eyes: Negative for change in vision ENT ENT: Negative for dizziness or balance problems Cardio Chest Pain: No Palpitations: No Edema: None Resp Respiratory: Positive for SOB with activity (Stairs and walking a distance); Negative for SOB at rest or SOB orthopnea SOB lying down GI GI: Negative nausea or heartburn Musc Musc: Negative for balance problems Neuro Neuro: Positive for weakness; Negative for dizziness, lightheadedness, near syncope or syncope Endo Endo: Positive for fatigue (Decreased energy) Cardiology Exam Const Appearance: cooperative, healthy appearing, no acute distress, well developed and well groomed Nutritional Appearance: average body habitus and well nourished Orientation: alert, awake and oriented x3 Head Head: normal to inspection, normocephalic and atraumatic Ears: hearing grossly normal bilaterally and external ears normal Nose: external nose normal, nares normal, nasal mucous membranes and turbinates normal, septum (more content not included)... Normal [facility] TSH QnOrdered By: Afia gomez on 09-10-2024 Thyroid Stimulating Hormone (TSH) 3.030 uIU/mL 0.358-3.74 0 [facility] Thyroid Stim Hormone (TSH)on 09-10-2024 TSH 3.030 uIU/mL Normal 0.358-3.74 0 [facility] Comment on above: Order Comment: 1 Y Performed By: #### L 100.0100, L501.5425, L500.4050 #### [facility] Laboratory [address] [place], [address] 12 Lead EKGon 08-31-2024 12 Lead EKG [facility] Cardiovascular Services [address] [place] [address] 12 Lead EKG 08/31/24 1530 MR#: [id number] Acct: [id number] Name: KAYLENE SHAFER Rep #: [id number] : 1950 74 From: Kayla Michaels MD Attending Dr: Status: DEP ER Ordering Dr: Adarsh Herrera Date: 08/31/24 Location: ED Sex: F C Admitted: Test Reason : CP Blood Pressure : */* mmHG Vent. Rate : 95 BPM Atrial Rate : 95 BPM P-R Int : 176 ms QRS Dur : 86 ms QT Int : 372 ms P-R-T Axes : 64 1 80 degrees QTcB Int : 467 ms Normal sinus rhythm Nonspecific ST abnormality Abnormal ECG Confirmed by RUI LLOYD, LAUREANO ([id number]), primer expeditor and drier KACI AREVALO ([id number]) on 09/05/2024 1:35:57 PM Referred By: EITAN/TRESA Confirmed By: LAUREANO MICHAELS MD 09/05/24 1336 Date Kayla Michaels MD CC: NIDIA Herrera; Dr. Rosendo Cotton MD; Dr. Afia Chacko MD Signed Normal [facility] Absolute neutrophil countOrd ered By: Adarsh Herrera on 08-31-2024 Neutrophils (Bld) [#/Vol] 5.6 10*3/uL 2.0-7.7 [facility] Albumin to globulin ratioOrd ered By: Adarsh Herrera on 08-31-2024 Albumin/Globulin [Mass ratio] 0.9 {ratio} 0.9-2.4 [facility] Basophil percentageOrdered B y: Adarsh Herrera on 08-31-2024 Basophils/100 WBC (Bld) 0.8 % 0-1 [facility] Bilirubin, totalOrdered By: Adarsh Herrera on 08-31-2024 Bilirubin [Mass/Vol] 0.30 mg/dL 0.20-1.[address] [facility] Comment on above: For patients on eltr ombopag therapy, use of Dimension [place] TBIL is not recommended. Blood urea nitrogen (BUN)/cr eatinine ratioOrdered By: Adarsh Blancodiego on 08-31-2024 Urea nitrogen/Creatinine [Mass ratio] 14.5 mg/mg - [facility] CBC W/Diff, Automatedon 08-19 Absolute Lymph 2.41 X10 3/uL Normal 0.83-4.51 [facility] Comment on above: Performed By: #### L 100.0100, L501.5425, L500.4050 #### [facility] Laboratory [address] [place], [address] Absolute Neut 5.6 X10 3/uL Normal 2.0-7.7 [facility] Comment on above: Performed By: #### L 100.0100, L501.5425, L500.4050 #### [facility] Laboratory [address] [place], [address] Basophils/100 WBC (Bld) 0.8 % Normal 0-1 [facility] Comment on above: Performed By: #### L 100.0100, L501.5425, L500.4050 #### [facility] Laboratory [address] [place], [address] Eosinophils/100 WBC (Bld) 7.1 % High 0-5 [facility] Comment on above: Performed By: #### L 100.0100, L501.5425, L500.4050 #### [facility] Laboratory [address] [place], [address] Erythrocyte distribution width (RBC) [Ratio] 12.6 % Normal 11.6-14.6 [facility] Comment on above: Performed By: #### L 100.0100, L501.5425, L500.4050 #### [facility] Laboratory [address] [place], [address] Hematocrit (Bld) [Volume fraction] 37.7 % Normal 37-47 [facility] Comment on above: Performed By: #### L 100.0100, L501.5425, L500.4050 #### [facility] Laboratory [address] [place], [address] Hemoglobin (Bld) [Mass/Vol] 12.8 g/dL Normal 12.0-15.0 [facility] Comment on above: Performed By: #### L 100.0100, L501.5425, L500.4050 #### [facility] Laboratory [address] [place], [address] IG% 0.600 Normal 0.0-0.9 [facility] Comment on above: Result Comment: IG% - Immature Granulocytes (promyelocytes, myelocytes and metamyelocytes) > 1% indicates that a LEFT SHIFT is Present. Performed By: #### L 100.0100, L501.5425, L500.4050 #### [facility] Laboratory [address] [place], [address] Lymphocytes/100 WBC (Bld) 25.3 % Normal 19-41 [facility] Comment on above: Performed By: #### L 100.0100, L501.5425, L500.4050 #### [facility] Laboratory [address] [place], [address] MCH (RBC) [Entitic mass] 31.3 pg Normal 27.0-32.0 [facility] Comment on above: Performed By: #### L 100.0100, L501.5425, L500.4050 #### [facility] Laboratory [address] [place], [address] MCHC (RBC) [Mass/Vol] 34.0 g/dL Normal 32-36 [facility] Comment on above: Performed By: #### L 100.0100, L501.5425, L500.4050 #### [facility] Laboratory [address] [place], [address] MCV (RBC) [Entitic vol] 92.2 fL Normal 81-99 [facility] Comment on above: Performed By: #### L 100.0100, L501.5425, L500.4050 #### [facility] Laboratory [address] [place], [address] Monocytes/100 WBC (Bld) 7.5 % Normal 0-10 [facility] Comment on above: Performed By: #### L 100.0100, L501.5425, L500.4050 #### [facility] Laboratory [address] [place], [address] Neutrophils/100 WBC (Bld) 58.7 % Normal 47-70 [facility] Comment on above: Performed By: #### L 100.0100, L501.5425, L500.4050 #### [facility] Laboratory [address] [place], [address] Nucleated RBC (Bld) [#/Vol] 0 10*3/uL Normal 0-5 [facility] Comment on above: Performed By: #### L 100.0100, L501.5425, L500.4050 #### [facility] Laboratory [address] [place], [address] Platelet mean volume (Bld) [Entitic vol] 9.3 fL Normal 6.2-12.0 [facility] Comment on above: Performed By: #### L 100.0100, L501.5425, L500.4050 #### [facility] Laboratory [address] [place], [address] Platelets (Bld) [#/Vol] 239 10*3/uL Normal 150-450 [facility] Comment on above: Performed By: #### L 100.0100, L501.5425, L500.4050 #### [facility] Laboratory [address] [place], [address] RBC (Bld) [#/Vol] 4.09 10*6/uL Low 4.2-5.4 [facility] Comment on above: Performed By: #### L 100.0100, L501.5425, L500.4050 #### [facility] Laboratory [address] [place], [address] RDW SD 42.5 fl Normal 35.1-43.9 [facility] Comment on above: Performed By: #### L 100.0100, L501.5425, L500.4050 #### [facility] Laboratory [address] [place], [address] WBC (Bld) [#/Vol] 9.5 10*3/uL Normal 4.4-11.0 [facility] Comment on above: Performed By: #### L 100.0100, L501.5425, L500.4050 #### [facility] Laboratory [address] [place] [place], [address] Carbon dioxide measurementOr dered By: Adarsh Herrera on 08-31-2024 CO2 [Moles/Vol] 24.0 mmol/L 21.0-32.0 [facility] Chest 1 View (Portable)on Chest 1 View (Portable) [facility] Imaging Services [address] [place] [address] Chest 1 View (Portable) MR#: [id number] Acct: [id number] Name: KAYLENE SHAFERHA Rep #: [id number] : 1950 F 74 From: Philip Jimenez MD PCP: Dr. Afia Chacko MD Status: REG ER Study: Chest 1 View (Portable) Date of Exam: 08/31/24 Exam# [id number] Ordering Dr: Adarsh Herrera :[id number] INDICATION: chest pain EXAMINATION/TECHNIQUE: X-RAY - portable upright AP chest x-ray COMPARISON: 01/20/2023 FINDINGS: LINES/DEVICES: None. LUNGS: Stable mild scarring left lung base. No consolidation, vascular congestion or pleural effusion. MEDIASTINUM AND CARDIOVASCULAR STRUCTURES: Cardiac silhouette stable within normal limits. BONES AND SOFT TISSUES: No acute changes. RAD/Chest 1 View (Portable) IMPRESSION: No radiographic evidence of acute cardiopulmonary disease. Electronically Signed: Philip Jimenez MD at 16:04 EST Reading Location ID and State: [facility] / [place] Tel , Service support , CC: NIDIA Herrera; Dr. Afia Chacko MD Database Specialist: Signed Normal [facility] Chloride measurementOrdered By: Adarsh Herrera on 08-31-2024 Chloride [Moles/Vol] 108 mmol/L High 98-[address] [facility] Comprehensive Metabolic Prof ilon 08-31-2024 Albumin [Mass/Vol] 3.4 g/dL Normal 3.2-5.0 [facility] Comment on above: Order Comment: 1 Y Performed By: #### L 100.0100, L501.5425, L500.4050 #### [facility] Laboratory [address] [place], [address] Albumin/Globulin [Mass ratio] 0.9 {ratio} Normal 0.9-2.4 [facility] Comment on above: Order Comment: 1 Y Performed By: #### L 100.0100, L501.5425, L500.4050 #### [facility] Laboratory [address] [place], [address] ALK P 98 U/L Normal 45-117 [facility] Comment on above: Order Comment: 1 Y Performed By: #### L 100.0100, L501.5425, L500.4050 #### [facility] Laboratory [address] [place], [address] ALT [Catalytic activity/Vol] 59 U/L High 13-56 [facility] Comment on above: Order Comment: 1 Y Performed By: #### L 100.0100, L501.5425, L500.4050 #### [facility] Laboratory [address] [place], [address] AST [Catalytic activity/Vol] 47 U/L High 15-37 [facility] Comment on above: Order Comment: 1 Y Performed By: #### L 100.0100, L501.5425, L500.4050 #### [facility] Laboratory [address] [place], [address] Bilirubin [Mass/Vol] 0.30 mg/dL Normal 0.20-1.[address] [facility] Comment on above: Order Comment: 1 Y Result Comment: For patients on eltrombopag therapy, use of Dimension [place] TBIL is not recommended. Performed By: #### L 100.0100, L501.5425, L500.4050 #### [facility] Laboratory [address] [place], [address] BUN/CRE 14.5 RATIO Normal 10-20 [facility] Comment on above: Order Comment: 1 Y Performed By: #### L 100.0100, L501.5425, L500.4050 #### [facility] Laboratory [address] [place], [address] CA,Total 9.4 mg/dL Normal 8.5-10.1 [facility] Comment on above: Order Comment: 1 Y Performed By: #### L 100.0100, L501.5425, L500.4050 #### [facility] Laboratory [address] [place], [address] Chloride [Moles/Vol] 108 mmol/L High 98-[address] [facility] Comment on above: Order Comment: 1 Y Performed By: #### L 100.0100, L501.5425, L500.4050 #### [facility] Laboratory [address] [place], [address] CO2 [Moles/Vol] 24.0 mmol/L Normal 21.0-32.0 [facility] Comment on above: Order Comment: 1 Y Performed By: #### L 100.0100, L501.5425, L500.4050 #### [facility] Laboratory [address] [place], [address] Creatinine [Mass/Vol] 0.89 mg/dL Normal 0.55-1.02 [facility] Comment on above: Order Comment: 1 Y Result Comment: The validity of the calculated GFR GFRAA in patients over 70 years has not been determined. Clinical correlation is essential. Performed By: #### L 100.0100, L501.5425, L500.4050 #### [facility] Laboratory [address] [place], [address] ECRCL 57.30 ml/min Normal [facility] Comment on above: Order Comment: 1 Y Performed By: #### L 100.0100, L501.5425, L500.4050 #### [facility] Laboratory [address] [place], [address] EST GFR - AA 79 mL/min Normal >60 [facility] Comment on above: Order Comment: 1 Y Result Comment: Afri can [place] GFR Calc Performed By: #### L 100.0100, L501.5425, L500.4050 #### [facility] Laboratory [address] [place], [address] GAP 8 Normal 5-15 [facility] Comment on above: Order Comment: 1 Y Performed By: #### L 100.0100, L501.5425, L500.4050 #### [facility] Laboratory [address] [place], [address] GFR/1.73 sq M.predicted among non-blacks MDRD (S/P/Bld) [Vol rate/Area] 65 mL/min/{1.73_m2} Normal >60 [facility] Comment on above: Order Comment: 1 Y Result Comment: Non- GFR Calc Performed By: #### L 100.0100, L501.5425, L500.4050 #### [facility] Laboratory [address] [place], [address] Globulin (S) [Mass/Vol] 3.6 g/dL Normal 2.2-4.2 [facility] Comment on above: Order Comment: 1 Y Performed By: #### L 100.0100, L501.5425, L500.4050 #### [facility] Laboratory [address] [place], [address] Glucose [Mass/Vol] 146 mg/dL High 74-106 [facility] Comment on above: Order Comment: 1 Y Result Comment: Fast ing Glucose result greater than or equal to 126 mg/dL suggests DIABETES MELLITUS per A.D.A. criteria. Performed By: #### L 100.0100, L501.5425, L500.4050 #### [facility] Laboratory [address] [place], [address] Potassium [Moles/Vol] 3.6 mmol/L Normal 3.5-5.1 [facility] Comment on above: Order Comment: 1 Y Performed By: #### L 100.0100, L501.5425, L500.4050 #### [facility] Laboratory [address] [place], [address] Sodium [Moles/Vol] 140 mmol/L Normal 136-145 [facility] Comment on above: Order Comment: 1 Y Performed By: #### L 100.0100, L501.5425, L500.4050 #### [facility] Laboratory [address] [place], [address] T PROT 7.0 g/dL Normal 6.4-8.2 [facility] Comment on above: Order Comment: 1 Y Performed By: #### L 100.0100, L501.5425, L500.4050 #### [facility] Laboratory [address] [place], [address] Urea nitrogen [Mass/Vol] 13 mg/dL Normal 7-18 [facility] Comment on above: Order Comment: 1 Y Performed By: #### L 100.0100, L501.5425, L500.4050 #### [facility] Laboratory [address] [place], [address] Emergency Department Summary on 08-31-2024 Emergency Department Summary [facility] Medical Records Department [address] [place] [address] Emergency Department Summary 08/31/24 MR#: [id number] Acct: [id number] Name: KAYLENE SHAFER Rep #: [id number] : 1950 74 From: Adarsh JACOB PCP: Dr. Afia Chacko MD Status:DEP ER Location: ED HPI History of Present Illness Chief Complaint: Chest Pain Narrative Narrative: Patient is a 74-year-old female with history of anxiety, depression, hypothyroidism who presents to the emergency department with 2 days of midsternal epigastric pain. Patient states this occurred last evening around 5:30 PM when she was just sitting there, it was waxing and waning and then was gone. Right before she went to bed she had another episode, and then it went away. Today, she felt well, however roughly at 1 hour prior to arrival, the patient had another bout of this pain. Patient once arriving here was asymptomatic. Patient denies any shortness of breath, diaphoresis. Patient does not follow-up with cardiology, has never had a stress test. [facility] Medical History (Updated 08/31/24 @ 18:33 by NIDIA Urbano) Depression Sleep apnea Hyperlipidemia Urinary incontinence History of malignant neoplasm of rectum, rectosigmoid junction, and anus Home Medications ???Medication ???Instructions ???Recorded ???Last Taken ???Type multivitamin 1 cap PO DAILY 03/06/19 Unknown History oscal PO 03/06/19 Unknown History oxybutynin chloride 15 mg 15 mg PO DAILY 08/22/19 Unknown History tablet,extended release 24 hr ibuprofen 600 mg tablet 600 mg PO TID PRN pain #30 tabs 04/30/20 Unknown Rx prednisone 20 mg tablet 20 mg PO DAILY #5 tabs 05/12/20 Unknown Rx sertraline 50 mg tablet (Zoloft) 50 mg PO DAILY #30 tabs 03/31/21 Unknown Rx hydrocodone-acetaminophen 5-325mg 1 tab PO Q6H PRN pain 5 days #14 07/18/21 Unknown Rx 5mg-325mg tabs ondansetron 4 mg disintegrating 4 mg PO Q8H PRN nausea and 12/25/21 Unknown Rx tablet vomiting #10 tabs promethazine 25 mg tablet 25 mg PO TID PRN nausea and 12/25/21 Unknown Rx vomiting #10 tabs Allergy/AdvReac Type Severity Reaction Status Date / Time Penicillins Allergy Unknown rash Verified 08/31/24 15:24 Bromhexine and derivatives Allergy Rash Verified 08/31/24 15:24 Family History Father Myocardial infarction Brother Myocardial infarction Surgical History History of creation of ostomy History of removal of cyst History of hysterectomy Social History Smoking Status: Never smoker alcohol intake: never substance use type: does not use what type of physical activity do you participate in: none ROS ROS ED ROS Narrative Constitutional: Negative for fever, chills, weight loss, weakness Eyes: Negative for vision loss, vision change, double vision ENT: Negative for any sore throat, ear pain, congestion Cardiovascular: Negative for any tightness, palpitations. Positive for chest pain Respiratory: Negative for any cough, sputum production, hemoptysis, dyspnea, dyspnea on exertion, orthopnea Gastrointestinal: Negative for any abdominal pain, nausea, vomiting, diarrhea, constipation, blood in stool, blood in vomit : Negative for any urinary frequency, dysuria, retention, blood in urine Muscle skeletal: Negative for any neck pain, back pain Neurological: Negative for any headache, syncope, dizziness Skin: Negative for any rashes, itching, abrasions, lacerations Psychiatric: Negative for any depression, anxiety, stress, suicidal ideation, homicidal ideation Hematologic: Negative for any excessive bruising, easy bleeding EXAM Physical Exam Narrative Exam Narrative: Vital signs reviewed. Patient is hypertensive. The remainder the vital signs are normal. HEET: Head normocephalic atraumatic, TMs clear bilaterally. Posterior pharynx is clear, moist mucous membranes. Nares clear bilaterally. Neck: Supple with no lymphadenopathy or tenderness. No signs of meningismus. Cardiac: Regular rate and rhythm no murmurs gallops or rubs, equal peripheral pulses bilaterally. Respiratory: Lungs clear to auscultation bilaterally. No chest tenderness. Abdomen: Soft, nontender, nondistended. No abdominal bruit or pulsatile masses. No hepatosplenomegaly Extremities: No peripheral edema, no signs of gross trauma or deformity. Active full range of motion of all extremities. Neuro: Cranial nerves II through XII intact, no focal neurological deficits. Skin: Clean dry and intact with no rash, purpura, petechiae, vesicles or pustules. Backs/flank: No CVA tenderness, no midline spinal tenderness, no deformity. Psych: Normal mood and affect. No SI, HI or acute psychosis. Const Vital S (more content not included)... Normal [facility] Eosinophil percentageOrdered By: Adarsh Herrera on 08-31-2024 Eosinophils/100 WBC (Bld) 7.1 % High 0-5 [facility] Erythrocyte distribution wid th ratioOrdered By: Adarsh Herrera on 08-31-2024 Erythrocyte distribution width (RBC) [Ratio] 12.6 % 11.6-14.6 [facility] Erythrocyte distribution wid th standard deviationOrdered By: Adarsh Herrera on 08-31-2024 Erythrocyte distribution width (RBC) [Entitic vol] 42.5 fL 35.1-43.9 [facility] Estimated glomerular filtrat ion rate (GFR) AmericanOrdered By: Adarsh Herrera on 08-31-2024 Estimated GFR (MDRD) Amer 79 mL/min >60 [facility] Comment on above: GFR Calc Estimation of creatinine dwight aranceOrdered By: Adarsh Herrera on 08-31-2024 Estimated Creatinine Clearance Calc 57.30 ml/min [facility] Glomerular filtration rate ( GFR) estimationOrdered By: Adarsh Herrera on 08-31-2024 Estimated GFR (MDRD) Non-Af Amer 65 mL/min >60 [facility] Comment on above: Non- GFR Calc Glucose measurementOrdered B y: Adarsh Herrera on 08-31-2024 Glucose [Mass/Vol] 146 mg/dL High 74-106 [facility] Comment on above: Fasting Glucose resu lt greater than or equal to 126 mg/dL suggests DIABETES MELLITUS per A.D.A. criteria. Hematocrit Auto (Bld) [Volum e fraction]Ordered By: Adarsh Herrera on 08-31-2024 Hematocrit (Bld) [Volume fraction] 37.7 % 37-47 [facility] Hemoglobin measurementOrdere d By: Adarsh Herrera on 08-31-2024 Hemoglobin (Bld) [Mass/Vol] 12.8 g/dL 12.0-15.0 [facility] Immature granulocytes/100 WB C Auto (Bld)Ordered By: Adarsh Herrera on 08-31-2024 Immature granulocytes/100 WBC (Bld) 0.600 % 0.0-0.9 [facility] Comment on above: IG% - Immature Granu locytes (promyelocytes, myelocytes and metamyelocytes) > 1% indicates that a LEFT SHIFT is Present. L501.4020on 08-31-2024 TROPONIN-I HS 8 pg/mL Normal 3.0-54.0 [facility] Comment on above: Result Comment: Summer farias Note: New Test Units and Gender Specific Reference Ranges. For more information see Policy Stat Procedure [place] High Sensitivity Troponin (TNIH) and attachments. Performed By: #### L 501.4020 #### [facility] [address] [place], [address] L501.5425on 08-31-2024 TROPONIN-I HS 7 pg/mL Normal 3.0-54.0 [facility] Comment on above: Order Comment: 1 Y Result Comment: Summer farias Note: New Test Units and Gender Specific Reference Ranges. For more information see Policy Stat Procedure [place] High Sensitivity Troponin (TNIH) and attachments. Performed By: #### L 100.0100, L501.5425, L500.4050 #### [facility] [address] [place], [place], [address] Laboratory - Chemistry and C hemistry - challengeOrdered By: Adarsh Herrera on 08-31-2024 AST [Catalytic activity/Vol] 47 U/L High 15-37 [facility] Lymphocytes Auto (Unsp spec) [#/Vol]Ordered By: Adarsh Herrera on 08-31-2024 Lymphocytes (Bld) [#/Vol] 2.41 10*3/uL 0.83-4.51 [facility] Lymphocytes/100 WBC Auto (Un sp spec)Ordered By: Adarsh Herrera on 08-31-2024 Lymphocytes/100 WBC (Bld) 25.3 % 19-41 [facility] MCV (mean corpuscular volume ) determinationOrdered By: Adarsh Herrera on 08-31-2024 MCV (RBC) [Entitic vol] 92.2 fL 81-99 [facility] Mean corpuscular hemoglobin (MCH) determinationOrdered By: Adarsh Herrera on 08-31-2024 MCH (RBC) [Entitic mass] 31.3 pg 27.0-32.0 [facility] Mean corpuscular hemoglobin concentration (MCHC) determinationOrdered By: Adarsh Herrera on 08-31-2024 MCHC (RBC) [Mass/Vol] 34.0 g/dL 32-36 [facility] Mean platelet volume determi nationOrdered By: Adarsh Herrera on 08-31-2024 Platelet mean volume (Bld) [Entitic vol] 9.3 fL 6.2-12.0 [facility] Monocyte percentageOrdered B y: Adarsh Herrera on 08-31-2024 Monocytes/100 WBC (Bld) 7.5 % 0-10 [facility] Neutrophil percentageOrdered By: Adarsh Herrera on 08-31-2024 Neutrophils/100 WBC (Bld) 58.7 % 47-70 [facility] Nucleated red blood cell per centageOrdered By: Adarsh Herrera on 08-31-2024 Nucleated RBC/100 WBC (Bld) [Ratio] 0 % 0-5 [facility] Platelet countOrdered By: Katina Herrera on 08-31-2024 Platelets (Bld) [#/Vol] 239 10*3/uL 150-450 [facility] Potassium measurementOrdered By: Adarsh Herrera on 08-31-2024 Potassium [Moles/Vol] 3.6 mmol/L 3.5-5.1 [facility] RBC Auto (Bld) [#/Vol]Ordere d By: Adarsh Herrera on 08-31-2024 RBC (Bld) [#/Vol] 4.09 10*6/uL Low 4.2-5.4 [facility] Serum anion gap measurementO rdered By: Adarsh Herrera on 08-31-2024 Anion gap [Moles/Vol] 8 mmol/L 5-15 [facility] Serum globulin measurementOr dered By: Adarsh Herrera on 08-31-2024 Globulin (S) [Mass/Vol] 3.6 g/dL 2.2-4.2 [facility] Serum or plasma alanine haro otransferase (ALT) measurementOrdered By: Adarsh Herrera on 08-31-2024 ALT [Catalytic activity/Vol] 59 U/L High 13-56 [facility] Serum or plasma albumin jason urement (mass/volume)Ordered By: Adarsh Herrera on 08-31-2024 Albumin [Mass/Vol] 3.4 g/dL 3.2-5.0 [facility] Serum or plasma alkaline caitie sphatase measurementOrdered By: Adarsh Herrera on 08-31-2024 ALP [Catalytic activity/Vol] 98 U/L 45-117 [facility] Serum or plasma calcium jason urement (mass/volume)Ordered By: Adarsh Herrera on 08-31-2024 Calcium [Mass/Vol] 9.4 mg/dL 8.5-10.1 [facility] Serum or plasma creatinine m easurement (mass/volume)Ordered By: Adarsh Herrera on 08-31-2024 Creatinine [Mass/Vol] 0.89 mg/dL 0.55-1.02 [facility] Comment on above: The validity of the calculated GFR & GFRAA in patients over 70 years has not been determined. Clinical correlation is essential. Serum or plasma urea nitroge n measurement (mass/volume)Ordered By: Adarsh Herrera on 08-31-2024 Urea nitrogen [Mass/Vol] 13 mg/dL 7-18 [facility] Sodium levelOrdered By: Adarsh Herrera on 08-31-2024 Sodium [Moles/Vol] 140 mmol/L 136-145 [facility] Total proteinOrdered By: Sheela Herrera on 08-31-2024 Protein [Mass/Vol] 7.0 g/dL 6.4-8.2 [facility] Troponin IOrdered By: Adarsh blancas on 08-31-2024 Troponin I High Sensitivity 8 pg/mL 3.0-54.0 [facility] Comment on above: Please Note: New [place]wn[place] t Units and Gender Specific Reference Ranges. For more information see Policy Stat Procedure [place] High Sensitivity Troponin (TNIH) and attachments. White blood cell (WBC) count Ordered By: Adarsh Herrera on 08-31-2024 WBC (Bld) [#/Vol] 9.5 10*3/uL 4.4-11.0 [facility] HIP, UNI W/ Pelvis 2-3 Views on 07-19-2024 HIP, UNI W/ Pelvis 2-3 Views [facility] Imaging Services [address], [place] [address] HIP, UNI W/ Pelvis 2-3 Views MR#: [id number] Acct: [id number] Name: KAYLENE SHAFER Rep #: [id number] : 1950 F 73 From: Blake Colvin MD PCP: Dr. Afia Chacko MD Status: REG CLI Study: HIP, UNI W/ Pelvis 2-3 Views Date of Exam: Exam# [id number] Ordering Dr: Afia Chacko MD :[id number] STUDY: X-RAY - PELVIS AND RIGHT HIP REASON FOR EXAM: Female, 73 years old. PAIN TECHNIQUE: 3 views of the pelvis and right hip. COMPARISON: None. FINDINGS: There is a non-specific bowel gas pattern. There are multiple small calcified phleboliths. Normal bilateral iliac wings, sacroiliac joints and visualized sacrum. Normal bilateral superior and inferior pubic rami. Normal pubic symphysis. Normal bilateral ischial tuberosities. Intact visualized femoral heads bilaterally. There is mild osteoarthritic spur formation of the acetabular rims bilaterally. Intact hip joints. There is no demonstrated acute fracture. RAD/HIP, UNI W/ Pelvis 2-3 Views IMPRESSION: Mild degenerative arthrosis of the hip joints bilaterally. No demonstrated acute fracture. Electronically Signed: Blake Colvin MD at 14:29 EDT Reading Location ID and State: [facility] / [place] , Service support , CC: Dr. Afia Chacko MD Database Specialist: Signed Normal [facility] 07-16-2024 [facility] Telephone (DEEJAY) KAYLENE SHAFER ([id number]) 1950 F Date Time Provider Department 07/16/24 SHASHANK EDMONDSON During your visit today, we recorded the following information about you: Saleem [employer], [place] 07/16/2024 12:54 PM Signed The patient is calling to request a refill on the NyStatin powder. Please leave a message if she misses your call. [phone] Allergies As of Date: 07/16/2024 Noted Allergy Reaction PENICILLINS 12/16/2018 14 - Other: See Comments 16 - Unknown Comments: Not sure Date Reviewed: 04/10/2022 Reviewed by: Karlee Edmondson MA - Fully Assessed Reason for Visit: Patient Question [9367] Prescriptions as of 07/17/2024 - nystatin 1 billion unit powd Use as directed. - acetaminophen (TYLENOL) 325 mg tablet Take 2 tablets by mouth every 4 hours as needed for Pain. - ibuprofen (MOTRIN) 200 mg tablet Take 2-4 tablets by mouth every 8 hours as needed for Pain. - MULTIVITAMIN ORAL Take by mouth once daily. - cholecalciferol, vitamin D3, (VITAMIN D3 ORAL) Take by mouth once daily. - sertraline (ZOLOFT) 50 mg tablet Take 50 mg by mouth once daily. - oxybutynin chloride (DITROPAN ORAL) Take by mouth once daily. 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 CBC-Complete Blood Cnt No Di ffon 06-08-2024 Erythrocyte distribution width (RBC) [Ratio] 12.6 % Normal 11.6-14.6 [facility] Comment on above: Order Comment: Order Date: 06/07/24Order Info: [id number] - CBC Performed By: #### L 100.0100, L501.5425, L500.4050 #### [facility] [address] [place], [address] Hematocrit (Bld) [Volume fraction] 39.2 % Normal 37-47 [facility] Comment on above: Order Comment: Order Date: 06/07/24Order Info: [id number] - CBC Performed By: #### L 100.0100, L501.5425, L500.4050 #### [facility] [address] [place], [address] Hemoglobin (Bld) [Mass/Vol] 12.8 g/dL Normal 12.0-15.0 [facility] Comment on above: Order Comment: Order Date: 06/07/24Order Info: [id number] - CBC Performed By: #### L 100.0100, L501.5425, L500.4050 #### [facility] [address] [place], [address] MCH (RBC) [Entitic mass] 30.8 pg Normal 27.0-32.0 [facility] Comment on above: Order Comment: Order Date: 06/07/24Order Info: [id number] - CBC Performed By: #### L 100.0100, L501.5425, L500.4050 #### [facility] [address] [place], [address] MCHC (RBC) [Mass/Vol] 32.7 g/dL Normal 32-36 [facility] Comment on above: Order Comment: Order Date: 06/07/24Order Info: [id number] - CBC Performed By: #### L 100.0100, L501.5425, L500.4050 #### [facility] [address] [place], [address] MCV (RBC) [Entitic vol] 94.5 fL Normal 81-99 [facility] Comment on above: Order Comment: Order Date: 06/07/24Order Info: [id number] - CBC Performed By: #### L 100.0100, L501.5425, L500.4050 #### [facility] [address] [place], [address] Platelet mean volume (Bld) [Entitic vol] 9.7 fL Normal 6.2-12.0 [facility] Comment on above: Order Comment: Order Date: 06/07/24Order Info: [id number] - CBC Performed By: #### L 100.0100, L501.5425, L500.4050 #### [facility] [address] [place], [address] Platelets (Bld) [#/Vol] 246 10*3/uL Normal 150-450 [facility] Comment on above: Order Comment: Order Date: 06/07/24Order Info: [id number] - CBC Performed By: #### L 100.0100, L501.5425, L500.4050 #### [facility] [address] [place], [address] RBC (Bld) [#/Vol] 4.15 10*6/uL Low 4.2-5.4 [facility] Comment on above: Order Comment: Order Date: 06/07/24Order Info: [id number] - CBC Performed By: #### L 100.0100, L501.5425, L500.4050 #### [facility] [address] [place], [address] RDW SD 43.8 fl Normal 35.1-43.9 [facility] Comment on above: Order Comment: Order Date: 06/07/24Order Info: [id number] - CBC Performed By: #### L 100.0100, L501.5425, L500.4050 #### [facility] [address] [place], [address] WBC (Bld) [#/Vol] 8.2 10*3/uL Normal 4.4-11.0 [facility] Comment on above: Order Comment: Order Date: 06/07/24Order Info: [id number] - CBC Performed By: #### L 100.0100, L501.5425, L500.4050 #### [facility] [address] [place], [address] Comprehensive Metabolic Prof ilon 06-08-2024 Albumin [Mass/Vol] 3.5 g/dL Normal 3.2-5.0 [facility] Comment on above: Order Comment: Order Date: 06/07/24Order Info: [id number] - CMPOrder Info: [id number] - LIPIDOrder Info: [id number] - TSH Performed By: #### L 100.0100, L501.5425, L500.4050 #### [facility] [address] [place], [address] Albumin/Globulin [Mass ratio] 1.0 {ratio} Normal 0.9-2.4 [facility] Comment on above: Order Comment: Order Date: 06/07/24Order Info: [id number] - CMPOrder Info: [id number] - LIPIDOrder Info: [id number] - TSH Performed By: #### L 100.0100, L501.5425, L500.4050 #### [facility] [address] [place], [address] ALK P 91 U/L Normal 45-117 [facility] Comment on above: Order Comment: Order Date: 06/07/24Order Info: [id number] - CMPOrder Info: [id number] - LIPIDOrder Info: [id number] - TSH Performed By: #### L 100.0100, L501.5425, L500.4050 #### [facility] [address] [place], [address] ALT [Catalytic activity/Vol] 57 U/L High 13-56 [facility] Comment on above: Order Comment: Order Date: 06/07/24Order Info: [id number] - CMPOrder Info: [id number] - LIPIDOrder Info: [id number] - TSH Performed By: #### L 100.0100, L501.5425, L500.4050 #### [facility] [address] [place], [address] AST [Catalytic activity/Vol] 40 U/L High 15-37 [facility] Comment on above: Order Comment: Order Date: 06/07/24Order Info: [id number] - CMPOrder Info: [id number] - LIPIDOrder Info: [id number] - TSH Performed By: #### L 100.0100, L501.5425, L500.4050 #### [facility] [address] [place], [address] Bilirubin [Mass/Vol] 0.30 mg/dL Normal 0.20-1.[address] [facility] Comment on above: Order Comment: Order Date: 06/07/24Order Info: [id number] - CMPOrder Info: [id number] - LIPIDOrder Info: [id number] - TSH Result Comment: For patients on eltrombopag therapy, use of Dimension [place] TBIL is not recommended. Performed By: #### L 100.0100, L501.5425, L500.4050 #### [facility] [address] [place], [address] BUN/CRE 16.1 RATIO Normal 10-20 [facility] Comment on above: Order Comment: Order Date: 06/07/24Order Info: [id number] - CMPOrder Info: [id number] - LIPIDOrder Info: [id number] - TSH Performed By: #### L 100.0100, L501.5425, L500.4050 #### [facility] [address] [place], [address] CA,Total 9.3 mg/dL Normal 8.5-10.1 [facility] Comment on above: Order Comment: Order Date: 06/07/24Order Info: [id number] - CMPOrder Info: [id number] - LIPIDOrder Info: [id number] - TSH Performed By: #### L 100.0100, L501.5425, L500.4050 #### [facility] [address] [place], [address] Chloride [Moles/Vol] 111 mmol/L High 98-[address] [facility] Comment on above: Order Comment: Order Date: 06/07/24Order Info: [id number] - CMPOrder Info: [id number] - LIPIDOrder Info: [id number] - TSH Performed By: #### L 100.0100, L501.5425, L500.4050 #### [facility] [address] [place], [address] CO2 [Moles/Vol] 23.0 mmol/L Normal 21.0-32.0 [facility] Comment on above: Order Comment: Order Date: 06/07/24Order Info: [id number] - CMPOrder Info: [id number] - LIPIDOrder Info: [id number] - TSH Performed By: #### L 100.0100, L501.5425, L500.4050 #### [facility] [address] [place], [address] Creatinine [Mass/Vol] 0.75 mg/dL Normal 0.55-1.02 [facility] Comment on above: Order Comment: Order Date: 06/07/24Order Info: [id number] - CMPOrder Info: [id number] - LIPIDOrder Info: [id number] - TSH Result Comment: The validity of the calculated GFR GFRAA in patients over 70 years has not been determined. Clinical correlation is essential. Performed By: #### L 100.0100, L501.5425, L500.4050 #### [facility] [address] [place], [address] EST GFR - AA 97 mL/min Normal >60 [facility] Comment on above: Order Comment: Order Date: 06/07/24Order Info: [id number] - CMPOrder Info: [id number] - LIPIDOrder Info: [id number] - TSH Result Comment: Afri can [place] GFR Calc Performed By: #### L 100.0100, L501.5425, L500.4050 #### [facility] [address] [place], [address] GAP 8 Normal 5-15 [facility] Comment on above: Order Comment: Order Date: 06/07/24Order Info: [id number] - CMPOrder Info: [id number] - LIPIDOrder Info: [id number] - TSH Performed By: #### L 100.0100, L501.5425, L500.4050 #### [facility] [address] [place], [address] GFR/1.73 sq M.predicted among non-blacks MDRD (S/P/Bld) [Vol rate/Area] 80 mL/min/{1.73_m2} Normal >60 [facility] Comment on above: Order Comment: Order Date: 06/07/24Order Info: [id number] - CMPOrder Info: [id number] - LIPIDOrder Info: [id number] - TSH Result Comment: Non- GFR Calc Performed By: #### L 100.0100, L501.5425, L500.4050 #### [facility] [address] [place], [address] Globulin (S) [Mass/Vol] 3.5 g/dL Normal 2.2-4.2 [facility] Comment on above: Order Comment: Order Date: 06/07/24Order Info: [id number] - CMPOrder Info: [id number] - LIPIDOrder Info: [id number] - TSH Performed By: #### L 100.0100, L501.5425, L500.4050 #### [facility] [address] [place], [address] Glucose [Mass/Vol] 104 mg/dL Normal 74-106 [facility] Comment on above: Order Comment: Order Date: 06/07/24Order Info: [id number] - CMPOrder Info: [id number] - LIPIDOrder Info: [id number] - TSH Result Comment: Fast ing Glucose result from 100 to 125 mg/dL suggests IMPAIRED HOMEOSTASIS per A.D.A. criteria. Performed By: #### L 100.0100, L501.5425, L500.4050 #### [facility] [address] [place], [address] Potassium [Moles/Vol] 4.2 mmol/L Normal 3.5-5.1 [facility] Comment on above: Order Comment: Order Date: 06/07/24Order Info: [id number] - CMPOrder Info: [id number] - LIPIDOrder Info: [id number] - TSH Performed By: #### L 100.0100, L501.5425, L500.4050 #### [facility] [address] [place], [address] Sodium [Moles/Vol] 142 mmol/L Normal 136-145 [facility] Comment on above: Order Comment: Order Date: 06/07/24Order Info: [id number] - CMPOrder Info: [id number] - LIPIDOrder Info: [id number] - TSH Performed By: #### L 100.0100, L501.5425, L500.4050 #### [facility] [address] [place], [address] T PROT 7.0 g/dL Normal 6.4-8.2 [facility] Comment on above: Order Comment: Order Date: 06/07/24Order Info: [id number] - CMPOrder Info: [id number] - LIPIDOrder Info: [id number] - TSH Performed By: #### L 100.0100, L501.5425, L500.4050 #### [facility] [address] [place], [address] Urea nitrogen [Mass/Vol] 12 mg/dL Normal 7-18 [facility] Comment on above: Order Comment: Order Date: 06/07/24Order Info: [id number] - CMPOrder Info: [id number] - LIPIDOrder Info: [id number] - TSH Performed By: #### L 100.0100, L501.5425, L500.4050 #### [facility] [address] [place], [address] Lipid Profileon 06-08-2024 Cholesterol [Mass/Vol] 150 mg/dL Normal 200 [facility] Comment on above: Order Comment: Order Date: 06/07/24Order Info: [id number] - CMPOrder Info: [id number] - LIPIDOrder Info: [id number] - TSH Result Comment: <200 mg/dL Desirable 200-240 mg/dL Borderline >240 mg/dL High Risk Performed By: #### L 100.0100, L501.5425, L500.4050 #### [facility] [address] [place], [address] Cholesterol in HDL [Mass/Vol] 53 mg/dL Normal [facility] Comment on above: Order Comment: Order Date: 06/07/24Order Info: [id number] - CMPOrder Info: - LIPIDOrder Info: [id number] - TSH Result Comment: The drugs N-Acetylcysteine and Metamizole may falsely depress this assay. Reference Range HDL <40 mg/dL Low HDL Cholesterol HDL >or= 60 mg/dL High HDL Cholesterol Performed By: #### L 100.0100, L501.5425, L500.4050 #### [facility] [address] [place], [address] Cholesterol in LDL [Mass/Vol] 57 mg/dL Normal 0-130 [facility] Comment on above: Order Comment: Order Date: 06/07/24Order Info: [id number] - CMPOrder Info: [id number] - LIPIDOrder Info: [id number] - TSH Performed By: #### L 100.0100, L501.5425, L500.4050 #### [facility] [address] [place], [address] Cholesterol in VLDL [Mass/Vol] 40 mg/dL Normal 5-40 [facility] Comment on above: Order Comment: Order Date: 06/07/24Order Info: [id number] - CMPOrder Info: [id number] - LIPIDOrder Info: [id number] - TSH Performed By: #### L 100.0100, L501.5425, L500.4050 #### [facility] [address] [place], [address] Triglyceride [Mass/Vol] 202 mg/dL High [facility] Comment on above: Order Comment: Order Date: 06/07/24Order Info: [id number] - CMPOrder Info: [id number] - LIPIDOrder Info: [id number] - TSH Result Comment: The drugs N-Acetylcysteine and Metamizole may falsely depress this assay. Serum Triglycerides Reference Interval Normal <150 mg/dL Borderline high 150 - 199 mg/dL High 200 - 499 mg/dL Very High > or = 500 mg/dL Performed By: #### L 100.0100, L501.5425, L500.4050 #### [facility] [address] [place], [address] Thyroid Stim Hormone (TSH)on 06-08-2024 TSH 5.040 uIU/mL High 0.358-3.74 0 [facility] Comment on above: Order Comment: 1 Y Performed By: #### L 100.0100, L501.5425, L500.4050 #### [facility] [address] [place], [address] Vitamin D,25 Hydroxyon 06-08 Vitamin D 25-OH 44.4 ng/mL Normal [facility] Comment on above: Order Comment: 1 Y Result Comment: Ashley min D 25(OH) Status Range Deficiency <20 ng/mL (50nmol/L) Insufficiency 20 - 30 ng/mL (50 - 75 nmol/L) Sufficiency 30 - 100 ng/mL (75 - 250 nmol/L) Toxicity >100 ng/mL (>250 nmol/L) Performed By: #### L 100.0100, L501.5425, L500.4050 #### [facility] [address] [place], [address] Laboratory - Chemistry and C hemistry - challengeOrdered By: Mary Navarro on 09-21-2022 Free T4 [Mass/Vol] 0.84 ng/dL 0.76-1.46 [facility] No Panel InformationOrdered By: Mary Navarro on 09-21-2022 Free Triiodothyronine (T3) pg/dL 2.4 pg/mL 2.18-3.98 [facility] Thyroglobulin Antibody < 1.0 IU/mL 0.0-0.9 [facility] Comment on above: Thyroglobulin Antibo dy measured by Benigno CoulterMethodology Thyroglobulin Level 12.8 ng/mL 1.5-38.5 [facility] Comment on above: According to the [facility] [employer],the reference interval for Thyroglobulin (TG) should berelated to euthyroid patients and not for patients whounderwent thyroidectomy. TG reference intervals for thesepatients depend on the residual mass of the thyroid tissueleft after surgery. Establishing a post-operative baselineis recommended. The assay limit of quantitation is 0.1ng/mLThyroglobulin measured by Benigno Laine ImmunometricAssayPerformed at: [facility] [id number] Director: Devin Ladd PhD, Phone: [phone] Thyroid Stimulating Hormone (TSH) 2.86 uIU/mL 0.358-3.74 [facility] Absolute lymphocyte countOrd ered By: Mary Navarro on 09-09-2022 Lymphocytes Auto (Unsp spec) [#/Vol] 2.62 10*3/uL 0.83-4.51 [facility] Basophil percentageOrdered B y: Mary Navarro on 09-09-2022 Basophils/100 WBC (Bld) 0.5 % 0-1 [facility] Bilirubin [Mass/Vol] 0.40 mg/dL 0.20-1.[address] [facility] Comment on above: For patients on eltr ombopag therapy, use of Dimension [place] TBIL is not recommended. Chloride [Moles/Vol] 106 mmol/L 98-[address] [facility] Eosinophils/100 WBC (Bld) 2.3 % 0-5 [facility] Glucose [Mass/Vol] 95 mg/dL 74-106 [facility] Neutrophils (Bld) [#/Vol] 5.8 10*3/uL 2.0-7.7 [facility] Neutrophils/100 WBC (Bld) 61.1 % 47-70 [facility] Potassium [Moles/Vol] 4.1 mmol/L 3.5-5.1 [facility] Protein [Mass/Vol] 7.3 g/dL 6.4-8.2 [facility] Sodium [Moles/Vol] 139 mmol/L 136-145 [facility] WBC (Bld) [#/Vol] 9.4 10*3/uL 4.4-11.0 [facility] Blood erythrocytes count (nu mber/volume)Ordered By: Mary Navarro on 09-09-2022 RBC (Bld) [#/Vol] 4.46 10*6/uL 4.2-5.4 [facility] Blood hemoglobin measurement (mass/volume)Ordered By: Mary Navarro on 09-09-2022 Hemoglobin (Bld) [Mass/Vol] 14.4 g/dL 12.0-15.0 [facility] Blood lymphocytes/100 leukoc ytesOrdered By: Mary Navarro on 09-09-2022 Lymphocytes/100 WBC (Bld) 27.8 % 19-41 [facility] Blood monocytes/100 leukocyt esOrdered By: Mary Navarro on 09-09-2022 Monocytes/100 WBC (Bld) 7.8 % 0-10 [facility] Blood platelet mean volumeOr dered By: Mary Navarro on 09-09-2022 Platelet mean volume (Bld) [Entitic vol] 9.5 fL 6.2-12.0 [facility] Determination of erythrocyte mean corpuscular volume (MCV)Ordered By: Mary Navarro on 09-09-2022 MCV (RBC) [Entitic vol] 93.0 fL 81-99 [facility] Hematocrit Auto (Bld) [Volum e fraction]Ordered By: Mary Navarro on 09-09-2022 Hematocrit (Bld) [Volume fraction] 41.5 % 37-47 [facility] Laboratory - Chemistry and C hemistry - challengeOrdered By: Mary Navarro on 09-09-2022 ALP [Catalytic activity/Vol] 92 U/L 45-117 [facility] ALT [Catalytic activity/Vol] 89 U/L 13-56 [facility] CO2 [Moles/Vol] 27.0 mmol/L 21.0-32.0 [facility] Cobalamin (Vitamin B12) [Mass/Vol] 626 pg/mL 211-911 [facility] Globulin (S) [Mass/Vol] 3.6 g/dL 2.2-4.2 [facility] Urea nitrogen/Creatinine [Mass ratio] 19.6 mg/mg 10-20 [facility] Laboratory - Hematology and Cell countsOrdered By: Mary Navarro on 09-09-2022 Erythrocyte distribution width (RBC) [Entitic vol] 42.9 fL 35.1-43.9 [facility] Erythrocyte distribution width (RBC) [Ratio] 12.5 % 11.6-14.6 [facility] Immature granulocytes/100 WBC (Bld) 0.500 % 0.0-0.9 [facility] Comment on above: IG% - Immature Granu locytes (promyelocytes, myelocytes and metamyelocytes) > 1% indicates that a LEFT SHIFT is Present. MCH (RBC) [Entitic mass] 32.3 pg 27.0-32.0 [facility] Nucleated RBC/100 WBC (Bld) [Ratio] 0 % 0-5 [facility] MCHC Auto (RBC) [Mass/Vol]Or dered By: Mary Navarro on 09-09-2022 MCHC (RBC) [Mass/Vol] 34.7 g/dL 32-36 [facility] No Panel InformationOrdered By: Mary Navarro on 09-09-2022 Estimated GFR (MDRD) Amer 103 mL/min >60 [facility] Comment on above: GFR Calc Estimated GFR (MDRD) Non-Af Amer 85 mL/min >60 [facility] Comment on above: Non- GFR Calc Thyroid Stimulating Hormone (TSH) 4.32 uIU/mL 0.358-3.74 [facility] Vitamin D 25-Hydroxy 40.0 ng/mL [facility] Comment on above: Vitamin D 25(OH) Sta tus Range Deficiency <20 ng/mL (50nmol/L) Insufficiency 20 - 30 ng/mL (50 - 75 nmol/L) Sufficiency 30 - 100 ng/mL (75 - 250 nmol/L) Toxicity >100 ng/mL (>250 nmol/L) Platelets bldOrdered By: Blaine Navarro on 09-09-2022 Platelets (Bld) [#/Vol] 271 10*3/uL 150-450 [facility] Serum or plasma albumin jason urement (mass/volume)Ordered By: Mary Navarro on 09-09-2022 Albumin [Mass/Vol] 3.7 g/dL 3.2-5.0 [facility] Serum or plasma albumin/glob ulin mass ratioOrdered By: Mary Navarro on 09-09-2022 Albumin/Globulin [Mass ratio] 1.0 {ratio} 0.9-2.4 [facility] Serum or plasma calcium jason urement (mass/volume)Ordered By: Mary Navarro on 09-09-2022 Calcium [Mass/Vol] 9.6 mg/dL 8.5-10.1 [facility] Serum or plasma creatinine m easurement (mass/volume)Ordered By: Mary Navarro on 09-09-2022 Creatinine [Mass/Vol] 0.71 mg/dL 0.55-1.02 [facility] Comment on above: The validity of the calculated GFR & GFRAA in patients over 70 years has not been determined. Clinical correlation is essential. Serum or plasma ferritin delano surement (mass/volume)Ordered By: Mary Navarro on 09-09-2022 Ferritin [Mass/Vol] 357 ng/mL 8-252 [facility] Serum or plasma urea nitroge n measurement (mass/volume)Ordered By: Mary Navarro on 09-09-2022 Urea nitrogen [Mass/Vol] 14 mg/dL 7-18 [facility] Thin prep Papanicolaou smear with manual screeningOrdered By: Mary Navarro on 09-09-2022 Thin prep Papanicolaou smear with manual screening 57 U/L 15-37 [facility] Thin prep Papanicolaou smear with manual screening 6 5-15 [facility] Basophil percentageOrdered B y: Dr. Duke on 07-07-2022 Basophil percentage < 0.9 mg/dL 0.55-1.[address] [facility] No Panel InformationOrdered By: Dr. Duke on 07-07-2022 Bedside Estimated GFR (eGFR) > 60.0000 mL/min >60 [facility] Absolute lymphocyte counton 12-24-2021 Lymphocytes Auto (Unsp spec) [#/Vol] 1.43 10*3/uL 0.83-4.51 [facility] Work Phone: Basophil percentageon 2021 Basophil percentage 0-5 SEEN /hpf [facility] Work Phone: Basophils/100 WBC (Bld) 0.3 % 0-1 [facility] Work Phone: [phone] Bilirubin [Mass/Vol] 0.40 mg/dL 0.20-1.[address] [facility] Work Phone: Comment on above: For patients on eltr ombopag therapy, use of Dimension [place] TBIL is not recommended. Chloride [Moles/Vol] 109 mmol/L 98-[address] [facility] Work Phone: Eosinophils/100 WBC (Bld) 0.9 % 0-5 [facility] Work Phone: [phone] Glucose [Mass/Vol] 160 mg/dL 74-106 [facility] Work Phone: [phone] Comment on above: Fasting Glucose resu lt greater than or equal to 126 mg/dL suggests DIABETES MELLITUS per A.D.A. criteria. Neutrophils (Bld) [#/Vol] 12.5 10*3/uL 2.0-7.7 [facility] Work Phone: Neutrophils/100 WBC (Bld) 82.6 % 47-70 [facility] Work Phone: [phone] Potassium [Moles/Vol] 3.4 mmol/L 3.5-5.1 [facility] Work Phone: Protein [Mass/Vol] 7.0 g/dL 6.4-8.2 [facility] Work Phone: Sodium [Moles/Vol] 140 mmol/L 136-145 [facility] Work Phone: WBC (Bld) [#/Vol] 15.2 10*3/uL 4.4-11.0 [facility] Work Phone: Bilirubin Test strip Ql (U)o n 12-24-2021 Bilirubin Ql (U) Negative Negative [facility] Work Phone: Blood erythrocytes count (nu mber/volume)on 12-24-2021 RBC (Bld) [#/Vol] 4.29 10*6/uL 4.2-5.4 [facility] Work Phone: Blood hemoglobin measurement (mass/volume)on 12-24-2021 Hemoglobin (Bld) [Mass/Vol] 13.8 g/dL 12.0-15.0 [facility] Work Phone: Blood lymphocytes/100 leukoc yteson 12-24-2021 Lymphocytes/100 WBC (Bld) 9.4 % 19-41 [facility] Work Phone: Blood monocytes/100 leukocyt eson 12-24-2021 Monocytes/100 WBC (Bld) 6.4 % 0-10 [facility] Work Phone: Blood platelet mean volumeon 12-24-2021 Platelet mean volume (Bld) [Entitic vol] 9.3 fL 6.2-12.0 [facility] Work Phone: Culture, urineon 12-24-2021 Bacteria identified Cx Nom (U) Mixed Gram Pos & Gram Neg Org [facility] Work Phone: [phone] Determination of erythrocyte mean corpuscular volume (MCV)on 12-24-2021 MCV (RBC) [Entitic vol] 91.8 fL 81-99 [facility] Work Phone: Hematocrit Auto (Bld) [Volum e fraction]on 04-07-2022 Hematocrit (Bld) [Volume fraction] 39.4 % 37-47 [facility] Work Phone: [phone] Ketones Test strip Ql (U)on 12-24-2021 Ketones Ql (U) Negative Negative [facility] Work Phone: [phone] Laboratory - Chemistry and C hemistry - challengeon 12-24-2021 ALP [Catalytic activity/Vol] 90 U/L 45-117 [facility] Work Phone: ALT [Catalytic activity/Vol] 70 U/L 13-56 [facility] Work Phone: CO2 [Moles/Vol] 23.0 mmol/L 21.0-32.0 [facility] Work Phone: [phone] Globulin (S) [Mass/Vol] 3.5 g/dL 2.2-4.2 [facility] Work Phone: [phone] Lipase [Catalytic activity/Vol] 84 U/L 73-393 [facility] Work Phone: [phone] Urea nitrogen/Creatinine [Mass ratio] 13.5 mg/mg 10-20 [facility] Work Phone: [phone] Laboratory - Hematology and Cell countson 12-24-2021 Erythrocyte distribution width (RBC) [Entitic vol] 41.7 fL 35.1-43.9 [facility] Work Phone: [phone] Erythrocyte distribution width (RBC) [Ratio] 12.4 % 11.6-14.6 [facility] Work Phone: [phone] Immature granulocytes/100 WBC (Bld) 0.400 % 0.0-0.9 [facility] Work Phone: [phone] Comment on above: IG% - Immature Granu locytes (promyelocytes, myelocytes and metamyelocytes) > 1% indicates that a LEFT SHIFT is Present. MCH (RBC) [Entitic mass] 32.2 pg 27.0-32.0 [facility] Work Phone: [phone] Nucleated RBC/100 WBC (Bld) [Ratio] 0 % 0-5 [facility] Work Phone: [phone] MCHC Auto (RBC) [Mass/Vol]on 12-24-2021 MCHC (RBC) [Mass/Vol] 35.0 g/dL 32-36 [facility] Work Phone: Mucus LM Ql (Urine sed)on Mucus Ql (Urine sed) 0 SEEN /hpf [facility] Work Phone: Nitrite Test strip Ql (U)on 12-24-2021 Nitrite Ql (U) Negative Negative [facility] Work Phone: No Panel Informationon 12-24 Estimated Creatinine Clearance Calc 48.61 ml/min [facility] Work Phone: Estimated GFR (MDRD) Amer 80 mL/min >60 [facility] Work Phone: Comment on above: GFR Calc Estimated GFR (MDRD) Non-Af Amer 66 mL/min >60 [facility] Work Phone: Comment on above: Non- GFR Calc Platelets bldon 12-24-2021 Platelets (Bld) [#/Vol] 241 10*3/uL 150-450 [facility] Work Phone: Protein Test strip Ql (U)on 12-24-2021 Protein Ql (U) 15 mg/dl Negative [facility] Work Phone: Serum or plasma albumin jason urement (mass/volume)on 12-24-2021 Albumin [Mass/Vol] 3.5 g/dL 3.2-5.0 [facility] Work Phone: Serum or plasma albumin/glob ulin mass ratioon 12-24-2021 Albumin/Globulin [Mass ratio] 1.0 {ratio} 0.9-2.4 [facility] Work Phone: Serum or plasma calcium jason urement (mass/volume)on 12-24-2021 Calcium [Mass/Vol] 8.9 mg/dL 8.5-10.1 [facility] Work Phone: Serum or plasma creatinine m easurement (mass/volume)on 12-24-2021 Creatinine [Mass/Vol] 0.89 mg/dL 0.55-1.02 [facility] Work Phone: Comment on above: The validity of the calculated GFR & GFRAA in patients over 70 years has not been determined. Clinical correlation is essential. Serum or plasma urea nitroge n measurement (mass/volume)on 12-24-2021 Urea nitrogen [Mass/Vol] 12 mg/dL 7-18 [facility] Work Phone: Squamous epithelial cells de tection in urine sediment by light microscopyon 12-24-2021 Epithelial cells.squamous LM Ql (Urine sed) 0 SEEN /hpf [facility] Work Phone: Thin prep Papanicolaou smear with manual screeningon 12-24-2021 Thin prep Papanicolaou smear with manual screening 39 U/L 15-37 [facility] Work Phone: Thin prep Papanicolaou smear with manual screening 8 5-15 [facility] Work Phone: Urine blood detectionon 04-0 RBC Ql (U) Negative Negative [facility] Work Phone: RBC Ql (U) 0 SEEN /hpf [facility] Work Phone: Urine clarityon 12-24-2021 Clarity (U) Clear Clear [facility] Work Phone: Urine color determinationon 12-24-2021 Color (U) Yellow Yellow [facility] Work Phone: Urine glucose detectionon Glucose Ql (U) Normal mg/dl Normal [facility] Work Phone: Urine leukocyte esterase det ection by dipstickon 12-24-2021 Leukocyte esterase Test strip Ql (U) 25 /ul Negative [facility] Work Phone: Urine pHon 12-24-2021 pH (U) 5.0 [pH] [facility] Work Phone: Urine sediment bacteria coun t by microscopy (number/high power field)on 12-24-2021 Bacteria LM.HPF (Urine sed) [#/Area] RARE /hpf None Seen [facility] Work Phone: Urine specific gravity measu rementon 12-24-2021 Specific gravity (U) [Rel density] 1.020 [facility] Work Phone: Urobilinogen Auto test strip Ql (U)on 12-24-2021 Urobilinogen Ql (U) Normal mg/dl Normal [facility] Work Phone: IR fluoro localizationon IR fluoro localization [facility] [address] [place] [address] Interventional Radiology Rpt Signed Patient: KAYLENE SHAFER MR#: [id number] : 1950 Acct:[id number] Age/Sex: 68 / F Admit Date: 02/21/19 Loc: OR Attending Dr: Nolan Chadwick MD Ordering Physician: Nolan Chadwick MD Date of Service: 02/21/19 Procedure(s): IR fluoro localization Accession Number(s): [id number] cc: Image intensifying/fluoroscopy equipment was used in a procedure by Dr. Nolan Chadwick on 02/21/2019 from 12:45 to 13:25. Total fluoroscopy time was 1.04 minutes. No static images were archived and no radiologist review for interpretation was performed. This report is intended for documentation purposes only, related to the use of equipment, and does not reflect any medical evaluation or diagnosis. Dictated By: Corina, Von DD/ 0949 Signed By: Corina,Rad 02/22/19 0948 Database Specialist: MICHELLE [facility] CBC With Platelet and Differ entialon 12-30-2018 Abs Imm Granulocytes 0.05 E9/L Normal Brad t [facility] Basophils #/vol (Bld) 0.05 E9/L Normal 0.00-0.20 [facility] Basophils/100 WBC (Bld) 0.5 % Normal 0.0-2.0 [facility] Eosinophils #/vol (Bld) 0.18 E9/L Normal 0.05-0.50 [facility] Eosinophils/100 WBC (Bld) 1.8 % Normal 0.0-6.0 [facility] Erythrocyte distribution width Ratio (RBC) 12.3 fL Normal 11.5-15.0 [facility] Hematocrit Volume Fraction (Bld) 39.2 % Normal 34.0-48.0 [facility] Hemoglobin mass conc (Bld) 13.5 g/dL Normal 11.5-15.5 [facility] Imm Granulocytes 0.5 % Normal 0.0-5.0 [facility] Lymphocytes #/vol (Bld) 2.59 E9/L Normal 1.50-4.00 [facility] Lymphocytes/100 WBC (Bld) 25.6 % Normal 20.0-42.0 [facility] MCH Entitic mass (RBC) 31.8 pg Normal 26.0-35.0 [facility] MCHC mass conc (RBC) 34.4 % Normal 32.0-34.5 [facility] MCV Entitic volume (RBC) 92.5 fL Normal 80.0-99.9 [facility] Monocytes #/vol (Bld) 0.68 E9/L Normal 0.10-0.95 [facility] Monocytes/100 WBC (Bld) 6.7 % Normal 2.0-12.0 [facility] Neutrophils #/vol (Bld) 6.57 E9/L Normal 1.80-7.30 [facility] Neutrophils/100 WBC (Bld) 64.9 % Normal 43.0-80.0 [facility] Platelet mean volume Entitic volume (Bld) 9.5 fL Normal 7.0-12.0 [facility] Platelets #/vol (Bld) 287 E9/L Normal 130-450 [facility] RBC #/vol (Bld) 4.24 E12/L Normal 3.50-5.50 [facility] WBC #/vol (Bld) 10.1 E9/L Normal 4.5-11.[address] [facility] [address] ABDOMEN PELVIS W IV CONTR Ashley 12-30-2018 CT ABDOMEN PELVIS W IV CONTRAST Patient : 1950 Age: 68 years Gender: Female Order Date: 12/30/2018 5:00 PM EXAM: CT ABDOMEN PELVIS W IV CONTRAST COMPARISON: None INDICATION: ABDOMINAL PAIN TECHNIQUE: Low-dose CT acquisition technique included one of the following options; 1. Automated exposure control, 2. Adjustment of mA and/or kV according to the patient's size or 3. Use of iterative reconstruction. FINDINGS: No evidence of bowel obstruction, free air, or free fluid in abdomen or pelvis. There is moderate burden of diverticulosis notable involving the left colon and sigmoid colon. No evidence of acute diverticulitis. The appendix is visualized and appears unremarkable. No intrahepatic or extrahepatic bile duct dilatation. Gallbladder appears unremarkable. No evidence of acute pancreatitis. Spleen is nonenlarged. Adrenal glands are normal. There are multiple parapelvic renal cysts measuring up to 3 cm on the right and 1.6 cm on the left. There is no perinephric fat stranding. No hydronephrosis. No evidence of retroperitoneal lymphadenopathy. View of the lung bases shows no airspace opacity or evidence of pleural effusion. There areas of bibasilar subsegmental atelectasis or scarring. Note made of electronic hardware overlying the right posterior pelvic soft tissue likely related to bladder stimulating device. IMPRESSION: 1. Diverticulosis without evidence of acute diverticulitis. 2. No evidence of bowel obstruction, free air, or free fluid. Interpreted by: Gabe Callejas DO Signed by: Gabe Callejas DO 12/30/18 Final result Normal [facility] Comprehensive Metabolic Pane gary 12-30-2018 Albumin mass conc 4.3 g/dL Normal 3.5-5.2 [facility] ALP enzyme act/vol 88 U/L Normal 35-104 [facility] ALT enzyme act/vol 27 U/L Normal 0-32 [facility] Anion gap molar conc 11 mmol/L Normal 7-16 [facility] AST enzyme act/vol 20 U/L Normal 0-31 [facility] Bilirubin mass conc 0.4 mg/dL Normal 0.0-1.2 [facility] Calcium mass conc 10.1 mg/dL Normal 8.6-10.2 [facility] Chloride molar conc 102 mmol/L Normal 98-107 [facility] CO2 molar conc 26 mmol/L Normal 22-29 [facility] Creatinine mass conc 0.8 mg/dL Normal 0.5-1.0 [facility] GFR/1.73 sq M predicted among blacks MDRD vol rate/area (S/P/Bld) mL/min/{1.73_m2} Normal [facility] GFR/1.73 sq M predicted among non-blacks MDRD vol rate/area (S/P/Bld) mL/min/{1.73_m2} Normal >=60 [facility] Comment on above: Result Comment: Infrastructure [employer] Architect janelle Kidney Disease: less than 60 ml/min/1.73 sq.m. Kidney Failure: less than 15 ml/min/1.73 sq.m. Results valid for patients 18 years and older. Glucose mass conc 102 mg/dL High 74-99 [facility] Potassium molar conc 3.9 mmol/L Normal 3.5-5.0 [facility] Protein mass conc 6.9 g/dL Normal 6.4-8.3 [facility] Sodium molar conc 139 mmol/L Normal 132-146 [facility] Urea nitrogen mass conc 17 mg/dL Normal 8-23 [facility] Lactic Acidon 12-30-2018 Lactate molar conc 1.4 mmol/L Normal 0.5-2.2 [facility] Lipaseon 12-30-2018 Lipase enzyme act/vol 20 U/L Normal 13-60 [facility] Troponinon 12-30-2018 Troponin I.cardiac mass conc ng/mL Normal 0.00-0.03 [facility] Comment on above: Result Comment: TROP ONIN T BLOOD LEVELS: 0.03 ng/mL Upper Reference Limit 0.04 - 0.09 ng/mL Possible myocardial injury >= 0.10 ng/mL Myocardial injury Urinalysis, reflex to micros copicon 12-30-2018 Bilirubin Ql (U) Negative Normal Negative [facility] Clarity Nom (U) Clear Normal Clear [facility] Color Nom (U) Yellow Normal [place] ow [facility] Glucose Ql (U) Negative Normal Negative [facility] Hemoglobin Ql (U) MODERATE Abnormal Negative [facility] Ketones Ql (U) TRACE Abnormal Negative [facility] Leukocyte esterase Test strip Ql (U) Negative Normal Negative [facility] Nitrite Ql (U) Negative Normal Negative [facility] pH (U) 5.0 [pH] Normal 5.0-9.0 [facility] Protein Ql (U) Negative Normal Negative [facility] Specific gravity Relative Density (U) 1.020 Normal 1.005-1.03 0 [facility] Urobilinogen Qn (U) 0.2 {Marily'U}/dL Normal < 2.0 [facility] Urine Microscopicon 12-31-19 19 Bacteria LM.HPF #/area (Urine sed) RARE Abnormal [facility] Epithelial cells LM Ql (Urine sed) MODERATE Normal [facility] RBC #/vol (U) 1-3 Normal 0-2 [facility] WBC #/vol (U) NONE Normal 0-5 [facility] IR fluoro localizationon IR fluoro localization [facility] 1996 [place] [address] Interventional Radiology Rpt Signed Patient: KAYLENE SHAFER MR#: [id number] : 1950 Acct:[id number] Age/Sex: 68 / F Admit Date: 12/20/18 Loc: OR Attending Dr: Nolan Chadwick MD Ordering Physician: Nolan Chadwick MD Date of Service: 12/20/18 Procedure(s): IR fluoro localization Accession Number(s): [id number] cc: HISTORY: Urinary urgency and frequency. TECHNIQUE: Intraoperative views. FINDINGS: Existing right-sided neurostimulator in place. New neuro stimulator overlies the left S3 sacral neural foramen and extends into the pelvis. IMPRESSION Intraoperative views: Findings as described. Dictated By: Geovany Melendez MD DD/ 15 Signed By: Geovany Melendez MD 12/20/181215 Database Specialist: [facility] ([place]) CBC with DIFFERENTIALon 11-19 Basophils #/vol (Bld) 0.0 10*3/uL Normal 0.0-0.1 [facility] Comment on above: Performed By: #### C BCND, CMP, LIPLDLHDL, TSH, B12 #### [facility] [address] [place] [address] 35294 Basophils/100 WBC (Bld) 0.4 % Normal 0.0-1.0 [facility] Comment on above: Performed By: #### C BCND, CMP, LIPLDLHDL, TSH, B12 #### [facility] [address] [place] [address] Eosinophils #/vol (Bld) 0.2 10*3/uL Normal 0.0-0.4 [facility] Comment on above: Performed By: #### C BCND, CMP, LIPLDLHDL, TSH, B12 #### [facility] [address] [place] [address] Eosinophils/100 WBC (Bld) 2.1 % Normal 1.0-4.0 [facility] Comment on above: Performed By: #### C BCND, CMP, LIPLDLHDL, TSH, B12 #### [facility] [address] [place] [address] 15515 Hematocrit Volume Fraction (Bld) 37.8 % Normal 37.0-47.0 [facility] Comment on above: Performed By: #### C BCND, CMP, LIPLDLHDL, TSH, B12 #### [facility] [address] [place] [address] Hemoglobin mass conc (Bld) 12.9 g/dL Normal 12.0-16.0 [facility] Comment on above: Performed By: #### C BCND, CMP, LIPLDLHDL, TSH, B12 #### [facility] [address] [place] [address] IG # 0.0 10*3/uL Normal 0.0-0.1 [facility] Comment on above: Performed By: #### C BCND, CMP, LIPLDLHDL, TSH, B12 #### [facility] [address] [place] [address] 24311 IG % 0.3 % Normal 0.0-1.0 [facility] Comment on above: Performed By: #### C BCND, CMP, LIPLDLHDL, TSH, B12 #### [facility] [address] [place] [address] Lymphocytes #/vol (Bld) 2.5 10*3/uL Normal 1.3-4.4 [facility] Comment on above: Performed By: #### C BCND, CMP, LIPLDLHDL, TSH, B12 #### [facility] [address] [place] [address] 20701 Lymphocytes/100 WBC (Bld) 26.5 % Low 27.0-41.0 [facility] Comment on above: Performed By: #### C BCND, CMP, LIPLDLHDL, TSH, B12 #### [facility] [address] [place] [address] MCH Entitic mass (RBC) 34.1 g/dl Normal 33.0-37.0 [facility] Comment on above: Performed By: #### C BCND, CMP, LIPLDLHDL, TSH, B12 #### [facility] [address] [place] [address] 36909 MCV Entitic volume (RBC) 93.8 fL Normal 81.0-99.0 [facility] Comment on above: Performed By: #### C BCND, CMP, LIPLDLHDL, TSH, B12 #### [facility] [address] [place] [address] 97276 MEAN CORPUSCULAR HGB 32.0 pg High 27.0-31.0 [facility] Comment on above: Performed By: #### C BCND, CMP, LIPLDLHDL, TSH, B12 #### [facility] [address] [place] [address] 42059 Monocytes #/vol (Bld) 0.7 10*3/uL Normal 0.1-1.0 [facility] Comment on above: Performed By: #### C BCND, CMP, LIPLDLHDL, TSH, B12 #### [facility] [address] [place] [address] 00801 Monocytes/100 WBC (Bld) 7.5 % Normal 3.0-9.0 [facility] Comment on above: Performed By: #### C BCND, CMP, LIPLDLHDL, TSH, B12 #### [facility] [address] [place] [address] 50115 Neutrophils #/vol (Bld) 5.8 10*3/uL Normal 2.3-7.9 [facility] Comment on above: Performed By: #### C BCND, CMP, LIPLDLHDL, TSH, B12 #### [facility] [address] [place] [address] 85075 Neutrophils/100 WBC (Bld) 63.2 % Normal 47.0-73.0 [facility] Comment on above: Performed By: #### C BCND, CMP, LIPLDLHDL, TSH, B12 #### [facility] [address] [place] [address] 36895 NUCLEATED RED BLOOD CELL 0.0 % Normal 0.0-0.0 [facility] Comment on above: Performed By: #### C BCND, CMP, LIPLDLHDL, TSH, B12 #### [facility] [address] [place] [address] 01801 NUCLEATED RED BLOOD CELL 0.0 10*3/uL Normal 0.0-0.0 [facility] Comment on above: Performed By: #### C BCND, CMP, LIPLDLHDL, TSH, B12 #### [facility] [address] [place] [address] 21271 PLATELET COUNT AUTOMATED 253 10*3/uL Normal 130-400 [facility] Comment on above: Performed By: #### C BCND, CMP, LIPLDLHDL, TSH, B12 #### [facility] [address] [place] [address] 22252 Platelet mean volume Entitic volume (Bld) 9.5 fL Low 9.6-12.3 [facility] Comment on above: Performed By: #### C BCND, CMP, LIPLDLHDL, TSH, B12 #### [facility] [address] [place] [address] 59595 RBC #/vol (Bld) 4.03 10*6/uL Low 4.10-5.10 [facility] Comment on above: Performed By: #### C BCND, CMP, LIPLDLHDL, TSH, B12 #### [facility] [address] [place] [address] 39032 RED CELL DISTRI WIDTH 12.7 % Normal 0-14.5 [facility] Comment on above: Performed By: #### C BCND, CMP, LIPLDLHDL, TSH, B12 #### [facility] [address] [place] [address] 01271 WBC #/vol (Bld) 9.2 10*3/uL Normal 4.8-10.8 [facility] Comment on above: Performed By: #### C BCND, CMP, LIPLDLHDL, TSH, B12 #### [facility] [address] [place] [address] 41692 COMPREHENSIVE METABOLIC PANE Gary 12-17-2018 Albumin mass conc 3.6 gm/dl Normal 3.1-4.5 [facility] Comment on above: Performed By: #### C BCND, CMP, LIPLDLHDL, TSH, B12 #### [facility] [address] [place] [address] ALP enzyme act/vol 107 U/L Normal 45-117 [facility] Comment on above: Performed By: #### C BCND, CMP, LIPLDLHDL, TSH, B12 #### [facility] [address] [place] [address] ALT enzyme act/vol 43 U/L Normal 12-78 [facility] Comment on above: Performed By: #### C BCND, CMP, LIPLDLHDL, TSH, B12 #### [facility] [address] [place] [address] Bilirubin mass conc 0.2 mg/dL Normal 0.2-1.0 [facility] Comment on above: Performed By: #### C BCND, CMP, LIPLDLHDL, TSH, B12 #### [facility] [address] [place] [address] Calcium mass conc 8.8 mg/dL Normal 8.5-10.5 [facility] Comment on above: Performed By: #### C BCND, CMP, LIPLDLHDL, TSH, B12 #### [facility] [address] [place] [address] 71338 Chloride molar conc 109 mmol/L High 98-107 [facility] Comment on above: Performed By: #### C BCND, CMP, LIPLDLHDL, TSH, B12 #### [facility] [address] [place] [address] CO2 molar conc 27 mmol/L Normal 21-32 [facility] Comment on above: Performed By: #### C BCND, CMP, LIPLDLHDL, TSH, B12 #### [facility] [address] [place] [address] 88515 Creatinine mass conc 0.77 mg/dL Normal 0.55-1.02 [facility] Comment on above: Performed By: #### C BCND, CMP, LIPLDLHDL, TSH, B12 #### [facility] [address] [place] [address] EST GLOM FILT > 60 Normal [facility] Comment on above: Result Comment: Result Units: mL/min/1.73 m2 Note: Persistent reduction for 3 months or more of an eGFR of <60 ml/min/1.73 m2 defines Chronic Kidney Disease (CKD). Patients with eGFR values greater than or equal to 60 ml/min/1.73 m2 may also have CKD if evidence of persistent proteinuria is present. STAGES OF CKD eGFR Stage 1 Kidney damage with normal kidney function >=90 Stage 2 Kidney damage with mild loss of kidney function 89-60 Stage 3a Mild to moderate loss of kidney function 59-44 Stage 3b Moderate to severe loss of kidney function 43-30 Stage 4 Severe loss of kidney function 29-15 Stage 5 Kidney failure < 15 . Performed By: #### C BCND, CMP, LIPLDLHDL, TSH, B12 #### [facility] [address] [place] [address] ESTIMATED GLOM FILT RATE > 60 Normal [facility] Comment on above: Performed By: #### C BCND, CMP, LIPLDLHDL, TSH, B12 #### [facility] [address] [place] [address] Glucose mass conc 108 mg/dL High 65-99 [facility] Comment on above: Performed By: #### C BCND, CMP, LIPLDLHDL, TSH, B12 #### [facility] [address] [place] [address] Potassium molar conc 4.1 mmol/L Normal 3.5-5.1 [facility] Comment on above: Performed By: #### C BCND, CMP, LIPLDLHDL, TSH, B12 #### [facility] [address] [place] [address] Protein mass conc 6.8 g/dL Normal 6.4-8.2 [facility] Comment on above: Performed By: #### C BCND, CMP, LIPLDLHDL, TSH, B12 #### [facility] [address] [place] [address] SGOT/AST 26 IU/L Normal 3-35 [facility] Comment on above: Performed By: #### C BCND, CMP, LIPLDLHDL, TSH, B12 #### [facility] [address] [place] [address] Sodium molar conc 143 mmol/L Normal 136-145 [facility] Comment on above: Performed By: #### C BCND, CMP, LIPLDLHDL, TSH, B12 #### [facility] [address] [place] [address] Urea nitrogen mass conc 16 mg/dL Normal 7-24 [facility] Comment on above: Performed By: #### C BCND, CMP, LIPLDLHDL, TSH, B12 #### [facility] [address] [place] [address] ELECTROCARDIOGRAM REPORTon 0 03-24-2018 [employer] [facility] [place], [place] ELECTROCARDIOGRAM REPORT NAME: SONIKAYLENE UNIT #: [id number] ROOM: DOCTOR: DAYANARA NOLASCO MD BIRTHDATE: [birth year] DOS: 03/20/2018 TIMES: 2205 hours FINDINGS: 1. Normal sinus rhythm at 78 beats per minute. 2. Nonspecific ST segment changes in lead 1 and aVL. 3. No previous tracing is available for comparison. DAYANARA NOLASCO MD CM:EKGRPT:ELECTROCARDIOGRAM REPORT [id number] DAYANARA NOLASCO MD Normal [facility] ACUTE ABDOMINAL SERIESon CRAAS Name: SONIKAYLENE Phys: JENNIFER LLOYD,DOMINGO : 1950 Age: 67 Sex: F Acct: [id number] Loc: ED Exam Date: 03/20/2018 Status: REG ER Radiology No: [id number] Unit No: [id number] EXAM# TYPE/EXAM RESULT [id number] EDRAD/ACUTE ABDOMINAL SERIES SEE REPORT INDICATION: Diarrhea for a while, more diarrhea than normal, has taken antidiarrheal medication with no relief. Gas bloating, very sore and painful rectum, abdominal pain. Colonoscopy today. Urinary nerve stimulator. Additional History: History radiation for colorectal cancer in 2011. TECHNIQUE: Single view of the chest and two views (three images) of the abdomen. COMPARISON: None Available. FINDINGS: The cardiomediastinal silhouette is normal in size. There is no consolidation or atelectasis in either lung. There are no pleural effusions. There is no pneumothorax. No acute osseous process. Bowel gas pattern is normal without obstruction or ileus. There are no convincing calculi or abnormal calcifications. No focal osseous abnormalities. Right-sided bladder stimulator. IMPRESSION: No acute cardiopulmonary abnormality. Nonobstructive bowel gas pattern. Signed by Irvin Russell M.D. REPORT SIGNED IN OTHER VENDOR SYSTEM 03/20/2018 Reported By: IRVIN RUSSELL M.D. CC: Technologist: GUS GLORIA Transcribed Date/Time: 03/20/2018 (2207) Database Specialist: BRITTANEY Printed Date/Time: 03/20/2018 (2207) PAGE 1 Signed Report Normal [facility] C-REACTIVE PROTEINon 018 CRP mass conc 0.74 MG/DL High 0-0.3 [facility] Comment on above: Result Comment: This method is intended for the detection and evaluation of infection, tissue injury and inflammatory disease. This method is not intended for cardiovascular risk assessment. * Performed By: #### C BCND, CMP, LIPLDLHDL, TSH, B12 #### [facility] [address] [place] [address] CBC with DIFFERENTIALon -0 Basophils #/vol (Bld) 0.1 10*3/uL Normal 0.0-0.1 [facility] Comment on above: Performed By: #### C BCND, CMP, LIPLDLHDL, TSH, B12 #### [facility] [address] [place] [address] Basophils/100 WBC (Bld) 0.5 % Normal 0.0-1.0 [facility] Comment on above: Performed By: #### C BCND, CMP, LIPLDLHDL, TSH, B12 #### [facility] [address] [place] [address] Eosinophils #/vol (Bld) 0.1 10*3/uL Normal 0.0-0.4 [facility] Comment on above: Performed By: #### C BCND, CMP, LIPLDLHDL, TSH, B12 #### [facility] [address] [place] [address] Eosinophils/100 WBC (Bld) 1.0 % Normal 1.0-4.0 [facility] Comment on above: Performed By: #### C BCND, CMP, LIPLDLHDL, TSH, B12 #### [facility] [address] [place] [address] 82354 Hematocrit Volume Fraction (Bld) 39.2 % Normal 37.0-47.0 [facility] Comment on above: Performed By: #### C BCND, CMP, LIPLDLHDL, TSH, B12 #### [facility] [address] [place] [address] Hemoglobin mass conc (Bld) 13.2 g/dL Normal 12.0-16.0 [facility] Comment on above: Performed By: #### C BCND, CMP, LIPLDLHDL, TSH, B12 #### [facility] [address] [place] [address] IG # 0.0 10*3/uL Normal 0.0-0.1 [facility] Comment on above: Performed By: #### C BCND, CMP, LIPLDLHDL, TSH, B12 #### [facility] [address] [place] [address] IG % 0.3 % Normal 0.0-1.0 [facility] Comment on above: Performed By: #### C BCND, CMP, LIPLDLHDL, TSH, B12 #### [facility] [address] [place] [address] 18926 Lymphocytes #/vol (Bld) 2.1 10*3/uL Normal 1.3-4.4 [facility] Comment on above: Performed By: #### C BCND, CMP, LIPLDLHDL, TSH, B12 #### [facility] [address] [place] [address] Lymphocytes/100 WBC (Bld) 21.5 % Low 27.0-41.0 [facility] Comment on above: Performed By: #### C BCND, CMP, LIPLDLHDL, TSH, B12 #### [facility] [address] [place] [address] MCH Entitic mass (RBC) 33.7 g/dl Normal 33.0-37.0 [facility] Comment on above: Performed By: #### C BCND, CMP, LIPLDLHDL, TSH, B12 #### [facility] [address] [place] [address] 02755 MCV Entitic volume (RBC) 90.5 fL Normal 81.0-99.0 [facility] Comment on above: Performed By: #### C BCND, CMP, LIPLDLHDL, TSH, B12 #### [facility] [address] [place] [address] 03380 MEAN CORPUSCULAR HGB 30.5 pg Normal 27.0-31.0 [facility] Comment on above: Performed By: #### C BCND, CMP, LIPLDLHDL, TSH, B12 #### [facility] [address] [place] [address] 01030 Monocytes #/vol (Bld) 0.7 10*3/uL Normal 0.1-1.0 [facility] Comment on above: Performed By: #### C BCND, CMP, LIPLDLHDL, TSH, B12 #### [facility] [address] [place] [address] 05959 Monocytes/100 WBC (Bld) 7.0 % Normal 3.0-9.0 [facility] Comment on above: Performed By: #### C BCND, CMP, LIPLDLHDL, TSH, B12 #### [facility] [address] [place] [address] Neutrophils #/vol (Bld) 6.7 10*3/uL Normal 2.3-7.9 [facility] Comment on above: Performed By: #### C BCND, CMP, LIPLDLHDL, TSH, B12 #### [facility] [address] [place] [address] Neutrophils/100 WBC (Bld) 69.7 % Normal 47.0-73.0 [facility] Comment on above: Performed By: #### C BCND, CMP, LIPLDLHDL, TSH, B12 #### [facility] [address] [place] [address] 16507 NUCLEATED RED BLOOD CELL 0.0 10*3/uL Normal 0.0-0.0 [facility] Comment on above: Performed By: #### C BCND, CMP, LIPLDLHDL, TSH, B12 #### [facility] [address] [place] [address] 99969 NUCLEATED RED BLOOD CELL 0.0 % Normal 0.0-0.0 [facility] Comment on above: Performed By: #### C BCND, CMP, LIPLDLHDL, TSH, B12 #### [facility] [address] [place] [address] 10431 PLATELET COUNT AUTOMATED 269 10*3/uL Normal 130-400 [facility] Comment on above: Performed By: #### C BCND, CMP, LIPLDLHDL, TSH, B12 #### [facility] [address] [place] [address] 73371 Platelet mean volume Entitic volume (Bld) 9.5 fL Low 9.6-12.3 [facility] Comment on above: Performed By: #### C BCND, CMP, LIPLDLHDL, TSH, B12 #### [facility] [address] [place] [address] 38062 RBC #/vol (Bld) 4.33 10*6/uL Normal 4.10-5.10 [facility] Comment on above: Performed By: #### C BCND, CMP, LIPLDLHDL, TSH, B12 #### [facility] [address] [place] [address] RED CELL DISTRI WIDTH 12.7 % Normal 0-14.5 [facility] Comment on above: Performed By: #### C BCND, CMP, LIPLDLHDL, TSH, B12 #### [facility] [address] [place] [address] 19903 WBC #/vol (Bld) 9.6 10*3/uL Normal 4.8-10.8 [facility] Comment on above: Performed By: #### C BCND, CMP, LIPLDLHDL, TSH, B12 #### [facility] [address] [place] [address] 33386 COMPREHENSIVE METABOLIC PANE Gary 03-21-2018 Albumin mass conc 3.6 gm/dl Normal 3.1-4.5 [facility] Comment on above: Performed By: #### C BCND, CMP, LIPLDLHDL, TSH, B12 #### [facility] [address] [place] [address] ALP enzyme act/vol 100 U/L Normal 45-117 [facility] Comment on above: Performed By: #### C BCND, CMP, LIPLDLHDL, TSH, B12 #### [facility] [address] [place] [address] ALT enzyme act/vol 32 U/L Normal 12-78 [facility] Comment on above: Performed By: #### C BCND, CMP, LIPLDLHDL, TSH, B12 #### [facility] [address] [place] [address] Bilirubin mass conc 0.4 mg/dL Normal 0.2-1.0 [facility] Comment on above: Performed By: #### C BCND, CMP, LIPLDLHDL, TSH, B12 #### [facility] [address] [place] [address] 75071 Calcium mass conc 9.1 mg/dL Normal 8.5-10.5 [facility] Comment on above: Performed By: #### C BCND, CMP, LIPLDLHDL, TSH, B12 #### [facility] [address] [place] [address] Chloride molar conc 109 mmol/L High 98-107 [facility] Comment on above: Performed By: #### C BCND, CMP, LIPLDLHDL, TSH, B12 #### [facility] [address] [place] [address] CO2 molar conc 24 mmol/L Normal 21-32 [facility] Comment on above: Performed By: #### C BCND, CMP, LIPLDLHDL, TSH, B12 #### [facility] [address] [place] [address] Creatinine mass conc 0.89 mg/dL Normal 0.55-1.02 [facility] Comment on above: Performed By: #### C BCND, CMP, LIPLDLHDL, TSH, B12 #### [facility] [address] [place] [address] EST GLOM FILT > 60 Normal [facility] Comment on above: Result Comment: Result Units: mL/min/1.73 m2 Note: Persistent reduction for 3 months or more of an eGFR of <60 ml/min/1.73 m2 defines Chronic Kidney Disease (CKD). Patients with eGFR values greater than or equal to 60 ml/min/1.73 m2 may also have CKD if evidence of persistent proteinuria is present. STAGES OF CKD eGFR Stage 1 Kidney damage with normal kidney function >=90 Stage 2 Kidney damage with mild loss of kidney function 89-60 Stage 3a Mild to moderate loss of kidney function 59-44 Stage 3b Moderate to severe loss of kidney function 43-30 Stage 4 Severe loss of kidney function 29-15 Stage 5 Kidney failure < 15 . Performed By: #### C BCND, CMP, LIPLDLHDL, TSH, B12 #### [facility] [address] [place] [address] ESTIMATED GLOM FILT RATE > 60 Normal [facility] Comment on above: Performed By: #### C BCND, CMP, LIPLDLHDL, TSH, B12 #### [facility] [address] [place] [address] Glucose mass conc 115 mg/dL High 65-99 [facility] Comment on above: Performed By: #### C BCND, CMP, LIPLDLHDL, TSH, B12 #### [facility] [address] [place] [address] Potassium molar conc 3.6 mmol/L Normal 3.5-5.1 [facility] Comment on above: Performed By: #### C BCND, CMP, LIPLDLHDL, TSH, B12 #### [facility] [address] [place] [address] Protein mass conc 7.2 g/dL Normal 6.4-8.2 [facility] Comment on above: Performed By: #### C BCND, CMP, LIPLDLHDL, TSH, B12 #### [facility] [address] [place] [address] SGOT/AST 13 IU/L Normal 3-35 [facility] Comment on above: Performed By: #### C BCND, CMP, LIPLDLHDL, TSH, B12 #### [facility] [address] [place] [address] Sodium molar conc 142 mmol/L Normal 136-145 [facility] Comment on above: Performed By: #### C BCND, CMP, LIPLDLHDL, TSH, B12 #### [facility] [address] [place] [address] Urea nitrogen mass conc 11 mg/dL Normal 7-24 [facility] Comment on above: Performed By: #### C BCND, CMP, LIPLDLHDL, TSH, B12 #### [facility] [address] [place] [address] 53467 LACTIC ACID BASELINEon 03-21 LACTIC ACID BASELINE 2.6 mmol/L Abnormal 0.4-2.0 [facility] Comment on above: Result Comment: VALUE IS A CRITICAL RESULT VERIFIED BY REPEAT ANALYSIS ON SAME SPECIMEN RESULT CALLED TO: ANDREE MONTENEGRO READ BACK RESULTS AND DATE OF OF 46 VERIFIED 03/20/18 2222 CLAYTON MCDONALD Performed By: #### C BCND, CMP, LIPLDLHDL, TSH, B12 #### [facility] [address] [place] [address] LIPASEon 03-21-2018 Lipase enzyme act/vol 110 U/L Normal 73-393 [facility] Comment on above: Performed By: #### C BCND, CMP, LIPLDLHDL, TSH, B12 #### [facility] [address] [place] [address] TROPONIN Ion 03-21-2018 Troponin I.cardiac mass conc ng/mL Normal <0.045 [facility] Comment on above: Result Comment: myocardial injury. Clinical correlation required. >0.045 Troponin I interpretation: Troponin I present. Diagnostic possibilities include, but are not limited to, unstable angina, micro myocardial injury, early myocardial injury, cardiomyopathy or myocardial infarct. Clinical correlation required. Troponin I testing performed on a Siemens Dimension [place] analyzer which has a coefficient varient of <10 percent at the 99th percentile as recommended by 2014 AHA NSTE-ACS guidelines and the third universal definition of [place]. The 2012 Third [place] Definition of [place] defines a positive troponin as an elevation of the troponin I value above the 99th percentile of normal. Troponin I is the preferred biomarker overall and the only biomarker assessed for Chest Pain Accreditation purposes. Troponin I testing should be measured at presentation, and 3-6 hours after symptom onset in all patients presenting with ACS symptoms to identify a rising and/or falling pattern. Performed By: #### C BCND, CMP, LIPLDLHDL, TSH, B12 #### [facility] [address] [place] [address] URINALYSIS REFLEX TO CULTURE on 03-21-2018 Bacteria LM.HPF #/area (Urine sed) 1+ Abnormal [facility] Comment on above: Performed By: #### U ARFXUC #### [facility] [address] [place] [address] Epithelial cells LM.HPF #/area (Urine sed) 0-2 Normal [facility] Comment on above: Performed By: #### U ARFXUC #### [facility] [address] [place] [address] RBC #/vol (U) 5-10 Normal 0-2 [facility] Comment on above: Performed By: #### U ARFXUC #### [facility] [address] [place] [address] URINE REFLEX COMMENT YES Normal NO [facility] Comment on above: Result Comment: REFL EX CRITERIA MET FOR URINE CULTURE Performed By: #### U ARFXUC #### [facility] [address] [place] [address] WBC #/vol (Bld) 16-20 Normal 0-5 [facility] Comment on above: Performed By: #### U ARFXUC #### [facility] [address] [place] [address] Bilirubin mass conc Negative Normal NEGATIVE [facility] Comment on above: Performed By: #### U ARFXUC #### [facility] [address] [place] [address] BLOOD 1+ Abnormal NEGATIVE [facility] Comment on above: Performed By: #### U ARFXUC #### [facility] [address] [place] [address] Clarity Nom (U) CLEAR Normal CLEAR [facility] Comment on above: Performed By: #### U ARFXUC #### [facility] [address] [place] [address] Color Nom (U) YELLOW Normal YELLOW [facility] Comment on above: Performed By: #### U ARFXUC #### [facility] [address] [place] [address] Glucose mass conc Negative Normal NEGATIVE [facility] Comment on above: Performed By: #### U ARFXUC #### [facility] [address] [place] [address] KETONE Negative Normal NEGATIVE [facility] Comment on above: Performed By: #### U ARFXUC #### [facility] [address] [place] [address] LEUKO ESTERASE 2+ Abnormal NEGATIVE [facility] Comment on above: Performed By: #### U ARFXUC #### [facility] [facility] [address] [place] [address] [id number] Nitrite Ql (U) Negative Normal NEGATIVE [facility] Comment on above: Performed By: #### U ARFXUC #### [facility] [address] [place] [address] [phone] pH (Bld) 5.5 Normal 5.0-9.0 [facility] Comment on above: Performed By: #### U ARFXUC #### [facility] [address] [place] [address] [id number] Protein mass conc (U) Negative Normal NEGATIVE [facility] Comment on above: Performed By: #### U ARFXUC #### [facility] [address] [place] [address] [phone] Specific gravity Relative Density (U) 1.025 Normal 1.005-1.03 0 [facility] Comment on above: Performed By: #### U ARFXUC #### [facility] [address] [place] [address] 47155 Urobilinogen Qn (U) 0.2 E.U./dl Normal 0.2-1.0 [facility] Comment on above: Performed By: #### U ARFXUC #### [facility] [address] [place] [address] 45259 URINE CULTUREon 03-21-2018 Bacteria identified Cx Nom (U) URINE CULTURE #1: HEAVY GNB #2: HEAVY GPC COLONY COUNT >100,000 ESCHERICHIA COLI (ORGANISM ID: [id number]) - Isolated ENTEROCOCCUS FAECALIS (ORGANISM ID: 3.1) - Isolated ORGANISM ID: 2.1 ANTIBIOTIC INTERPRETATION SOLANGE STATUS AMPICILLIN/SULBACTAM S <8/4 F AMIKACIN S <16 F AMPICILLIN S <8 F AZTREONAM S <4 F CEFTRIAXONE S <8 F CEFTAZIDIME S <1 F CEFOTAXIME S <2 F CEFOXITIN S <8 F CEFAZOLIN S <8 F CIPROFLOXICIN S <1 F CEFEPIME S <4 F CEFUROXIME S <4 F ERTAPENEM S <1 F NITROFURANTOIN S <32 F GENTAMICIN S <4 F LEVOFLOXACIN S <2 F MEROPENEM S <1 F PIPERACILLIN/TAZOBACTAM S <16 F TRIMETHOPRIM/SULFAMETHOXAZOL E S <2/38 F TETRACYCLINE S <4 F TOBRAMYCIN S <4 F ORGANISM ID: 3.1 ANTIBIOTIC INTERPRETATION SOLANGE STATUS AMPICILLIN S <2 F CIPROFLOXICIN S <1 F NITROFURANTOIN S <32 F LEVOFLOXACIN S <1 F LINEZOLID S <1 F PENICILLIN S 2 F TETRACYCLINE R >8 F VANCOMYCIN S 2 F Normal [facility] Comment on above: Performed By: #### C BCND, CMP, LIPLDLHDL, TSH, B12 #### [facility] [address] [place] [address] C DIFFICILE TOXIN A/Bon 02-17 C DIFFICILE TOXIN A/B C DIFFICILE TOXIN A/B NEGATIVE FOR CLOSTRIDIUM DIFFICILE TOXIN A AND B Normal [facility] Comment on above: Performed By: #### C RYP, CDIFF, ST2 #### [facility] [address] [place] [address] CBC NO DIFFERENTIALon 2017 Hematocrit Volume Fraction (Bld) 42.9 % Normal 37.0-47.0 [facility] Comment on above: Performed By: #### C BCND, CMP, LIPLDLHDL, TSH, B12 #### [facility] [address] [place] [address] [phone] Hemoglobin mass conc (Bld) 14.3 g/dL Normal 12.0-16.0 [facility] Comment on above: Performed By: #### C BCND, CMP, LIPLDLHDL, TSH, B12 #### [facility] [address] [place] [address] 34245 MCH Entitic mass (RBC) 33.3 g/dl Normal 33.0-37.0 [facility] Comment on above: Performed By: #### C BCND, CMP, LIPLDLHDL, TSH, B12 #### [facility] [address] [place] [address] MCV Entitic volume (RBC) 92.1 fL Normal 81.0-99.0 [facility] Comment on above: Performed By: #### C BCND, CMP, LIPLDLHDL, TSH, B12 #### [facility] [address] [place] [address] 28563 MEAN CORPUSCULAR HGB 30.7 pg Normal 27.0-31.0 [facility] Comment on above: Performed By: #### C BCND, CMP, LIPLDLHDL, TSH, B12 #### [facility] [address] [place] [address] 20475 NUCLEATED RED BLOOD CELL 0.0 % Normal 0.0-0.0 [facility] Comment on above: Performed By: #### C BCND, CMP, LIPLDLHDL, TSH, B12 #### [facility] [address] [place] [address] 17560 NUCLEATED RED BLOOD CELL 0.0 10*3/uL Normal 0.0-0.0 [facility] Comment on above: Performed By: #### C BCND, CMP, LIPLDLHDL, TSH, B12 #### [facility] [address] [place] [address] [phone] PLATELET COUNT AUTOMATED 270 10*3/uL Normal 130-400 [facility] Comment on above: Performed By: #### C BCND, CMP, LIPLDLHDL, TSH, B12 #### [facility] [address] [place] [address] 13843 Platelet mean volume Entitic volume (Bld) 9.6 fL Normal 9.6-12.3 [facility] Comment on above: Performed By: #### C BCND, CMP, LIPLDLHDL, TSH, B12 #### [facility] [address] [place] [address] 10528 RBC #/vol (Bld) 4.66 10*6/uL Normal 4.10-5.10 [facility] Comment on above: Performed By: #### C BCND, CMP, LIPLDLHDL, TSH, B12 #### [facility] [address] [place] [address] RED CELL DISTRI WIDTH 12.5 % Normal 0-14.5 [facility] Comment on above: Performed By: #### C BCND, CMP, LIPLDLHDL, TSH, B12 #### [facility] [address] [place] [address] WBC #/vol (Bld) 8.4 10*3/uL Normal 4.8-10.8 [facility] Comment on above: Performed By: #### C BCND, CMP, LIPLDLHDL, TSH, B12 #### [facility] [address] [place] [address] COMPREHENSIVE METABOLIC PANE Gary 02-28-2018 Albumin mass conc 3.9 gm/dl Normal 3.1-4.5 [facility] Comment on above: Performed By: #### C BCND, CMP, LIPLDLHDL, TSH, B12 #### [facility] [address] [place] [address] ALP enzyme act/vol 101 U/L Normal 45-117 [facility] Comment on above: Performed By: #### C BCND, CMP, LIPLDLHDL, TSH, B12 #### [facility] [address] [place] [address] ALT enzyme act/vol 38 U/L Normal 12-78 [facility] Comment on above: Performed By: #### C BCND, CMP, LIPLDLHDL, TSH, B12 #### [facility] [address] [place] [address] 68230 Bilirubin mass conc 0.4 mg/dL Normal 0.2-1.0 [facility] Comment on above: Performed By: #### C BCND, CMP, LIPLDLHDL, TSH, B12 #### [facility] [address] [place] [address] Calcium mass conc 9.0 mg/dL Normal 8.5-10.5 [facility] Comment on above: Performed By: #### C BCND, CMP, LIPLDLHDL, TSH, B12 #### [facility] [address] [place] [address] Chloride molar conc 107 mmol/L Normal 98-107 [facility] Comment on above: Performed By: #### C BCND, CMP, LIPLDLHDL, TSH, B12 #### [facility] [address] [place] [address] CO2 molar conc 26 mmol/L Normal 21-32 [facility] Comment on above: Performed By: #### C BCND, CMP, LIPLDLHDL, TSH, B12 #### [facility] [address] [place] [address] Creatinine mass conc 0.84 mg/dL Normal 0.55-1.02 [facility] Comment on above: Performed By: #### C BCND, CMP, LIPLDLHDL, TSH, B12 #### [facility] [address] [place] [address] EST GLOM FILT > 60 Normal [facility] Comment on above: Result Comment: Result Units: mL/min/1.73 m2 Note: Persistent reduction for 3 months or more of an eGFR of <60 ml/min/1.73 m2 defines Chronic Kidney Disease (CKD). Patients with eGFR values greater than or equal to 60 ml/min/1.73 m2 may also have CKD if evidence of persistent proteinuria is present. STAGES OF CKD eGFR Stage 1 Kidney damage with normal kidney function >=90 Stage 2 Kidney damage with mild loss of kidney function 89-60 Stage 3a Mild to moderate loss of kidney function 59-44 Stage 3b Moderate to severe loss of kidney function 43-30 Stage 4 Severe loss of kidney function 29-15 Stage 5 Kidney failure < 15 . Performed By: #### C BCND, CMP, LIPLDLHDL, TSH, B12 #### [facility] [address] [place] [address] ESTIMATED GLOM FILT RATE > 60 Normal [facility] Comment on above: Performed By: #### C BCND, CMP, LIPLDLHDL, TSH, B12 #### [facility] [address] [place] [address] Glucose mass conc 104 mg/dL High 65-99 [facility] Comment on above: Performed By: #### C BCND, CMP, LIPLDLHDL, TSH, B12 #### [facility] [address] [place] [address] Potassium molar conc 4.3 mmol/L Normal 3.5-5.1 [facility] Comment on above: Performed By: #### C BCND, CMP, LIPLDLHDL, TSH, B12 #### [facility] [address] [place] [address] Protein mass conc 7.6 g/dL Normal 6.4-8.2 [facility] Comment on above: Performed By: #### C BCND, CMP, LIPLDLHDL, TSH, B12 #### [facility] [address] [place] [address] SGOT/AST 14 IU/L Normal 3-35 [facility] Comment on above: Performed By: #### C BCND, CMP, LIPLDLHDL, TSH, B12 #### [facility] [address] [place] [address] Sodium molar conc 141 mmol/L Normal 136-145 [facility] Comment on above: Performed By: #### C BCND, CMP, LIPLDLHDL, TSH, B12 #### [facility] [address] [place] [address] Urea nitrogen mass conc 15 mg/dL Normal 7-24 [facility] Comment on above: Performed By: #### C BCND, CMP, LIPLDLHDL, TSH, B12 #### [facility] [address] [place] [address] 16534 CRYPTOSPORIDIUM IMMUNOASSAYo n 02-28-2018 CRYPTOSPORIDIUM IMMUNOASSAY CRYPTOSPORIDIUM IMMUNOASSAY This assay includes Giardia and Cryptosporidium antigen testing only. The presence of other parasites is not evaluated. If further testing is required please order: O P SEND OUT. CRYPTOSPORIDIUM RESULT NEGATIVE GIARDIA IMMUNOASSAY GIARDIA RESULT NEGATIVE Normal [facility] Comment on above: Performed By: #### C RYP, CDIFF, ST2 #### [facility] [address] [place] [address] 68728 LIPID PANEL LDL/HDLon 2017 Cholesterol in HDL mass conc 53 mg/dL Normal 40-60 [facility] Comment on above: Performed By: #### C BCND, CMP, LIPLDLHDL, TSH, B12 #### [facility] [address] [place] [address] 84363 Cholesterol in LDL mass conc 69 mg/dL Normal 9-159 [facility] Comment on above: Performed By: #### C BCND, CMP, LIPLDLHDL, TSH, B12 #### [facility] [address] [place] [address] 63636 Cholesterol mass conc 167 mg/dL Normal <200 [facility] Comment on above: Performed By: #### C BCND, CMP, LIPLDLHDL, TSH, B12 #### [facility] [address] [place] [address] 38482 LDL HDL RATIO 1.3 Normal 0.2-4.0 [facility] Comment on above: Performed By: #### C BCND, CMP, LIPLDLHDL, TSH, B12 #### [facility] [address] [place] [address] 50488 Triglyceride mass conc 225 mg/dL High <150 [facility] Comment on above: Result Comment: TRIGLYCERIDE RISK ASSESSMENT: 150-199 mg/dl BORDERLINE HIGH >200 mg//dl HIGH . Performed By: #### C BCND, CMP, LIPLDLHDL, TSH, B12 #### [facility] [address] [place] [address] 39970 VLDL CHOLESTEROL 45 mg/dL High 6-40 [facility] Comment on above: Performed By: #### C BCND, CMP, LIPLDLHDL, TSH, B12 #### [facility] [address] [place] [address] 39214 THYROID STIM HORMONE (HS)on 02-28-2018 THYROID STIM HORMONE (HS) 3.900 uIU/ml Normal 0.358-4.75 [facility] Comment on above: Performed By: #### C BCND, CMP, LIPLDLHDL, TSH, B12 #### [facility] [address] [place] [address] VITAMIN B12on 02-28-2018 Cobalamin (Vitamin B12) mass conc 406 pg/mL Normal 247-911 [facility] Comment on above: Result Comment: 247 - 911 pg/mL - Normal, Vitamin B12 Sufficiency Performed By: #### C BCND, CMP, LIPLDLHDL, TSH, B12 #### [facility] [address] [place] [address] Vital Signs Date Time Vital Sign Value Performing Clinician Facility 03-29-2025 12:38-0400 Diastolic blood pressure 78 mm[Hg] Afia Chacko MD Work Phone: [facility] 03-29-2025 12:38-0400 Systolic blood pressure 140 mm[Hg] Afia Chacko MD Work Phone: [facility] 03-29-2025 11:45-0400 Body height 162.56 cm Afia Chacko MD Work Phone: [facility] 03-29-2025 11:45-0400 Body mass index (BMI) [Ratio] 31.9 kg/m2 Afia Chacko MD Work Phone: [facility] 03-29-2025 11:45-0400 Body weight 84.36 kg Afia Chacko MD Work Phone: [facility] 03-29-2025 11:45-0400 Diastolic blood pressure 80 mm[Hg] Afia Chacko MD Work Phone: [facility] 03-29-2025 11:45-0400 Heart rate 73 /min Afia Chacko MD Work Phone: [facility] 03-29-2025 11:45-0400 Respiratory rate 18 /min Afia Chacko MD Work Phone: [facility] 03-29-2025 11:45-0400 SaO2% (BldA) [Mass fraction] 94 % Afia Chacko MD Work Phone: [facility] 03-29-2025 11:45-0400 Systolic blood pressure 147 mm[Hg] Afia Chacko MD Work Phone: [facility] 03-01-2025 14:33-0400 Body height 162.56 cm Afia Chacko MD Work Phone: [facility] 03-01-2025 14:33-0400 Body mass index (BMI) [Ratio] 32.1 kg/m2 Afia Chacko MD Work Phone: [facility] 03-01-2025 14:33-0400 Body weight 84.82 kg Afia Chacko MD Work Phone: [facility] 02-04-2025 12:42-0400 Body height 162.6 cm Francis Diallo MD Work Phone: [facility] 02-04-2025 12:42-0400 Body mass index (BMI) [Ratio] 31.07 kg/m2 Francis Diallo MD Work Phone: [facility] 02-04-2025 12:42-0400 Body temperature 97.9 [degF] Francis Diallo MD Work Phone: [facility] 02-04-2025 12:42-0400 Body weight 82.1 kg Francis Diallo MD Work Phone: [facility] 02-04-2025 12:42-0400 Diastolic blood pressure 68 mm[Hg] Francis Diallo MD Work Phone: [facility] 02-04-2025 12:42-0400 Heart rate 93 /min Francis Diallo MD Work Phone: [facility] 02-04-2025 12:42-0400 Systolic blood pressure 150 mm[Hg] Francis Diallo MD Work Phone: [facility] 12-12-2024 15:15-0400 Diastolic blood pressure 58 mm[Hg] Afia Chacko MD Work Phone: [facility] 12-12-2024 15:15-0400 Systolic blood pressure 130 mm[Hg] Afia Chacko MD Work Phone: [facility] 12-12-2024 08:44-0400 Body mass index (BMI) [Ratio] 31.7 kg/m2 Afia Chacko MD Work Phone: [facility] 12-12-2024 08:44-0400 Body weight 83.91 kg Afia Chacko MD Work Phone: [facility] 12-12-2024 08:44-0400 Heart rate 74 /min Afia Chacko MD Work Phone: [facility] 12-12-2024 08:44-0400 Respiratory rate 20 /min Afia Chacko MD Work Phone: [facility] 12-12-2024 08:44-0400 SaO2% (BldA) [Mass fraction] 96 % Afia Chacko MD Work Phone: [facility] 11-23-2024 14:06-0500 Body temperature 98 [degF] Afia Chacko MD Work Phone: [facility] 11-23-2024 14:06-0500 Diastolic blood pressure 46 mm[Hg] Afia Chacko MD Work Phone: [facility] 11-23-2024 14:06-0500 Heart rate 80 /min Afia Chacko MD Work Phone: [facility] 11-23-2024 14:06-0500 Respiratory rate 17 /min Afia Chacko MD Work Phone: [facility] 11-23-2024 14:06-0500 SaO2% (BldA) [Mass fraction] 91 % Afia Chacko MD Work Phone: [facility] 11-23-2024 14:06-0500 Systolic blood pressure 125 mm[Hg] Afia Chacko MD Work Phone: [facility] 11-23-2024 08:31-0500 Inhaled oxygen flow rate 2 L/min Afia Chacko MD Work Phone: [facility] 11-21-2024 19:57-0500 Body height 162.56 cm Afia Chacko MD Work Phone: [facility] 11-21-2024 19:57-0500 Body mass index (BMI) [Ratio] 32.8 kg/m2 Afia Chacko MD Work Phone: [facility] 11-21-2024 19:57-0500 Body weight 86.6 kg Afia Chacko MD Work Phone: [facility] 11-20-2024 11:06-0500 Body temperature 98.3 [degF] Afia Chacko MD Work Phone: [facility] 11-20-2024 11:06-0500 Diastolic blood pressure 60 mm[Hg] Afia Chacko MD Work Phone: [facility] 11-20-2024 11:06-0500 Heart rate 72 /min Afia Chacko MD Work Phone: [facility] 11-20-2024 11:06-0500 Respiratory rate 16 /min Afia Chacko MD Work Phone: [facility] 11-20-2024 11:06-0500 SaO2% (BldA) [Mass fraction] 98 % Afia Chacko MD Work Phone: [facility] 11-20-2024 11:06-0500 Systolic blood pressure 150 mm[Hg] Afia Chacko MD Work Phone: [facility] 11-20-2024 07:18-0500 Body mass index (BMI) [Ratio] 32.5 kg/m2 Afia Chacko MD Work Phone: [facility] 11-20-2024 07:18-0500 Body weight 85.95 kg Afia Chacko MD Work Phone: [facility] 11-02-2024 13:03-0500 Body mass index (BMI) [Ratio] 32.4 kg/m2 Afia Chacko MD Work Phone: [facility] 11-02-2024 13:03-0500 Body weight 85.72 kg Afia Chacko MD Work Phone: [facility] 11-02-2024 13:03-0500 Diastolic blood pressure 83 mm[Hg] Afia Chacko MD Work Phone: [facility] 11-02-2024 13:03-0500 Heart rate 91 /min Afia Chacko MD Work Phone: [facility] 11-02-2024 13:03-0500 Respiratory rate 16 /min Afia Chacko MD Work Phone: [facility] 11-02-2024 13:03-0500 Systolic blood pressure 164 mm[Hg] Afia Chacko MD Work Phone: [facility] 08-31-2024 18:43-0500 Body temperature 98.1 [degF] Afia Chacko MD Work Phone: [facility] 08-31-2024 18:43-0500 Diastolic blood pressure 59 mm[Hg] Afia Chacko MD Work Phone: [facility] 08-31-2024 18:43-0500 Heart rate 89 /min Afia Chacko MD Work Phone: [facility] 08-31-2024 18:43-0500 Respiratory rate 18 /min Afia Chacko MD Work Phone: [facility] 08-31-2024 18:43-0500 SaO2% (BldA) [Mass fraction] 97 % Afia Chacko MD Work Phone: [facility] 08-31-2024 18:43-0500 Systolic blood pressure 154 mm[Hg] Afia Chacko MD Work Phone: [facility] 08-31-2024 15:24-0500 Body mass index (BMI) [Ratio] 32.8 kg/m2 Afia Chacko MD Work Phone: [facility] 08-31-2024 15:24-0500 Body weight 86.7 kg Afia Chacko MD Work Phone: [facility] 04-10-2022 11:29-0400 Body temperature 99.7 [degF] Mk Demetriolesergio [employer]PUTY [employer]ER[employer] Work Phone: [facility] 04-10-2022 11:29-0400 Body weight 84.91 kg Mk Peralta [employer]PUTY SHERIFF [employer] OPERATOR Work Phone: [facility] 04-10-2022 11:29-0400 Diastolic blood pressure 58 mm[Hg] Mk Atkinsonlesergio DEPUTY SHERIFF [employer] HAND[employer] OPERATOR Work Phone: [facility] 04-10-2022 11:29-0400 Heart rate 85 /min Mk Kathryn DEPUTY SHERIFF K9 [employer] OPERATOR Work Phone: [facility] 04-10-2022 11:29-0400 Respiratory rate 20 /min Mk Pendgallito DEPUTY SHERIFF K9 [employer] OPERATOR Work Phone: [facility] 04-10-2022 11:29-0400 SaO2% (BldA) [Mass fraction] 98 % Mk Peralta [employer]PUTY SHERIFF [employer] OPERATOR Work Phone: [facility] 04-10-2022 11:29-0400 Systolic blood pressure 140 mm[Hg] Mk Atkinsonlesergio DEPUTY SHERIFF [employer]9 [employer] OPERATOR Work Phone: [facility] 12-25-2021 02:07-0400 Diastolic blood pressure 36 mm[Hg] [facility] Work Phone: 12-25-2021 02:07-0400 Heart rate 91 /min [facility] Work Phone: 12-25-2021 02:07-0400 Respiratory rate 18 /min [facility] Work Phone: 12-25-2021 02:07-0400 SaO2% (BldA) [Mass fraction] 92 % [facility] Work Phone: 12-25-2021 02:07-0400 Systolic blood pressure 160 mm[Hg] [facility] Work Phone: 12-24-2021 23:07-0400 Body height 162.56 cm [facility] Work Phone: 12-24-2021 23:07-0400 Body mass index (BMI) [Ratio] 31.7 kg/m2 [facility] Work Phone: [phone] Body temperature 100.8 [degF] [facility] Work Phone: 12-24-2021 [phone] Body weight 83.91 kg [facility] Work Phone: Encounters Encounter Date Encounter Type Care Provider Facility Start: 04-12-2025 End: 04-12-[address] oBoker Brennan MD -[facility] Work Phone: Start: 04-12-2025 End: 04-12-2025 ambulatory Afia Chacko MD Work Phone: -[facility] Start: 04-12-2025 End: 04-12-2025 ambulatory Afia Chacko Facility:[facility] Start: 03-29-2025 End: 03-29-2025 Patient encounter procedure Partha AMBRIZ -[facility] Work Phone: Start: 03-29-2025 End: 03-29-2025 ambulatory Afia Chacko MD Work Phone: -[facility] Start: 03-01-2025 End: 03-01-[address] Booker Brennan MD -[facility] Start: 03-01-2025 End: 03-01-2025 ambulatory Afia Chacko MD Work Phone: [facility] Work Phone: Start: 02-19-2025 End: 02-19-2025 ambulatory Afia Chacko MD Work Phone: [facility] Work Phone: Start: 02-19-2025 End: 02-19-2025 Patient encounter procedure Eloisa Hubbard ANTHROPOLOGIST-C -[facility] Work Phone: Start: 02-19-2025 End: 02-19-2025 ambulatory [facility] Facility:[facility] Start: 02-04-2025 End: 02-04-2025 Patient encounter procedure Francis Diallo MD Work Phone: General Surgery Comment on above: Parastomal hernia wi thout obstruction or gangrene (Primary Dx); Obesity, Class I, BMI 30-34.9 Start: 02-04-2025 End: 02-04-2025 ambulatory FRANCIS DIALLO Facility:[facility] Start: 12-13-2024 End: 12-13-2024 Orders Only Shashank Edmondson MD Work Phone: Colorectal Surgery Comment on above: Parastomal hernia wi thout obstruction or gangrene (Primary Dx) Start: 12-12-2024 End: 12-12-2024 Patient encounter procedure Partha AMBRIZ -[facility] Work Phone: Start: 12-12-2024 End: 12-12-2024 ambulatory Afia Ginna [facility] Start: 12-12-2024 End: 12-13-2024 Telephone encounter Shashank Edmondson MD Work Phone: Colorectal Surgery Comment on above: Patient Update Start: 12-10-2024 ambulatory Afia Ginna Facility:[facility] Start: 12-10-2024 Non-patient / Non-visit Dr. Tobin LLOYD -[facility] Start: 12-10-2024 End: 12-10-2024 ambulatory Afia Chacko MD Work Phone: [facility] Work Phone: Start: 12-10-2024 End: 12-10-[address] Booker Brennan MD -[facility] Work Phone: Start: 12-10-2024 End: 12-10-2024 ambulatory Afia Ginna Facility:[facility] Start: 11-30-2024 Non-patient / Non-visit Misha godwin -[facility] Work Phone: Start: 11-30-2024 ambulatory Afia Chacko Facility:[facility] Start: 11-29-2024 End: 11-29-2024 Patient encounter procedure Kaci Allen PA-C -[facility] Work Phone: Start: 11-29-2024 End: 11-29-2024 ambulatory Lumamarli Floreske Facility:[facility] Start: 11-23-2024 Non-patient / Non-visit Dr. Nolan Murry MD -[facility] Start: 11-22-2024 ambulatory Nolan Murry Facility: [facility] Start: 11-22-2024 End: 11-23-2024 Evaluation and management of inpatient Dr. Nolan Murry MD -[facility] Work Phone: Start: 11-22-2024 Non-patient / Non-visit Kaci nieves PA-C -[facility] Start: 11-21-2024 ambulatory Nolan Murry Facility: [facility] Start: 11-21-2024 Non-patient / Non-visit Kaci nieves PA-C -[facility] Start: 11-20-2024 End: 11-20-2024 Emergency department patient visit Afia Chacko MD Work Phone: -Emergency Department Work Phone: Start: 11-02-2024 End: 11-02-[address] Booker Brennan MD -[facility] Work Phone: Start: 11-02-2024 End: 11-02-2024 ambulatory Lumamarli Floreske Facility:[facility] Start: 09-10-2024 End: 09-10-[address] [facility] Start: 09-10-2024 End: 09-10-2024 ambulatory Lumamarli Ginna Facility:[facility] Start: 08-31-2024 End: 08-31-2024 Emergency department patient visit Dr. Rosendo Cotton MD -Emergency Department Work Phone: Start: 07-19-2024 End: 07-19-2024 ambulatory [facility] Facility:[facility] Start: 07-16-2024 End: 07-17-2024 Refill Shashank Edmondson MD Work Phone: Colorectal Surgery Comment on above: Refill Request Patient Question Start: 06-08-2024 End: 06-08-2024 ambulatory [facility] Facility:[facility] Start: 09-21-2022 End: 09-21-2022 ambulatory [facility] Work Phone: Start: 09-21-2022 End: 09-21-2022 Patient encounter procedure [facility] Start: 09-09-2022 End: 09-09-2022 ambulatory [facility] Work Phone: Start: 09-09-2022 End: 09-09-2022 Patient encounter procedure [facility] Start: 07-07-2022 End: 07-07-2022 ambulatory [facility] Work Phone: Start: 07-07-2022 End: 07-07-2022 Patient encounter [facility] Start: 06-25-2022 End: 06-25-2022 Patient encounter procedure [facility]-Outpatient Breast Imaging Start: 04-11-2022 Telephone encounter Kylee victor DEPUTY SHERIFF K9 HANDLER.CRACKLING PRESS OPERATOR Work Phone: [facility] Comment on above: Results Start: 04-10-2022 End: 04-10-2022 Patient encounter procedure Mk Peralta DEPUTY SHERIFF K9 HANDLER.CRACKLING PRESS OPERATOR Work Phone: [facility] Comment on above: Suspected COVID-19 v irus infection (Primary Dx) Start: 01-01-2022 End: 01-01-2022 Patient encounter procedure [facility]-Ultrasound, [facility] Start: 12-24-2021 End: 12-25-2021 Emergency department patient visit [facility]-Emergency Department Start: 02-21-2019 End: 02-21-2019 Patient encounter procedure Nolan Chadwick Facility:[facility] Start: 12-30-2018 End: 12-30-2018 Emergency department patient visit BRANDON HASTINGSEzequielGÓMEZ [facility] Start: 12-20-2018 End: 12-20-2018 Patient encounter procedure Nolan Chadwick Facility:[facility] Start: 12-17-2018 End: 12-17-2018 Emergency department patient visit CYNDYGuanako ROSE Facility:[facility] Start: 03-20-2018 End: 03-21-2018 Emergency department patient visit CYNDY ROSE Facility:[facility] Start: 02-28-2018 Patient encounter procedure CYNDY ROSE Facility:[facility] Procedures Date Procedure Procedure Detail Performing Clinician Start: 03-01-2025 X-ray of lumbosacral spine Afia Chacko MD Work Phone: Start: 02-19-2025 X-ray of lumbar spin e, two or three views Afia Chacko MD Work Phone: Start: 02-19-2025 X-ray of sacrum and coccyx, two or more views Afia Chacko MD Work Phone: Start: 12-10-2024 Cardiovascular stres s test using pharmacologic stress agent Afia Chacko MD Work Phone: Start: 11-23-2024 Estimated creatinine clearance Afia Chacko MD Work Phone: Start: 11-21-2024 Total cholecystectom y and exploration of common bile duct Afia Chacko MD Work Phone: Start: 11-21-2024 Cholangiogram Afia easley MD Work Phone: Start: 11-21-2024 Fluoroscopic guidance Anna Chacko MD Work Phone: Start: 11-21-2024 Ultrasonography of abdomen Afia Chacko MD Work Phone: Start: 11-20-2024 CT of abdomen and pe lvis without contrast Afia Chacko MD Work Phone: Start: 11-20-2024 Urnls dip stick/tabl et reagent auto microscopy Afia Chacko MD Work Phone: Start: 11-20-2024 Estimated creatinine clearance Afia Chacko MD Work Phone: Start: 11-20-2024 Computed tomography of abdomen and pelvis with contrast Afia Chacko MD Work Phone: Start: 11-02-2024 Evaluation of diagno stic study results Afia Chacko MD Work Phone: Start: 08-31-2024 Plain chest X-ray Chapo Chacko MD Work Phone: Start: 07-07-2022 CT of thorax with contrast Start: 06-25-2022 Screening mammography Start: 01-01-2022 Ultrasonography of abdomen Start: 12-25-2021 Viral antigen assay Start: 12-25-2021 Computed tomography of abdomen and pelvis with intravenous contrast Start: 12-25-2021 Plain chest X-ray Start: 12-25-2021 Viral antigen assay Start: 12-24-2021 Urine culture Start: 02-27-2021 Colonoscopy Mk arteaga DEPUTY SHERIFF K9 HANDLER.CRACKLING PRESS OPERATOR Work Phone: Start: 12-30-2018 Ct abdomen & pelvis w/contrast material BRANDON HASTINGS-ANKURS Start: 12-30-2018 Ecg routine ecg w/le ast 12 lds w/i&r BRANDON HASTINGS-[facility] Start: 12-30-2018 Assay of lactate JEANIN E VENKATA-SPIRTOS Start: 12-30-2018 Assay of lipase BRANDON VENKATASPIRFRIEDAS Start: 12-30-2018 Assay of troponin quantitative BRANDON VENKATASPIRTOS Start: 12-30-2018 Blood count complete auto&auto difrntl wbc BRANDON VENKATA-SPIRFRIEDAS Start: 12-30-2018 Comprehensive metabo lic panel BRANDON SPIRCHRIS Start: 12-30-2018 Urinalysis microscop ic only BRANDON HASTINGS-[facility] Start: 12-30-2018 Urnls dip stick/tabl et rgnt auto w/o microscopy BRANDON HASTINGS-GÓMEZ Start: 02-28-2018 Stool culture CYNDY ROSE Comment on above: Performed By: #### C RYMerari, CDIFF, ST2 #### [facility] [address] [place] [address] History of cholecystectomy S/P cholecyste ctomy Kaci Allen PA-C Plan of Treatment Date Care Activity Detail Author Start: 04-12-2025 Basic metabolic 2008 panel with ionized calcium - Serum or Plasma [facility] Start: 03-01-2025 X-ray of lumbosacral spine L/S Spine Bending Flex/Ext [facility] Start: 03-01-2025 XR Spine Lumbar and Sacrum Views [facility] Start: 11-23-2024 Patient [facility] Start: 11-22-2024 Admission procedure [facility] Start: 11-22-2024 Ambulation therapy management [facility] Start: 11-22-2024 Provision of activit y privileges [facility] Start: 11-21-2024 Application of intermittent pneumatic compression device [facility] Start: 11-21-2024 Following clinical pathway protocol [facility] Start: 11-21-2024 Ambulation without limitation [facility] Start: 11-21-2024 Assessment of risk o f venous thromboembolism [facility] Start: 11-21-2024 Catheterization of vein [facility] Start: 11-21-2024 Incentive spirometry [facility] Start: 11-21-2024 Insertion of cathete r into peripheral vein [facility] Start: 11-21-2024 Measuring intake and output [facility] Start: 11-21-2024 Oxygen therapy [facility] Start: 11-21-2024 Providing care accor ding to standard [facility] Start: 11-21-2024 [facility] Start: 11-21-2024 Admission procedure [facility] Start: 11-21-2024 Preoperative care [facility] Start: 11-20-2024 [facility] Start: 09-19-2024 Advance Directive Discussion Advance Directive Discussion [facility] Start: 08-31-2024 [facility] Start: 08-31-2024 [facility] Start: 05-20-2024 Covid-19 Vaccine ( season) Covid-19 Vaccine ( season) [facility] Start: 05-20-2024 Influenza vaccination Influenza Vacc ine (#1) [facility] Start: 09-19-2023 Advance Directive Discussion Advance Directive Discussion [facility] Start: 2023 RSV Vaccine (1 - 1-d ose 75+ series) RSV Vaccine (1 - 1-dose 75+ series) [facility] Start: 02-25-2023 DIABETES SCREEN DIABETES SCREEN [facility] Start: 02-25-2023 Diabetes Screening Diabetes Screenin g [facility] Start: 05-20-2022 Influenza vaccination INFLUENZA (#1) [facility] Start: 02-27-2022 Colonoscopy COLONOSCOPY [facility] Start: 02-27-2022 COLORECTAL CANCER SCREENING COLORECTAL CANCER SCREENING [facility] Start: 02-27-2022 Screening for malign ant neoplasm of colon [facility] Start: 01-01-2022 COVID-19 VACCINE (4 - Booster for Moderna series) COVID-19 VACCINE (4 - Booster for Moderna series) [facility] Start: 12-24-2021 Bacteria identified in Urine by Culture Urine Culture [facility] Work Phone: Start: 09-19-2021 ADVANCE DIRECTIVE DISCUSSION ADVANCE DIRECTIVE DISCUSSION [facility] Start: 07-08-2021 Pneumococcal Vaccine : 50+ (2 of 2 - PCV) Pneumococcal Vaccine: 50+ (2 of 2 - PCV) [facility] Start: 07-08-2021 Pneumococcal Vaccine : 65+ (2 of 2 - PCV) Pneumococcal Vaccine: 65+ (2 of 2 - PCV) [facility] Start: 2013 BONE DENSITY BONE DENSITY [facility] Start: 2013 PNEUMOCOCCAL: 65+ (1 - PCV) PNEUMOCOCCAL: 65+ (1 - PCV) [facility] Start: 2013 Screening for osteoporosis Bone Density Screening [facility] Start: 1998 SHINGRIX VACCINE (1 of 2) STEELE GRIX VACCINE (1 of 2) [facility] Start: 1993 COLOGUARD (FIT-DNA) COLOGUARD (FIT-D NA) [facility] Start: [address] COLONOGRAPHY [facility] Start: 1993 FECAL OCCULT BLOOD FECAL OCCULT BLOO D [facility] Start: 1993 [facility]id [facility] Start: 1993 LIPID SCREEN LIPID SCREEN [facility] Start: 1993 Screening for malign ant neoplasm of colon [facility] Start: 1993 [facility] Start: 1988 Mammography MAMMOGRAM [facility] Start: 1967 Urine microalbumin profile [facility] Start: 1966 Anxiety Screening Anxiety Screening [facility] Start: 1966 HEPATITIS C SCREENING HEPATITIS C [facility] Start: 1966 Hepatitis C screening Hepatitis C [facility] Anion gap in Serum o r Plasma [facility] Basic metabolic 2008 panel with ionized calcium - Serum or Plasma [facility] BUN/Creatinine ratio [facility] Calcium [Mass/volume ] in Serum or Plasma [facility] Carbon dioxide, tota l [Moles/volume] in Central venous blood [facility] CBC W Auto Different ial panel - Blood [facility] Creatinine [Mass/vol ume] in Serum or Plasma [facility] Glucose [Mass/volume ] in Serum or Plasma [facility] Measurement of renal function [facility] MR Lumbar spine [facility] Patient Education [facility] Work Phone: Patient referral [facility] Work Phone: Potassium measurement [facility] Radionuclide imaging of perfusion of myocardium under exercise stress [facility] SARS-CoV-2 (COVID-19 ) RNA [Presence] in Respiratory specimen by DARSHAN with probe detection 2019 CORONAVIRUS Microbiology Routine Suspected COVID-19 virus infection Ordered: 04/10/2022 [facility] Work Phone: Comment on above: Ordered: 04/10/2022 Serum chloride measurement [facility] Sodium measurement [facility] T4 free measurement [facility] Work Phone: Thyroglobulin antibo dy measurement [facility] Work Phone: Thyroid stimulating hormone measurement [facility] Work Phone: Triiodothyronine, fr ee measurement [facility] Work Phone: Urea nitrogen [Mass/volume] in Serum or Plasma [facility] Immunizations Immunization Date Immunization Notes Care Provider Fa [facility] 07-02-2021 influenza virus vaccine, unspecified formulation Shashank Edmondson MD Work Phone: [facility] 12-15-2020 [facility] (Moderna) [facility] 11-17-2020 [facility] ([facility] Payers Date Payer Category Payer Private Health Insurance [facility] AARP SUPPLEMENT [id number] 2019-Present [phone] [address] [place] [address] Indemnity [id number] 2019 Private Health Insurance [id number] 2018 Self-pay 2018 Private Health Insurance [id number] 2013 Medicare MEDICARE MEDICAR E A AND B [id number] 2013-Present [phone] [address] [address] [place] [address] Medicare [id number] 2013 Medicare [id number] .[id number] 2013 Medicare [id number] 1950 Unknown [id number] 2.16.840.1.952304.3.579.2 .204 Unknown [id number] 2.16.840.1.294996.3.579.2 .212 Unknown [id number] 2.16.840.1.942820.3.579.2 .212 Unknown [id number] 2.16.840.1.965970.3.579.2 .212 Unknown [id number] 2.16.840.1.025142.3.579.2 .921 Unknown [id number] 2.16.840.1.036185.3.579.2 .921 Unknown [facility] *DO NOT USE* [id number] Unknown [id number] 2.16.840.1.293042.3.579.2 .462 Unknown [id number] 2.16.840.1.829612.3.579.2 .462 Unknown [id number] 2.16.840.1.176989.3.579.2 .462 Unknown [id number] 2.16.840.1.734405.3.579.2 .462 Unknown [id number] 2..840.1.077265.3.579.2 .462 Unknown [id number] 2..840.1.587443.3.579.2 .462 Unknown [id number] 2.16.840.1.439442.3.579.2 .462 Unknown [id number] 2.16.840.1.603635.3.579.2 .462 Unknown [id number] 2.16.840.1.532473.3.579.2 .462 Unknown [id number] 2.16.840.1.069027.3.579.2 .462 Unknown [id number] 2.16.840.1.284083.3.579.2 .462 Unknown [id number] 2.16.840.1.596579.3.579.2 .462 Unknown [id number] 2.16.840.1.853362.3.579.2 .462 Unknown [id number] 2.16.840.1.844097.3.579.2 .462 Unknown [id number] 2.16.840.1.434104.3.579.2 .462 Unknown [id number] 2.16.840.1.460528.3.579.2 .462 Unknown [id number] 2.16.840.1.087749.3.579.2 .462 Unknown [id number] 2.16.840.1.085041.3.579.2 .462 Unknown [id number] 2.16.840.1.081290.3.579.2 .462 Unknown [id number] 2.16.840.1.028267.3.579.2 .462 Unknown [id number] 2.16.840.1.534879.3.579.2 .462 Social History Date Type Detail Facility Start: 12-24-2021 End: 12-25-2021 Tobacco smoking status COIS Unknown if ever smoked [facility] Start: 1950 Sex Assigned At Female [facility] Start: 02-05-2020 End: 02-20-2025 Tobacco smoking status COIS Never smoked tobacco [facility] Start: 02-05-2020 End: 02-04-2025 Tobacco use and exposure Smokeless tobacco non-user [facility] Start: 04-10-2022 End: 02-04-2025 Alcohol intake Ex-drinker (finding) [facility] Start: 02-26-2020 History SDOH Financial 5 [facility] Start: 02-26-2020 History SDOH Food Worry 1 [facility] Start: 02-26-2020 History SDOH Transport Med 2 [facility] Start: 1950 Sex Assigned At Not on file [facility] Start: 03-31-2022 End: 04-10-2022 Exposure to SARS-CoV-2 (event) Not sure [facility] Start: 04-10-2022 End: 02-04-2025 History of Social function [facility] Work Phone: Start: 04-10-2022 End: 02-04-2025 Tobacco use panel [facility] Work Phone: How hard is it for you to pay for the very basics like food, housing, medical care, and heating Not hard at all [facility] Work Phone: (I/We) worried whether (my/our) food would run out before (I/we) got money to buy more. Never true [facility] Start: 11-23-2024 End: 12-15-2024 Sex Female (finding) [facility] NEGATED: Highlighted row Not [facility] Medical Equipment Procedure Code Equipment Code Equipment Original Text Equipment Identifier Dates Total cholecystectomy with exploration of common bile duct Open-surgery ligation clip claim agent ()[id number] FDA Start: 11-21-2024 Total cholecystectomy with exploration of common bile duct Ligation clip, synthetic polymer, non-bioabsorbable ()[id number] FDA Start: 11-21-2024 Total cholecystectomy with exploration of common bile duct Ligation clip, synthetic polymer, non-bioabsorbable ()[id number] FDA Start: 11-21-2024 Goals Date Patient Goal Desired Activity /State Functional Status Date Assessment Result Facility 11-23-2024 Functional status Ambulates [facility] Work Phone: 02-27-2020 Are you deaf, or do you have serious difficulty hearing No 02/27/2020 9:24 AM EDT Toma Maynard APRN.CRACKLING PRESS OPERATOR No [facility] Work Phone: 02-27-2020 Are you blind, or do you have serious difficulty seeing, even when wearing glasses No 02/27/2020 9:24 AM EDT Toma Maynard APRN.CRACKLING PRESS OPERATOR No [facility] 02-27-2020 Do you have serious difficulty walking or climbing stairs No 02/27/2020 9:24 AM EDT Toma Maynard, DEPUTY SHERIFF K9 HANDLER.CRACKLING PRESS OPERATOR No [facility] 02-27-2020 Do you have difficul ty dressing or bathing No 02/27/2020 9:24 AM EDT Toma Maynard, DEPUTY SHERIFF K9 HANDLER.CRACKLING PRESS OPERATOR No [facility] 02-27-2020 Because of a physica l, mental, or emotional condition, do you have difficulty doing errands alone such as visiting a physician's office or shopping No 02/27/2020 9:24 AM EDT Toma Maynard APRN.CRACKLING PRESS OPERATOR No [facility] Mental Status Date Assessment Result Facility 11-22-2024 Cognitive function Level Of Cons ciousness Awake;Alert;Appropriate;Fol lows Commands [facility] Work Phone: 11-22-2024 Cognitive function Voice/Name [facility] Work Phone: 11-21-2024 Cognitive function Cooperative;Asleep [facility] Work Phone: 08-31-2024 Cognitive function Voice/Name [facility] Work Phone: 12-24-2021 Cognitive function Level Of Cons ciousness Awake;Alert;Appropriate;Fol lows Commands [facility] Work Phone: 02-27-2020 Because of a physica l, mental, or emotional condition, do you have serious difficulty concentrating, remembering, or making decisions No 02/27/2020 9:24 AM EDT Toma Maynard APRN.CRACKLING PRESS OPERATOR No [facility] Clinical Notes 04-10-2022 to 03-01-2025 Note Date & Type Note Facility 03-01-2025 Evaluation note Diagnosis Onset Date Resolution Degenerative disc disease (DDD) of lumbar region with discogenic back pain acute March 01, 2025 2:29pm Lumbar stenosis with neurogenic claudication acute February 2:29pm Dyspnea chronic March 29 11:41am Hypertension chronic March 29 025 11:41am [facility] Work Phone: 1(608) 146-304306-04-2025 Radiology Diagnostic study note [facility] Imaging Services [address], [place] [address] Lumbar Spine 2 or 3 Views MR#: [id number] Acct: [id number] Name: KAYLENE SHAFER Rep #: [id number] : 1950 F 74 From: Marisol Mclaughlin MD PCP: Dr. Afia Chacko MD Status: REG CL I Study:Lumbar Spine 2 or 3 Views Date of Exam: 02/19/25 Exam# [id number] Ordering Dr: Mane Hubbard ANTHROPOLOGIST ANTHROPOLOGIST-C PROCEDURE: LUMBAR SPINE 2 OR 3 VIEWS; SACRUM-COCCYX MIN 2 VIEWS 02/19/2025 REASON FOR EXAM: LOW BACK PAIN TECHNIQUE: 2 view(s) of the lumbar spine; 3 views of the sacrum and coccyx COMPARISON: CT abdomen and pelvis 11/20/2024 and 12/25/2021 FINDINGS: There are 5 wla-egb-wktnbmt lumbar-type vertebral bodies. There is slight leftward curvature of thelumbar spine. Uabo-ne-isiimcud multilevel disc space narrowing, endplate osteophyte formation,and facet arthrosis. No displaced fracture of the sacrum or coccyx, with morphology unchanged since CT in 2021. Degenerative changes of the sacroiliac joints. Surgical clips in the right upper quadrant of the abdomen, phleboliths in the pelvis. RAD/Lumbar Spine 2 or 3 Views IMPRESSION: 1. Wmtq-ga-sisqabbs multilevel degenerative changes of the lumbar spine. 2. No displaced fracture of the of the sacrum or coccyx. Reading Location: [id number] CC: ANTHROPOLOGIST-C Eloisa Hubbard; Dr. Afia Chacko MD ~ Database Specialist: Signed [facility]06-04-2025 Radiology Diagnostic study note [facility] Imaging Services [address] [place] [address] Sacrum-Coccyx min 2 Views MR#: [id number] Acct: [id number] Name: KAYLENE SHAFER Rep #: [id number] : 1950 F 74 From: Marisol Mclaughlin MD PCP: Dr. Afia Chacko MD Status: REG CL I Study:Sacrum-Coccyx min 2 Views Date of Exam: 02/19/25 Exam# [id number] Ordering Dr: Mane Hubbard NP ANTHROPOLOGIST-C PROCEDURE: LUMBAR SPINE 2 OR 3 VIEWS; SACRUM-COCCYX MIN 2 VIEWS 02/19/2025 REASON FOR EXAM: LOW BACK PAIN TECHNIQUE: 2 view(s) of the lumbar spine; 3 views of the sacrum and coccyx COMPARISON: CT abdomen and pelvis 11/20/2024 and 12/25/2021 FINDINGS: There are 5 hwy-moz-dodjuvm lumbar-type vertebral bodies. There is slight leftward curvature of thelumbar spine. Jmrp-te-ycmgorbj multilevel disc space narrowing, endplate osteophyte formation,and facet arthrosis. No displaced fracture of the sacrum or coccyx, with morphology unchanged since CT in 2021. Degenerative changes of the sacroiliac joints. Surgical clips in the right upper quadrant of the abdomen, phleboliths in the pelvis. RAD/Sacrum-Coccyx min 2 Views IMPRESSION: 1. Zqjv-cx-mzcheiai multilevel degenerative changes of the lumbar spine. 2. No displaced fracture of the of the sacrum or coccyx. Reading Location: [facility] CC: NIDIA Hubbard; Dr. Afia Chacko MD ~ Database Specialist: Signed [facility]05-19-2025 NoteHNO ID: [id number] Author: FRANCIS DIALLO MD Service: ? Author Type: Physician Type: Progress Notes Filed: 02/04/2025 14:51 Note Text: Consultation requested by Dr. Shashank Edmondson for an opinion regarding parastomal hernia. My final recommendations will be communicated back to the requesting physician by way of shared medical record or letter via US mail. Kaylene Shafer is a 74 year old female who presents with parastomal hernia. 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 No excision. She then developed incontinence which was treated with a lap end colostomy for diversion. She has a parastomal hernia around the end colostomy. She has absolutely no symptoms. She denies any pain, no difficulty pouching, no activity restrictions due to the hernia. She only is seeking care as a prior physician told her that this could rupture. I had a discussion with her and her today. I think this is a very safe hernia to watch and given her lack of symptoms I would strongly recommend no surgical intervention on this. She is very thankful for the information and agrees completely. Follow with me as needed. I have seen and evaluated the patient and discussed the case with the resident physician. I agree with the assessment and plan as documented in the resident?s note including a ROS that was reviewed and negative other than what was indicated in our notes. Patient consented for [facility]? [facility] of Present illness Narrative* Francis Diallo MD - 02/04/2025 2:42 PM EDT Consultation requested by Dr. Shashank Edmondson for an opinion regarding parastomal hernia. My final recommendations will be communicated back to the requesting physician by way of shared medical record or letter via [place] mail. Kaylene Shafer is a 74 year old female who presents with parastomal hernia. 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 No excision. She then developed incontinence which was treated with a lap end colostomy for diversion. She has a parastomal hernia aroundthe end colostomy. She has absolutely no symptoms. She denies any pain, no difficulty pouching, no activity restrictions due to the hernia. She only is seeking care as a prior physician told her thatthis could rupture. I had a discussion with her and her today. I think this is a very safe hernia to watch and given her lack of symptoms I would strongly recommend no surgical intervention on this. She is very thankful for the information and agrees completely. Follow with me as needed. I have seen and evaluated the patient and discussed the case with the resident physician. I agree with the assessment and plan as documented in the resident s note including a ROS that was reviewed and negative other than what was indicated in our notes. Patient consented for study? Not applicable * Tyrell Powell MD - 02/04/2025 1:09 PM EDT New Patient Consult REASON FOR VISIT Kaylene Shafer is a 74 year old female who is scheduled for a consult for Consult This consult was requested by Shashank Edmondson MD for evaluation of pancreatic cyst(s) My final recommendations will be communicated to the requesting health care provider by way of the shared medical record or [place] postal services. History of Present Illness: Ms. Shafer is a 74 y/o F w PMHx HTN, hypothyroidism, and anal cancer s/p chemoradiation in 2021, w PSHx of end colostomy for fecal incontinence after chemoradiation, cholecystectomy in 3/25. She presents today for evaluation of parastomal hernia seen on imaging when she was admitted for her cholecystectomy. She is bothered by the appearance of the hernia but states she has no associated pain, nausea/vomiting, or obstructive symptoms. PAST MEDICAL HISTORY Diagnosis Date Anal cancer (HCC) Cervical cancer (HCC) Depression Sleep apnea PAST SURGICAL HISTORY Procedure Laterality Date ABDOMINAL SURGERY HX HYSTERECTOMY PAST SURGICAL HISTORY OF sacral stimulator for urinary incontinence FAMILY HISTORY Problem Relation Age of Onset other (Lung Cancer) Father Social History Tobacco Use Smoking status: Never Smokeless tobacco: Never Vaping Use Vaping status: Never Used Substance Use Topics Alcohol use: Not Currently Drug use: Not Currently The patient has the following: Problem List Noted Noted By Resolved Resolved By LAILA on CPAP 02/26/2020 Razia Farias PA-C No Depression 02/26/2020 Razia Farias PA-C No Urinary incontinence 02/26/2020 Razia Farias PA-C No Colostomy in [facility] ([facility]) 02/25/2020 Cindy Chin MD No Overweight 02/25/2020 Razia Farias PA-C No Post-op pain 02/25/2020 Razia Farias PA-C No Fecal incontinence 02/25/2020 Razia Farias PA-C No Anal cancer (HCC) 02/25/2020 Razia Farias PA-C No MEDICATIONS Current Outpatient Medications Medication Sig Dispense Refill metoprolol succinate ER (TOPROL XL) 25 mg 24 hr tablet Take 1 tablet by mouth once daily. lisinopril (ZESTRIL) 20 mg tablet Take 1 tablet by mouth once daily. levothyroxine (SYNTHROID) 25 mcg tablet Take 1 tablet by mouth once daily. nystatin 1 billion unit powd Use as directed. 1 Each 2 acetaminophen (TYLENOL) 325 mg tablet Take 2 tablets by mouth every 4 hours as needed for Pain. (Patient not taking: Reported on 03/24/2020 ) ibuprofen (MOTRIN) 200 mg tablet Take 2-4 tablets by mouth every 8 hours as needed for Pain. (Patient not taking: Reported on 03/24/2020 ) MULTIVITAMIN ORAL Take by mouth once daily. cholecalciferol, vitamin D3, (VITAMIN D3 ORAL) Take by mouth once daily. sertraline (ZOLOFT) 50 mg tablet Take 50 mg by mouth once daily. oxybutynin chloride (DITROPAN ORAL) Take by mouth once daily. (Patient not taking: Reported on 04/10/2022 ) No current facility-administered medications for this visit. CURRENT ALLERGIES ALLERGIES Allergen Reactions Penicillins Other: See Comments, Unknown Not sure REVIEW OF SYSTEMS PAIN ASSESSMENT: General: No weight loss, malaise or fevers. Neuro: No Hx of stroke or seizures Respiratory: No history of current cough or dyspnea, or pneumonia in the past 6 weeks. No history of respiratory/pulmonary symptoms or problems Cardiovascular: See HPI GI: See HPI : No history of UTI in past 6 weeks. No history of renal failure. Not currently on or requiring dialysis. No history of symptoms or problems. 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 Has not taken steroids within the past 30 days. No history of endocrinological symptoms or problems. Hematology: No history of bleeding or clotting disorder. Pt is not taking anti- coagulation or platelet medications. No history of hematological symptoms or problems. Oncology: No history of CA metastasis, chemo within 30 days, or radiotherapy within 90 days. Has not lost 10% of body wt in 6 months. No history of oncological symptoms or problems. Psych: No history of psychiatric symptoms or problems. Musculoskeletal: Negative for joint pain or swelling, back pain or muscle pain. Skin: Negative for lesions, rash and itching. Anemia: No PHYSICAL EXAMINATION BP 150/68 Pulse 93 Temp (Src) 97.9 (Temporal) Ht 5' 4 (1.63m) Wt 181 lb (82.1kg) BMI 31.05 kg/(m^2). General Appearance: Well appearing, alert, in no acute distress, well-hydrated, well nourished. Skin: Skin color, texture, turgor normal, no suspicious rashes or lesions Head: Normocephalic, no masses, lesions, tenderness or abnormalities Oropharynx: Lips, mucosa, and tongue normal, teeth and gums normal, oropharynx normal Neck: Supple, no adenopathy; thyroid symmetric, normal size, no bruits Lungs: Unlabored on room air Heart: Not examined Extremities: No deformities, edema, skin discoloration, clubbing or cyanosis. Good capillary refill. Neuro: Gait normal. Reflexes normal and symmetric. Sensation grossly intact. Abdomen: End colostomy with palpable nontender L parastomal hernia Anorectal: Deferred Sensitive Exam: no Director Of Infection Control present: No Diagnostic tests reviewed for today's visit: CT imaging 11/21/24 Assessment ASSESSMENT Ms. Shafer is a 74 y/o F w PMHx HTN, hypothyroidism, and anal cancer s/p chemoradiation in 2021, w PSHx of end colostomy for fecal incontinence after chemoradiation, cholecystectomy in 12/11. She presents today for evaluation of parastomal hernia seen on imaging when she was admitted for her cholecystectomy. She is asymptomatic but concerned about obstruction. Risk of obstruction is low due to wide neck of hernia, this was discussed with patient, who does not desire repair given the low risk of complication from hernia. RECOMMENDATION -Follow up PRN if more discussion of repair is desired or symptoms change Plan discussed with Dr. Diallo. Tyrell Powell MD MPH General Surgery - PGY 1 Service Pager: [phone] ([place]) DATE: 02/04/25 TIME: 1:10 PM * Gregg Ramos MA - 02/04/2025 12:42 PM EDT What is the reason for your visit today? Consult Who is your referring physician? Dr. Diallo Are you having poor oral intake? NO Have you had unintentional weight loss of 15 lbs/7 Kg in the last 3-6 months? NO Bowels: diarrhea Wound: clean & dry Temperature: No Drains: No [facility] NoteHNO ID: [id number] Author: TYRELL POWELL MD Service: ? Author Type: Resident Type: Progress Notes Filed: 02/04/2025 14:51 Note Text: New Patient Consult REASON FOR VISIT Kaylene Shafer is a 74 year old female who is scheduled for a consult for Consult This consult was requested by Shashank Edmondson MD for evaluation of pancreatic cyst(s) My final recommendations will be communicated to the requesting health care provider by way of the shared medical record or [place] postal services. History of Present Illness: Ms. Shafer is a 74 y/o F w PMHx HTN, hypothyroidism, and anal cancer s/p chemoradiation in 2021, w PSHx of end colostomy for fecal incontinence after chemoradiation, cholecystectomy in 12/11. She presents today for evaluation of parastomal hernia seen on imaging when she was admitted for her cholecystectomy. She is bothered by the appearance of the hernia but states she has no associated pain, nausea/vomiting, or obstructive symptoms. PAST MEDICAL HISTORY Diagnosis Date Anal cancer (HCC) Cervical cancer (HCC) Depression Sleep apnea PAST SURGICAL HISTORY Procedure Laterality Date ABDOMINAL SURGERY HX HYSTERECTOMY PAST SURGICAL HISTORY OF sacral stimulator for urinary incontinence FAMILY HISTORY Problem Relation Age of Onset other (Lung Cancer) Father Social History Tobacco Use Smoking status: Never Smokeless tobacco: Never Vaping Use Vaping status: Never Used Substance Use Topics Alcohol use: Not Currently Drug use: Not Currently The patient has the following: Problem List Noted Noted By Resolved Resolved By LAILA on CPAP 02/26/2020 Razia Farias PA-C No Depression 02/26/2020 Razia Farias PA-C No Urinary incontinence 02/26/2020 Razia Farias PA-C No Colostomy in place ([facility]) 02/25/2020 Cindy Chin MD No Overweight 02/25/2020 Razia Farias PA-C No Post-op pain 02/25/2020 Razia Farias PA-C No Fecal incontinence 02/25/2020 Razia Farias PA-C No Anal cancer (HCC) 02/25/2020 Razia Farias PA-C No MEDICATIONS Current Outpatient Medications Medication Sig Dispense Refill metoprolol succinate ER (TOPROL XL) 25 mg 24 hr tablet Take 1 tablet by mouth once daily. lisinopril (ZESTRIL) 20 mg tablet Take 1 tablet by mouth once daily. levothyroxine (SYNTHROID) 25 mcg tablet Take 1 tablet by mouth once daily. nystatin 1 billion unit powd Use as directed. 1 Each 2 acetaminophen (TYLENOL) 325 mg tablet Take 2 tablets by mouth every 4 hours as needed for Pain. (Patient not taking: Reported on 03/24/2020 ) ibuprofen (MOTRIN) 200 mg tablet Take 2-4 tablets by mouth every 8 hours as needed for Pain. (Patient not taking: Reported on 03/24/2020 ) MULTIVITAMIN ORAL Take by mouth once daily. cholecalciferol, vitamin D3, (VITAMIN D3 ORAL) Take by mouth once daily. sertraline (ZOLOFT) 50 mg tablet Take 50 mg by mouth once daily. oxybutynin chloride (DITROPAN ORAL) Take by mouth once daily. (Patient not taking: Reported on 04/10/2022 ) No current facility-administered medications for this visit. CURRENT ALLERGIES ALLERGIES Allergen Reactions Penicillins Other: See Comments, Unknown Not sure REVIEW OF SYSTEMS PAIN ASSESSMENT: General: No weight loss, malaise or fevers. Neuro: No Hx of stroke or seizures Respiratory: No history of current cough or dyspnea, or pneumonia in the past 6 weeks. No history of respiratory/pulmonary symptoms or problems Cardiovascular: See HPI GI: See HPI : No history of UTI in past 6 weeks. No history of renal failure. Not currently on or requiring dialysis. No history of symptoms or problems. 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 Has not taken steroids within the past 30 days. No history of endocrinological symptoms or problems. Hematology: No history of bleeding or clotting disorder. Pt is not taking anti-coagulation or platelet medications. No history of hematological symptoms or problems. Oncology: No history of CA metastasis, chemo within 30 days, or radiotherapy within 90 days. Has not lost 10% of body wt in 6 months. No history of oncological symptoms or problems. Psych: No history of psychiatric symptoms or problems. Musculoskeletal: Negative for joint pain or swelling, back pain or muscle pain. Skin: Negative for lesions, rash and itching. Anemia: No PHYSICAL EXAMINATION BP 150/68 Pulse 93 Temp (Src) 97.9 (Temporal) Ht 5' 4 (1.63m) Wt 181 lb (82.1kg) BMI 31.05 kg/(m2). General Appearance: Well appearing, alert, in no acute distress, well-hydrated, well nourished. Skin: Skin color, texture, turgor normal, no suspicious rashes or lesions Head: Normocephalic, no masses, lesions, tenderness or abnormalities Oropharynx: Lips, mucosa, and tongue normal, teeth and gums normal, oropharynx normal Neck: Supple, no adenopathy; thyroid symmetric, normal size, no bruits Lungs: Unl (more content not included)...[facility]05-[facility] NoteHNO ID: [id number] Author: GREGG RAMOS MA Service: ? Author Type: Dry Dip Worker Type: Progress Notes Filed: 02/04/2025 14:51 Note Text: What is the reason for your visit today? Consult Who is your referring physician? Dr. Diallo Are you having poor oral intake? NO Have you had unintentional weight loss of 15 lbs/7 Kg in the last 3-6 months? NO Bowels: diarrhea Wound: clean AND dry Temperature: No Drains: [facility] Telephone encounter Note* Telephone Encounter - Elisa Rodrigues - 12/12/2024 4:27 PM EDT The patient is calling to discuss getting a [facility] referral/order for the parastomal hernia. [phone] [facility]03-[facility] Miscellaneous Notes* Telephone Encounter - Elisa Rodrigues - 12/12/2024 4:27 PM EDT The patient is calling to discuss getting a [facility] referral/order for the parastomal hernia. [phone] [facility] in [facility]Do[facility] Evaluation note* Diagnosis Onset Date Resolution Status Admit Date S/P cholecystectomy acute November 29, 2024 1:34pm Dyspnea acute December 12 2:00pm Episode of hypertension acute M 2024 2:00pm Chest pain resolved December 12 2:00pm Degenerative disc disease (D DD) of lumbar region with discogenic back pain acute March 01, 2025 2:29pm Lumbar stenosis with neuroge janelle claudication acute March 01, 2025 2:29pm [place] [employer] Phone: 1(663) 949-475103-07-2025 Procedure note [facility] Medical Records Department [address] [place] [address] Operative Report 11/21/24 1644 MR#: [id number] Acct: [id number] Name: KAYLENE SHAFER Rep #:[id number] : 1950 74 From: Nolan Avendano PCP: Dr. Afia Chacko MD Status:ADM IN [facility] Digestive 40xxx-49xxx: 30264 Laparo cholecystectomy/graph Operative Report (Standard) Operative Information Date of Procedure: 11/21/24 Pre-Operative Diagnosis: Cholecystitis Post-Operative Diagnosis: Severe cholecystitis with hydrops Surgery/Procedure Performed: Laparoscopic cholecystectomy with intraoperative cholangiography atomic physics teacher: Yes Agriculturist: Dudley Rayo Tasks completed by family practice physician assistant: Opening & closing, Retracting and Other (laparoscopic camera operation) Type of Anesthesia: General/Supplemental RN Documented Start/Stop Times: Operation Date: 11/21/24 14:50 Case Time Into Pre-Op 11/21/24 13:49 Out of Pre-Op 11/21/24 14:03 Anesthesia Start 11/21/24 14:06 Into Room 11/21/24 14:06 Procedure Start 11/21/24 14:32 Procedure End 11/21/24 16:52 Anesthesia End 11/21/24 17:13 Out of Room 11/21/24 17:13 Into Recovery 11/21/24 17:21 Out of Recovery 11/21/24 20:01 Procedure Start Time: 14:32 Procedure Stop Time: 16:45 Select all DRAINS/GRAFTS/IMPLANTS that apply: Drains Drain details: 15 Citizen Of [place] round Vladimir drain Estimated Blood Loss: 20 Specimen collected: Yes Description of specimen(s) removed: Gallbladder Description of surgery: After proper identification in the preoperative holding area the patient was brought to the operating room where she was positioned supine on the operating room table. Preoperatively SCDs were placedand antibiotics were administered. General anesthesia was then induced. An orogastric tube was placed by anesthesia. Patient's abdomen was prepped and draped in usual sterile fashion after placing drapes across her abdomen to exclude her colostomy. A formal timeout was conducted to confirm both patient and the procedure. Procedure was begun with a supraumbilical incision which was extended deeplydown to the levelof the fascia. The fascia was elevated and incised, as well as the peritoneum. A finger sweep was performed to ensure there were no underlying adhesions and a 12 mm balloon trocar was inserted. Pneumoperitoneum was established at 12 mmHg. Three additional trocars (all 5 mm) were placed in the epigastrium (this was later upsized for a 12 mm port under laparoscopic visualization) and in the right upper quadrant. Inspection of the peritoneum revealed no inadvertent injury to the viscera below. The gallbladder was not immediately visualized as there was adherent omentum but once this was swept down we could visualize a very large, taut gallbladder with a hemorrhagic appearance.Given the severe distention the gallbladder was unable to be grasped so a aspirating needle was connected to the suction bunk house worker device and used to decompress the gallbladder. The gallbladder fundus was then grasped and elevated cephalad. Then, using careful dissection the peritoneum was opened and the structures of the hepatocystic triangle were delineated. This proved exceptionally difficult given the redundancy of the gallbladder infundibulum and the tortuosity of a shortened cystic duct related to some adhesive bands contorting the duct. Ultimately it proved evident that we would need to sacrifice the cystic artery to try to gain as much length as possible on the cystic duct. This was accomplished after application of 3 titanium clips. Even still the length of the cystic duct was not significant so I first attempted cholangiogram with application of a Sahni clamp across the gallbladder infundibulum. Two attempts were made but met with the same result. This result seemed to show that the gallbladder was occluded but there is no filling of the cystic duct because of resistance(potentially due to the tortuosity of the duct). Therefore I abandoned this approach and elected toclip the cystic duct distally and performed a ductotomy. Using an Alvarez Ni clamp, a cholangioca theter was fed into the proximal segment of the cystic duct and clamped into place. Under fluoroscopy a cholangiogram was then obtained showing a standard length cystic duct flowing into a common bile duct with antegrade flow of contrast intothe duodenum. There was also retrograde flow through the common hepatic duct into the right and left hepatic ducts. Satisfied with this result, the cholangiocatheter was withdrawn and the proximalcystic duct was sealed with 2 additional Hemolock clips and the cystic duct was completely transected. The gallbladder was then removed from the gallbladder fossa with the use of electrocautery. Selective electrocauterywas used to obtain hemostasis in the gallbladder fossa. The gallbladder was placed in an Endo Catchbag and removed from the peritoneum. Morison's pouch was irrigated and the effluent was suctioned free of the peritoneum. Any visible stones that had been lost during the procedure were also promptlyremoved. Hemostasis was again confirmed. The 12 mm port sites were closed in a [id number] fashion using #1 PDS and a Abdirahman-Seda suture passer under laparoscopic visualization. Finally a 15 Citizen [place] round Vladimir drain was fed into the patient'srightmost upper quadrant port site and was positioned under the liver. The distal end of the drain was secured at the skin with a 2-0 nylon suture. Pneumoperitoneum was evacuated. A total of 30 mL of anesthetic was injected at the port sites for postoperative pain control. The skin of each port site was then closed in subcuticular fashion using 4-0 Monocryl. Steri-Strips and bandages were applied as dressings. Patient tolerated the procedure well without any apparent complications. On emergence from their anesthetic the patientwas taken to PACU for ongoing recovery. Surgical Findings: ? Numerous adhesions around patient's left lower quadrant colostomy ? Nodular liver given the gross appearance of cirrhosis ? Hemorrhagic cholecystitis with hydrops ? Short cystic duct contorted due to presence of adhesive bands ? Cholangiogram showing normal biliary anatomy with normal antegrade filling of the common bile duct and retrograde filling of the common hepatic duct system Complications Complications: No Admit VTE Documentation VTE Mechan Device Prophylaxis: SCD's 11/23/24 1249 Cosigner Signature (if applicable): CC: Dr. Afia Chakco MD; Dr. Nolan Murry MD~ Signed [facility]03-07-2025 Discharge summary [facility] Medical Records Department [address] [place] [address] Instructions for Home/Discharge Instructions 11/21/24 6284 MR#: [id number] Acct: [id number] Name: KAYLENE SHAFER Rep #:[id number] : 1950 74 From: Nolan Avendano PCP: Dr. Afia Chacko MD Status:ADM IN Discharge Instructions Diet Discharge Diet: No restrictions DC O2, CPAP, BIPAP needs Home O2 Discharge instructions: No Dressing / Incision Discharge Activity: May Not Drive (No driving while using narcotic pain medication) and May Shower (Postoperative day 1) May shower in (days): 1 Ice area for (Minutes): 20 Lifting Restrictions: No lifting greater than 15 pounds for 2 weeks after surgery Dressing / Incision Call your doctor if your incision/area has: Continuous Slow Oozing, Increased Pain/ Swelling, Increased Redness, Foul Smelling Discharge and Swelling at the incision site Call your doctor if you observe: Fever of 101 or Higher Remove Dressing in: 2 days (Please leave Steri-Strips intact until they fall offspontaneously or are taken off at your follow-up visit) Cleanse incision/area with: Soap & Water Additional Dressing/Incision Instructions:: Please discontinue drain site dressing in 48 hours Follow Up Care Please Follow Up With: Nolan Murry MD When: 7-10days postop Test Results: Test results from this visit will be discussed in further detail at your follow- up appointment, if applicable. Discharge Plan Admission Admit Date/Time: 11/22/24 12:56 Primary Reason for Your Visit: Cholecystitis Attending Provider: Nolan Murry Primary Care Provider: Afia Chacko Discharge Orders/Prescriptions Prescriptions: New metronidazole 500 mg Tablet 500 mg PO TID 2 Days Qty: 6 0RF ciprofloxacin HCl 500 mg Tablet 500 mg PO BID 2 Days Qty: 4 0RF oxycodone 5 mg Tablet 5 mg PO Q4H PRN PRN (Reason: Pain Score 4-10) 2 Days Qty: 10 0RF Continued multivitamin capsule 1 cap PO DAILY sertraline 100 mg tablet 100 mg PO QDAY calcium carbonate 600 mg calcium (1,500 mg) tablet 600 mg PO QDAY levothyroxine 25 mcg tablet 25 mcg PO QDAY ascorbic acid (vitamin C) 500 mg tablet 500 mg PO QDAY mirabegron 50 mg tablet extended release 24 hr 50 mg PO QHS metoprolol succinate [Toprol XL] 25 mg tablet extended release 24 hr 25 mg PO QDAY Qty: 90 3RF lisinopril 20 mg tablet 20 mg PO QDAY Qty: 90 3RF pantoprazole [Protonix] 40 mg tablet,delayed release (DR/EC) 40 mg PO DAILY Qty: 7 0RF hydrocodone-acetaminophen 5-325 mg tablet 1 tab PO Q4H PRN PRN (Reason: Pain) 2 Days Qty: 10 0RF dicyclomine 20 mg tablet 20 mg PO TID PRN (Reason: abdominal pain) Qty: 30 0RF Referrals / Follow Up: Afia Chacko MD [Primary Care Provider] - Disposition Disposition (needs filled in before D/C Order can be placed): Home, Self Care 11/23/24 1246Nolan Murry MD CC: Dr. Afia Chacko MD ~ Signed [facility]03-07-2025 [facility] Medical Records Department [address] [place] [address] Discharge Summary 11/23/24 1108 MR#: [id number] Acct: [id number] Name: KAYLENE SHAFER Rep #: [id number] : 1950 74 From: Nolan Murry MD PCP: Dr. Afia Chacko MD Status:DIS IN [facility] Providers Date of Admission: 11/22/24 Primary Care Physician: Afia Chacko MD Reason For Visit: ACUTE CHOLECYSTITIS Diagnosis Discharge Diagnosis (1) Acute calculous cholecystitis: Status: Acute Code(s): K80.00 - Calculus of gallbladder with acute cholecystitis without obstruction Plan I am seeing this patient in conjunction with Dr. Murry. He has independently evaluated this patient. Patient has a 2 day history of worsening upper abdominal pain which is now located in the right upper quadrant. RUQ u/s demonstrated acute cholecystitis with calculus. Dr. Murry will plan to preform a laparoscopic cholecystectomy with intraoperative cholangiogram. Procedure details, risks and benefits have been explained. Plan to admit patient for observation. Patient and her have had the opportunity to ask and have questions answered. Patient verbally understands agrees with the proposed plan. Patient also has a parastomal hernia as well, which will need to be addressed as an outpatient with her colorectal surgeon, Dr. Edmondson. Thank you for allowing us toparticipate in this patient's care. Medications at Discharge Home Medications multivitamin 1 cap PO DAILY 03/06/19 calcium carbonate 600 mg PO QDAY 09/24/24 sertraline 100 mg tablet 100 mg PO QDAY 09/24/24 ascorbic acid (vitamin C) 500 mg tablet 500 mg PO QDAY 11/02/24 levothyroxine 25 mcg tablet 25 mcg PO QDAY 11/02/24 lisinopril 20 mg tablet 20 mg PO QDAY #90 tabs 11/02/24 metoprolol succinate 25 mg tablet,extended release 24 hr (Toprol XL) 25 mg PO QDAY #90 tabs 11/02/24 mirabegron 50 mg tablet,extended release 24 hr 50 mg PO QHS 11/02/24 dicyclomine 20 mg tablet 20 mg PO TID PRN abdominal pain #30 tabs 11/20/24 hydrocodone-acetaminophen 5-325mg 5mg-325mg 1 tab PO Q4H PRN PRN Pain 2 days #10 TABLETS 11/20/24 pantoprazole 40 mg tablet,delayed release (Protonix) 40 mg PO DAILY #7 tabs 11/20/24 ciprofloxacin HCl 500 mg tablet 500 mg PO BID 2 days #4 tabs 11/23/24 metronidazole 500 mg tablet 500 mg PO TID 2 days #6 tabs 11/23/24 oxycodone 5 mg tablet 5 mg PO Q4H PRN PRN Pain Score 4-10 2 days #10 tabs 11/23/24 Hospital Course Operations cholecystecomy (With intraoperative cholangiogram 11/21/2024) Summary of Care Provided Hospital Course: Patient is a 74-year-old female who was evaluated through [facility] emergency department first on 11/20/2024 due to presentation for acute onset abdominal pain. She was given a presumptive diagnosis of gastritis and prescribed Protonix. However, upon returning home she had progression of her abdominal pain and any dietary intake was accompanied with nausea and vomiting. Thus she returned the same day for further evaluation. This repeat workup included CT imaging of the abdomen pelvis with enteric contrast. On that study a small parastomal hernia without signs of colon ischemia or inflammatory changes was identified and emergency medicine initially contacted me to determine the feasibility of performing a parastomal hernia repair here at [facility]. I shared that this is more the purview of colorectal surgery and recommended transfer if the emergency medicine felt parastomal hernia was the cause of patient's presentation. A transfer, specifically, was sought with [facility]. Upon review of the patient's presentation they determined no emergent transfer was indicated but as this transfer was sought patient developed more specific right upper quadrant discomfort and a right upper quadrant ultrasound was performed. This study was concerning for a diagnosis of acute cholecystitis and surgery was once again contacted (this time for official consultation). Upon examining patient I was convinced for a diagnosis of cholecystitis and recommended emergent laparoscopic cholecystectomy with intraoperative cholangiogram. Intraoperatively, patient was diagnosed with severe cholecystitis and, while the procedure was challenging, it proceeded without significant complication. There was some inadvertent infected bile spillage show patient was monitored postoperatively on the inpatient co[place] and continued on IV antibiotics. She has advance uneventfully with her diet and a postoperative drain was monitored. Postoperatively, patient had some blunted respiratory drive???likely owing to being slightly over narcotized. Gradually, she metabolized this medication affect and by postoperative day 1 was lucid and back to her baseline mentally. Still, she reported some uncontrolled pain and her respiratory effort was lacking. Additionally, her leukocytosis had (more content not included)...[facility]03-06-2025 Progress note Author Kaci Allen [facility] Note Date/Time November 22, 2024 11:3 9am [facility] Medical Records Department [address] [place] [address] Progress Note - Surgery 11/22/24 0819 MR#: [id number] Acct: [id number] Name: KAYLENE SHAFER Rep #:[id number] : 1950 74 From: Kaci AMBRIZ PA-C PCP: Dr. Afia Chacko MD Status:ADM IN Location: [address] Subjective Subjective Patient evaluated resting comfortably in bed. She notes right upper quadrant discomfort. She denies any nausea, vomiting, fever. She denies any flatus or BM.FERMIN drain intact with cloudy serous fluid. Objective Data Objective Data Vital Signs: Vital Signs Temp Pulse Resp BP Pulse Ox O2 Del Method O2 Flow Rate 98.6 F 97 18 139/68 H 98 Nasal Cannula 3 11/22/24 04:22 11/22/24 04:22 11/22/24 04:22 11/22/24 04:22 11/22/24 04:22 11/22/24 04:22 11/22/24 04:22 Oxygen Flow Rate (L/min) 3 Oxygen Delivery Method Nasal Cannula Weight: 190 lb 14.725 oz Body Mass Index (BMI) 32.8 Intake & Output: Intake and Output for Last 24 Hours 11/20/24 11/21/24 11/22/24 23:59 23:59 23:59 Intake Total 1000 / 1000 914.67 / 914.67 700 / 700 Output Total 100 / 100 160 / 160 Balance 1000 / 1000 814.67 / 814.67 540 / 540 Lab / Micro Data 11/22/24 06:47 11/22/24 06:47 Labs: Laboratory Results - last 24 hr 11/22/24 06:47: WBC 16.6 H, RBC 3.78 L, Hgb 12.1, Hct 35.8 L, MCV 94.7, MCH 32.0, MCHC 33.8, RDW Std Deviation 44.8 H, RDW Coeff of Axle 12.9, Plt Count 225,MPV 9.1, Immature Gran % (Auto) 0.500, Neut % (Auto) 82.2 H, Lymph % (Auto) 8.6 L, [place] % (Auto) 8.5, Eos % (Auto) 0.1, Baso % (Auto) 0.1, Absolute Neuts (auto)13.6 H, Absolute Lymphs (auto) 1.42, Nucleated RBC % 0 Radiography Diagnostic Testing: Radiology Impression Cholangiogram 11/21/24 12:18 IMPRESSION: Unremarkable intraoperative cholangiogram. Reading Location: [facility] Physical Exam GI GI Narrative: Abdomen- incisions c/d/i. No erythema or infection noted. FERMIN drain intact with cloudy serosanguineous fluid noted. Assessment & Plan Assessment/Plan (1) Acute calculous cholecystitis: PLAN: I am following this patient in conjunction with Dr. Murry. He has independently evaluated this patient. Labs reviewed. WBC increased Plan to transition to oral antibiotics today Leave FERMIN drain and continue to strip the drain every 8 H Increase to regular diet Encourage ambulation and I.S. Attempt to wean patient off oxygen to RA Probable discharge tomorrow Will reorder home meds We will continue to monitor this patient Charges/Coding Visit Charges Inpatient E&M: 02784 Subs Hosp L1 (no charge; post-op) 11/22/24 1139 <Electronically signed by Kaci AMBRIZ PA-C> Cosigner Signature (if applicable): CC: ~ Signed [facility] Work Phone: 1(287) 918-874503-06-2025 Progress note [facility] Medical Records Department [address] [place] [address] Progress Note - Surgery 11/22/24818 MR#: [id number] Acct: [id number] Name: KAYLENE SHAFER Rep #:[id number] : 1950 74 From: Kaci AMBRIZ PA-C PCP: Dr. Afia Chacko MD Status:ADM IN Location: [facility] [id number] Subjective Subjective Patient evaluated resting comfortably in bed. She notes right upper quadrant discomfort. She deniesany nausea, vomiting, fever. She denies any flatus or BM.FERMIN drain intact with cloudy serous fluid. Objective Data Objective Data Vital Signs: Vital Signs Temp Pulse Resp BP Pulse Ox O2 Del Method O2 Flow Rate 98.6 F 97 18 139/68 H 98 Nasal Cannula 3 11/22/24 04:22 11/22/24 04:22 11/22/24 04:22 11/22/24 04:22 11/22/24 04:22 11/22/24 04:22 11/22/24 04:22 Oxygen Flow Rate (L/min) 3 Oxygen Delivery Method Nasal Cannula Weight: 190 lb 14.725 oz Body Mass Index (BMI) 32.8 Intake & Output: Intake and Output for Last 24 Hours 11/20/24 11/21/24 11/22/24 23:59 23:59 23:59 Intake Total 1000 / 1000 914.67 / 914.67 700 / 700 Output Total 100 / 100 160 / 160 Balance 1000 / 1000 814.67 / 814.67 540 / 540 Lab / Micro Data 11/22/24 06:47 11/22/24 06:47 Labs: Laboratory Results - last 24 hr 11/22/24 06:47: WBC 16.6 H, RBC 3.78 L, Hgb 12.1, Hct 35.8 L, MCV 94.7, MCH 32.0, MCHC 33.8, RDW Std Deviation 44.8 H, RDW Coeff of Axel 12.9, Plt Count 225,MPV 9.1, Immature Gran % (Auto) 0.500, Neut% (Auto) 82.2 H, Lymph % (Auto) 8.6 L, Richmond % (Auto) 8.5, Eos % (Auto) 0.1, Baso % (Auto) 0.1, Absolute Neuts (auto)13.6 H, Absolute Lymphs (auto) 1.42, Nucleated RBC % 0 Radiography Diagnostic Testing: Radiology Impression Cholangiogram 11/21/24 12:18 IMPRESSION: Unremarkable intraoperative cholangiogram. Reading Location: [facility] Physical Exam GI GI Narrative: Abdomen- incisions c/d/i. No erythema or infection noted. FERMIN drain intact with cloudy serosanguineous fluid noted. Assessment & Plan Assessment/Plan (1) Acute calculous cholecystitis: PLAN: I am following this patient in conjunction with Dr. Murry. He has independently evaluated this patient. Labs reviewed. WBC increased Plan to transition to oral antibiotics today Leave FERMIN drain and continue to strip the drain every 8 H Increase to regular diet Encourage ambulation and I.S. Attempt to wean patient off oxygen to RA Probable discharge tomorrow Will reorder home meds We will continue to monitor this patient Charges/Coding Visit Charges Inpatient E&M: 18520 Subs Hosp L1 (no charge; post-op) 11/22/24 1139 Cosigner Signature (if applicable): CC: ~ Signed [facility]03-05-2025 Consult note Author Bhavin Gomez [facility] Note Date/Time November 21, 2024 5:55 pm [facility] Medical Records Department [address] [place] [address] Anesthesia Postop Eval II 11/21/24 1754 MR#: [id number] Acct: [id number] Name: KAYLENE SHAFER Rep #:[id number] : 1950 74 From: Bhavin Gomez MD PCP: Dr. Afia Chacko MD Status:REG SD C Y Race: C Location: [place] [address] Anesthesia Postop Eval I Sum Postop Eval Completion status Anesthesia document: Postop Eval 1 completed: Yes Anesthesia Postop Eval I Summary Anesthesia Postop Eval I Summary: Anesthesia Postop Eval I: Assessment Summary Airway patent Yes 11/21/24 17:27 MANAGER OCCUPATIONAL.SKOBY Spontaneous unlabored Yes 11/21/24 17:27 MANAGER OCCUPATIONAL.SKOBY respirations Mental status Awake,Calm 11/21/24 17:27 MANAGER OCCUPATIONAL.SKOBY nausea No 11/21/24 17:27 MANAGER OCCUPATIONAL.SKOBY Vomiting No 11/21/24 17:27 MANAGER OCCUPATIONAL.SKOBY Anesthesia Postop Eval I: Fluid Summary Crystalloid volume administer 1,400 11/21/24 17:27 MANAGER OCCUPATIONAL.SKOBY (ml) Colloids volume administered ( ml) Blood Product volume administered (ml) Total IV fluid infused 1,400 11/21/24 17:27 MANAGER OCCUPATIONAL.SKOBY Anesthesia Postop Eval I: Summary Notes Anesthesia Complication No 11/21/24 17:27 MANAGER OCCUPATIONAL.SKOBY Anesthesia Complication Comment: Post-operative progress note nasal trumpet and 11/21/24 17:27 MANAGER OCCUPATIONAL.SKOBY oral airway in place, breathing spontaneously Anesthesia: Postop Eval II Evaluation Mental status: Awake Pain Level: 2 nausea: No Vomiting: No 11/21/241754 <Electronically signed by Bhavin Gomez MD > Date _ Bhavin Gomez MD Cosigner Signature: Date CC: ~ Signed [facility] Work Phone: [phone]) [phone] Discharge summary Author Nolan Murry [facility] Note Date/Time November 23, 2024 12:4 6pm [facility] Medical Records Department [address] [place] [address] Instructions for Home/Discharge Instructions 11/21/24 1739 MR#: [id number] Acct: [id number] Name: KAYLENE SHAFERHA Rep #:[id number] : 1950 74 From: Nolan Avendano PCP: Dr. Afia Chacko MD Status:ADM IN Discharge Instructions Diet Discharge Diet: No restrictions DC O2, CPAP, BIPAP needs Home O2 Discharge instructions: No Dressing / Incision Discharge Activity: May Not Drive (No driving while using narcotic pain medication) and May Shower (Postoperative day 1) May shower in (days): 1 Ice area for (Minutes): 20 Lifting Restrictions: No lifting greater than 15 pounds for 2 weeks after surgery Dressing / Incision Call your doctor if your incision/area has: Continuous Slow Oozing, Increased Pain/ Swelling, Increased Redness, Foul Smelling Discharge and Swelling at the incision site Call your doctor if you observe: Fever of 101 or Higher Remove Dressing in: 2 days (Please leave Steri-Strips intact until they fall offspontaneously or are taken off at your follow-up visit) Cleanse incision/area with: Soap & Water Additional Dressing/Incision Instructions:: Please discontinue drain site dressing in 48 hours Follow Up Care Please Follow Up With: Nolan Murry MD When: 7-10days postop Test Results: Test results from this visit will be discussed in further detail at your follow- up appointment, if applicable. Discharge Plan Admission Admit Date/Time: 11/22/24 12:56 Primary Reason for Your Visit: Cholecystitis Attending Provider: Nolan Murry Primary Care Provider: Afia Chacko Discharge Orders/Prescriptions Prescriptions: New metronidazole 500 mg Tablet 500 mg PO TID 2 Days Qty: 6 0RF ciprofloxacin HCl 500 mg Tablet 500 mg PO BID 2 Days Qty: 4 0RF oxycodone 5 mg Tablet 5 mg PO Q4H PRN PRN (Reason: Pain Score 4-10) 2 Days Qty: 10 0RF Continued multivitamin capsule 1 cap PO DAILY sertraline 100 mg tablet 100 mg PO QDAY calcium carbonate 600 mg calcium (1,500 mg) tablet 600 mg PO QDAY levothyroxine 25 mcg tablet 25 mcg PO QDAY ascorbic acid (vitamin C) 500 mg tablet 500 mg PO QDAY mirabegron 50 mg tablet extended release 24 hr 50 mg PO QHS metoprolol succinate [Toprol XL] 25 mg tablet extended release 24 hr 25 mg PO QDAY Qty: 90 3RF lisinopril 20 mg tablet 20 mg PO QDAY Qty: 90 3RF pantoprazole [Protonix] 40 mg tablet,delayed release (DR/EC) 40 mg PO DAILY Qty: 7 0RF hydrocodone-acetaminophen 5-325 mg tablet 1 tab PO Q4H PRN PRN (Reason: Pain) 2 Days Qty: 10 0RF dicyclomine 20 mg tablet 20 mg PO TID PRN (Reason: abdominal pain) Qty: 30 0RF Referrals / Follow Up: Afia Chacko MD [Primary Care Provider] - Disposition Disposition (needs filled in before D/C Order can be placed): Home, Self Care 11/23/24 1246<Electronically signed by Nolan Murry MD>Nolan Murry MD CC: Dr. Afia Chacko MD ~ Signed [facility] Work Phone: [phone]) [phone] Consult note Author Vandana Reid [facility] Note Date/Time November 21, 2024 5:27 pm [facility] Medical Records Department [address] [place] [address] Anesthesia Postop Eval I 11/21/241725 MR#: [id number] Acct: [id number] Name: KAYLENE SHAFER Rep #:[id number] : 1950 74 From: Vandana summers CRNA PCP: Dr. Afia Chacko MD Status:REG SD C Y Race: C Location: [place] [address] Anesthesia: Postop Eval I Current Vital Signs Temperature: 98 F Pulse Rate: 104 Blood Pressure: 174/57 Respiratory Rate: 16 Pulse Ox: 97 Oxygen Delivery Method: Simple Mask Oxygen Flow Rate (L/min): 6 Assessment Airway patent: Yes Spontaneous unlabored respirations: Yes Mental status: Awake and Calm nausea: No Vomiting: No Anesthesia Complication: No Fluid Hydration Crystalloid volume administer (ml): 1,400 Total IV fluid infused: 1,400 Progress Note Post-operative progress note: nasal trumpet and oral airway in place, breathing spontaneously Anesthesia document: Postop Eval 1 completed: Yes 11/21/241726 <Electronically signed by Vandana garica MANAGER OCCUPATIONAL> Date _ Vandana Reid MANAGER OCCUPATIONAL Cosigner Signature: Date CC: ~ Signed [facility] Work Phone: 1(317) [phone] Consult note [facility] Medical Records Department [address] [place] [address] Anesthesia Postop Eval II 11/21/24 1754 MR#: [id number] Acct: [id number] Name: KAYLENE SHAFER Rep #:[id number] : 1950 74 From: Bhavin Gomez MD PCP: Dr. Afia Chacko MD Status:REG SD C Y Race: C Location: [place] [address] Anesthesia Postop Eval I Sum Postop Eval Completion status Anesthesia document: Postop Eval 1 completed: Yes Anesthesia Postop Eval I Summary Anesthesia Postop Eval I Summary: Anesthesia Postop Eval I: Assessment Summary Airway patent Yes 11/21/24 17:27 MANAGER OCCUPATIONAL.SKOBY Spontaneous unlabored Yes 11/21/24 17:27 MANAGER OCCUPATIONAL.SKOBY respirations Mental status Awake,Calm 11/21/24 17:27 MANAGER OCCUPATIONAL.SKOBY nausea No 11/21/24 17:27 MANAGER OCCUPATIONAL.SKOBY Vomiting No 11/21/24 17:27 MANAGER OCCUPATIONAL.SKOBY Anesthesia Postop Eval I: Fluid Summary Crystalloid volume administer 1,400 11/21/24 17:27 MANAGER OCCUPATIONAL.SKOBY (ml) Colloids volume administered ( ml) Blood Product volume administered (ml) Total IV fluid infused 1,400 11/21/24 17:27 MANAGER OCCUPATIONAL.SKOBY Anesthesia Postop Eval I: Summary Notes Anesthesia Complication No 11/21/24 17:27 MANAGER OCCUPATIONAL.SKOBY Anesthesia Complication Comment: Post-operative progress note nasal trumpet and 11/21/24 17:27 MANAGER OCCUPATIONAL.SKOBY oral airway in place, breathing spontaneously Anesthesia: Postop Eval II Evaluation Mental status: Awake Pain Level: 2 nausea: No Vomiting: No 11/21/24 1755 > Date _ Bhavin Garcia Signature: CC: ~ Signed [facility]03-05-2025 Consult note [facility] Medical Records Department [address] [place] [address] Anesthesia Postop Eval I 11/21/241725 MR#: [id number] Acct: [id number] Name: KAYLENE SHAFER Rep #:[id number] : 1950 74 From: Vandana summers CRNA PCP: Dr. Afia Chacko MD Status:REG SD C Y Race: C Location: [place] [address] Anesthesia: Postop Eval I Current Vital Signs Temperature: 98 F Pulse Rate: 104 Blood Pressure: 174/57 Respiratory Rate: 16 Pulse Ox: 97 Oxygen Delivery Method: Simple Mask Oxygen Flow Rate (L/min): 6 Assessment Airway patent: Yes Spontaneous unlabored respirations: Yes Mental status: Awake and Calm nausea: No Vomiting: No Anesthesia Complication: No Fluid Hydration Crystalloid volume administer (ml): 1,400 Total IV fluid infused: 1,400 Progress Note Post-operative progress note: nasal trumpet and oral airway in place, breathing spontaneously Anesthesia document: Postop Eval 1 completed: Yes 11/21/24 172 jose MANAGER OCCUPATIONAL> Date _ Vandana Osorioigner Signature: CC: ~ Signed [facility]03-05-2025 Radiology Diagnostic study note [facility] Imaging Services [address] [place] [address] Cholangiogram/ O R,Initial MR#: [id number] Acct: [id number] Name: KAYLENE SHAFER Rep #: [id number] : 1950 F 74 From: Jac Turner MD PCP: Dr. Afia Chacko MD Status: REG SD C Study:Cholangiogram/ O R,Initial Date of Exam : 11/21/24 Exam# [id number] Ordering Dr: Cristel Murry MD PROCEDURE: CHOLANGIOGRAM/ O R,INITIAL REASON FOR EXAM: Laparoscopic cholecystectomy. TECHNIQUE: The surgeon injected contrast. Fluoroscopic services were provided. COMPARISON: None FINDINGS: The visualized intra and extrahepatic biliary ducts are unremarkable. No intraluminal filling defect is seen. Free flow of contrast into the duodenum. RAD/Cholangiogram/ O R,Initial IMPRESSION: Unremarkable intraoperative cholangiogram. Reading Location: [facility] CC: Dr. Afia Chacko MD; Dr. Nolan Murry MD ~ Database Specialist: Signed [facility]03-05-2025 Consult note Author Bhavin oumar [facility] Note Date/Time November 21, 2024 1:35 pm [facility] Medical Records Department [address] [place] [address] Pre-Anesthesia Evaluation 11/21/24 1332 MR#: [id number] Acct: [id number] Name: KAYLENE SHAFER Rep #:[id number] : 1950 74 From: Bhavin Gomez MD PCP: Dr. Afia Chacko MD Status:REG SD C Y Race: C [facility] ASA Classification* ASA Classification ASA Classification: 2 Assessment & Plan Anesthesia* Anesthesia Assessment Anesthesia Assessment: Discussed sedation and/or anesthesia options, risks, benefits, and alternatives with patient/parents/legal guardian/POA. Questions invited. The patient/parents/legal guardian/POA seems to understand and agrees to proceedwith anesthesia plan. Reviewed the physical assessment, medical history, allergy history and patient home medications list prior to surgery/procedure/anesthetic and documented any changes. Performed airway and anesthesia risk assessments. Anesthesia Type Anesthesia Type: General Anesthesia Focused Assessment* Temperature: 98.2 F Pulse Rate: 89 Blood Pressure: 164/61 Respiratory Rate: 17 Pulse Ox: 96 Oxygen Flow Rate (L/min): 2 Airway Assessment Mouth opens: >3 cm Mallampati Score: II Focused Labs Anesthesia Preop lab: CBC WBC 14.7 K/mm3 (4.4-11.0) H 11/21/24 06:51 5 RBC 4.03 M/mm3 (4.2-5.4) L 11/21/24 06:51 11/21/24 Hgb 12.9 g/dL (12.0-15.0) 11/21/24 06:51 11/21/24 Hct 37.7 % (37-47) 11/21/24 06:51 11/21/24 Plt Count 257 K/mm3 (150-450) 11/21/24 06:51 11/21/24 CHEMISTRY Potassium 4.4 mmol/L (3.3-5.1) 11/21/24 06:51 11/21/24 Sodium 141 mmol/L (133-145) 11/21/24 06:51 11/21/24 BUN 10 mg/dL (4-19) 11/21/24 06:51 11/21/24 Creatinine 0.68 mg/dL (0.70-1.20) L 11/21/24 06:51 Glucose 151 mg/dL (70-99) H 11/21/24 06:51 11/21/24 TSH 3.030 uIU/mL (0.358-3.740) 09/10/24 13:53 08/20 12/10 COAG Pre-Assessment Diagnosis/Proposed Procedure Planned Operative Procedure(s): Laproscopic Patricia Anesthesia History Anesthesia History - property custodian: Anesthesia History - property custodian Hx Hospitalization Any Problems With Anesthesia No 11/21/24 12:51 Cholinesterase deficiency No 11/21/24 12:51 You/Your Family Experience No 11/21/24 12:51 fever (hyperthermia) with Relationship Recent Exposure to Contagious No 11/21/24 12:51 Disease Does patient have nerve No 11/21/24 12:51 stimulator Patient instructed to have No 11/21/24 12:51 device shut off --Does patient have Pacemaker No 11/21/24 12:51 or ICD? When Was Last Pacemaker Check QUESTION #4 FULL TEXT: You/Your Family Experience fever (hyperthermia) with Anesthesia Last Oral Intake Last Oral intake: Last Oral Intake NPO since 14:00 11/21/24 12:51 Meds taken in AM with sips of water? Meds patient instructed to take am of surgery PONV PONV - property custodian: PONV - property custodian Female HX of Motion Sickness HX of N/V After Surgery Non-Smoker Duration of Surgery greater than 60 minutes Number of Risk Factors PONV Score Height & Weight Height & Weight: Anesthesia: Height & Weight Height 5 ft 4 in 11/21/24 12:51 Weight: 86.6 kg 11/21/24 12:51 Body Mass Index (BMI) 32.8 11/21/24 12:51 Respiratory Assessment Respiratory Assessment - property custodian: Respiratory Tract Infection Hx - property custodian Hx Respiratory Tract Infection No 11/21/24 12:51 STOP Sleep Apnea STOP Sleep Apnea - property custodian: STOP Sleep Apnea - property custodian Hx Hypertension No 08/14/24 12:25 Hx Sleep Apnea Yes 11/21/24 12:51 CPAP Yes 11/21/24 12:51 BIPAP No 11/21/24 12:51 Do you snore loudly (louder than talking or can be heard Do you often feel tired/ fatigued/ sleepy during daytime? Has anyone observed you stop breathing during sleep? STOP Results Positive 11/21/24 12:51 QUESTION #5 FULL TEXT : Do you snore loudly (louder than talking or can be heard through closed doors)? 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 Specify any problems Hx of Preganancy in last 3 Months Nurse Filling Out Transfusion & Questions: Date: Time: Patient unable to answer at this time (ie. confused, unrespo /Reproduction History /Reproductive History - property custodian: /Reproductive Hx- property custodian Hx Now No 11/21/24 12:51 Gestational Age (in weeks): EDC: Hx Hx Para Hx Section SAB No 11/21/24 12:51 PFSH Medical History Sinusitis, acute Anxiety Subclinical hypothyroidism Fatty liver Episode of hypertension Chest pain Depression Sleep apnea Hyperlipidemia Urinary incontinence History of malignant neoplasm of rectum, rectosigmoid junction, and anus Home Medications ?Medication ?Instructions ?Recorded ?Last Taken ?Type multivitamin 1 cap PO DAILY 03/06/19 Unkn own History calcium carbonate 600 mg PO QDAY 09/24/24 Unkn own History sertraline 100 mg tablet 100 mg PO QDAY 09/24/24 Unkn own History ascorbic acid (vitamin C) 500 mg 500 mg PO QDAY Unknown History tablet levothyroxine 25 mcg tablet 25 mcg PO QDAY 11/02/24 Un known History lisinopril 20 mg tablet 20 mg PO QDAY #90 tabs 11/02 Unknown Rx metoprolol succinate 25 mg 25 mg PO QDAY #90 tabs 10/20 01/11 Unknown Rx tablet,extended release 24 hr (Toprol XL) mirabegron 50 mg tablet,extended 50 mg PO QHS 11/02/24 Unknown History release 24 hr dicyclomine 20 mg tablet 20 mg PO TID PRN abdominal p ain 11/20/24 Unknown Rx #30 tabs hydrocodone-acetaminophen 5-325mg 1 tab PO Q4H PRN PRN Pain 2 days 11/20/24 Unknown Rx 5mg-325mg #10 TABLETS pantoprazole 40 mg tablet,delayed 40 mg PO DAILY #7 ta bs 11/20/24 Unknown Rx release (Protonix) Allergy/AdvReac Type Severity Reaction Status Date / Time Penicillins Allergy Unknown rash Verified 11/20/24 16:18 Bromhexine and derivatives Allergy Rash Verified 11/20/24 16:18 Family History Father Heart disease Cancer Brother Heart disease Diabetes Surgical History History of tonsillectomy History of creation of ostomy History of removal of cyst History of hysterectomy Social History household members: spouse and children 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 Smoking Status: Never smoker alcohol intake: never substance use type: does not use caffeine: Yes Type: carbonated beverages Number of servings: 3 what type of physical activity do you participate in: none Addt'l Information Additional Findings: 11/02/2024 EKG shows sinus rhythm low voltage precordial leads poor R wave progression consider old anterior infarct. Cardiology visit 11/02/2024 due to chest pain at that time recommended stress test but did not feel that it was dueto cardiac issues Review of Systems (Anesthesia) ROS Narrative System reviewed and no additional complaints, except as documented. 11/21/24 1335 <Electronically signed by Bhavin Gomez MD > Date _ Bhavin Gomez MD Cosigner Signature: Date CC: ~ Signed [facility] Work Phone: [phone] History and physical note Author Kaci Allen [facility] Note Date/Time November 21, 2024 12:1 [facility] [address] [place] [address] History & Physical Exam 11/21/24 1125 MR#: [id number] Acct: [id number] Name: KAYLENE SHAFER Rep #:[id number] : 1950 74 From: Kaci AMBRIZ PA-C PCP: Dr. Afia Chacko MD Status:REG SD C Location: [facility] A-2 HPI - General General Date of Admission: 11/21/24 Date of Service: 11/21/24 Chief Complaint: Abdominal pain HPI Narrative KAYLENE SHAFER, is a 74 F who presents with a 2 day history of abdominal pain. Patient states the pain was located in the left upper quadrant. She stated the pain woke her up at midnight Tuesday into Tuesday night. She notes the pain intensified and her brought her to the ED. A CT scan of the abd/pel was obtained with contrast demonstrating distended gallbladder with findings suggested of sludge and gallstones, colostomy in the left anterior lower quadrant, diverticula. Patient was discharged to home on trial of Protonix. Patient was discharged to home where she had several pieces of toast with butter. Patient states she then started to have nausea and vomiting. She presented back to the ED with nausea and vomiting along with pain in the right upper quadrant. CT scan of ab/pel was repeated w.o contrast demonstrating distended gallbladder, left lower quadrant colostomy with parastomal hernia containing focal loop of transverse bowel. No inflammatory changes of the bowel loops were noted. Abdominal u/s was obtained demonstrating moderately distended gallbladder with trace pericholecystic fluid, common bile duct measuring 7 mm. Mild right hydronephrosis. Patient notes her appetite has been the same since her symptoms started. She notes normal stool output through her colostomy. She denies the knowledge of having a parastomal hernia previously. Patient states she was diagnosed with rectal cancer in 2011. She was evaluated and had all treatment in [place]. Patient did not have surgical intervention for the rectal cancer. She had radiation. Patient had post-radiation changes with associated burning, diarrhea and rectal pain. Patient was referred to Dr. Shashank Edmondson at [facility] for a colostomy creation, which occurred in 2020. Patient notes she also is evaluated by Dr. Mcintyre for urinary urgency and frequency. She notes taking a medication for urinary incontinence. She denies any history of recurrent urinary tract infections. Patient notes in August 2024, she was in the ED for chest pain. Patient states she was evaluated by cardiology who recommended the patient have a stress test and ECHO, which is scheduled for end november. Patient states she no longer has the chest pain and no exertional chest pain. She believes the chest pain may have been from anxiety. Patient notes a history of sleep apnea and does where a CPAP machine. She notes her abdominal surgical history includes a laparoscopic left lower quadrant colostomy creation, abdominal cyst removal and partial hysterectomy. Patient's labs from today demonstrate WBC 14.7, Hgb 12.9, Hct 37.7, Plt 257. Liver panel notable for T. Bili 0.59, AST 43, ALT 64, Alk Phos 78 PFSH Medical History Sinusitis, acute Anxiety Subclinical hypothyroidism Fatty liver Episode of hypertension Chest pain Depression Sleep apnea Hyperlipidemia Urinary incontinence History of malignant neoplasm of rectum, rectosigmoid junction, and anus Home Medications ?Medication ?Instructions ?Recorded ?Last Taken ?Type multivitamin 1 cap PO DAILY 03/06/19 Unkn own History calcium carbonate 600 mg PO QDAY 09/24/24 Unkn own History sertraline 100 mg tablet 100 mg PO QDAY 09/24/24 Unkn own History ascorbic acid (vitamin C) 500 mg 500 mg PO QDAY Unknown History tablet levothyroxine 25 mcg tablet 25 mcg PO QDAY 11/02/24 Un known History lisinopril 20 mg tablet 20 mg PO QDAY #90 tabs 11/02 Unknown Rx metoprolol succinate 25 mg 25 mg PO QDAY #90 tabs 10/20 01/11 Unknown Rx tablet,extended release 24 hr (Toprol XL) mirabegron 50 mg tablet,extended 50 mg PO QHS 11/02/24 Unknown History release 24 hr dicyclomine 20 mg tablet 20 mg PO TID PRN abdominal p ain 11/20/24 Unknown Rx #30 tabs hydrocodone-acetaminophen 5-325mg 1 tab PO Q4H PRN PRN Pain 2 days 11/20/24 Unknown Rx 5mg-325mg #10 TABLETS pantoprazole 40 mg tablet,delayed 40 mg PO DAILY #7 ta bs 11/20/24 Unknown Rx release (Protonix) Allergy/AdvReac Type Severity Reaction Status Date / Time Penicillins Allergy Unknown rash Verified 11/20/24 16:18 Bromhexine and derivatives Allergy Rash Verified 11/20/24 16:18 Family History Father Heart disease Cancer Brother Heart disease Diabetes Surgical History History of tonsillectomy History of creation of ostomy History of removal of cyst History of hysterectomy Social History household members: spouse and children 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 Smoking Status: Never smoker alcohol intake: never substance use type: does not use caffeine: Yes Type: carbonated beverages Number of servings: 3 what type of physical activity do you participate in: none ROS Constitutional Constitutional: Reports systems reviewed and no addt'l complaints, except as documented, fatigue and weight gain Eyes Eyes: Reports systems reviewed and no addt'l complaints, except as documented ENT HEENT: Reports systems reviewed and no addt'l complaints, except as documented Cardiovascular Cardiovascular: Reports systems reviewed and no addt'l complaints, except as documented Respiratory/Chest Respiratory/Chest: Reports systems reviewed and no addt'l complaints, except as documented Gastrointestinal Gastrointestinal: Reports systems reviewed and no addt'l complaints, except as documented Genitourinary Genitourinary: Reports systems reviewed and no addt'l complaints, except as documented Musculoskeletal Musculoskeletal: Reports systems reviewed and no addt'l complaints, except as documented Integumentary Integumentary: Reports systems reviewed and no addt'l complaints, except as documented Neurologic Neurologic: Reports systems reviewed and no addt'l complaints, except as documented Psychiatric Psychiatric: Reports systems reviewed and no addt'l complaints, except as documented Endocrine Endocrinology: Reports systems reviewed and no addt'l complaints, except as documented Hematologic/Lymphatic Hematologic/Lymphatic: Reports systems reviewed and no addt'l complaints, exceptas documented Allergic/Immunologic Allergic/Immunologic: Reports systems reviewed and no addt'l complaints, except as documented Vital Signs Vital Signs Vital Signs: 11/20/24 16:19 11/20/24 18:18 11/20/24 20:00 Temperature 98 F Temperature Source Oral Pulse Rate 88 60 83 Respiratory Rate 20 H 12 17 Blood Pressure 172/100 H 134/70 H Blood Pressure Mean 124 91 Pulse Ox 95 98 95 Oxygen Delivery Method Room Air Room Air Room Air Oxygen Flow Rate (L/min) 11/20/24 20:42 11/20/24 20:45 11/20/24 20:48 Temperature Temperature Source Pulse Rate 87 83 82 Respiratory Rate 22 H 24 H 19 H Blood Pressure 163/64 H Blood Pressure Mean 97 Pulse Ox 94 94 93 Oxygen Delivery Method Room Air Oxygen Flow Rate (L/min) 11/20/24 21:00 11/20/24 21:00 11/20/24 22:00 Temperature Temperature Source Pulse Rate 89 98 Respiratory Rate 25 H 21 H Blood Pressure 161/70 H 161/70 H Blood Pressure Mean 86 86 Pulse Ox 92 94 Oxygen Delivery Method Room Air Oxygen Flow Rate (L/min) 11/20/24 22:00 11/20/24 22:17 11/20/24 22:30 Temperature Temperature Source Pulse Rate 97 98 Respiratory Rate 27 H 17 Blood Pressure 141/130 H Blood Pressure Mean 136 Pulse Ox 92 94 Oxygen Delivery Method Oxygen Flow Rate (L/min) 11/20/24 22:45 11/20/24 23:00 11/20/24 23:31 Temperature Temperature Source Pulse Rate 96 100 100 Respiratory Rate 19 H 23 H 20 H Blood Pressure 156/61 H Blood Pressure Mean 88 Pulse Ox 90 90 91 Oxygen Delivery Method Oxygen Flow Rate (L/min) 11/20/24 23:45 11/20/24 23:55 11/21/24 00:00 Temperature Temperature Source Pulse Rate 101 H 105 H 100 Respiratory Rate 22 H 26 H 20 H Blood Pressure 156/61 H 158/65 H Blood Pressure Mean 92 91 Pulse Ox 88 96 95 Oxygen Delivery Method Nasal Cannula Oxygen Flow Rate (L/min) 2 11/21/24 00:15 11/21/24 00:30 11/21/24 00:50 Temperature Temperature Source Pulse Rate 99 101 H 104 H Respiratory Rate 20 H 19 H 20 H Blood Pressure Blood Pressure Mean Pulse Ox 94 95 92 Oxygen Delivery Method Oxygen Flow Rate (L/min) 11/21/24 00:58 11/21/24 01:00 11/21/24 01:15 Temperature Temperature Source Pulse Rate 99 98 99 Respiratory Rate 19 H 17 19 H Blood Pressure 158/65 H 150/64 H Blood Pressure Mean 96 84 Pulse Ox 99 95 96 Oxygen Delivery Method Nasal Cannula Oxygen Flow Rate (L/min) 2 11/21/24 01:30 11/21/24 01:45 11/21/24 02:00 Temperature Temperature Source Pulse Rate 101 H 101 H 98 Respiratory Rate 18 18 16 Blood Pressure 153/55 H Blood Pressure Mean 87 Pulse Ox 96 96 95 Oxygen Delivery Method Nasal Cannula Oxygen Flow Rate (L/min) 2 11/21/24 02:00 11/21/24 02:15 11/21/24 02:30 Temperature Temperature Source Pulse Rate 99 98 100 Respiratory Rate 16 17 17 Blood Pressure 153/55 H Blood Pressure Mean 81 Pulse Ox 95 96 96 Oxygen Delivery Method Oxygen Flow Rate (L/min) 11/21/24 02:45 11/21/24 03:00 11/21/24 03:15 Temperature Temperature Source Pulse Rate 99 101 H 100 Respiratory Rate 18 15 18 Blood Pressure 162/63 H Blood Pressure Mean 89 Pulse Ox 96 95 97 Oxygen Delivery Method Oxygen Flow Rate (L/min) 11/21/24 03:30 11/21/24 03:45 11/21/24 04:00 Temperature Temperature Source Pulse Rate 99 Respiratory Rate 18 Blood Pressure 167/57 H Blood Pressure Mean 93 Pulse Ox 95 97 97 Oxygen Delivery Method Nasal Cannula Oxygen Flow Rate (L/min) 2 11/21/24 04:00 11/21/24 04:15 11/21/24 04:30 Temperature Temperature Source Pulse Rate Respiratory Rate Blood Pressure 167/57 H Blood Pressure Mean 87 Pulse Ox 96 96 97 Oxygen Delivery Method Oxygen Flow Rate (L/min) 11/21/24 04:45 11/21/24 05:03 11/21/24 05:15 Temperature Temperature Source Pulse Rate 97 Respiratory Rate 20 H 18 Blood Pressure Blood Pressure Mean Pulse Ox 96 88 Oxygen Delivery Method Oxygen Flow Rate (L/min) 11/21/24 05:30 11/21/24 05:45 11/21/24 05:53 Temperature Temperature Source Pulse Rate 97 103 H 104 H Respiratory Rate 15 17 28 H Blood Pressure Blood Pressure Mean Pulse Ox 94 94 94 Oxygen Delivery Method Nasal Cannula Oxygen Flow Rate (L/min) 2 11/21/24 05:53 11/21/24 06:00 11/21/24 06:15 Temperature Temperature Source Pulse Rate 103 H 104 H 106 H Respiratory Rate 32 H 20 H 29 H Blood Pressure 157/68 H 153/61 H Blood Pressure Mean 88 86 Pulse Ox 92 95 93 Oxygen Delivery Method Oxygen Flow Rate (L/min) 11/21/24 06:30 11/21/24 06:45 11/21/24 07:00 Temperature Temperature Source Pulse Rate 107 H 104 H Respiratory Rate 24 H 17 Blood Pressure 176/75 H Blood Pressure Mean 101 Pulse Ox 95 95 Oxygen Delivery Method Oxygen Flow Rate (L/min) 11/21/24 07:25 11/21/24 07:39 11/21/24 07:45 Temperature Temperature Source Pulse Rate 96 Respiratory Rate 20 H Blood Pressure Blood Pressure Mean Pulse Ox 95 92 96 Oxygen Delivery Method Oxygen Flow Rate (L/min) 11/21/24 08:00 11/21/24 08:15 11/21/24 08:30 Temperature Temperature Source Pulse Rate 92 91 96 Respiratory Rate 17 17 18 Blood Pressure 150/59 H Blood Pressure Mean 82 Pulse Ox 96 96 95 Oxygen Delivery Method Oxygen Flow Rate (L/min) 11/21/24 08:45 11/21/24 09:00 11/21/24 09:15 Temperature Temperature Source Pulse Rate 95 95 Respiratory Rate 20 H 17 18 Blood Pressure 71/48 L Blood Pressure Mean 56 Pulse Ox 96 95 96 Oxygen Delivery Method Oxygen Flow Rate (L/min) 11/21/24 09:23 11/21/24 09:30 Temperature Temperature Source Pulse Rate Respiratory Rate 25 H 23 H Blood Pressure 90/67 Blood Pressure Mean 76 Pulse Ox 96 96 Oxygen Delivery Method Oxygen Flow Rate (L/min) Weight Weight: 190 lb 14.725 oz Body Mass Index (BMI) 32.8 Physical Exam Const alert, oriented x3 and no apparent distress HEENT normocephalic and head/scalp atraumatic Eyes PERRL Neck full ROM Chest inspection of chest normal Resp normal respiratory effort and normal air movement Cardio regular rate and regular rhythm GI GI Narrative: Abdomen- soft, tenderness in the epigastric and right upper quadrant regions. Positive Rodríguez's sign. Left lower quadrant ostomy noted with stool within the stoma bag. no CVA tenderness Back/Spine no CVA tenderness Extremity normal to inspection Skin no rashes or lesions noted Neuro no focal motor deficits and no sensory deficits noted Psych mental status grossly normal and thought process normal Results Lab / Micro Data 11/21/24 06:51 11/21/24 06:51 Labs: Laboratory Results - last 24 hr 11/20/24 17:10: WBC 14.2 H, RBC 4.31, Hgb 13.8, Hct 39.8, MCV 92.3, MCH 32.0, MCHC 34.7, RDW Std Deviation 42.6, RDW Coeff of Axel 12.5, Plt Count 274, MPV 9.3, Immature Gran % (Auto) 0.600, Neut % (Auto) 86.8 H, Lymph % (Auto) 8.7 L, [place] % (Auto) 3.4, Eos % (Auto) 0.1, Baso % (Auto) 0.4, Absolute Neuts (auto) 12.4 H, Absolute Lymphs (auto) 1.23, Nucleated RBC % 0, Sodium 134, Potassium 5.5 H, Chloride 102, Carbon Dioxide 16.8 L, Anion Gap 15, BUN 14, Creatinine 0.76, Estim Creat Clear Calc 63.71, Est GFR (MDRD) Non-Af 81, BUN/Creatinine Ratio 18.8, Glucose 140 H, Calcium 9.4 11/20/24 19:56: Lactic Acid 1.5 11/20/24 20:42: Urine Color Yellow, Urine Clarity Sl. Cloudy, Urine pH 6.0, Ur Specific [place] 1.020, Urine Protein 30 H, Urine Glucose (UA) Normal, Urine Ketones Negative, Urine Occult Blood Negative, Urine Nitrite Negative, Urine Bilirubin Negative, Urine Urobilinogen Normal, Ur Leukocyte Esterase 25 H, UrineRBC 0-5 SEEN, Urine WBC 5-10 SEEN, Ur Squamous Epith Cells 0 SEEN, Urine Bacteria 1+, Urine Mucus RARE 11/21/24 06:51: WBC 14.7 H, RBC 4.03 L, Hgb 12.9, Hct 37.7, MCV 93.5, MCH 32.0, MCHC 34.2, RDW Std Deviation 43.8, RDW Coeff of Axel 12.8, Plt Count 257, MPV 9.3, Immature Gran % (Auto) 0.500, Neut % (Auto) 79.5 H, Lymph % (Auto) 11.2 L, [place] % (Auto) 8.2, Eos % (Auto) 0.4, Baso % (Auto) 0.2, Absolute Neuts (auto) 11.7 H, Absolute Lymphs (auto) 1.65, Nucleated RBC % 0, Sodium 141, Potassium 4.4, Chloride 108, Carbon Dioxide 21.1, Anion Gap 12, BUN 10, Creatinine 0.68 L,Estim Creat Clear Calc 63.71, Est GFR (MDRD) Non-Af 90, BUN/Creatinine Ratio 15.3, Glucose 151 H, Lactic Acid 1.1, Calcium 9.0, Total Bilirubin 0.59, Direct Bilirubin 0.30, AST 43 H, ALT 64 H, Alkaline Phosphatase 78, Total Protein 7.1, Albumin 4.0, Globulin 3.1, Lipase 29 ABG Data ABG results: ABG 11/20/24 20:05 Specimen Type CRISTY Sample Site Not entered VBG pH 7.40 VBG pO2 69 H VBG HCO3 20 L VBG Total CO2 21 L VBG O2 Sat (Calc) 94 H VBG Base Excess -5 L POC Mix VBG pCO2 Pt Tmp 32.1 L O2 Delivery Device Room Air Imaging Radiology Impression Abdomen/Pelvis CT 11/20/24 21:10 IMPRESSION: Distended gallbladder with ill-defined layering density, may represent sludge versus tiny stones. Right upper quadrant ultrasound may be helpful for further characterization. Left lower quadrant colostomy with a parastomal hernia containing a focal loop of transverse colon. No inflammatory changes of the bowel loops are demonstrated. One or more dose reduction techniques were used (e.g., Automated exposure control, adjustment of the mA and/or kV according to patient size, use of iterative reconstruction technique). Reading [facility] 11/21/24 06:25 IMPRESSION: Findings are suggestive of cholelithiasis with acute cholecystitis. Consider HIDA scan for further evaluation. Mild right hydronephrosis. ? Hepatic steatosis. Reading Location: [id number] Assessment & Plan Assessment/Plan (1) Acute calculous cholecystitis: (2) Parastomal hernia: QUALIFIERS: Obstruction and gangrene presence: without obstructionor gangrene Qualified Code(s): K43.5 - Parastomal hernia without obstruction organgrene PLAN: Plan I am seeing this patient in conjunction with Dr. Murry. He has independently evaluated this patient. Patient has a 2 day history of worsening upper abdominalpain which is now located in the right upper quadrant. RUQ u/s demonstrated acute cholecystitis with calculus. Dr. Murry will plan to preform a laparoscopiccholecystectomy with intraoperative cholangiogram. Procedure details, risks and benefits have been explained. Plan to admit patient for observation. Patient andher have had the opportunity to ask and have questions answered. Patientverbally understands agrees with the proposed plan. Patient also has a parastomal hernia as well, which will need to be addressed as an outpatient withher colorectal surgeon, Dr. Edmondson. Thank you for allowing us toparticipate in this patient's care. Charges/Coding Visit Charges OBSV E&M: 97519 Observ/hosp same date L2 11/21/24 1154 <Electronically signed by Kaci AMBRIZ PA-C> Cosigner Signature (if applicable): CC: LAURA Allen; Dr. Afia Chacko MD; Dr. Nolan Murry MD~ Signed ADDENDUM by Dr. Nolan Murry MD on 11/21/24 at 1211 Addendum Patient, Mrs. Shafer, was seen and examined alongside of KATINA Harris. Appreciate and agree with her documentation given above. In brief, patientwas seen on 2 separate occasions in our ER yesterday for acute?onset abdominal pain which is described as beginning in the left side of the abdomen but becoming localized to the right upper quadrant. Pain has been associated with some nausea and vomiting and patient has demonstrated a leukocytosis with left shift on repeat labs. Likely owing to some initial reports of possible left sided abdominal discomfort workup was conducted to further evaluate patient's left lower quadrant colostomy where she was diagnosed with a parastomal hernia containing a small segment of the transverse colon. I was contacted by the emergency department after this CT imaging was obtained last evening and agreed with radiology that there appeared to be no inflammatory changes or narrowing ofthe colon that was involved. Emergency medicine was due to try to reduce the hernia and was also, simultaneously, reaching out for colorectal surgery guidance after I discussed that we do not perform parastomal hernias at this institution. On my evaluation patient's pain is exclusively in the right upper quadrant and she has minimal tenderness about her colostomy with abundant output. Thus, with the acuity of patient's pain presentation, associated nauseaand vomiting, associated leukocytosis, her recent ultrasound findings, and her exam which records with diagnosis of acute cholecystitis I recommend admission and laparoscopic cholecystectomy with intraoperative cholangiography. Procedurewas described in detail?including potential need for subsequent ERCP if cholangiography is positive. Patient and her expressed understanding. Will now seek availability with the operating room to schedule patient for surgery. In the interim patient to be started on empiric IV antibiotic therapy and admitted to the hospital. Concerning patient's parastomal hernia, I do not believe this is an acute finding or one that requires acute intervention. Therefore we will plan to havepatient follow-up as an outpatient with her colorectal surgeon at the [facility]. Nolan Murry MD General Surgery Endocrine Surgery Pager: [facility] [address] [place] [address], [facility] [address] [place] [address] Office: [phone] 11/21/24 1211<Electronically signed by Nolan Murry MD> Cosigner Signature (if applicable): cc: LAURA Allen; Dr. Afia Chacko MD; Dr. Nolan Murry MD ~* Signed [facility] Work Phone: [phone] Consult note [facility] Medical Records Department [address] [place] [id number] Pre-Anesthesia Evaluation 11/21/24 1332 MR#: [id number] Acct: [id number] Name: KAYLENE SHAFER Rep #:[id number] : 1950 74 From: Bhavin Gomez MD PCP: Dr. Afia Chacko MD Status:REG SD C Y Race: C Location: [place] [address] ASA Classification* ASA Classification ASA Classification: 2 Assessment & Plan Anesthesia* Anesthesia Assessment Anesthesia Assessment: Discussed sedation and/or anesthesia options, risks, benefits, and alternatives with patient/parents/legal guardian/POA. Questions invited. The patient/parents/legal guardian/POA seems to understand and agrees to proceedwith anesthesia plan. Reviewed the physical assessment, medical history, allergy history and patient home medications list prior to surgery/procedure/anesthetic and documented any changes. Performed airway and anesthesia risk assessments. Anesthesia Type Anesthesia Type: General Anesthesia Focused Assessment* Temperature: 98.2 F Pulse Rate: 89 Blood Pressure: 164/61 Respiratory Rate: 17 Pulse Ox: 96 Oxygen Flow Rate (L/min): 2 Airway Assessment Mouth opens: >3 cm Mallampati Score: II Focused Labs Anesthesia Preop lab: CBC WBC 14.7 K/mm3 (4.4-11.0) H 11/21/24 06:51 5 RBC 4.03 M/mm3 (4.2-5.4) L 11/21/24 06:51 11/21/24 Hgb 12.9 g/dL (12.0-15.0) 11/21/24 06:51 11/21/24 Hct 37.7 % (37-47) 11/21/24 06:51 11/21/24 Plt Count 257 K/mm3 (150-450) 11/21/24 06:51 11/21/24 CHEMISTRY Potassium 4.4 mmol/L (3.3-5.1) 11/21/24 06:51 11/21/24 Sodium 141 mmol/L (133-145) 11/21/24 06:51 11/21/24 BUN 10 mg/dL (4-19) 11/21/24 06:51 11/21/24 Creatinine 0.68 mg/dL (0.70-1.20) L 11/21/24 06:51 Glucose 151 mg/dL (70-99) H 11/21/24 06:51 11/21/24 TSH 3.030 uIU/mL (0.358-3.740) 09/10/24 13:53 08/20 12/10 COAG Pre-Assessment Diagnosis/Proposed Procedure Planned Operative Procedure(s): Laproscopic Patricia Anesthesia History Anesthesia History - property custodian: Anesthesia History - property custodian Hx Hospitalization Any Problems With Anesthesia No 11/21/24 12:51 Cholinesterase deficiency No 11/21/24 12:51 You/Your Family Experience No 11/21/24 12:51 fever (hyperthermia) with Relationship Recent Exposure to Contagious No 11/21/24 12:51 Disease Does patient have nerve No 11/21/24 12:51 stimulator Patient instructed to have No 11/21/24 12:51 device shut off --Does patient have Pacemaker No 11/21/24 12:51 or ICD? When Was Last Pacemaker Check QUESTION #4 FULL TEXT: You/Your Family Experience fever (hyperthermia) with Anesthesia Last Oral Intake Last Oral intake: Last Oral Intake NPO since 14:00 11/21/24 12:51 Meds taken in AM with sips of water? Meds patient instructed to take am of surgery PONV PONV - property custodian: PONV - property custodian Female HX of Motion Sickness HX of N/V After Surgery Non-Smoker Duration of Surgery greater than 60 minutes Number of Risk Factors PONV Score Height & Weight Height & Weight: Anesthesia: Height & Weight Height 5 ft 4 in 11/21/24 12:51 Weight: 86.6 kg 11/21/24 12:51 Body Mass Index (BMI) 32.8 11/21/24 12:51 Respiratory Assessment Respiratory Assessment - property custodian: Respiratory Tract Infection Hx - property custodian Hx Respiratory Tract Infection No 11/21/24 12:51 STOP Sleep Apnea STOP Sleep Apnea - property custodian: STOP Sleep Apnea - property custodian Hx Hypertension No 08/14/24 12:25 Hx Sleep Apnea Yes 11/21/24 12:51 CPAP Yes 11/21/24 12:51 BIPAP No 11/21/24 12:51 Do you snore loudly (louder than talking or can be heard Do you often feel tired/ fatigued/ sleepy during daytime? Has anyone observed you stop breathing during sleep? STOP Results Positive 11/21/24 12:51 QUESTION #5 FULL TEXT : Do you snore loudly (louder than talking or can be heard through closeddoors)? 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 Specify any problems Hx of Preganancy in last 3 Months Nurse Filling Out Transfusion & Questions: Date: Time: Patient unable to answer at this time (ie. confused, unrespo /Reproduction History /Reproductive History - property custodian: /Reproductive Hx- property custodian Hx Now No 11/21/24 12:51 Gestational Age (in weeks): EDC: Hx Hx Para Hx Section SAB No 11/21/24 12:51 PFSH Medical History Sinusitis, acute Anxiety Subclinical hypothyroidism Fatty liver Episode of hypertension Chest pain Depression Sleep apnea Hyperlipidemia Urinary incontinence History of malignant neoplasm of rectum, rectosigmoid junction, and anus Home Medications ?Medication ?Instructions ?Recorded ?Last Taken ?Type multivitamin 1 cap PO DAILY 03/06/19 Unkn own History calcium carbonate 600 mg PO QDAY 09/24/24 Unkn own History sertraline 100 mg tablet 100 mg PO QDAY 09/24/24 Unkn own History ascorbic acid (vitamin C) 500 mg 500 mg PO QDAY Unknown History tablet levothyroxine 25 mcg tablet 25 mcg PO QDAY 11/02/24 Un known History lisinopril 20 mg tablet 20 mg PO QDAY #90 tabs 11/02 Unknown Rx metoprolol succinate 25 mg 25 mg PO QDAY #90 tabs 10/20 01/11 Unknown Rx tablet,extended release 24 hr (Toprol XL) mirabegron 50 mg tablet,extended 50 mg PO QHS 11/02/24 Unknown History release 24 hr dicyclomine 20 mg tablet 20 mg PO TID PRN abdominal p ain 11/20/24 Unknown Rx #30 tabs hydrocodone-acetaminophen 5-325mg 1 tab PO Q4H PRN PRN Pain 2 days 11/20/24 Unknown Rx 5mg-325mg #10 TABLETS pantoprazole 40 mg tablet,delayed 40 mg PO DAILY #7 ta bs 11/20/24 Unknown Rx release (Protonix) Allergy/AdvReac Type Severity Reaction Status Date / Time Penicillins Allergy Unknown rash Verified 11/20/24 16:18 Bromhexine and derivatives Allergy Rash Verified 11/20/24 16:18 Family History Father Heart disease Cancer Brother Heart disease Diabetes Surgical History History of tonsillectomy History of creation of ostomy History of removal of cyst History of hysterectomy Social History household members: spouse and children 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 Smoking Status: Never smoker alcohol intake: never substance use type: does not use caffeine: Yes Type: carbonated beverages Number of servings: 3 what type of physical activity do you participate in: none Addt'l Information Additional Findings: 11/02/2024 EKG shows sinus rhythm low voltage precordial leads poor R wave progression consider old anterior infarct. Cardiology visit 11/02/2024 due to chest pain at that time recommended stress test but did not feel that it was dueto cardiac issues Review of Systems (Anesthesia) ROS Narrative System reviewed and no additional complaints, except as documented. 11/21/24 1335 > Date _ Bhavin Garcia Signature: Date CC: ~ Signed [facility]03-05-2025 History and physical note [facility] Medical Records Department [address] [place] [address] History & Physical Exam 11/21/24 1125 MR#: [id number] Acct: [id number] Name: KAYLENE SHAFER Rep #:[id number] : 1950 74 From: Kaci AMBRIZ PA-C PCP: Dr. Afia Chacko MD Status:REG SD C Location: [facility] HPI - General General Date of Admission: 11/21/24 Date of Service: 11/21/24 Chief Complaint: Abdominal pain HPI Narrative KAYLENE SHAFER, is a 74 F who presents with a 2 day history of abdominal pain. Patient states the pain was located in the left upper quadrant. She stated the pain woke her up at midnight Tuesday into Tuesday night. She notes the pain intensified and her brought her to the ED. A CT scan of theabd/pel was obtained with contrast demonstrating distended gallbladder with findings suggested of sludge and gallstones, colostomy in the left anterior lower quadrant, diverticula. Patient was discharged to home on trial of Protonix. Patient was discharged to home where she had several pieces of toast with butter. Patient states she then started to have nausea and vomiting. She presented back to the ED with nausea and vomiting along with pain in the right upper quadrant. CT scan of ab/pel was repeated w.o contrast demonstrating distended gallbladder, left lower quadrant colostomy with parastomal hernia containing focal loop of transverse bowel. No inflammatory changes of the bowel loops were noted. Abdominal u/s was obtained demonstrating moderately distended gallbladder with trace pericholecystic fluid, common bile duct measuring 7 mm. Mild right hydronephrosis. Patient notes her appetite has been the same since her symptoms started. She notes normal stool output through her colostomy. She denies the knowledge of having a parastomal hernia previously. Patient states she was diagnosed with rectal cancer in 2011. She was evaluated and had all treatment in [place]. Patient did not have surgical intervention for the rectal cancer. She had radiation. Patient had post-radiation changes with associated burning, diarrhea and rectal pain. Patient was referred to Dr. Shashank Edmondson [facility] for a colostomy creation, which occurred in 2020. Patient notes she also is evaluated by Dr. Mcintyre for urinary urgency and frequency. She notes taking a medication for urinary incontinence. She denies any history of recurrent urinary tract infections. Patient notes in August 2024, she was in the ED for chest pain. Patient states she was evaluated by cardiology who recommended the patient have a stress test and ECHO, which is scheduled for end of November. Patient states she no longer has the chest pain and no exertional chest pain. She believes the chest pain may have been from anxiety. Patient notes a history of sleep apnea and does where a CPAP machine. She notes her abdominal surgical history includes a laparoscopic left lower quadrant colostomy creation, abdominal cystremoval and partial hysterectomy. Patient's labs from today demonstrate WBC 14.7, Hgb 12.9, Hct 37.7, Plt 257. Liver panel notable for T. Bili 0.59, AST 43, ALT 64, Alk Phos 78 [facility] Medical History Sinusitis, acute Anxiety Subclinical hypothyroidism Fatty liver Episode of hypertension Chest pain Depression Sleep apnea Hyperlipidemia Urinary incontinence History of malignant neoplasm of rectum, rectosigmoid junction, and anus Home Medications ?Medication ?Instructions ?Recorded ?Last Taken ?Type multivitamin 1 cap PO DAILY 03/06/19 Unkn own History calcium carbonate 600 mg PO QDAY 09/24/24 Unkn own History sertraline 100 mg tablet 100 mg PO QDAY 09/24/24 Unkn own History ascorbic acid (vitamin C) 500 mg 500 mg PO QDAY Unknown History tablet levothyroxine 25 mcg tablet 25 mcg PO QDAY 11/02/24 Un known History lisinopril 20 mg tablet 20 mg PO QDAY #90 tabs 11/02 Unknown Rx metoprolol succinate 25 mg 25 mg PO QDAY #90 tabs 10/20 01/11 Unknown Rx tablet,extended release 24 hr (Toprol XL) mirabegron 50 mg tablet,extended 50 mg PO QHS 11/02/24 Unknown History release 24 hr dicyclomine 20 mg tablet 20 mg PO TID PRN abdominal p ain 11/20/24 Unknown Rx #30 tabs hydrocodone-acetaminophen 5-325mg 1 tab PO Q4H PRN PRN Pain 2 days 11/20/24 Unknown Rx 5mg-325mg #10 TABLETS pantoprazole 40 mg tablet,delayed 40 mg PO DAILY #7 ta bs 11/20/24 Unknown Rx release (Protonix) Allergy/AdvReac Type Severity Reaction Status Date / Time Penicillins Allergy Unknown rash Verified 11/20/24 16:18 Bromhexine and derivatives Allergy Rash Verified 11/20/24 16:18 Family History Father Heart disease Cancer Brother Heart disease Diabetes Surgical History History of tonsillectomy History of creation of ostomy History of removal of cyst History of hysterectomy Social History household members: spouse and children 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 Smoking Status: Never smoker alcohol intake: never substance use type: does not use caffeine: Yes Type: carbonated beverages Number of servings: 3 what type of physical activity do you participate in: none ROS Constitutional Constitutional: Reports systems reviewed and no addt'l complaints, except as documented, fatigue and weight gain Eyes Eyes: Reports systems reviewed and no addt'l complaints, except as documented ENT HEENT: Reports systems reviewed and no addt'l complaints, except as documented Cardiovascular Cardiovascular: Reports systems reviewed and no addt'l complaints, except as documented Respiratory/Chest Respiratory/Chest: Reports systems reviewed and no addt'l complaints, except as documented Gastrointestinal Gastrointestinal: Reports systems reviewed and no addt'l complaints, except as documented Genitourinary Genitourinary: Reports systems reviewed and no addt'l complaints, except as documented Musculoskeletal Musculoskeletal: Reports systems reviewed and no addt'l complaints, except as documented Integumentary Integumentary: Reports systems reviewed and no addt'l complaints, except as documented Neurologic Neurologic: Reports systems reviewed and no addt'l complaints, except as documented Psychiatric Psychiatric: Reports systems reviewed and no addt'l complaints, except as documented Endocrine Endocrinology: Reports systems reviewed and no addt'l complaints, except as documented Hematologic/Lymphatic Hematologic/Lymphatic: Reports systems reviewed and no addt'l complaints, exceptas documented Allergic/Immunologic Allergic/Immunologic: Reports systems reviewed and no addt'l complaints, except as documented Vital Signs Vital Signs Vital Signs: 11/20/24 16:19 11/20/24 18:18 11/20/24 20:00 Temperature 98 F Temperature Source Oral Pulse Rate 88 60 83 Respiratory Rate 20 H 12 17 Blood Pressure 172/100 H 134/70 H Blood Pressure Mean 124 91 Pulse Ox 95 98 95 Oxygen Delivery Method Room Air Room Air Room Air Oxygen Flow Rate (L/min) 11/20/24 20:42 11/20/24 20:45 11/20/24 20:48 Temperature Temperature Source Pulse Rate 87 83 82 Respiratory Rate 22 H 24 H 19 H Blood Pressure 163/64 H Blood Pressure Mean 97 Pulse Ox 94 94 93 Oxygen Delivery Method Room Air Oxygen Flow Rate (L/min) 11/20/24 21:00 11/20/24 21:00 11/20/24 22:00 Temperature Temperature Source Pulse Rate 89 98 Respiratory Rate 25 H 21 H Blood Pressure 161/70 H 161/70 H Blood Pressure Mean 86 86 Pulse Ox 92 94 Oxygen Delivery Method Room Air Oxygen Flow Rate (L/min) 11/20/24 22:00 11/20/24 22:17 11/20/24 22:30 Temperature Temperature Source Pulse Rate 97 98 Respiratory Rate 27 H 17 Blood Pressure 141/130 H Blood Pressure Mean 136 Pulse Ox 92 94 Oxygen Delivery Method Oxygen Flow Rate (L/min) 11/20/24 22:45 11/20/24 23:00 11/20/24 23:31 Temperature Temperature Source Pulse Rate 96 100 100 Respiratory Rate 19 H 23 H 20 H Blood Pressure 156/61 H Blood Pressure Mean 88 Pulse Ox 90 90 91 Oxygen Delivery Method Oxygen Flow Rate (L/min) 11/20/24 23:45 11/20/24 23:55 11/21/24 00:00 Temperature Temperature Source Pulse Rate 101 H 105 H 100 Respiratory Rate 22 H 26 H 20 H Blood Pressure 156/61 H 158/65 H Blood Pressure Mean 92 91 Pulse Ox 88 96 95 Oxygen Delivery Method Nasal Cannula Oxygen Flow Rate (L/min) 2 11/21/24 00:15 11/21/24 00:30 11/21/24 00:50 Temperature Temperature Source Pulse Rate 99 101 H 104 H Respiratory Rate 20 H 19 H 20 H Blood Pressure Blood Pressure Mean Pulse Ox 94 95 92 Oxygen Delivery Method Oxygen Flow Rate (L/min) 11/21/24 00:58 11/21/24 01:00 11/21/24 01:15 Temperature Temperature Source Pulse Rate 99 98 99 Respiratory Rate 19 H 17 19 H Blood Pressure 158/65 H 150/64 H Blood Pressure Mean 96 84 Pulse Ox 99 95 96 Oxygen Delivery Method Nasal Cannula Oxygen Flow Rate (L/min) 2 11/21/24 01:30 11/21/24 01:45 11/21/24 02:00 Temperature Temperature Source Pulse Rate 101 H 101 H 98 Respiratory Rate 18 18 16 Blood Pressure 153/55 H Blood Pressure Mean 87 Pulse Ox 96 96 95 Oxygen Delivery Method Nasal Cannula Oxygen Flow Rate (L/min) 2 11/21/24 02:00 11/21/24 02:15 11/21/24 02:30 Temperature Temperature Source Pulse Rate 99 98 100 Respiratory Rate 16 17 17 Blood Pressure 153/55 H Blood Pressure Mean 81 Pulse Ox 95 96 96 Oxygen Delivery Method Oxygen Flow Rate (L/min) 11/21/24 02:45 11/21/24 03:00 11/21/24 03:15 Temperature Temperature Source Pulse Rate 99 101 H 100 Respiratory Rate 18 15 18 Blood Pressure 162/63 H Blood Pressure Mean 89 Pulse Ox 96 95 97 Oxygen Delivery Method Oxygen Flow Rate (L/min) 11/21/24 03:30 11/21/24 03:45 11/21/24 04:00 Temperature Temperature Source Pulse Rate 99 Respiratory Rate 18 Blood Pressure 167/57 H Blood Pressure Mean 93 Pulse Ox 95 97 97 Oxygen Delivery Method Nasal Cannula Oxygen Flow Rate (L/min) 2 11/21/24 04:00 11/21/24 04:15 11/21/24 04:30 Temperature Temperature Source Pulse Rate Respiratory Rate Blood Pressure 167/57 H Blood Pressure Mean 87 Pulse Ox 96 96 97 Oxygen Delivery Method Oxygen Flow Rate (L/min) 11/21/24 04:45 11/21/24 05:03 11/21/24 05:15 Temperature Temperature Source Pulse Rate 97 Respiratory Rate 20 H 18 Blood Pressure Blood Pressure Mean Pulse Ox 96 88 Oxygen Delivery Method Oxygen Flow Rate (L/min) 11/21/24 05:30 11/21/24 05:45 11/21/24 05:53 Temperature Temperature Source Pulse Rate 97 103 H 104 H Respiratory Rate 15 17 28 H Blood Pressure Blood Pressure Mean Pulse Ox 94 94 94 Oxygen Delivery Method Nasal Cannula Oxygen Flow Rate (L/min) 2 11/21/24 05:53 11/21/24 06:00 11/21/24 06:15 Temperature Temperature Source Pulse Rate 103 H 104 H 106 H Respiratory Rate 32 H 20 H 29 H Blood Pressure 157/68 H 153/61 H Blood Pressure Mean 88 86 Pulse Ox 92 95 93 Oxygen Delivery Method Oxygen Flow Rate (L/min) 11/21/24 06:30 11/21/24 06:45 11/21/24 07:00 Temperature Temperature Source Pulse Rate 107 H 104 H Respiratory Rate 24 H 17 Blood Pressure 176/75 H Blood Pressure Mean 101 Pulse Ox 95 95 Oxygen Delivery Method Oxygen Flow Rate (L/min) 11/21/24 07:25 11/21/24 07:39 11/21/24 07:45 Temperature Temperature Source Pulse Rate 96 Respiratory Rate 20 H Blood Pressure Blood Pressure Mean Pulse Ox 95 92 96 Oxygen Delivery Method Oxygen Flow Rate (L/min) 11/21/24 08:00 11/21/24 08:15 11/21/24 08:30 Temperature Temperature Source Pulse Rate 92 91 96 Respiratory Rate 17 17 18 Blood Pressure 150/59 H Blood Pressure Mean 82 Pulse Ox 96 96 95 Oxygen Delivery Method Oxygen Flow Rate (L/min) 11/21/24 08:45 11/21/24 09:00 11/21/24 09:15 Temperature Temperature Source Pulse Rate 95 95 Respiratory Rate 20 H 17 18 Blood Pressure 71/48 L Blood Pressure Mean 56 Pulse Ox 96 95 96 Oxygen Delivery Method Oxygen Flow Rate (L/min) 11/21/24 09:23 11/21/24 09:30 Temperature Temperature Source Pulse Rate Respiratory Rate 25 H 23 H Blood Pressure 90/67 Blood Pressure Mean 76 Pulse Ox 96 96 Oxygen Delivery Method Oxygen Flow Rate (L/min) Weight Weight: 190 lb 14.725 oz Body Mass Index (BMI) 32.8 Physical Exam Const alert, oriented x3 and no apparent distress HEENT normocephalic and head/scalp atraumatic Eyes PERRL Neck full ROM Chest inspection of chest normal Resp normal respiratory effort and normal air movement Cardio regular rate and regular rhythm GI GI Narrative: Abdomen- soft, tenderness in the epigastric and right upper quadrant regions. Positive Rodríguez's sign. Left lower quadrant ostomy noted with stool within the stoma bag. no CVA tenderness Back/Spine no CVA tenderness Extremity normal to inspection Skin no rashes or lesions noted Neuro no focal motor deficits and no sensory deficits noted Psych mental status grossly normal and thought process normal Results Lab / Micro Data 11/21/24 06:51 11/21/24 06:51 Labs: Laboratory Results - last 24 hr 11/20/24 17:10: WBC 14.2 H, RBC 4.31, Hgb 13.8, Hct 39.8, MCV 92.3, MCH 32.0, MCHC 34.7, RDW Std Deviation 42.6, RDW Coeff of Axel 12.5, Plt Count 274, MPV 9.3, Immature Gran % (Auto) 0.600, Neut % (Auto) 86.8 H, Lymph % (Auto) 8.7 L, [place] % (Auto) 3.4, Eos % (Auto) 0.1, Baso % (Auto) 0.4, Absolute Neuts (auto) 12.4 H, Absolute Lymphs (auto) 1.23, Nucleated RBC % 0, Sodium 134, Potassium 5.5 H, Chloride 102, Carbon Dioxide 16.8 L, Anion Gap 15, BUN 14, Creatinine 0.76, Estim Creat Clear Calc 63.71, Est GFR (MDRD) Non-Af 81, BUN/Creatinine Ratio 18.8, Glucose 140 H, Calcium 9.4 11/20/24 19:56: Lactic Acid 1.5 11/20/24 20:42: Urine Color Yellow, Urine Clarity Sl. Cloudy, Urine pH 6.0, Ur Specific [place] 1.020, Urine Protein 30 H, Urine Glucose (UA) Normal, Urine Ketones Negative, Urine Occult Blood Negative, Urine Nitrite Negative, Urine Bilirubin Negative, Urine Urobilinogen Normal, Ur Leukocyte Esterase 25 H, UrineRBC 0-5 SEEN, Urine WBC 5-10 SEEN, Ur Squamous Epith Cells 0 SEEN, Urine Bacteria 1+, Urine Mucus RARE 11/21/24 06:51: WBC 14.7 H, RBC 4.03 L, Hgb 12.9, Hct 37.7, MCV 93.5, MCH 32.0, MCHC 34.2, RDW Std Deviation 43.8, RDW Coeff of Axel 12.8, Plt Count 257, MPV 9.3, Immature Gran % (Auto) 0.500, Neut % (Auto) 79.5 H, Lymph % (Auto) 11.2 L, [place] % (Auto) 8.2, Eos % (Auto) 0.4, Baso % (Auto) 0.2, Absolute Neuts (auto) 11.7 H, Absolute Lymphs (auto) 1.65, Nucleated RBC % 0, Sodium 141, Potassium 4.4, Chloride 108, Carbon Dioxide 21.1, Anion Gap 12, BUN 10, Creatinine 0.68 L,Estim Creat Clear Calc 63.71, Est GFR (MDRD) Non-Af 90, BUN/Creatinine Ratio 15.3, Glucose 151 H, Lactic Acid 1.1, Calcium 9.0, Total Bilirubin 0.59, Direct Bilirubin 0.30, AST 43 H, ALT 64 H, Alkaline Phosphatase 78, Total Protein 7.1, Albumin 4.0, Globulin 3.1, Lipase 29 ABG Data ABG results: ABG 11/20/24 20:05 Specimen Type CRISTY Sample Site Not entered VBG pH 7.40 VBG pO2 69 H VBG HCO3 20 L VBG Total CO2 21 L VBG O2 Sat (Calc) 94 H VBG Base Excess -5 L POC Mix VBG pCO2 Pt Tmp 32.1 L O2 Delivery Device Room Air Imaging Radiology Impression Abdomen/Pelvis CT 11/20/24 21:10 IMPRESSION: Distended gallbladder with ill-defined layering density, may represent sludge versus tiny stones. Right upper quadrant ultrasound may be helpful for further characterization. Left lower quadrant colostomy with a parastomal hernia containing a focal loop of transverse colon. No inflammatory changes of the bowel loops are demonstrated. One or more dose reduction techniques were used (e.g., Automated exposure control, adjustment of the mA and/or kV according to patient size, use of iterative reconstruction technique). Reading [facility] 11/21/24 06:25 IMPRESSION: Findings are suggestive of cholelithiasis with acute cholecystitis. Consider HIDA scan for further evaluation. Mild right hydronephrosis. ? Hepatic steatosis. Reading Location: [facility] Assessment & Plan Assessment/Plan (1) Acute calculous cholecystitis: (2) Parastomal hernia: QUALIFIERS: Obstruction and gangrene presence: without obstructionor gangrene Qualified Code(s): K43.5 - Parastomal hernia without obstruction organgrene PLAN: Plan I am seeing this patient in conjunction with Dr. Murry. He has independently evaluated this patient. Patient has a 2 day history of worsening upper abdominalpain which is now located in the right upper quadrant. RUQ u/s demonstrated acute cholecystitis with calculus. Dr. Murry will plan to preform a laparoscopiccholecystectomy with intraoperative cholangiogram. Procedure details, risks and benefits have been explained. Plan to admit patient for observation. Patient andher have had the opportunity to ask and have questions answered. Patientverbally understands agrees with the proposed plan. Patient also has a parastomal hernia as well, which will need to be addressed as an outpatientwithher colorectal surgeon, Dr. Edmondson. Thank you for allowing us toparticipate in this patient's care. Charges/Coding Visit Charges OBSV E&M: 47241 Observ/hosp same date L2 11/21/24 1154 Cosigner Signature (if applicable): CC: LAURA Allen; Dr. Afia Chacko MD; Dr. Nolan Murry MD~ Signed ADDENDUM by Dr. Nolan Murry MD on 11/21/24 at 1211 Addendum Patient, Mrs. Shafer, was seen and examined alongside of KATINA Harris. Appreciate and agree with her documentation given above. In brief, patientwas seen on 2 separate occasions in our ERyesterday for acute?onset abdominal pain which is described as beginning in the left side of the abdomen but becoming localized to the right upper quadrant. Pain has been associated with some nausea and vomiting and patient has demonstrated a leukocytosis with left shift on repeat labs. Likely owing to some initial reports of possible left sided abdominal discomfort workup was conducted to further evaluate patient's left lower quadrant colostomy where she was diagnosed with a parastomal hernia c ontaining a small segment of the transverse colon. I was contacted by the emergency department after this CT imaging was obtained last evening and agreed with radiology that there appeared to be no inflammatory changes or narrowing ofthe colon that was involved. Emergency medicine was due to try toreduce the hernia and was also, simultaneously, reaching out for colorectal surgery guidance after I discussed that we do not perform parastomal hernias at this institution. On my evaluation patient's pain is exclusively in the right upper quadrant and she has minimal tenderness about her colostomywith abundant output. Thus, with the acuity of patient's pain presentation, associated nauseaand vom iting, associated leukocytosis, her recent ultrasound findings, and her exam which records with diagnosis of acute cholecystitis I recommend admission and laparoscopic cholecystectomy with intraoperative cholangiography. Procedurewas described in detail?including potential need for subsequent ERCP if cholangiography is positive. Patient and her expressed understanding. Will now seek availability with the operating room to schedule patient for surgery. In the interim patient to be started on empiric IV antibiotic therapy and admitted to the hospital. Concerning patient's parastomal hernia, I do not believe this is an acute finding or one that requires acute intervention. Therefore we will plan to havepatient follow-up as an outpatient with her colorectal surgeon at the [facility]. Nolan Murry MD General Surgery Endocrine Surgery Pager: [facility] [address] [place] [address], [address] [place] [id number] Office: [phone] 11/21/24 [address] [facility] (if applicable): cc: LAURA Allen; Dr. Afia Chacko MD; Dr. Nolan Murry MD ~* Signed [facility]03-05-2025 [facility] Medical Records Department [address] [place] [address] History Physical Exam 11/21/24 1125 MR#: [id number] Acct: [id number] Name: KAYLENE SHAFER Rep #: [id number] : 1950 74 From: Kaci AMBRIZ PA-C PCP: Dr. Afia Chacko MD Status:[facility] Location: [facility] AC-TBA-2 HPI - General General Date of Admission: 11/21/24 Date of Service: 11/21/24 Chief Complaint: Abdominal pain HPI Narrative KAYLENE SHAFER, is a 74 F who presents with a 2 day history of abdominal pain. Patient states the pain was located in the left upper quadrant. She stated the pain woke her up at midnight Tuesday into Tuesday night. She notes the pain intensified and her brought her to the ED. A CT scan of the abd/pel was obtained with contrast demonstrating distended gallbladder with findings suggested of sludge and gallstones, colostomy in the left anterior lower quadrant, diverticula. Patient was discharged to home on trial of Protonix. Patient was discharged to home where she had several pieces of toast with butter. Patient states she then started to have nausea and vomiting. She presented back to the ED with nausea and vomiting along with pain in the right upper quadrant. CT scan of ab/pel was repeated w.o contrast demonstrating distended gallbladder, left lower quadrant colostomy with parastomal hernia containing focal loop of transverse bowel. No inflammatory changes of the bowel loops were noted. Abdominal u/s was obtained demonstrating moderately distended gallbladder with trace pericholecystic fluid, common bile duct measuring 7 mm. Mild right hydronephrosis. Patient notes her appetite has been the same since her symptoms started. She notes normal stool output through her colostomy. She denies the knowledge of having a parastomal hernia previously. Patient states she was diagnosed with rectal cancer in 2011. She was evaluated and had all treatment in [place]. Patient did not have surgical intervention for the rectal cancer. She had radiation. Patient had post-radiation changes with associated burning, diarrhea and rectal pain. Patient was referred to Dr. Shashank Edmondson at [facility] for a colostomy creation, which occurred in 2020. Patient notes she also is evaluated by Dr. Mcintyre for urinary urgency and frequency. She notes taking a medication for urinary incontinence. She denies any history of recurrent urinary tract infections. Patient notes in August 2024, she was in the ED for chest pain. Patient states she was evaluated by cardiology who recommended the patient have a stress test and ECHO, which is scheduled for end november. Patient states she no longer has the chest pain and no exertional chest pain. She believes the chest pain may have been from anxiety. Patient notes a history of sleep apnea and does where a CPAP machine. She notes her abdominal surgical history includes a laparoscopic left lower quadrant colostomy creation, abdominal cyst removal and partial hysterectomy. Patient's labs from today demonstrate WBC 14.7, Hgb 12.9, Hct 37.7, Plt 257. Liver panel notable for T. Bili 0.59, AST 43, ALT 64, Alk Phos 78 PFS Medical History Sinusitis, acute Anxiety Subclinical hypothyroidism Fatty liver Episode of hypertension Chest pain Depression Sleep apnea Hyperlipidemia Urinary incontinence History of malignant neoplasm of rectum, rectosigmoid junction, and anus Home Medications ???Medication ???Instructions ???Recorded ???Last Taken ???Type multivitamin 1 cap PO DAILY 03/06/19 Unknown Hi story calcium carbonate 600 mg PO QDAY 09/24/24 Unknown Hi story sertraline 100 mg tablet 100 mg PO QDAY 09/24/24 Unknown Hi story ascorbic acid (vitamin C) 500 mg 500 mg PO QDAY 11/02/24 Unknown Hi story tablet levothyroxine 25 mcg tablet 25 mcg PO QDAY 11/02/24 Unknown Hi story lisinopril 20 mg tablet 20 mg PO QDAY #90 tabs 11/02/24 Un known Rx metoprolol succinate 25 mg 25 mg PO QDAY #90 tabs 11/02/24 Un known Rx tablet,extended release 24 hr (Toprol XL) mirabegron 50 mg tablet,extended 50 mg PO QHS 11/02/24 Unknown Hist ory release 24 hr dicyclomine 20 mg tablet 20 mg PO TID PRN abdominal pain Unknown Rx #30 tabs hydrocodone-acetaminophen 5-325mg 1 tab PO Q4H PRN PRN Pain 2 days 11/20/24 Unknown Rx 5mg-325mg #10 TABLETS pantoprazole 40 mg tablet,delayed 40 mg PO DAILY #7 tabs 11/20/24 U nknown Rx release (Protonix) Allergy/AdvReac Type Severity Reaction Status Date / Time Penicillins Allergy Unknown rash Verified 11/20/24 16:18 Bromhexine and derivatives Allergy Rash Verified 11/20/24 16:18 Family History Father Heart disease Cancer Brother Heart disease Diabetes Surgical (more content not included)...[facility]03-05-2025 Radiology Diagnostic study note [facility] Imaging Services [address] [place] [address] Abdomen Limited MR#: [id number] Acct: [id number] Name: KAYLENE SHAFER Rep #: [id number] : 1950 F 74 From: Solange August MD PCP: Dr. Afia Chacko MD Status: REG ER Study:Abdomen Limited Date of Exam: 02/10 Exam# [id number] Ordering Dr: Emma Bean DO PROCEDURE: GALLBLADDER REASON FOR EXAM: Cholelithiasis COMPARISON: CT abdomen/pelvis performed on 11/20/2024. FINDINGS: Liver: Grossly normal size and mildly heterogeneous. Gallbladder: Moderately distended and contains sludge/stone. Sonographic Murphysign is negative. There is trace pericholecystic fluid Common bile duct: Normal measuring 7 mm. Pancreas: Visualized portions are sonographically unremarkable. Visualized portions of the right kidney demonstrates mild hydronephrosis. ascites. US/Abdomen Limited IMPRESSION: Findings are suggestive of cholelithiasis with acute cholecystitis. Consider HIDA scan for further evaluation. Mild right hydronephrosis. ? Hepatic steatosis. Reading Location: [id number] CC: Dr. Afia Chacko MD; Mateusz Bean DO ~ Database Specialist: Signed [facility]03-04-2025 Radiology Diagnostic study note [facility] Imaging Services [address] [place], [place] [id number] Abdomen/Pelvis without Cont MR#: [id number] Acct: [id number] Name: KAYLENE SHAFER Rep #: [id number] : 1950 F 74 From: Sergio Mehta DO PCP: Dr. Afia Chacko MD Status: REG ER Study:Abdomen/Pelvis without Cont Date of Exa m: 11/20/24 Exam# [id number] Ordering Dr: Kimberley Marinelli MD PROCEDURE: ABDOMEN/PELVIS WITHOUT CONT REASON FOR EXAM: Left lower quadrant pain. Leukocytosis. TECHNIQUE: Abdomen and pelvis CT with intravenous contrast. No oral contrast. IV CONTRAST: None COMPARISON: CT of the abdomen and pelvis obtained earlier today. FINDINGS: Lung bases: Clear Liver: Unremarkable. Gallbladder: Distended gallbladder with ill-defined layering density, may represent sludge versus tiny stones. Spleen: Unremarkable. Pancreas: Unremarkable. Adrenals: Unremarkable. Kidneys: Small bilateral parapelvic cysts. No evidence of hydronephrosis or nephrolithiasis. Bladder: Unremarkable. Reproductive Organs: Prior hysterectomy. Adnexal regions are unremarkable. Bowel: Residual oral contrast material is demonstrated within the large bowel. Status post left lower quadrant colostomy. There is evidence of a small parastomal hernia containing a focal loop of transverse colon. The stomach is decompressed limiting evaluation. No inflammatory changes of the bowel loops are demonstrated. Appendix: Normal. Lymph nodes: No suspicious lymph node enlargement. Vasculature: Major vascular structures are unremarkable. Peritoneum / Retroperitoneum: No ascites. No free air. Bones: Degenerative changes of the lumbar spine. CT/Abdomen/Pelvis without Cont IMPRESSION: Distended gallbladder with ill-defined layering density, may represent sludge versus tiny stones. Right upper quadrant ultrasound may be helpful for further characterization. Left lower quadrant colostomy with a parastomal hernia containing a focal loop of transverse colon. No inflammatory changes of the bowel loops are demonstrated. One or more dose reduction techniques were used (e.g., Automated exposure control, adjustment of the mA and/or kV according to patient size, use of iterative reconstruction technique). Reading Location[facility] CC: Dr. Afia Chacko MD; Dr. Alberto Marinelli MD ~ Database Specialist: Signed [facility]02-14-2025 Evaluation note* Diagnosis Onset Date Resolution Status Admit Date Chest pain acute November 02, 2024 12:51pm Episode of hypertension chronic F ebruary 2024 12:51pm Abdominal pain acute November 22, 2024 12:56pm Acute calculous cholecystitis acute November 22, 2024 12:56pm Diverticulosis of colon acute M 2024 12:56pm Fatty liver acute November 22 12:56pm High anion gap metabolic acidosis acute November 22, 2024 12:56pm Leukocytosis acute November 22 025 12:56pm Parastomal hernia acute November 222024 12:56pm Episode of hypertension chronic M 2024 12:56pm Hyperlipidemia chronic November 22, 2024 12:56pm Sleep apnea chronic November 22 12:56pm [facility] Work Phone: 1(730) 397-206602-14-2025 Evaluation note* Diagnosis Onset Date Resolution Status Admit Date Episode of hypertension acute F ebruary 2024 12:51pm Chest pain resolved November 02, 2024 12:51pm Diverticulosis of colon acute M 2024 12:56pm Episode of hypertension acute M 2024 12:56pm Fatty liver acute November 22 12:56pm Parastomal hernia acute November 222024 12:56pm Hyperlipidemia chronic November 22, 2024 12:56pm Sleep apnea chronic November 22 12:56pm Abdominal pain resolved November 22, 2024 12:56pm Acute calculous cholecystitis resolv ed November 22, 2024 12:56pm High anion gap metabolic acidosis resolved November 22, 2024 12:56pm Leukocytosis resolved November 22 025 12:56pm S/P cholecystectomy acute November 29, 2024 1:34pm Dyspnea acute December 12 2:00pm Episode of hypertension acute M 2024 2:00pm Chest pain resolved December 12 2:00pm [facility] Work Phone: 1(232) 605-188810-28-2024 Telephone encounter Note* Telephone Encounter - Elisa Rodrigues - 07/16/2024 12:51 PM EDT The patient is calling to request a refill on the NyStatin powder. Please leave a message if she misses your call. [phone] [facility]10[facility] Miscellaneous Notes* Telephone Encounter - Stiven MorilloElisa hunter - 07/16/2024 12:51 PM EDT The patient is calling to request a refill on the NyStatin powder. Please leave a message if she misses your call. [phone] documented [facility] encounterDo[facility] Hospital[facility] Miscellaneous Notes* Telephone Encounter - Kylee Lyman APRN.CNP - 04/11/2022 9:18 AM EDT COVID positive. Reached out and informed patient. Discussed viral etiology, supportive measures Did inform patient she was a potential candidate for Paxlovid. Encouraged her to call PCP or express care online. She was also offered to come to [facility] in Person. She is going to look up the drug and will go from there. documented in this encounterDoctors Hospital07-23-2022 Instructions* Patient Instructions* Mk Peralta APRN.CNP - 04/10/2022 11:29 AM EDT How to Manage Common Symptoms Associated with COVID for Adults Fever- Fever is a temperature over 100.4 F and can occur when the body is fighting an infection. Tohelp treat a fever: Drink plenty of fluids and stay well hydrated. Eat small amounts of easy to digest food. Rest. Your body needs rest to recover, but getting up and moving around the house frequently is a good idea. You should try to continue doing your normal daily activities (bathing, toileting, grooming, cooking), though you will probably feel tired, and need to rest often. Avoid any heavy activity or exercise, as this will increase your body temperature. Dress in light clothing and stay covered in a light sheet. Keep the room temperature cool. Take a slightly warm (not cold or cool) bath, or apply damp washcloths to the forehead and wrists. Cough- Cough is a common symptom associated with COVID and can be bothersome. To help treat a cough: Stay well hydrated. Try warm water or tea with lemon and/or honey to help soothe the cough. Use a humidifier to add moisture to the air. Try a product with menthol, like a cough drop or a rub for your chest such as Vicks, which can helpreduce cough. Try cough drops. Avoid smoking and other strong odors or perfumes. Try breathing exercises to keep your lungs open and clear. Take a big deep breath through your noseand hold for 5 seconds before slowly releasing. Repeat frequently, while you are awake. Congestion- Runny nose or nasal congestion can occur with COVID. Treatment can help relieve symptoms: Try OTC nasal saline spray, or nasal saline rinse to relieve mucus congestion. Nasal strips can help keep nasal passages open, to increase airflow. Elevating your head with an extra pillow in bed can help reduce congestion. Using a humidifier can increase moisture in the air, and make breathing easier. Sore Throat- Another common symptom with COVID, can be managed at home by: Stay well hydrated. Gargle with salt water mix teaspoon salt with 1 cup of warm water and gargle. This helps to loosen mucus in the back of the throat and may reduce discomfort. Try ice chips, popsicles or lozenges to soothe the throat. Nausea/Vomiting/Diarrhea- These are common symptoms, and staying hydrated is most important. If you are nauseous or vomiting, start with small sips of water every 10-15 minutes and increase astolerated. You can try sucking an ice cube too. If tolerating, you can try pedialyte or Gatorade, or flat sprite or yoshi-ronen. Start slowly and increase as you are able to. Instead of meals, try smaller, more frequent snacks. Try eating bland foods like crackers, toast, rice, and applesauce. Avoid spicy, greasy or fried foods and dairy containing foods. Even if you aren't feeling hungry due to lack of smell or taste, it is important to try to take in some food when you are able. After drinking and eating, rest in an upright position for up to two hours as needed to help decrease nauseous feelings. Try closing your eyes, avoid moving and watching TV. Avoid strong odors that can make you feel more nauseated. When to seek emergency medical attention Look for emergency warning signs for COVID-19. If having any of these symptoms, seek emergency medical care immediately: Trouble breathing Persistent pain or pressure in the chest New confusion Inability to wake or stay awake Bluish lips or face *This list is not all possible symptoms. Please call your medical provider for any other symptoms that are severe or concerning to you. documented in this encounterDoctors Hospital07-23-2022 History of Present illness Narrative* Mk Peralta APRN.CNP - 04/10/2022 11:26 AM EDT Subjective HPI Nontoxic-appearing female presents urgent care chief complaint headache cough low-grade temperature. Duration of symptoms 1 day. Associated symptoms listed above. Patient states she did take a positive home COVID-19 test today. States she has not tested positive for COVID-19 in the last 90 days. She is vaccine against COVID-19. Has used Mucinex Synex this has helped. No known sick contacts. No pain currently. Denies any high fever productive cough chest pain shortness of breath pleuritic pain hemoptysis nausea vomiting abdominal pain or change in bowel or bladder habits. Past medical history prescription medication use allergies reviewed. .Patient presents with: Headache: cough,low grade fever, tested positive for covid at home x 1 day PAST MEDICAL HISTORY Diagnosis Date Anal cancer (HCC) Cervical cancer (HCC) Depression Sleep apnea PAST SURGICAL HISTORY Procedure Laterality Date ABDOMINAL SURGERY HX HYSTERECTOMY PAST SURGICAL HISTORY OF sacral stimulator for urinary incontinence ALLERGIES Penicillins MEDICATIONS acetaminophen (TYLENOL) 325 mg tablet Take 2 tablets by mouth every 4 hours as needed for Pain. ibuprofen (MOTRIN) 200 mg tablet Take 2-4 tablets by mouth every 8 hours as needed for Pain. MULTIVITAMIN ORAL Take by mouth once daily. cholecalciferol, vitamin D3, (VITAMIN D3 ORAL) Take by mouth once daily. sertraline (ZOLOFT) 50 mg tablet Take 50 mg by mouth once daily. oxybutynin chloride (DITROPAN ORAL) Take by mouth once daily. FAMILY HISTORY Problem Relation Age of Onset other (Lung Cancer) Father Social History Tobacco Use Smoking status: Never Smoker Smokeless tobacco: Never Used Vaping Use Vaping Use: Never used Substance Use Topics Alcohol use: Not Currently Drug use: Not Currently BP 140/58 Pulse 85 Temp 37.6 C (99.7 F) Resp 20 Wt 84.9 kg (187 lb 3.2 oz) SpO2 98% BMI32.13 kg/m Review of Systems Constitutional: Positive for chills, fever and malaise/fatigue. HENT: Negative for congestion, ear discharge, ear pain, sinus pain and sore throat. Eyes: Negative for blurred vision, pain, discharge and redness. Respiratory: Positive for cough. Negative for hemoptysis, sputum production, shortness of breath, wheezing and stridor. Cardiovascular: Negative for chest pain. Gastrointestinal: Negative for abdominal pain, diarrhea, nausea and vomiting. Musculoskeletal: Positive for myalgias. Skin: Negative for itching and rash. Neurological: Positive for headaches. Negative for dizziness. Objective Physical Exam Constitutional: General: She is not in acute distress. Appearance: She is not diaphoretic. HENT: Head: Normocephalic. Eyes: Conjunctiva/sclera: Conjunctivae normal. Pupils: Pupils are equal, round, and reactive to light. Cardiovascular: Rate and Rhythm: Normal rate and regular rhythm. Heart sounds: Normal heart sounds. Pulmonary: Effort: Pulmonary effort is normal. No tachypnea, accessory muscle usage or respiratory distress. Breath sounds: Normal breath sounds. No stridor. No wheezing, rhonchi or rales. Abdominal: Palpations: Abdomen is soft. Tenderness: There is no abdominal tenderness. There is no guarding or rebound. Musculoskeletal: Cervical back: Normal range of motion and neck supple. No rigidity or tenderness. Lymphadenopathy: Cervical: No cervical adenopathy. Skin: General: Skin is warm and dry. Neurological: Mental Status: She is alert and oriented to person, place, and time. ASSESSMENT/PLAN: 1. Suspected COVID-19 virus infection - ICD9: V01.79, ICD10: Z20.822 - 2019 CORONAVIRUS Nontoxic-appearing vital signs within normal limits. COVID-19 PCR test obtained today. Will discusswith PCP if positive monoclonal antibodies versus antiviral medication. Patient was educated on supportive therapies. Patient will follow up with primary care provider as needed. Patient was instructed to immediately proceed to emergency room for any new, worsening, or symptoms lasting longer than anticipated. The patient's clinical presentation is otherwise unremarkable at this time. Based on exam and clinical finding, the patient is stable for discharge. Plan of care was discussed with patient. Patient verbalizes understanding and agrees to plan of care. This note was generated using [employer] software. It may contain errors in wording, punctuation, or spelling. Mk Peralta APRN.JOEY documented in this encounterDoctors HospitalEvatrium [facility] noteNo assessment information availableWSt. Rita's Hospital Work Phone: Evaluation note* Diagnosis Suspected COVID-19 virus infection- Primary documented in this encounter [facility] note* Diagnosis Fecal incontinence- Primary Full incontinence of feces Colostomy in place (HCC) Colostomy status Overweight Post-op pain Other acute postoperative pain Anal cancer (HCC) Malignant neoplasm of anus, unspecified site LAILA on CPAP Obstructive sleep apnea (adult) (pediatric) Depression Depressive disorder, not elsewhere classified Urinary incontinence Unspecified urinary incontinence Parastomal hernia without obstruction or gangrene- Primary Hernia of unspecified site of abdominal cavity without mention of obstruction or gangrene documented in this encounter [facility] note* Diagnosis Fecal incontinence- Primary Full incontinence of feces Colostomy in place (HCC) Colostomy status Overweight Post-op pain Other acute postoperative pain Anal cancer (HCC) Malignant neoplasm of anus, unspecified site LAILA on CPAP Obstructive sleep apnea (adult) (pediatric) Depression Depressive disorder, not elsewhere classified Urinary incontinence Unspecified urinary incontinence Parastomal hernia without obstruction or gangrene- Primary Hernia of unspecified site of abdominal cavity without mention of obstruction or gangrene Obesity, Class I, BMI 30-34.9 Obesity, unspecified documented in this encounter [facility] (narrative)No reason for referral information availableWSt. Rita's Hospital Work Phone: Summary Purpose Family History No Family History Records Found Relationship Condition Age at Onset Recorded Date/T arlin father Myocardial infarction Unknown brother Myocardial infarction Unknown Relationship Condition Age at Onset Recorded Date/T arlin father Cardiac disease Unknown Malignant neoplasm Unknown brother Cardiac disease Unknown Diabetes mellitus Unknown Advance Directives No Advanced Directives Records Found Advance Directive Response Recorded Date/ Time Living Will No December 24, 2021 11:13pm Power of Automobile Glass Technician No December 24 11:13pm Documents on File Type Date Recorded 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 Expl 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 Advance Directive(s) 02/25/2020 7:01 AM Advance Directive Response Recorded Date/ Time Living Will No December 24, 2021 10:13pm Power of Automobile Glass Technician No December 24 10:13pm Advance Directive Response Recorded Date/ Time Living Will Yes August 31, 024 3:49pm Power of Automobile Glass Technician No August 31, 2024 3:49pm Living Will No November 20, 2024 9:41am Power of Automobile Glass Technician No November 20 9:41am Living Will No November 21, 2024 7:57pm Power of Automobile Glass Technician Yes November 21 7:57pm Name of Medical Power of Automobile Glass Technician DARIO LOONEY November 21, 2024 7:57pm Advance Directive Response Recorded Date/ Time Living Will Yes August 31, 024 4:49pm Do you have a Healthcare Pow er of Automobile Glass Technician? No August 31, 2024 4:49pm Living Will No November 20, 2024 10:41am Do you have a Healthcare Pow er of Automobile Glass Technician? No November 20, 2024 10:41am Living Will No November 21, 2024 8:57pm Do you have a Healthcare Pow er of Automobile Glass Technician? Yes November 21, 2024 8:57pm Name of Medical Power of Automobile Glass Technician DARIO LOONEY November 21, 2024 8:57pm Advance Directive Response Recorded Date/ Time Living Will No November 20, 2024 10:41am Do you have a Healthcare Power of Automobile Glass Technician? No November 20, 2024 10:41am Living Will No November 21, 2024 8:57pm Do you have a Healthcare Power of Automobile Glass Technician? Yes November 21, 2024 8:57pm Name of Medical Power of Automobile Glass Technician DARIO LOONEY November 21, 2024 8:57pm Chief Complaint and Reason for Visit Chief Complaint general illness Chief Complaint general illness ELEVATED TRANSAMINASE, HX RECTAL CANCER,ATTN:LIVER Chief Complaint SCREENING LUNG NODULE Chief Complaint Admit Date cp August 31, 2024 3:24pm CP/S/P [facility] 08/31 ([facility]) November 02, 2024 12:51pm Abd pain November 20, 2024 7:17 am ACUTE CHOLECYSTITIS November 21, 2024 11:2 5am ACUTE CHOLECYSTITIS November 22, 2024 8:19 am ACUTE CHOLECYSTITIS November 22, 2024 12:5 6pm Reason for Visit Admit Date Chest pain November 02, 2024 12:51pm Episode of hypertension November 02 025 12:51pm Abdominal pain November 22, 2024 12:5 6pm Acute calculous cholecystitis November 22, 2024 12:56pm Diverticulosis of colon November 22, 2024 12:56pm Fatty liver November 22, 2024 12:5 6pm High anion gap metabolic acidosis November 22, 2024 12:56pm Leukocytosis November 22, 2024 12:5 6pm Parastomal hernia November 22, 2024 12:5 6pm Episode of hypertension November 22, 2024 12:56pm Hyperlipidemia November 22, 2024 12:5 6pm Sleep apnea November 22, 2024 12:5 6pm Chief Complaint Admit Date cp August 31, 2024 3:24pm CP/S/P [facility] 08/31 ([facility]) November 02, 2024 12:51pm Abd pain November 20, 2024 7:17 am ACUTE CHOLECYSTITIS November 21, 2024 11:2 5am ACUTE CHOLECYSTITIS November 22, 2024 8:19 am ACUTE CHOLECYSTITIS November 22, 2024 12:5 6pm ACUTE CHOLECYSTITIS November 23, 2024 11:0 8am GALLBLADDER 3-5 November 29, 2024 1:3 4pm Amb Documentation November 30, 2024 3:1 5pm CHEST PAIN December 10, 2024 7:0 9am 6 W FU December 12, 2024 2:0 0pm Reason for Visit Admit Date Episode of hypertension November 02, 2 025 12:51pm Chest pain November 02, 2024 12:51pm Diverticulosis of colon November 22, 2024 12:56pm Episode of hypertension November 22, 2024 12:56pm Fatty liver November 22, 2024 12:5 6pm Parastomal hernia November 22, 2024 12:5 6pm Hyperlipidemia November 22, 2024 12:5 6pm Sleep apnea November 22, 2024 12:5 6pm Abdominal pain November 22, 2024 12:5 6pm Acute calculous cholecystitis November 22, 2024 12:56pm High anion gap metabolic acidosis November 22, 2024 12:56pm Leukocytosis November 22, 2024 12:5 6pm S/P cholecystectomy November 29, 2024 1:3 4pm Dyspnea December 12, 2024 2:0 0pm Episode of hypertension December 12, 2024 2:00pm Chest pain December 12, 2024 2:0 0pm Chief Complaint Admit Date CP/S/P [facility] 08/31 ([facility]) November 02, 2024 12:51pm Abd pain November 20, 2024 7:17 am ACUTE CHOLECYSTITIS November 21, 2024 11:2 5am ACUTE CHOLECYSTITIS November 22, 2024 8:19 am ACUTE CHOLECYSTITIS November 22, 2024 12:5 6pm ACUTE CHOLECYSTITIS November 23, 2024 11:0 8am GALLBLADDER 3-5 November 29, 2024 1:3 4pm Amb Documentation November 30, 2024 3:1 5pm CHEST PAIN December 10, 2024 7:0 9am 6 W FU December 12, 2024 2:0 0pm Pain February 19, 2025 3:03p m Chief Complaint Admit Date CP/S/P [facility] 08/31 ([facility]) November 02, 2024 12:51pm Abd pain November 20, 2024 7:17 am ACUTE CHOLECYSTITIS November 21, 2024 11:2 5am ACUTE CHOLECYSTITIS November 22, 2024 8:19 am ACUTE CHOLECYSTITIS November 22, 2024 12:5 6pm ACUTE CHOLECYSTITIS November 23, 2024 11:0 8am GALLBLADDER 3-5 November 29, 2024 1:3 4pm Amb Documentation November 30, 2024 3:1 5pm CHEST PAIN December 10, 2024 7:0 9am 6 W FU December 12, 2024 2:0 0pm Pain February 19, 2025 3:03p m LUMBAR SPINE March 01, 2025 2:29 pm Room 3 March 01, 2025 2:47 pm Chief Complaint Admit Date GALLBLADDER 3-5 November 29, 2024 1:3 4pm Amb Documentation November 30, 2024 3:1 5pm CHEST PAIN December 10, 2024 7:0 9am 6 W FU December 12, 2024 2:0 0pm Pain February 19, 2025 3:03p m LUMBAR SPINE March 01, 2025 2:29 pm Room 3 March 01, 2025 2:47 pm 4 M FU March 29, 2025 11:4 1am Reason for Visit Admit Date S/P cholecystectomy November 29, 2024 1:3 4pm Dyspnea December 12, 2024 2:0 0pm Episode of hypertension December 12, 2024 2:00pm Chest pain December 12, 2024 2:0 0pm Degenerative disc disease (D DD) of lumbar region with discogenic back pain March 01, 2025 2:29pm Lumbar stenosis with neurogenic claudica tion March 01, 2025 2:29pm Chief Complaint Admit Date Pain February 19, 2025 3:03p m LUMBAR SPINE March 01, 2025 2:29 pm Room 3 March 01, 2025 2:47 pm 4 M FU March 29, 2025 11:4 1am BP CHECK April 12, 2025 1:03 pm INT LAB ORDERS April 12, 2025 1:29 pm Reason for Visit Admit Date Degenerative disc disease (D DD) of lumbar region with discogenic back pain March 01, 2025 2:29pm Lumbar stenosis with neurogenic claudica tion March 01, 2025 2:29pm Dyspnea March 29, 2025 11:4 1am Hypertension March 29, 2025 11:4 1am Health Concerns Infection Onset Date Last Indicated Resolved Time COVID-19 Confirmed 04/10/2022 04/10/2022 Additional Source Comments INFORMATION SOURCE (unrecogn ized section and content) DATE CREATED AUTHOR 01/01/2019 [facility] DATE CREATED AUTHOR AUTHOR'S ORGANIZ ATION 01/10/2019 [facility] DATE CREATED AUTHOR AUTHOR'S ORGANIZ ATION 02/22/2019 [facility] DATE CREATED AUTHOR AUTHOR'S ORGANIZ ATION 02/14/2025 [facility] DATE CREATED AUTHOR AUTHOR'S ORGANIZ ATION 04/18/2025 [facility] Goals (unrecognized section and content) Goals may be documented in a n alternate sectionGoals may be documented in an alternate sectionGoals may be documented in an alternate sectionGoals may be documented in an alternate sectionGoals may be documented in an alternate sectionGoals may be documented in an alternate sectionGoals may be documented in an alternate sectionGoals may be documented in an alternate section Source Comments (unrecognize d section and content) In the event this informatio n is protected by the Federal Confidentiality of Alcohol and Drug Abuse Patient Records regulations: The Federal rules restrict any use of the information to criminally investigate or prosecute any alcohol or drug abuse patient.[facility] Hospital[facility] the event this information is protected by the Federal Confidentiality of Alcohol and Drug Abuse Patient Records regulations: The Federal rules restrict any use of the information to criminally investigate or prosecute any alcohol or drug abuse patient.[facility] HospitalIn the event this information is protected by the Federal Confidentiality of Alcohol and Drug Abuse Patient Records regulations: The Federal rules restrict any use of the information to criminally investigate or prosecute any alcohol or drug abuse patient.[facility] HospitalIn the event this information is protected by the Federal Confidentiality of Alcohol and Drug Abuse Patient Records regulations: The Federal rules restrict any use of the information to criminally investigate or prosecute any alcohol or drug abuse patient.[facility] HospitalIn the event this information is protected by the Federal Confidentiality of Alcohol and Drug Abuse Patient Records regulations: The Federal rules restrict any use of the information to criminally investigate or prosecute any alcohol or drug abuse patient.[facility] HospitalIn the event this information is protected by the Federal Confidentiality of Alcohol and Drug Abuse Patient Records regulations: The Federal rules restrict any use of the information to criminally investigate or prosecute any alcohol or drug abuse patient.[facility] HospitalIn the event this information is protected by the Federal Confidentiality of Alcohol and Drug Abuse Patient Records regulations: The Federal rules restrict any use of the information to criminally investigate or prosecute any alcohol or drug abuse patient[facility] Reason for Visit (unrecogniz ed section and content) Reason Comments Headache cough,low grade feve r, tested positive for covid at home x 1 day Reason Comments Results Reason Onset Date Comments Refill Request 07/16/2024 Reason Comments Patient Question Reason Comments Patient Update Reason Comments Consult Specialty Diagnoses / Procedures Referred By Contac t Referred To Contact General Surgery Diagnoses Parastomal hernia without obstruction or gangrene Procedures CONSULT TO GENERAL SURGERY OFFICE/OUTPATIENT [facility] 60 MINUTES Shashank Edmondson MD [address] [place] [address] Phone: tel: fax: Referral ID Status Reason Start Date Expiration Date V isits Requested Visits Authorized [id number] Closed PCP Requested Referral 12/13/2024 12/13/2025 1 1 Care Teams (unrecognized sec tion and content) Professor Of French Relationship Specialty Start Date End Date Gadiel Rich MD [address] [address] PCP - General Internal Medicine 02/06/20 Professor Of French Relationship Specialty Start Date End Date Gadiel Rich MD [address] [place] [address] PCP - General Internal Medicine 02/06/20 Team Status: Active Member Role Status Dates Mary Navarro DO Primary Care Provider Active Team Status: Inactive Member Role Status Dates Dr. Adarsh Solano MD Primary Care Provider Active Mary Navarro DO Attending Provider Active Team Status: Inactive Member Role Status Dates Mary Navarro DO Primary Care Provider Active Dr. Eileen Duke MD Attending Provider, Referring P lukasz Active Team Status: Inactive Member Role Status Dates Mary Navarro DO Primary Care Provi adela, Attending Provider, Referring Provider Active Professor Of French Relationship Specialty Start Date End Date Gadiel Rich MD [address] [place] [address] PCP - General Internal Medicine 02/06/20 Professor Of French Relationship Specialty Start Date End Date Gadiel Rich MD [address] [place] [address] (Fax) PCP - General Internal Medicine 02/06/20 Professor Of French Relationship Specialty Start Date End Date Gadiel Rich MD [address] [place] [address] PCP - General Internal Medicine 02/06/20 Professor Of French Relationship Specialty Start Date End Date Gadiel Rich MD [address] [place] [address] PCP - General Internal Medicine 02/06/20 Team Status: Active Member Role Status Alva Chacko MD Primary Care Provider Active Team Status: Inactive Member Role Status Alva Chacko MD Primary Care Provider Active St art: August 31, 2024 End: August 31, 2024 Dr. Rosendo Cotton MD Attending Provider Active Start: August 31, 2024 End: August 31, 2024 Dr. Rosendo Cotton MD Emergency Provider Active Start: August 31, 2024 End: August 31, 2024 Team Status: Inactive Member Role Status Alva Chacko MD Primary Care Provider Active St art: September 10, 2024 End: September 10, 2024 Afia Chacko MD Attending Provider Active Start : September 10, 2024 End: September 10, 2024 Afia Chacko MD Referring Provider Active Start : September 10, 2024 End: September 10, 2024 Team Status: Inactive Member Role Status Alva Chacko MD Primary Care Provider Active St art: November 02, 2024 End: November 02, 2024 Afia Chacko MD Referring Provider Active Start : November 02, 2024 End: November 02, 2024 Dr. Booker Brennan MD Attending Provider Active S tart: November 02, 2024 End: November 02, 2024 Team Status: Inactive Member Role Status Alva Chacko MD Primary Care Provider Active St art: November 20, 2024 End: November 20, 2024 Dr. Misha Villeda DO Emergency Provider Active Start: November 20, 2024 End: November 20, 2024 Team Status: Active Member Role Status Alva Chacko MD Primary Care Provider Active St art: November 21, 2024 Dr. Alberto Marinelli MD Emergency Provider Active Sta rt: November 21, 2024 Dr. Nolan Murry MD Other Provider Active Sta rt: November 21, 2024 Kaci AMBRIZ PA-C Attending Provider Active Start: November 21, 2024 Team Status: Active Member Role Status Alva Chacko MD Primary Care Provider Active St art: November 22, 2024 Dr. Alberto Marinelli MD Emergency Provider Active Sta rt: November 22, 2024 Dr. Nolan Murry MD Admit Provider Active Sta rt: November 22, 2024 Dr. Nolan Murry MD Other Provider Active Sta rt: November 22, 2024 Kaci AMBRIZ PA-C Attending Provider Active Start: November 22, 2024 Team Status: Inactive Member Role Status Alva Chacko MD Primary Care Provider Active St art: November 22, 2024 End: November 23, 2024 Dr. Alberto Marinelli MD Emergency Provider Active Sta rt: November 22, 2024 End: November 23, 2024 Dr. Nolan Murry MD Admit Provider Active Sta rt: November 22, 2024 End: November 23, 2024 Dr. Nolan Murry MD Attending Provider Active Start: November 22, 2024 End: November 23, 2024 Team Status: Inactive Member Role Status Alva Chacko MD Primary Care Provider Active St art: November 20, 2024 End: November 20, 2024 Dr. Misha Villeda DO Attending Provider Active Start: November 20, 2024 End: November 20, 2024 Dr. Misha Villeda DO Emergency Provider Active Start: November 20, 2024 End: November 20, 2024 Team Status: Active Member Role Status Alva Chacko MD Primary Care Provider Active St art: November 21, 2024 Dr. Alberto Marinelli MD Emergency Provider Active Sta rt: November 21, 2024 Dr. Nolan Murry MD Attending Provider Active Start: November 21, 2024 Dr. Nolan Murry MD Other Provider Active Sta rt: November 21, 2024 Team Status: Active Member Role Status Alva Chacko MD Primary Care Provider Active St art: November 23, 2024 Dr. Alberto Marinelli MD Emergency Provider Active Sta rt: November 23, 2024 Dr. Nolan Murry MD Admit Provider Active Sta rt: November 23, 2024 Dr. Nolan Murry MD Attending Provider Active Start: November 23, 2024 Dr. Nolan Murry MD Other Provider Active Sta rt: November 23, 2024 Team Status: Inactive Member Role Status Alva Chacko MD Primary Care Provider Active St art: November 29, 2024 End: November 29, 2024 Afia Chacko MD Referring Provider Active Start : November 29, 2024 End: November 29, 2024 Kaci AMBRIZ, PA-C Attending Provider Active Start: November 29, 2024 End: November 29, 2024 Team Status: Active Member Role Status Alva Chacko MD Primary Care Provider Active St art: November 30, 2024 Misha Penaloza RN Attending Provider Active St art: November 30, 2024 Team Status: Inactive Member Role Status Alva Chacko MD Primary Care Provider Active St art: December 10, 2024 End: December 10, 2024 Dr. Booker Brennan MD Attending Provider Active S tart: December 10, 2024 End: December 10, 2024 Dr. Booker Brennan MD Referring Provider Active S tart: December 10, 2024 End: December 10, 2024 Team Status: Active Member Role Status Alva Chacko MD Primary Care Provider Active St art: December 10, 2024 Dr. Booker Brennan MD Attending Provider Active S tart: December 10, 2024 Team Status: Inactive Member Role Status Alva Chacko MD Primary Care Provider Active St art: December 12, 2024 End: December 12, 2024 Afia Chacko MD Referring Provider Active Start : December 12, 2024 End: December 12, 2024 KATINA Caro Attending Provider Active St art: December 12, 2024 End: December 12, 2024 Professor Of French Relationship Specialty Start Date End Date Gadiel Rich MD [address] [place] [address] PCP - General Internal Medicine 02/06/20 Team Status: Inactive Member Role Status Alva Chacko MD Primary Care Provider Active St art: February 19, 2025 End: February 19, 2025 Eloisa Hubbard ANTHROPOLOGIST, ANTHROPOLOGIST-C Attending Provider Active S tart: February 19, 2025 End: February 19, 2025 Eloisa Hubbard ANTHROPOLOGIST, ANTHROPOLOGIST-C Referring Provider Active S tart: February 19, 2025 End: February 19, 2025 Team Status: Active Member Role Status Alva Chacko MD Primary Care Provider Active St art: March 01, 2025 Afia Chacko MD Referring Provider Active Start : March 01, 2025 KATINA Goldsmith Attending Provider Active Star t: March 01, 2025 Team Status: Inactive Member Role Status Alva Chacko MD Primary Care Provider Active St art: March 01, 2025 End: March 01, 2025 Dr. Booker Brennan MD Attending Provider Active S tart: March 01, 2025 End: March 01, 2025 Team Status: Inactive Member Role Status Alva Chacko MD Primary Care Provider Active St art: March 01, 2025 End: March 01, 2025 Afia Chacko MD Referring Provider Active Start : March 01, 2025 End: March 01, 2025 KATINA Goldsmith Attending Provider Active Star t: March 01, 2025 End: March 01, 2025 Team Status: Active Member Role/Relationship Status Alva Chacko MD Primary Care Provider Active Team Status: Inactive Member Role/Relationship Status Alva Chacko MD Primary Care Provider Active St art: November 29, 2024 End: November 29, 2024 Afia Chacko MD Referring Provider Active Start : November 29, 2024 End: November 29, 2024 Kaci AMBRIZ PA-C Attending Provider Active Start: November 29, 2024 End: November 29, 2024 Team Status: Active Member Role/Relationship Status Alva Chacko MD Primary Care Provider Active St art: November 30, 2024 Misha Penaloza RN Attending Provider Active St art: November 30, 2024 Team Status: Inactive Member Role/Relationship Status Alva Chacko MD Primary Care Provider Active St art: December 10, 2024 End: December 10, 2024 Dr. Booker Brennan MD Attending Provider Active S tart: December 10, 2024 End: December 10, 2024 Dr. Booker Brennan MD Referring Provider Active S tart: December 10, 2024 End: December 10, 2024 Team Status: Active Member Role/Relationship Status Alva Chacko MD Primary Care Provider Active St art: December 10, 2024 Dr. Booker Brennan MD Attending Provider Active S tart: December 10, 2024 Team Status: Inactive Member Role/Relationship Status Alva Chacko MD Primary Care Provider Active St art: December 12, 2024 End: December 12, 2024 Afia Chacko MD Referring Provider Active Start : December 12, 2024 End: December 12, 2024 KATINA Caro Attending Provider Active St art: December 12, 2024 End: December 12, 2024 Team Status: Inactive Member Role/Relationship Status Alva Chacko MD Primary Care Provider Active St art: February 19, 2025 End: February 19, 2025 Eloisa Hubbard ANTHROPOLOGIST, ANTHROPOLOGIST-C Attending Provider Active S tart: February 19, 2025 End: February 19, 2025 Eloisa Hubbard ANTHROPOLOGIST, ANTHROPOLOGIST-C Referring Provider Active S tart: February 19, 2025 End: February 19, 2025 Team Status: Inactive Member Role/Relationship Status Alva Chacko MD Primary Care Provider Active St art: March 01, 2025 End: March 01, 2025 Afia Chacko MD Referring Provider Active Start : March 01, 2025 End: March 01, 2025 KATINA Goldsmith Attending Provider Active Star t: March 01, 2025 End: March 01, 2025 Team Status: Inactive Member Role/Relationship Status Alva Chacko MD Primary Care Provider Active St art: March 01, 2025 End: March 01, 2025 Dr. Booker Brennan MD Attending Provider Active S tart: March 01, 2025 End: March 01, 2025 Team Status: Inactive Member Role/Relationship Status Alva Chacko MD Primary Care Provider Active St art: March 29, 2025 End: March 29, 2025 Afia Chacko MD Referring Provider Active Start : March 29, 2025 End: March 29, 2025 KATINA Caro Attending Provider Active St art: March 29, 2025 End: March 29, 2025 Team Status: Inactive Member Role/Relationship Status Alva Chacko MD Primary Care Provider Active St art: February 19, 2025 End: February 19, 2025 Eloisa Hubbard ANTHROPOLOGIST, ANTHROPOLOGIST-C Attending Provider Active S tart: February 19, 2025 End: February 19, 2025 Eloisa Hubbard ANTHROPOLOGIST, ANTHROPOLOGIST-C Referring Provider Active S tart: February 19, 2025 End: February 19, 2025 Team Status: Inactive Member Role/Relationship Status Alva Chacko MD Primary Care Provider Active St art: March 01, 2025 End: March 01, 2025 Afia Chacko MD Referring Provider Active Start : March 01, 2025 End: March 01, 2025 KATINA Goldsmith Attending Provider Active Star t: March 01, 2025 End: March 01, 2025 Team Status: Inactive Member Role/Relationship Status Alva Chacko MD Primary Care Provider Active St art: March 01, 2025 End: March 01, 2025 Dr. Booker Brennan MD Attending Provider Active S tart: March 01, 2025 End: March 01, 2025 Team Status: Inactive Member Role/Relationship Status Alva Chacko MD Primary Care Provider Active St art: March 29, 2025 End: March 29, 2025 Afia Chacko MD Referring Provider Active Start : March 29, 2025 End: March 29, 2025 KATINA Caro Attending Provider Active St art: March 29, 2025 End: March 29, 2025 Team Status: Inactive Member Role/Relationship Status Alva Chacko MD Primary Care Provider Active St art: April 12, 2025 End: April 12, 2025 Afia Chacko MD Referring Provider Active Start : April 12, 2025 End: April 12, 2025 Dr. Booker Brennan MD Attending Provider Active S tart: April 12, 2025 End: April 12, 2025 Team Status: Active Member Role/Relationship Status Alva Chacko MD Primary Care Provider Active St art: April 12, 2025 KATINA Caro Attending Provider Active St art: April 12, 2025 KATINA Caro Referring Provider Active St art: April 12, 2025 Team Status: Inactive Member Role/Relationship Status Dates fAia Chacko MD Primary Care Provider Active St art: April 12, 2025 End: April 12, 2025 KATINA Caro Attending Provider Active St art: April 12, 2025 End: April 12, 2025 KATINA Caro Referring Provider Active St art: April 12, 2025 End: April 12, 2025 FOR RECORDS PERTAINING TO PATIENTS WHO ARE OR HAVE BEEN ENROLLED IN A CHEMICAL DEPENDENCY/SUBSTANCEABUSE PROGRAM, SOME INFORMATION MAY BE OMITTED. This clinical summary was aggregated from multiple sources. Caution should be exercised in using it in the provision of clinical care. This summary normalizes information from multiple sources, and as a consequence, information in this document may materially change the coding, format and clinical context of patient data. In addition, data may be omitted in some cases. CLINICAL DECISIONS SHOULD BE BASED ON THE PRIMARY CLINICAL RECORDS. [facility] provides no warranty or guarantee of the accuracy or completeness of information in this document.
[2025-09-11 10:54] LABS: AST(SGOT) 46 U/L (<=31); Alanine Aminotransfer ALT/SGPT 46 U/L (<=34); Albumin, Serum 4.5 g/dL (3.4-4.8); Alkaline Phosphatase 85 U/L (35-104); Anion Gap 13 (7-18); BUN 20 mg/dL (4-19); BUN/Creat Ratio 22.1 RATIO (10-20); Calcium,Total 10.0 mg/dL (7.6-11.0); Carbon Dioxide 22.1 mmol/L (20.0-29.0); Chloride 105 mmol/L (96-106); Cholesterol 147 mg/dL (<=200); Globulin 3.1 g/dL (2.2-4.2); Glucose 117 mg/dL (70-99); Low Density Lipoprotein Calc. 70 mg/dL; Potassium 4.3 mmol/L (3.5-5.1); Triglycerides 167 mg/dL; Very Low Density Lipoprotein 33 mg/dL (5-40); cholesterol:hdl ratio screen 2.99
== END | disposition home or self-care (01) ==
LOC: MTLAB 09:13
PROVIDERS: PCP Family Medicine; Referring Provider Family Medicine; Visit Provider Family Medicine
DX: E03.8 Other specified hypothyroidism (principal); E78.5 Hyperlipidemia, unspecified; K76.0 Fatty (change of) liver, not elsewhere classified; R73.9 Hyperglycemia, unspecified
CPT/HCPCS: 36415; 80053; 80061; 83036; 84443